=== PATIENT | female | born 1970 | race Caucasian/White ===

== ENCOUNTER 2020-08-30 09:31 | Outpatient (REF) | payer OTHER, SELFPAY ==
[2020-08-31 10:12] LABS: CT PCR NOT DETECTED (Not Detect.); NG PCR NOT DETECTED (Not Detect.)
[2020-08-31 12:24] LABS: BV Int Neg Control Negative (Negative); BV Int Pos Control Positive (Positive)
[2020-09-02 05:56] LABS: HPV mRNA E6/E7 rflx Not Detected (Not Detected)
== END 2020-08-30 09:32 | disposition home or self-care (01) ==
LOC: HO.LAB 09:31
PROVIDERS: PCP Internal Medicine; Visit Provider Obstetrics & Gynecology
DX: Z01.419 Encounter for gynecological examination (general) (routine) without abnormal findings (principal); Z11.3 Encounter for screening for infections with a predominantly sexual mode of transmission
CPT/HCPCS: 87480; 87491; 87510; 87591; 87624; 87660; 88142

== ENCOUNTER 2020-11-03 10:41 | Outpatient (REF) | payer OTHER, SELFPAY ==
[2020-11-03 13:56] LABS: MANUAL DIFF FLAG NO
[2020-11-03 14:07] LABS: Basophils Percent Auto 0.2 % (0-2); Eosinophils Absolute Auto 0.1 X10*3/uL (0.0-0.4); Eosinophils Percent Auto 0.7 % (0-4); Hematocrit 40.4 % (37-47); Hemoglobin 13.4 g/dl (12.0-16.0); Imm Gran Abs Auto 0.02 X10*3/uL (0.00-0.03); Imm Gran Pct Auto 0.2 % (0.0-0.4); Lymphocytes Absolute Auto 2.3 X10*3/uL (1.2-4.9); Lymphocytes Percent Auto 25.2 % (20-40); Mean Corpuscular HGB Conc 33.2 g/dl (31.0-35.0); Mean Corpuscular Hemoglobin 31.5 pg (27.0-33.0); Mean Corpuscular Volume 95.1 fL (80-98); Mean Platelet Volume 9.7 fL (9.4-12.3); Monocytes Absolute Auto 0.6 X10*3/uL (0.1-1.2); Monocytes Percent Auto 6.3 % (2-11); Neutrophils Absolute Auto 6.1 X10*3/uL (2.0-8.3); Neutrophils Percent Auto 67.4 % (45-73); Platelet Count 261 X10*3/uL (160-400); Red Blood Count 4.25 X10*6/uL (4.20-5.50); Red Cell Distribution Width 12.9 % (11.0-16.0); White Blood Count 9.1 X10*3/uL (4.8-10.8)
[2020-11-03 14:22] LABS: Anion Gap 13 (12-20); Blood Urea Nitrogen 13 mg/dL (9-16); Calcium 9.3 mg/dL (8.4-10.2); Carbon Dioxide 22 mmol/L (22-29); Chloride 108 mmol/L (96-108); Estimated Glomerular Filt Rate > 60; Glucose Random 82 mg/dL (60-115); Magnesium 2.1 mg/dL (1.6-2.6); Potassium 4.2 mmol/L (3.3-5.1); Sodium 139 mmol/L (135-145)
[2020-11-03 14:39] LABS: TSH reflex Free T4 0.96 uIU/mL (0.32-4.0)
[2020-11-08 18:12] LABS: Vitamin D 25-OH, D2 <4 ng/mL; Vitamin D 25-OH, D3 51 ng/mL; Vitamin D 25-OH, Total 51 ng/mL (30-100)
== END 2020-11-03 10:42 | disposition home or self-care (01) ==
LOC: HO.HMGCLDS 10:41
PROVIDERS: PCP Internal Medicine; Visit Provider Internal Medicine
DX: E55.9 Vitamin D deficiency, unspecified (principal); E66.9 Obesity, unspecified; F43.9 Reaction to severe stress, unspecified; I73.9 Peripheral vascular disease, unspecified; R52 Pain, unspecified; S91.009A Unspecified open wound, unspecified ankle, initial encounter; E03.8 Other specified hypothyroidism; Z72.0 Tobacco use
CPT/HCPCS: 36415; 80048; 82306; 83735; 84443; 85025

== ENCOUNTER 2021-12-25 07:01 | Outpatient (REF) | payer OTHER, SELFPAY ==
[2021-12-25 11:24] LABS: MANUAL DIFF FLAG NO
[2021-12-25 11:43] LABS: Basophils Percent Auto 0.6 % (0-2); Eosinophils Absolute Auto 0.2 X10*3/uL (0.0-0.4); Eosinophils Percent Auto 3.9 % (0-4); Hematocrit 35.8 % (37.0-47.0); Hemoglobin 11.9 g/dl (12.0-16.0); Imm Gran Abs Auto 0.01 X10*3/uL (0.00-0.03); Imm Gran Pct Auto 0.2 % (0.0-0.4); Lymphocytes Absolute Auto 1.8 X10*3/uL (1.2-4.9); Lymphocytes Percent Auto 34.1 % (20-40); Mean Corpuscular HGB Conc 33.2 g/dl (31.0-35.0); Mean Corpuscular Volume 93.2 fL (80.0-98.0); Mean Platelet Volume 9.7 fL (9.4-12.3); Monocytes Absolute Auto 0.6 X10*3/uL (0.1-1.2); Monocytes Percent Auto 10.3 % (2-11); Neutrophils Absolute Auto 2.7 x10*3/uL (2.0-8.3); Neutrophils Percent Auto 50.9 % (45-73); Platelet Count 246 X10*3/uL (160-400); Red Blood Count 3.84 X10*6/uL (4.20-5.50); Red Cell Distribution Width 13.8 % (11.0-16.0); White Blood Count 5.4 X10*3/uL (4.8-10.8)
[2021-12-25 12:20] LABS: Alanine Aminotransferase 32 U/L (0-31); Albumin Level 3.6 g/dL (3.5-5.0); Alkaline Phosphatase 68 U/L (39-117); Anion Gap 12 (12-20); Aspartate Amino Transferase 34 U/L (5-31); Bilirubin Total 0.2 mg/dL (0.0-1.0); Blood Urea Nitrogen 21 mg/dL (9-16); Calcium 8.6 mg/dL (8.4-10.2); Carbon Dioxide 22 mmol/L (22-29); Chloride 108 mmol/L (96-108); Cholesterol 174 mg/dL; Estimated Glomerular Filt Rate > 60; Glucose Fasting 98 mg/dL (60-99); HDL Cholesterol 47 mg/dL; LDL Cholesterol Calculated 94 mg/dl; Potassium 4.1 mmol/L (3.3-5.1); Sodium 138 mmol/L (135-145); Total Protein 7.1 g/dL (6.5-8.0); Triglycerides 169 mg/dL
[2021-12-25 12:41] LABS: TSH reflex Free T4 1.52 uIU/mL (0.32-4.0)
== END 2021-12-25 07:02 | disposition home or self-care (01) ==
LOC: HO.HMGCLDS 07:01
PROVIDERS: PCP Internal Medicine; Visit Provider Internal Medicine
DX: Z00.01 Encounter for general adult medical examination with abnormal findings (principal); F41.1 Generalized anxiety disorder; F32.4 Major depressive disorder, single episode, in partial remission; E66.9 Obesity, unspecified; G56.01 Carpal tunnel syndrome, right upper limb
CPT/HCPCS: 36415; 80053; 80061; 84443; 85025

== ENCOUNTER 2022-05-31 09:02 | Outpatient (REF) | payer OTHER, SELFPAY ==
--- NOTE | ~2022-05-31 | US_ITS ---
EXAMINATION: US VENOUS ULTRASOUND WITH DOPPLER LOWER EXTREMITY, LEFT CLINICAL INFORMATION: Left lower extremity pain and swelling. Assess for occult DVT. COMPARISON: Bilateral leg venous ultrasound with Doppler 07/31/2016. TECHNIQUE: Ultrasound of the deep veins is performed from the hip to the calf with compression sonography and color and pulse Doppler assessment. Spectral analysis with color-flow imaging is performed. FINDINGS: There is normal venous compression and respiratory variation and augmented flow. The visualized common femoral vein, superficial femoral vein, profunda femoral vein, popliteal vein, and the trifurcation region shows no evidence of deep venous thrombosis. There is a popliteal fossa cyst with some minor internal stranding and overall size 1.7 x 4.7 x 8.4 cm. US/US venous duplex LE LT IMPRESSION: -No DVT demonstrated in the left lower extremity. -Popliteal fossa cyst 1.7 x 4.7 x 8.4 cm.
== END 2022-05-31 09:03 | disposition home or self-care (01) ==
LOC: HO.HMGCX 09:02
PROVIDERS: PCP Internal Medicine; Visit Provider Internal Medicine
DX: I82.402 Acute embolism and thrombosis of unspecified deep veins of left lower extremity (principal)
CPT/HCPCS: 93971

== ENCOUNTER 2023-02-26 14:04 | Outpatient (AMB) | payer OTHER, SELFPAY ==
[2023-02-26 14:11] VITALS: BP 140/86; PULSE 76; O2SAT 96; BMI 40.7
--- NOTE | 2023-02-26 14:11 | MHC.PC.OV ---
Vital Signs 02/26/23 14:11 Height 5 ft 6 in Weight 252 lb BMI 40.7 BP 140/86 H Blood Pressure Location Lt brachial Position Sitting Pulse 76 Pulse Source Pulse Oximeter Pulse Oximetry (%) 96 Oxygen Delivery Method Room Air Intake Visit Reasons: Right Leg Issue's Allergies No Known Allergies [No Known Allergies*] Allergy (Verified 02/26/23 14:11) Medication List - Last Reconciled 02/26/23 by Alo Bennett MD ascorbic acid (vitamin C) 500 mg PO DAILY biotin 800 mcg PO DAILY buspirone 10 mg PO TID PRN 30 days cholecalciferol (vitamin D3) 25 mcg PO DAILY clotrimazole-betamethasone 1-0.05 % 1 appl topical ONCE 30 days escitalopram oxalate 10 mg PO DAILY escitalopram oxalate 20 mg PO DAILY 90 days ibuprofen 800 mg PO Q8H PRN 30 days levothyroxine 200 mcg PO DAILY levothyroxine 200 mcg PO DAILY 90 days sulfamethoxazole-trimethoprim 800-160 mg 1 tab PO Q12H vitamin B complex (Super B-50 Complex capsule) 1 cap PO DAILY Tobacco use date assessed: 02/26/23 Dental Screening Dental Screen Date: 02/26/23 Did you have a dental visit in the last 12 months?: No Did you have a dental problem in the last 6 months where you did not have access to dental care?: No Was dental information given to patient?: Patient has dentist HPI Right Leg Issue's HPI Details Patient is a 53-year-old female who was last seen December of last year Missed her regular follow-up appointment after that Patient have a peripheral vascular disease and she has developed open wound again right ankle Currently patient is going to wound clinic at [facility] Patient is requesting pain management again usually when that happens because of debridement pain she request narcotic pain management She is already on high-dose ibuprofen I have sent 21 tablets of Percocet she may take that before the wound clinic appointment She is also going through pre menopausal changes and is feeling bloated Patient says that she also feels swelling in her ankle which causes pain to get worse I have sent Lasix for the patient she may take 1 daily as needed. Tobacco abuse: Continue to smoke 1 pack per day patient says that she is ready to quit I have sent Nicoderm 21 mg patches Patient was instructed not to smoke while the patches on. She is also complaining of incontinence especially when she takes Lasix, at this point I think it will be better if she start wearing diapers since it is worse in the morning when she stands up. Anxiety and depression is stable patient is on Merissa prepped 20 mg Hypothyroidism: Continue levothyroxine 200 mcg She is due for labs Regular follow-up appointment discussed with the patient it is highly important that we see her at least 2 times a year in order to continue medications Patient is also morbidly obese with BMI of 40.7, having difficulty losing weight [facility], [facility] Medical History Peripheral vascular disease Chronic wound of extremity Vitamin D deficiency Other specified hypothyroidism Open ankle wound Surgical History History of tubal ligation Status post breast reduction Family History Father Lung cancer Smoker Mother Anxiety Maternal Grandfather No problems noted. Maternal Grandmother Cancer Paternal Grandmother No problems noted. Paternal Grandfather No problems noted. Brother No problems noted. Sister No problems noted. Sister No problems noted. Sister No problems noted. Sister No problems noted. Son No problems noted. Daughter No problems noted. Other Substance use disorder Social History Housing: House Alcohol intake: current Alcohol intake frequency: a few times a week Patient Tobacco Use Status: Current everyday Tobacco user Tobacco use type: Cigarette Cigarette Packs Per Day: 1 e-Cigarette/Vaping Use: Never Used service: No Current occupational status: employed Sexual orientation: Straight/Heterosexual Gender identity: Female Cognitive needs: No Hearing needs: No Vision needs: Yes Female Reproductive History Menstrual Age of Menarche: 15 Questionnaire PHQ-9 Over the last 2 weeks, how often have you been bothered by any of the following problems? 1. Little interest or pleasure in doing things: not at all 2. Feeling down, depressed, or hopeless: not at all 3. Trouble falling or staying asleep, or sleeping too much: not at all 4. Feeling tired or having little energy: not at all 5. Poor appetite or overeating: not at all 6. Feeling bad about yourself - or that you are a failure or have let yourself or your family down: not at all 7. Trouble concentrating on things, such as reading the newspaper or watching television: not at all 8. Moving or speaking so slowly that other people could have noticed. Or the opposite - being so fidgety or restless that you have been moving around a lot more than usual: not at all 9. Thoughts that you would be better off or of hurting yourself in some way: not at all Total score: 0 Depression Screening Interpretation: Negative Depression Screening Done: Yes 18158 - PHQ-9 Billing: Yes Source: Developed by Drs. Arjun Cantrell, Savannah Escoto, Macario Carrillo and colleagues, with an educational paul from [employer]. Thrive Questionnaire Date Thrive assessed: 01/17/22 CINDI-7 AMB Questionnaire CINDI-7 Date CINDI - 7 assessed: 01/17/22 Source: Developed by Drs. Arjun Cantrell, Savannah Escoto, Macario Carrillo and colleagues, with an educational paul from [employer]. Review of Systems Const Denies chills and Denies fever(s) ENT Denies epistaxis and Denies nasal discharge Card Denies chest pain Resp Denies chest congestion, Denies cough and Denies hemoptysis GI Denies diarrhea and Denies nausea Skin/Breast Denies rash Neuro Reports no additional complaints Psych Reports no additional complaints Endo Reports no additional complaints Physical exam (Primary Care) Vital Signs: Last Vital Signs Pulse 76 02/26/23 14:11 BP 140/86 H 02/26/23 14:11 Pulse Ox 96 02/26/23 14:11 Oxygen Delivery Method Room Air 02/26/23 14:11 BMI result Body Mass Index 40.7 Tobacco/Smoking Status: Tobacco use Status Tobacco use date assessed 02/26/23 02/26/23 14:17 Patient Tobacco Use Status Current everyday Tobacco 02/26/23 14:17 Tobacco use type Cigarette 02/26/23 14:17 e-Cigarette/Vaping Use Never Used 02/26/23 14:17 Depression Screening Interpretation: Negative Thrive Assessment: Date of Thrive Assessment Date Thrive assessed 01/17/22 02/26/23 14:17 Const General: cooperative, comfortable and no acute distress Orientation/consciousness: patient oriented x3 HENMT Head: Yes normocephalic Eyes General: appearance normal, both eyes and all related structures Neck Neck: Yes supple Resp Effort & Inspection: normal respiratory effort, no cough and no stridor Cardio Rhythm: regular rhythm Heart sounds: S1 normal heart sound present and S2 normal heart sound present Skin General skin exam: turgor normal Neuro General: patient oriented x3, tone normal and moves all extremities Extrem Other: Mild swelling both ankles, right ankle wrapped up Assessment and Plan Assessment & Plan (1) Peripheral vascular disease: Code(s): I73.9 - Peripheral vascular disease, unspecified (2) Open ankle wound: Code(s): S91.009A - Unspecified open wound, unspecified ankle, initial encounter Qualifiers: Encounter type: initial encounter Laterality: right Qualified Code(s): S91.001A - Unspecified open wound, right ankle, initial encounter (3) Other specified hypothyroidism: Code(s): E03.8 - Other specified hypothyroidism (4) Depression, major, in partial remission: Code(s): F32.4 - Major depressive disorder, single episode, in partial remission Qualifiers: Major depression recurrence: recurrent Qualified Code(s): F33.41 - Major depressive disorder, recurrent, in partial remission (5) Anxiety, generalized: Code(s): F41.1 - Generalized anxiety disorder (6) Tobacco abuse: Code(s): Z72.0 - Tobacco use (7) Stress incontinence: Code(s): N39.3 - Stress incontinence (female) (male) (8) Morbid obesity due to excess calories: Code(s): E66.01 - Morbid (severe) obesity due to excess calories (9) Pain management: Code(s): R52 - Pain, unspecified Plan Patient is a 53-year-old female who was last seen December of last year Missed her regular follow-up appointment after that Patient have a peripheral vascular disease and she has developed open wound again right ankle Currently patient is going to wound clinic at [facility] Patient is requesting pain management again usually when that happens because of debridement pain she request narcotic pain management She is already on high-dose ibuprofen I have sent 21 tablets of Percocet she may take that before the wound clinic appointment She is also going through pre menopausal changes and is feeling bloated Patient says that she also feels swelling in her ankle which causes pain to get worse I have sent Lasix for the patient she may take 1 daily as needed. Tobacco abuse: Continue to smoke 1 pack per day patient says that she is ready to quit I have sent Nicoderm 21 mg patches Patient was instructed not to smoke while the patches on. She is also complaining of incontinence especially when she takes Lasix, at this point I think it will be better if she start wearing diapers since it is worse in the morning when she stands up. Anxiety and depression is stable patient is on Merissa prepped 20 mg Hypothyroidism: Continue levothyroxine 200 mcg She is due for labs Regular follow-up appointment discussed with the patient it is highly important that we see her at least 2 times a year in order to continue medications Patient is also morbidly obese with BMI of 40.7, having difficulty losing weight Orders: Orders TSH reflex Free T4 Today E03.8 - Other specified hypothyroidism, F32.4 - Major depressive disorder, single episode, in partial remission, I73.9 - Peripheral vascular disease, unspecified, S91.009A - Unspecified open wound, unspecified ankle, initial encounter LDL Cholesterol Direct Today E03.8 - Other specified hypothyroidism, F32.4 - Major depressive disorder, single episode, in partial remission, I73.9 - Peripheral vascular disease, unspecified, S91.009A - Unspecified open wound, unspecified ankle, initial encounter Complete Blood Count Auto Diff Today E03.8 - Other specified hypothyroidism, F32.4 - Major depressive disorder, single episode, in partial remission, I73.9 - Peripheral vascular disease, unspecified, S91.009A - Unspecified open wound, unspecified ankle, initial encounter Comprehensive Met. Panel Today E03.8 - Other specified hypothyroidism, F32.4 - Major depressive disorder, single episode, in partial remission, I73.9 - Peripheral vascular disease, unspecified, S91.009A - Unspecified open wound, unspecified ankle, initial encounter Medications: New furosemide 20 mg PO QAM 30 tabs 0RF oxycodone-acetaminophen 5-325 mg (Percocet) Partial Fill upon patient request. 1 tab PO TID 7 days PRN 20 tabs 0RF pain nicotine (Nicoderm CQ) 1 patch transdermal DAILY 28 ea 0RF Discontinued buspirone Discontinued Reason: Patient Completed Course 10 mg PO TID 30 days PRN 90 tabs 0RF anxiety Coding Level of Care Code Est Pt Level 5 (89876) Diagnoses Peripheral vascular disease I73.9 Open wound of right ankle, initial encounter S91.001A Encounter type: initial encounter Laterality: right Other specified hypothyroidism E03.8 Recurrent major depressive disorder, in partial remission F33.41 Major depression recurrence: recurrent Anxiety, generalized F41.1 Tobacco abuse Z72.0 Stress incontinence N39.3 Morbid obesity due to excess calories E66.01 Pain management R52 Time Spent (min) 45 Comment 7 minute prep, 25 with patient, 13 minute charting and coordination of care
== END 2023-02-26 14:28 | disposition home or self-care (01) ==
PROVIDERS: PCP Internal Medicine; Visit Provider Internal Medicine
DX: I73.9 Peripheral vascular disease, unspecified (principal); F33.41 Major depressive disorder, recurrent, in partial remission; E66.01 Morbid (severe) obesity due to excess calories; Z68.41 Body mass index [BMI] 40.0-44.9, adult; S91.001A Unspecified open wound, right ankle, initial encounter; E03.8 Other specified hypothyroidism; F41.1 Generalized anxiety disorder; Z72.0 Tobacco use; N39.3 Stress incontinence (female) (male); R52 Pain, unspecified
CPT/HCPCS: 99215

== ENCOUNTER 2023-02-26 14:30 | Outpatient (REF) | payer OTHER, SELFPAY ==
[2023-02-26 15:51] LABS: MANUAL DIFF FLAG NO
[2023-02-26 16:10] LABS: Basophils Percent Auto 0.4 % (0-2); Eosinophils Absolute Auto 0.1 X10*3/uL (0.0-0.4); Eosinophils Percent Auto 1.4 % (0-4); Hematocrit 38.6 % (37.0-47.0); Hemoglobin 13.1 g/dl (12.0-16.0); Imm Gran Abs Auto 0.03 X10*3/uL (0.00-0.03); Imm Gran Pct Auto 0.4 % (0.0-0.4); Lymphocytes Absolute Auto 2.2 X10*3/uL (1.2-4.9); Lymphocytes Percent Auto 30.3 % (20-40); Mean Corpuscular HGB Conc 33.9 g/dl (31.0-35.0); Mean Corpuscular Hemoglobin 31.4 pg (27.0-33.0); Mean Corpuscular Volume 92.6 fL (80.0-98.0); Mean Platelet Volume 9.6 fL (9.4-12.3); Monocytes Absolute Auto 0.6 X10*3/uL (0.1-1.2); Monocytes Percent Auto 8.1 % (2-11); Neutrophils Absolute Auto 4.3 x10*3/uL (2.0-8.3); Neutrophils Percent Auto 59.4 % (45-73); Platelet Count 264 X10*3/uL (160-400); Red Blood Count 4.17 X10*6/uL (4.20-5.50); Red Cell Distribution Width 13.2 % (11.0-16.0); White Blood Count 7.3 X10*3/uL (4.8-10.8)
[2023-02-26 16:30] LABS: Alanine Aminotransferase 20 U/L (0-31); Alkaline Phosphatase 72 U/L (39-117); Anion Gap 12 (12-20); Aspartate Amino Transferase 22 U/L (5-31); Bilirubin Total 0.4 mg/dL (0.0-1.0); Blood Urea Nitrogen 19 mg/dL (9-16); Calcium 9.4 mg/dL (8.4-10.2); Carbon Dioxide 20 mmol/L (22-29); Chloride 110 mmol/L (96-108); Estimated Glomerular Filt Rate > 60; Glucose Random 93 mg/dL (60-115); Potassium 3.9 mmol/L (3.3-5.1); Sodium 138 mmol/L (135-145)
[2023-02-26 16:47] LABS: TSH reflex Free T4 3.72 uIU/mL (0.32-4.0)
[2023-02-28 09:33] LABS: LDL Cholesterol Direct 124 mg/dL (<100)
== END 2023-02-26 14:31 | disposition home or self-care (01) ==
LOC: HO.HMGCLDS 14:30
PROVIDERS: PCP Internal Medicine; Visit Provider Internal Medicine
DX: I73.9 Peripheral vascular disease, unspecified (principal); S91.009A Unspecified open wound, unspecified ankle, initial encounter; E03.8 Other specified hypothyroidism; F32.4 Major depressive disorder, single episode, in partial remission
CPT/HCPCS: 36415; 80053; 83721; 84443; 85025

== ENCOUNTER 2023-04-04 15:27 | Outpatient (AMB) | payer OTHER, SELFPAY ==
[2023-04-04 15:32] VITALS: BP 128/80; PULSE 76; O2SAT 97; BMI 40.5
--- NOTE | 2023-04-04 15:32 | MHC.PC.OV ---
Vital Signs 04/04/23 15:32 Height 5 ft 6 in Weight 251 lb BMI 40.5 BP 128/80 Blood Pressure Location Rt brachial Position Sitting Pulse 76 Pulse Source Pulse Oximeter Pulse Oximetry (%) 97 Oxygen Delivery Method Room Air Intake Visit Reasons: one month fu Allergies No Known Allergies [No Known Allergies*] Allergy (Verified 04/04/23 15:34) Medication List - Last Reconciled 04/04/23 by Alo Bennett MD ascorbic acid (vitamin C) 500 mg PO DAILY biotin 800 mcg PO DAILY cholecalciferol (vitamin D3) 25 mcg PO DAILY clotrimazole-betamethasone 1-0.05 % 1 appl topical ONCE 30 days escitalopram oxalate 20 mg PO DAILY 90 days furosemide 20 mg PO QAM ibuprofen 800 mg PO Q8H PRN 30 days levothyroxine 200 mcg PO DAILY 90 days nicotine (Nicoderm CQ) 1 patch transdermal DAILY oxycodone-acetaminophen 5-325 mg (Percocet) 1 tab PO TID PRN 7 days vitamin B complex (Super B-50 Complex capsule) 1 cap PO DAILY Tobacco use date assessed: 04/04/23 Dental Screening Dental Screen Date: 04/04/23 HPI one month fu HPI Details Physical exam appointment Due for OBGYN visit Due for mammogram Declined colonoscopy On examination today I feel lump 09:00 o'clock left side I have ordered ultrasound breast as well Patient have a history of breast reduction surgery years ago She has a peripheral vascular disease and currently going to a wound clinic for an open wound BMI 40.5 patient is trying to lose weight Still smoking half a pack a day and trying to quit [facility] Medical History Peripheral vascular disease Chronic wound of extremity Vitamin D deficiency Other specified hypothyroidism Open ankle wound Surgical History Status post breast reduction History of tubal ligation Family History Father Lung cancer Smoker Mother Anxiety Maternal Grandfather No problems noted. Maternal Grandmother Cancer Paternal Grandmother No problems noted. Paternal Grandfather No problems noted. Brother No problems noted. Sister No problems noted. Sister No problems noted. Sister No problems noted. Sister No problems noted. Son No problems noted. Daughter No problems noted. Other Substance use disorder Social History Housing: House Alcohol intake: current Alcohol intake frequency: a few times a week Patient Tobacco Use Status: Current everyday Tobacco user Tobacco use type: Cigarette Cigarette Packs Per Day: 1 e-Cigarette/Vaping Use: Never Used service: No Current occupational status: employed Sexual orientation: Straight/Heterosexual Gender identity: Female Cognitive needs: No Hearing needs: No Vision needs: Yes Female Reproductive History Menstrual Age of Menarche: 15 Questionnaire PHQ-9 Over the last 2 weeks, how often have you been bothered by any of the following problems? 1. Little interest or pleasure in doing things: not at all 2. Feeling down, depressed, or hopeless: not at all 3. Trouble falling or staying asleep, or sleeping too much: not at all 4. Feeling tired or having little energy: not at all 5. Poor appetite or overeating: not at all 6. Feeling bad about yourself - or that you are a failure or have let yourself or your family down: not at all 7. Trouble concentrating on things, such as reading the newspaper or watching television: not at all 8. Moving or speaking so slowly that other people could have noticed. Or the opposite - being so fidgety or restless that you have been moving around a lot more than usual: not at all 9. Thoughts that you would be better off or of hurting yourself in some way: not at all Total score: 0 Depression Screening Interpretation: Negative Depression Screening Done: Yes 95738 - PHQ-9 Billing: Yes Source: Developed by Drs. Arjun Cantrell, Savannah Escoto, Macario Carrillo and colleagues, with an educational paul from [employer]. Thrive Questionnaire Date Thrive assessed: 04/04/23 I am a: Patient What is your living situation today?: I have a steady place to live Within the past 12 months, did the food you bought not last and you didn't have the money to get more?: Never true Within the past 12 months, did you worry whether your food would run out before you got money to buy more?: Never true Do you have trouble paying for medicines?: No Do you have trouble getting transportation to medical appointments?: No Do you have trouble paying your heating and electricity bill?: No Do you have trouble taking care of your child, family member or friend?: No Do you have trouble with day-to-day activities such as bathing, preparing meals, shopping, managing finances, etc.?: No Are you currently unemployed and looking for a job?: No Are you interested in more education?: No Please select the resources that you would like help with: None Currently or been in a relationship where the following occur: no concerns reported AUDIT C Alcohol Use Questionnaire (AUDIT-C) 1. How often do you have a drink containing alcohol?: Monthly or less 2. How many drinks containing alcohol do you have on a typical day when you are drinking?: 1 or 2 3. How often do you have six or more drinks on one occasion?: Never Total Score: 1 CINDI-7 AMB Questionnaire CINDI-7 Date CINDI - 7 assessed: 04/04/23 Feeling nervous, anxious, or on edge: 0 = Not at all Not being able to stop or control worryin = Not at all Worrying too much about different things: 0 = Not at all Trouble relaxin = Not at all Being so restless that it is hard to sit still: 0 = Not at all Becoming easily annoyed or irritable: 0 = Not at all Feeling afraid as if something awful might happen: 0 = Not at all Total CINDI-7 score (0-4 normal; 5-9 mild; 10-14 moderate; 15-21 severe): 0 Source: Developed by Drs. Arjun Cantrell, Savannah Escoto, Macario Carrillo and colleagues, with an educational paul from [employer]. CINDI-7 Assessment Billing CINDI-7 Assessment Tool: CINDI-7 Assessment 48264 Review of Systems Const Denies chills, Denies fever(s) and Denies headache(s) Eyes Denies blurry vision ENT Denies headache(s), Denies nasal discharge, Denies nasal obstruction, Denies odynophagia and Denies sinus pain Card Denies chest pain at rest and Denies chest pain with activity Resp Denies cough and Denies hemoptysis GI Denies diarrhea, Denies odynophagia, Denies vomiting and Denies hematemesis Reports as per HPI Musc Denies abnormal gait Skin/Breast Reports as per HPI Neuro Denies Neuro-related abnormal movements, Denies Abnormal speech present, Denies abnormal gait, Denies headache(s) and Denies Sensory deficit (Neuro) Psych Denies mood swings and Denies paranoia Endo Reports as per HPI Pipe/Lymph Reports as per HPI Aller/Immun Reports as per HPI Physical exam (Primary Care) Vital Signs: Last Vital Signs Pulse 76 04/04/23 15:32 BP 128/80 04/04/23 15:32 Pulse Ox 97 04/04/23 15:32 Oxygen Delivery Method Room Air 04/04/23 15:32 BMI result Body Mass Index 40.5 Tobacco/Smoking Status: Tobacco use Status Tobacco use date assessed 04/04/23 04/04/23 15:38 Patient Tobacco Use Status Current everyday Tobacco 04/04/23 15:38 Tobacco use type Cigarette 04/04/23 15:38 e-Cigarette/Vaping Use Never Used 04/04/23 15:38 Are you ready to quit: Yes Tobacco cessation counseling provided: Yes Items discussed: Other (Encouraged patient to cut down 1 cigarette a day until the end of month. It is her new year's resolution to stop smoking from 28 of April) PHQ-9: PHQ-9 Score PHQ-9: Total score 0 04/04/23 15:38 Depression Screening Interpretation: Negative Thrive Assessment: Date of Thrive Assessment Date Thrive assessed 04/04/23 04/04/23 15:38 Currently or been in a relationship where the following occur: no concerns reported Const General: cooperative, comfortable and no acute distress Orientation/consciousness: patient oriented x3 HENMT Head: Yes normocephalic and Yes atraumatic Eyes General: appearance normal, both eyes and all related structures Pupils: Equal, round and reactive pupils present EOM: EOMs intact bilaterally Neck Neck: Yes supple and No lymphadenopathy Thyroid: Thyroid normal Lymphatic: no lymphadenopathy noted Chest Chest/axillae images: 1. Lump felt size of moss Resp Effort & Inspection: normal respiratory effort and able to speak in complete sentences Auscultation: clear to auscultation bilaterally Cardio Heart sounds: S1 normal heart sound present and S2 normal heart sound present GI Palpation (GI): Soft to palpation and nontender Auscultation: normal bowel sounds General: Yes no CVA tenderness Back/Spine/Pelvis Back: no CVA tenderness Skin General skin exam: elasticity normal and turgor normal Neuro General: patient oriented x3 and gait normal Cranial nerves: Yes Equal, round and reactive pupils present Speech: No Abnormal speech present Sensory Exam: No Sensory deficit (Neuro) Coordination: tandem gait normal and Romberg test negative Assessment and Plan Assessment & Plan (1) Encounter for general adult medical examination with abnormal findings: Code(s): Z00.01 - Encounter for general adult medical examination with abnormal findings (2) Breast lump on left side at 9 o'clock position: Code(s): N63.25 - Unspecified lump in the left breast, overlapping quadrants (3) Morbid obesity due to excess calories: Code(s): E66.01 - Morbid (severe) obesity due to excess calories (4) Depression, major, in partial remission: Code(s): F32.4 - Major depressive disorder, single episode, in partial remission Qualifiers: Major depression recurrence: recurrent Qualified Code(s): F33.41 - Major depressive disorder, recurrent, in partial remission (5) Peripheral vascular disease: Code(s): I73.9 - Peripheral vascular disease, unspecified (6) Other specified hypothyroidism: Code(s): E03.8 - Other specified hypothyroidism (7) Open ankle wound: Code(s): S91.009A - Unspecified open wound, unspecified ankle, initial encounter Qualifiers: Encounter type: initial encounter Laterality: right Qualified Code(s): S91.001A - Unspecified open wound, right ankle, initial encounter (8) Tobacco abuse: Code(s): Z72.0 - Tobacco use Plan Physical exam appointment Due for OBGYN visit Due for mammogram Declined colonoscopy On examination today I feel lump 09:00 o'clock left side I have ordered ultrasound breast as well Patient have a history of breast reduction surgery years ago She has a peripheral vascular disease and currently going to a wound clinic for an open wound BMI 40.5 patient is trying to lose weight Still smoking half a pack a day and trying to quit Orders: Orders US breast LT complete Today N63.25 - Unspecified lump in the left breast, overlapping quadrants MM tomosynthesis diagnostic BI Today N63.25 - Unspecified lump in the left breast, overlapping quadrants Referrals [employer] Referral Z01.419 - Encounter for gynecological examination (general) (routine) without abnormal findings Coding Level of Care Code Est Pt Prev Care 40-64y(63723) Diagnoses Encounter for general adult medical examination with abnormal findings Z00.01 Breast lump on left side at 9 o'clock position N63.25 Morbid obesity due to excess calories E66.01 Recurrent major depressive disorder, in partial remission F33.41 Major depression recurrence: recurrent Peripheral vascular disease I73.9 Other specified hypothyroidism E03.8 Open wound of right ankle, initial encounter S91.001A Encounter type: initial encounter Laterality: right Tobacco abuse Z72.0 Additional Codes CINDI-7 Assessment Billing - CINDI-7 Assessment Tool: CINDI-7 Assessment [id number] ([id number])
== END 2023-04-04 16:01 | disposition home or self-care (01) ==
PROVIDERS: PCP Internal Medicine; Visit Provider Internal Medicine
DX: Z00.01 Encounter for general adult medical examination with abnormal findings (principal); E66.01 Morbid (severe) obesity due to excess calories; F33.41 Major depressive disorder, recurrent, in partial remission; I73.9 Peripheral vascular disease, unspecified; N63.25 Unspecified lump in the left breast, overlapping quadrants; E03.8 Other specified hypothyroidism; S91.001A Unspecified open wound, right ankle, initial encounter; Z72.0 Tobacco use
CPT/HCPCS: 99396

== ENCOUNTER 2023-05-09 12:48 | Outpatient (REF) | payer OTHER, SELFPAY ==
--- NOTE | ~2023-05-09 | MM_ITS ---
EXAMINATION: MM DIAGNOSTIC DIGITAL BREAST TOMOSYNTHESIS, BILATERAL US BREAST LIMITED, LEFT MAMMOGRAPHY: CLINICAL INFORMATION: 53-year-old female, history of breast reduction complaining of palpable abnormality left breast at the 9:00 axis, middle one third. Patient also due for routine bilateral screening, has not had a mammogram since 09/04/2016. COMPARISON: Mammography: 09/04/2016. TECHNIQUE: Digital breast tomosynthesis is performed in both the craniocaudal and mediolateral oblique views along with computer-aided detection (CAD). Synthesized 2D images are generated from the tomosynthesis. In addition, 3-D spot compression views of the left breast were performed in the CC and MLO projections of the region of palpable concern. FINDINGS: The breasts are almost entirely fatty (ACR BI-RADS breast composition Category a). Technologist has placed a BB marker on the region of palpable concern in the left breast 9:00, which appears to lie directly on post mammoplasty scarring. No underlying mass, suspicious calcifications, or architectural distortion identified. Only linear scarring is seen, likely accounting for the palpable focus of concern. The right breast demonstrates dystrophic calcifications in the upper outer quadrant. Otherwise, no suspicious masses, grouped calcifications, or areas of architectural distortion. Unusual appearance of axillary lymph nodes which are densely calcified bilaterally, likely from a chronic etiology. Patient states a vague history of lymph node problem but can't remember the cause. These appear benign. ULTRASOUND: CLINICAL INFORMATION: As above. COMPARISON: None. TECHNIQUE: Targeted sonographic evaluation was performed using a high frequency linear transducer. Attention was given to the left breast 6-11:00 axes to include the palpable focus of concern. Selected archived documentation. FINDINGS: LEFT BREAST: There is predominantly fatty breast tissue present. No suspicious mass is seen. There is no pathologic acoustic shadowing. There is no cystic abnormality. In the region of palpable concern, there is subjacent scarring from remote mammoplasty, which appears to account for the palpable abnormality. MM/MM tomosynthesis diagnostic BI IMPRESSION: No findings suspicious for malignancy in either breast. Palpable focus of abnormality in the left breast at 9:00 appears to be related to scarring from prior reduction mammoplasty. This is benign. Recommend the patient resume routine annual screening. OVERALL ASSESSMENT: Mammography: BI-RADS 2 - Benign Findings Ultrasound: BI-RADS 2 - Benign Findings RECOMMENDATION: 1 year F/U This patient's information was entered into a reminder system with a target due date for their next mammogram.
== END 2023-05-09 12:49 | disposition home or self-care (01) ==
LOC: HO.MAMMO 12:48
PROVIDERS: PCP Internal Medicine; Visit Provider Internal Medicine
DX: N63.25 Unspecified lump in the left breast, overlapping quadrants (principal)
CPT/HCPCS: 76642; 77062; 77066

== ENCOUNTER → 2023-05-09 14:00 | Outpatient (BNV) | payer OTHER, SELFPAY | PROVIDERS: PCP Internal Medicine; Visit Provider Radiology Diagnostic Radiology | DX: R92.1 Mammographic calcification found on diagnostic imaging of breast (principal); R92.8 Other abnormal and inconclusive findings on diagnostic imaging of breast | CPT/HCPCS: 76642; 77062; 77066 ==

== ENCOUNTER 2023-09-03 13:18 | Outpatient (AMB) | payer OTHER, SELFPAY ==
--- NOTE | 2023-09-03 13:19 | A.OFFPC_ITS ---
Vital Signs 09/03/23 13:19 Height 5 ft 6 in Intake Visit Reasons: Discuss Meds~ [phone] Allergies No Known Allergies [No Known Allergies*] Allergy (Verified 09/03/23 13:19) Medication List - Last Reconciled 09/03/23 by Alo Bennett MD ascorbic acid (vitamin C) 500 mg PO DAILY biotin 800 mcg PO DAILY cholecalciferol (vitamin D3) 25 mcg PO DAILY clotrimazole-betamethasone 1-0.05 % 1 appl topical ONCE 30 days escitalopram oxalate 20 mg PO DAILY 90 days furosemide 20 mg PO QAM ibuprofen 800 mg PO Q8H PRN 30 days levothyroxine 200 mcg PO DAILY 90 days nicotine 1 patch transdermal DAILY 30 days oxycodone-acetaminophen 5-325 mg (Percocet) 1 tab PO TID PRN 10 days vitamin B complex (Super B-50 Complex capsule) 1 cap PO DAILY Tobacco use date assessed: 09/03/23 Dental Screening Dental Screen Date: 09/03/23 Did you have a dental visit in the last 12 months?: Yes Did you have a dental problem in the last 6 months where you did not have access to dental care?: No Was dental information given to patient?: Patient has dentist HPI Discuss Meds~ [phone] HPI Details Patient is a 53-year-old female this is a telemedicine video conference follow-up Patient have a peripheral vascular disease and she has developed open wound ri ght ankle since March of last year which is not healing Currently patient is going to wound clinic at [facility] She is taking ibuprofen a lot, recently she has developed infection in the wound and is now taking amoxicillin Whenever she has infection her pain gets worse, patient is requesting Percocet tablets I have sent 30 she may take that as needed She go for debridement every Friday She also take Lasix as needed Tobacco abuse: Continue to smoke 1 pack last her 1 and half day, she is requesting Nicoderm patches along with Nicorette gum I do not think insurance will cover for both, I have sent 14 mg patches if she is to use come as well she can buy it [id number]. Urine incontinence: Patient uses diapers as needed Anxiety and depression is stable patient is on escitalopram 20 mg Hypothyroidism: Continue levothyroxine 200 mcg She is due for [facility] Medical History Peripheral vascular disease Chronic wound of extremity Vitamin D deficiency Other specified hypothyroidism Open ankle wound Surgical History Status post breast reduction History of tubal ligation Family History Father Lung cancer Smoker Mother Anxiety Maternal Grandfather No problems noted. Maternal Grandmother Cancer Paternal Grandmother No problems noted. Paternal Grandfather No problems noted. Brother No problems noted. Sister No problems noted. Sister No problems noted. Sister No problems noted. Sister No problems noted. Son No problems noted. Daughter No problems noted. Other Substance use disorder Social History Housing: House Alcohol intake: current Alcohol intake frequency: a few times a week Patient Tobacco Use Status: Current everyday Tobacco user Tobacco use type: Cigarette Cigarette Packs Per Day: 1 e-Cigarette/Vaping Use: Never Used service: No Current occupational status: employed Sexual orientation: Straight/Heterosexual Gender identity: Female Cognitive needs: No Hearing needs: No Vision needs: Yes Female Reproductive History Menstrual Age of Menarche: 15 Questionnaire Thrive Questionnaire Date Thrive assessed: 04/04/23 AUDIT C Alcohol Use Questionnaire (AUDIT-C) 1. How often do you have a drink containing alcohol?: Monthly or less 2. How many drinks containing alcohol do you have on a typical day when you are drinking?: 1 or 2 3. How often do you have six or more drinks on one occasion?: Never Total Score: 1 Score Reviewed/Action Taken: Yes CINDI-7 AMB Questionnaire CINDI-7 Date CINDI - 7 assessed: 04/04/23 Source: Developed by Drs. Arjun Cantrell, Savannah Escoto, Macario Carrillo and colleagues, with an educational paul from [employer]. Review of Systems Const Denies chills and Denies fever(s) ENT Denies epistaxis and Denies nasal discharge Card Denies chest pain Resp Denies chest congestion and Denies hemoptysis GI Denies diarrhea and Denies nausea Skin/Breast Denies rash Neuro Reports no additional complaints Psych Reports no additional complaints Endo Reports no additional complaints Physical exam (Primary Care) Tobacco/Smoking Status: Tobacco use Status Tobacco use date assessed 09/03/23 09/03/23 13:20 Patient Tobacco Use Status Current everyday Tobacco 09/03/23 13:20 Tobacco use type Cigarette 09/03/23 13:20 e-Cigarette/Vaping Use Never Used 09/03/23 13:20 Thrive Assessment: Date of Thrive Assessment Date Thrive assessed 04/04/23 09/03/23 13:20 Telehealth Telehealth Telehealth Platform: [employer] Location of provider rendering services: practice address Location of patient: address on file Patient Identification confirmed using: Name, : Yes Telehealth method: video Patient verbally consented to treatment: Yes Patient verbally consented to billing insurance company: Yes Patient informed of any privacy concerns related to visit: Yes Assessment and Plan Assessment & Plan (1) Depression, major, in partial remission: Code(s): F32.4 - Major depressive disorder, single episode, in partial remission Qualifiers: Major depression recurrence: recurrent Qualified Code(s): F33.41 - Major depressive disorder, recurrent, in partial remission (2) Peripheral vascular disease: Code(s): I73.9 - Peripheral vascular disease, unspecified (3) Other specified hypothyroidism: Code(s): E03.8 - Other specified hypothyroidism (4) Open ankle wound: Code(s): S91.009A - Unspecified open wound, unspecified ankle, initial encounter Qualifiers: Encounter type: initial encounter Laterality: right Qualified Code(s): S91.001A - Unspecified open wound, right ankle, initial encounter (5) Tobacco abuse: Code(s): Z72.0 - Tobacco use (6) Anxiety, generalized: Code(s): F41.1 - Generalized anxiety disorder (7) Stress incontinence: Code(s): N39.3 - Stress incontinence (female) (male) (8) Pain management: Code(s): R52 - Pain, unspecified Plan Patient is a 53-year-old female this is a telemedicine video conference follow- up Patient have a peripheral vascular disease and she has developed open wound right ankle since March of last year which is not healing Currently patient is going to wound clinic at [facility] She is taking ibuprofen a lot, recently she has developed infection in the wound and is now taking amoxicillin Whenever she has infection her pain gets worse, patient is requesting Percocet tablets I have sent 30 she may take that as needed She go for debridement every Friday She also take Lasix as needed Tobacco abuse: Continue to smoke 1 pack last her 1 and half day, she is requesting Nicoderm patches along with Nicorette gum I do not think insurance will cover for both, I have sent 14 mg patches if she is to use come as well she can buy it [id number]. Urine incontinence: Patient uses diapers as needed Anxiety and depression is stable patient is on escitalopram 20 mg Hypothyroidism: Continue levothyroxine 200 mcg She is due for labs 30 minutes spent in care of this patient, including [id number], medication refills Charting Medications: Changed From oxycodone-acetaminophen 5-325 mg (Percocet) Partial Fill upon patient request. 1 tab PO TID 7 days PRN 20 tabs 0RF pain To oxycodone-acetaminophen 5-325 mg (Percocet) Partial Fill upon patient request. 1 tab PO TID PRN 30 tabs 0RF pain 10 days From nicotine (Nicoderm CQ) 1 patch transdermal DAILY 28 ea 0RF To nicotine 1 patch transdermal DAILY 28 ea 2RF 30 days Refilled furosemide 20 mg PO QAM 90 tabs 0RF escitalopram oxalate 20 mg PO DAILY 90 tabs 1RF anxiety 90 days F41.0 - Panic disorder [episodic paroxysmal anxiety] Coding Level of Care Code Tele Est Pt Level 4 (95224) Diagnoses Recurrent major depressive disorder, in partial remission F33.41 Major depression recurrence: recurrent Peripheral vascular disease I73.9 Other specified hypothyroidism E03.8 Open wound of right ankle, initial encounter S91.001A Encounter type: initial encounter Laterality: right Tobacco abuse Z72.0 Anxiety, generalized F41.1 Stress incontinence N39.3 Pain management R52
== END 2023-09-03 14:12 | disposition home or self-care (01) ==
LOC: HO.HMGC 13:18
PROVIDERS: PCP Internal Medicine; Visit Provider Internal Medicine
DX: I73.9 Peripheral vascular disease, unspecified (principal); F33.41 Major depressive disorder, recurrent, in partial remission; E03.8 Other specified hypothyroidism; S91.001A Unspecified open wound, right ankle, initial encounter; Z72.0 Tobacco use; F41.1 Generalized anxiety disorder; N39.3 Stress incontinence (female) (male); R52 Pain, unspecified
CPT/HCPCS: 99214

== ENCOUNTER 2023-12-05 07:47 | Outpatient (AMB) | payer OTHER, SELFPAY ==
--- NOTE | 2023-12-05 07:51 | A.OFFPC_ITS ---
Intake Visit Reasons: Pain management Questions Allergies No Known Allergies [No Known Allergies*] Allergy (Verified 09/03/23 13:19) Medication List - Last Reconciled 12/05/23 by Alo Bennett MD ascorbic acid (vitamin C) 500 mg PO DAILY biotin 800 mcg PO DAILY cholecalciferol (vitamin D3) 25 mcg PO DAILY clotrimazole-betamethasone 1-0.05 % 1 appl topical ONCE 30 days escitalopram oxalate 20 mg PO DAILY 90 days furosemide 20 mg PO QAM ibuprofen 800 mg PO Q8H PRN 30 days levothyroxine 200 mcg PO DAILY 90 days nicotine 1 patch transdermal DAILY 30 days oxycodone-acetaminophen 5-325 mg (Percocet) 1 tab PO TID PRN 10 days vitamin B complex (Super B-50 Complex capsule) 1 cap PO DAILY Tobacco use date assessed: 09/03/23 Dental Screening Dental Screen Date: 09/03/23 HPI Pain management Questions HPI Details Patient is a 53-year-old female who is suffering from lower leg wound due to vascular reason for the past 10 years off and on Currently patient is struggling with the healing process and is established with Wound Clinic Wound is located in her right lower leg Patient says that the wound has gotten worse over last few days She has appointment coming up with the Clinic, patient has a patient that she will be started on antibiotic She goes in for debridement which is very painful Currently she is taking Percocet t.i.d. with ibuprofen 800 b.i.d. She is requesting 1 month supply of Percocet and then she will come over and we will discuss it further Patient says that at this point it is difficult for her to continue working She is exploring options of disability. [facility] Medical History Peripheral vascular disease Chronic wound of extremity Vitamin D deficiency Other specified hypothyroidism Open ankle wound Surgical History Status post breast reduction History of tubal ligation Family History Father Lung cancer Smoker Mother Anxiety Maternal Grandfather No problems noted. Maternal Grandmother Cancer Paternal Grandmother No problems noted. Paternal Grandfather No problems noted. Brother No problems noted. Sister No problems noted. Sister No problems noted. Sister No problems noted. Sister No problems noted. Son No problems noted. Daughter No problems noted. Other Substance use disorder Social History Housing: House Alcohol intake: current Alcohol intake frequency: a few times a week Patient Tobacco Use Status: Current everyday Tobacco user Tobacco use type: Cigarette Cigarette Packs Per Day: 1 e-Cigarette/Vaping Use: Never Used service: No Current occupational status: employed Sexual orientation: Straight/Heterosexual Gender identity: Female Cognitive needs: No Hearing needs: No Vision needs: Yes Female Reproductive History Menstrual Age of Menarche: 15 Questionnaire Thrive Questionnaire Date Thrive assessed: 04/04/23 CINDI-7 AMB Questionnaire CINDI-7 Date CINDI - 7 assessed: 04/04/23 Source: Developed by Drs. Arjun Cantrell, Savannah Escoto, Macario Carrillo and colleagues, with an educational paul from [employer]. Review of Systems Const Denies chills and Denies fever(s) ENT Denies epistaxis and Denies nasal discharge Card Denies chest pain Resp Denies chest congestion, Denies cough and Denies hemoptysis GI Denies diarrhea and Denies nausea Skin/Breast Denies rash Neuro Reports no additional complaints Psych Reports no additional complaints Endo Reports no additional complaints Physical exam (Primary Care) Tobacco/Smoking Status: Tobacco use Status Tobacco use date assessed 09/03/23 09/03/23 13:20 Patient Tobacco Use Status Current everyday Tobacco 09/03/23 13:20 Tobacco use type Cigarette 09/03/23 13:20 e-Cigarette/Vaping Use Never Used 09/03/23 13:20 Thrive Assessment: Date of Thrive Assessment Date Thrive assessed 04/04/23 09/03/23 13:20 Telehealth Telehealth Telehealth Platform: [employer] Location of provider rendering services: practice address Location of patient: address on file Patient Identification confirmed using: Name, : Yes Telehealth method: video Patient verbally consented to treatment: Yes Patient verbally consented to billing insurance company: Yes Patient informed of any privacy concerns related to visit: Yes Minutes spent on Phone/Video with Pt.: 13 Assessment and Plan Assessment & Plan (1) Chronic wound of extremity: (2) Peripheral vascular disease: Code(s): I73.9 - Peripheral vascular disease, unspecified (3) Pain management: Code(s): R52 - Pain, unspecified Plan Patient is a 53-year-old female who is suffering from lower leg wound due to vascular reason for the past 10 years off and on Currently patient is struggling with the healing process and is established with Wound Clinic Wound is located in her right lower leg Patient says that the wound has gotten worse over last few days She has appointment coming up with the Clinic, patient has a patient that she will be started on antibiotic She goes in for debridement which is very painful Currently she is taking Percocet t.i.d. with ibuprofen 800 b.i.d. She is requesting 1 month supply of Percocet and then she will come over and we will discuss it further Patient says that at this point it is difficult for her to continue working She is exploring options of disability. Medications: Changed From oxycodone-acetaminophen 5-325 mg (Percocet) Partial Fill upon patient request. 1 tab PO TID 10 days PRN 30 tabs 0RF pain To Percocet 5-325 mg (oxycodone-acetaminophen) Partial Fill upon patient request. 1 tab PO TID 30 days PRN 90 tabs 0RF Wound right lower leg NS Coding Level of Care Code Tele Est Pt Level 3 (27875) Diagnoses Chronic wound of extremity Peripheral vascular disease I73.9 Pain management R52
== END 2023-12-05 08:07 | disposition home or self-care (01) ==
PROVIDERS: PCP Internal Medicine; Visit Provider Internal Medicine
DX: I73.9 Peripheral vascular disease, unspecified (principal); R52 Pain, unspecified
CPT/HCPCS: 99213

== ENCOUNTER 2024-01-02 13:58 | Outpatient (AMB) | payer OTHER, SELFPAY ==
[2024-01-02 14:11] VITALS: BP 136/80; PULSE 75; O2SAT 95; BMI 40.2
--- NOTE | 2024-01-02 14:11 | MHC.PC.OV ---
Vital Signs 01/02/24 14:11 Height 5 ft 6 in Weight 249 lb BMI 40.2 BP 136/80 Blood Pressure Location Lt brachial Position Sitting Pulse 75 Pulse Source Pulse Oximeter Pulse Oximetry (%) 95 Oxygen Delivery Method Room Air Intake Visit Reasons: 20 Day F/U Allergies No Known Allergies [No Known Allergies*] Allergy (Verified 01/02/24 14:11) Medication List - Last Reconciled 01/02/24 by Alo Bennett MD ascorbic acid (vitamin C) 500 mg PO DAILY biotin 800 mcg PO DAILY cholecalciferol (vitamin D3) 25 mcg PO DAILY clotrimazole-betamethasone 1-0.05 % 1 appl topical ONCE 30 days escitalopram oxalate 20 mg PO DAILY 90 days furosemide 20 mg PO QAM ibuprofen 800 mg PO Q8H PRN 30 days levothyroxine 200 mcg PO DAILY 90 days Percocet 5-325 mg (oxycodone-acetaminophen) 1 tab PO TID PRN 30 days NS vitamin B complex (Super B-50 Complex capsule) 1 cap PO DAILY Tobacco use date assessed: 01/02/24 Dental Screening Dental Screen Date: 01/02/24 Did you have a dental visit in the last 12 months?: Yes Did you have a dental problem in the last 6 months where you did not have access to dental care?: No Was dental information given to patient?: Patient has dentist HPI 20 Day F/U HPI Details Patient is a 53-year-old female who is suffering from lower leg wound due to vascular reason for the past 10 years off and on Currently patient is struggling with the healing process and is established with Wound Clinic Wound is located in her right lower leg Patient says that culture was taken Which came back positive for Enterococcus faecalis and Serratia Mercescens Antibiotic has started She is being treated at Wound Clinic [facility] She continued to feel severe pain at night Percocet t.i.d. 90 tablets sent Patient says that because of this wound she is having difficulty going through work With the end of the week before the debridement it starts smelling really bad Patient is feeling more and more depressed And overwhelmed having difficulty coping with this She also feels that she is eating more and smoking more because of that She is already taking medication for depression Patient says that she is going to explore going on disability She also would like to talk about the weight loss injections Side effect reviewed with the patient She is willing to take the risk Her mother is a nurse and she can administer the injection once a week Wegovy injections sent Patient will return before the end of 4 weeks to get her medications refill and to have follow-up on weight loss. [facility] Medical History Peripheral vascular disease Chronic wound of extremity Vitamin D deficiency Other specified hypothyroidism Open ankle wound Surgical History Status post breast reduction History of tubal ligation Family History Father Lung cancer Smoker Mother Anxiety Maternal Grandfather No problems noted. Maternal Grandmother Cancer Paternal Grandmother No problems noted. Paternal Grandfather No problems noted. Brother No problems noted. Sister No problems noted. Sister No problems noted. Sister No problems noted. Sister No problems noted. Son No problems noted. Daughter No problems noted. Other Substance use disorder Social History Housing: House Alcohol intake: current Alcohol intake frequency: a few times a week Patient Tobacco Use Status: Current everyday Tobacco user Tobacco use type: Cigarette Cigarette Packs Per Day: 1 e-Cigarette/Vaping Use: Never Used service: No Current occupational status: employed Sexual orientation: Straight/Heterosexual Gender identity: Female Cognitive needs: No Hearing needs: No Vision needs: Yes Female Reproductive History Menstrual Age of Menarche: 15 Questionnaire PHQ-9 Over the last 2 weeks, how often have you been bothered by any of the following problems? 1. Little interest or pleasure in doing things: nearly every day 2. Feeling down, depressed, or hopeless: several days 3. Trouble falling or staying asleep, or sleeping too much: nearly every day 4. Feeling tired or having little energy: several days 5. Poor appetite or overeating: several days 6. Feeling bad about yourself - or that you are a failure or have let yourself or your family down: not at all 7. Trouble concentrating on things, such as reading the newspaper or watching television: nearly every day 8. Moving or speaking so slowly that other people could have noticed. Or the opposite - being so fidgety or restless that you have been moving around a lot more than usual: not at all 9. Thoughts that you would be better off or of hurting yourself in some way: not at all Total score: 12 Depression Screening Interpretation: Positive Depression Screening Follow-up: Existing condition and In treatment Depression Screening Done: Yes 75444 - PHQ-9 Billing: Yes Source: Developed by Drs. Arjun Cantrell, Savannah Escoto, Macario Carrillo and colleagues, with an educational paul from [employer]. Thrive Questionnaire Date Thrive assessed: 01/02/24 I am a: Patient What is your living situation today?: I have a steady place to live Within the past 12 months, did the food you bought not last and you didn't have the money to get more?: Sometimes True Within the past 12 months, did you worry whether your food would run out before you got money to buy more?: Sometimes True Do you have trouble paying for medicines?: No Do you have trouble getting transportation to medical appointments?: No Do you have trouble paying your heating and electricity bill?: Yes Do you have trouble taking care of your child, family member or friend?: No Do you have trouble with day-to-day activities such as bathing, preparing meals, shopping, managing finances, etc.?: Yes Are you currently unemployed and looking for a job?: No Are you interested in more education?: No Please select the resources that you would like help with: None Currently or been in a relationship where the following occur: No concerns reported THRIVE Score: 3 AUDIT C Alcohol Use Questionnaire (AUDIT-C) 1. How often do you have a drink containing alcohol?: Monthly or less 2. How many drinks containing alcohol do you have on a typical day when you are drinking?: 3 or 4 3. How often do you have six or more drinks on one occasion?: Less than monthly Total Score: 3 Score Reviewed/Action Taken: Yes CINDI-7 AMB Questionnaire CINDI-7 Date CINDI - 7 assessed: 01/02/24 Feeling nervous, anxious, or on edge: 1 = Several days Not being able to stop or control worryin = Several days Worrying too much about different things: 1 = Several days Trouble relaxin = Several days Being so restless that it is hard to sit still: 0 = Not at all Becoming easily annoyed or irritable: 1 = Several days Feeling afraid as if something awful might happen: 1 = Several days Total CINDI-7 score (0-4 normal; 5-9 mild; 10-14 moderate; 15-21 severe): 6 Source: Developed by Drs. Arjun Cantrell, Savannah Escoto, Macario Carrillo and colleagues, with an educational paul from [employer]. CINDI-7 Assessment Billing CINDI-7 Assessment Tool: CINDI-7 Assessment 43332 Review of Systems Const Denies chills and Denies fever(s) ENT Denies epistaxis and Denies nasal discharge Card Denies chest pain Resp Denies chest congestion, Denies cough and Denies hemoptysis GI Denies diarrhea and Denies nausea Skin/Breast Denies rash Neuro Reports no additional complaints Psych Reports no additional complaints Endo Reports no additional complaints Physical exam (Primary Care) Vital Signs: Last Vital Signs Pulse 75 01/02/24 14:11 BP 136/80 01/02/24 14:11 Pulse Ox 95 01/02/24 14:11 Oxygen Delivery Method Room Air 01/02/24 14:11 BMI result Body Mass Index 40.2 Tobacco/Smoking Status: Tobacco use Status Tobacco use date assessed 01/02/24 01/02/24 14:13 Patient Tobacco Use Status Current everyday Tobacco 01/02/24 14:13 Tobacco use type Cigarette 01/02/24 14:13 e-Cigarette/Vaping Use Never Used 01/02/24 14:13 PHQ-9: PHQ-9 Score PHQ-9: Total score 12 01/02/24 14:28 Depression Screening Interpretation: Positive Depression Screening Follow-up: Existing condition and In treatment Thrive Assessment: Date of Thrive Assessment Date Thrive assessed 01/02/24 01/02/24 14:17 Currently or been in a relationship where the following occur: No concerns reported Const General: cooperative, comfortable and no acute distress Orientation/consciousness: patient oriented x3 HENMT Head: Yes normocephalic Eyes General: appearance normal, both eyes and all related structures Neck Neck: Yes supple Resp Effort & Inspection: normal respiratory effort, no cough and no stridor Cardio Rhythm: regular rhythm Heart sounds: S1 normal heart sound present and S2 normal heart sound present Skin General skin exam: turgor normal Neuro General: patient oriented x3, tone normal and moves all extremities Extrem Other: Her leg is wrapped Right lower extremity: no edema Left lower extremity: no edema Assessment and Plan Assessment & Plan (1) Chronic wound of extremity: (2) Stress incontinence: Code(s): N39.3 - Stress incontinence (female) (male) (3) Morbid obesity due to excess calories: Code(s): E66.01 - Morbid (severe) obesity due to excess calories (4) Peripheral vascular disease: Code(s): I73.9 - Peripheral vascular disease, unspecified (5) Pain management: Code(s): R52 - Pain, unspecified Plan Patient is a 53-year-old female who is suffering from lower leg wound due to vascular reason for the past 10 years off and on Currently patient is struggling with the healing process and is established with Wound Clinic Wound is located in her right lower leg Patient says that culture was taken Which came back positive for Enterococcus faecalis and Serratia Mercescens Antibiotic has started She is being treated at Wound Clinic [facility] She continued to feel severe pain at night Percocet t.i.d. 90 tablets sent Patient says that because of this wound she is having difficulty going through work With the end of the week before the debridement it starts smelling really bad Patient is feeling more and more depressed And overwhelmed having difficulty coping with this She also feels that she is eating more and smoking more because of that She is already taking medication for depression Patient says that she is going to explore going on disability She also would like to talk about the weight loss injections Side effect reviewed with the patient She is willing to take the risk Her mother is a nurse and she can administer the injection once a week Wegovy injections sent Patient will return before the end of 4 weeks to get her medications refill and to have follow-up on weight loss. Medications: New semaglutide (weight loss) (Wegovy) administer weeks 1 through 4 of therapy 0.25 mg (0.5 mL) subcut QWEEK 2 mL 0RF E66.01 - Morbid (severe) obesity due to excess calories, I82.409 - Acute embolism and thrombosis of unspecified deep veins of unspecified lower extremity, N39.3 - Stress incontinence (female) (male) Refilled Percocet 5-325 mg (oxycodone-acetaminophen) Partial Fill upon patient request. 1 tab PO TID 30 days PRN 90 tabs 0RF Wound right lower leg NS Coding Level of Care Code Est Pt Level 4 (81077) Complex EM visit Add On G2211 Diagnoses Chronic wound of extremity Stress incontinence N39.3 Morbid obesity due to excess calories E66.01 Peripheral vascular disease I73.9 Pain management R52 Additional Codes CINDI-7 Assessment Billing - CINDI-7 Assessment Tool: CINDI-7 Assessment 02202 ([id number])
== END 2024-01-02 14:41 | disposition home or self-care (01) ==
PROVIDERS: PCP Internal Medicine; Visit Provider Internal Medicine
DX: I73.9 Peripheral vascular disease, unspecified (principal); E66.01 Morbid (severe) obesity due to excess calories; I82.409 Acute embolism and thrombosis of unspecified deep veins of unspecified lower extremity; Z68.41 Body mass index [BMI] 40.0-44.9, adult; N39.3 Stress incontinence (female) (male); R52 Pain, unspecified
CPT/HCPCS: 99214; G2211

== ENCOUNTER 2024-01-30 10:41 | Outpatient (AMB) | payer OTHER, SELFPAY ==
--- NOTE | 2024-01-30 10:45 | A.OFFPC_ITS ---
Vital Signs 3 01/30/24 10:47 Height 5 ft 6 in Weight 249 lb 6 oz BMI 40.2 BP 136/78 Blood Pressure Location Lt brachial Position Sitting Pulse 69 Pulse Source Pulse Oximeter Pulse Oximetry (%) 95 Oxygen Delivery Method Room Air Intake Visit Reasons: office visit Allergies No Known Allergies [No Known Allergies*] Allergy (Verified 01/02/24 14:11) Medication List - Last Reconciled 01/30/24 by Alo Bennett MD clotrimazole-betamethasone 1-0.05 % 1 appl topical ONCE 30 days escitalopram oxalate 20 mg PO DAILY 90 days furosemide 20 mg PO QAM ibuprofen 800 mg PO Q8H PRN 30 days levothyroxine 200 mcg PO DAILY 90 days oxycodone-acetaminophen 5-325 mg (Percocet) 1 tab PO TID PRN 30 days semaglutide (weight loss) (Wegovy) 0.25 mg (0.5 mL) subcut QWEEK Tobacco use date assessed: 01/02/24 Dental Screening Dental Screen Date: 01/02/24 HPI office visit 2 HPI0 Details Patient is a 54-year-old female came in today for medication refill Continued to have pain right lower leg, she is established with Wound Care and is going for follow-ups regularly Her latest food picture installed in this note Patient is on Percocet 3 times a day Medication refills sent Patient is aware of side effects. [facility] Medical History Peripheral vascular disease Chronic wound of extremity Vitamin D deficiency Other specified hypothyroidism Open ankle wound Surgical History Status post breast reduction History of tubal ligation Family History Father Lung cancer Smoker Mother Anxiety Maternal Grandfather No problems noted. Maternal Grandmother Cancer Paternal Grandmother No problems noted. Paternal Grandfather No problems noted. Brother No problems noted. Sister No problems noted. Sister No problems noted. Sister No problems noted. Sister No problems noted. Son No problems noted. Daughter No problems noted. Other Substance use disorder Social History Housing: House Alcohol intake: current Alcohol intake frequency: a few times a week Patient Tobacco Use Status: Current everyday Tobacco user Tobacco use type: Cigarette Cigarette Packs Per Day: 1 e-Cigarette/Vaping Use: Never Used service: No Current occupational status: employed Sexual orientation: Straight/Heterosexual Gender identity: Female Cognitive needs: No Hearing needs: No Vision needs: Yes Female Reproductive History Menstrual Age of Menarche: 15 Questionnaire Thrive Questionnaire Date Thrive assessed: 01/02/24 I am a: Patient What is your living situation today?: I have a steady place to live Within the past 12 months, did the food you bought not last and you didn't have the money to get more?: Sometimes True Within the past 12 months, did you worry whether your food would run out before you got money to buy more?: Sometimes True Do you have trouble paying for medicines?: No Do you have trouble getting transportation to medical appointments?: No Do you have trouble paying your heating and electricity bill?: Yes Do you have trouble taking care of your child, family member or friend?: No Do you have trouble with day-to-day activities such as bathing, preparing meals, shopping, managing finances, etc.?: Yes Are you currently unemployed and looking for a job?: No Are you interested in more education?: No Please select the resources that you would like help with: None Currently or been in a relationship where the following occur: No concerns reported THRIVE Score: 3 CINDI-7 AMB Questionnaire CINDI-7 Date CINDI - 7 assessed: 01/02/24 Source: Developed by Drs. Arjun Cantrell, Savannah Escoto, Macario Carrillo and colleagues, with an educational paul from [employer] ([employer]). Review of Systems Const Denies chills and Denies fever(s) ENT Denies epistaxis and Denies nasal discharge Card Denies chest pain Resp Denies chest congestion, Denies cough and Denies hemoptysis GI Denies diarrhea and Denies nausea Skin/Breast Denies rash Neuro Reports no additional complaints Psych Reports no additional complaints Endo Reports no additional complaints Physical exam (Primary Care) Vital Signs: Last Vital Signs Pulse 69 01/30/24 10:47 BP 136/78 01/30/24 10:47 Pulse Ox 95 01/30/24 10:47 Oxygen Delivery Method Room Air 01/30/24 10:47 BMI result Body Mass Index 40.2 Tobacco/Smoking Status: Tobacco use Status Tobacco use date assessed 01/02/24 01/30/24 10:47 Patient Tobacco Use Status Current everyday Tobacco 01/30/24 10:47 Tobacco use type Cigarette 01/30/24 10:47 e-Cigarette/Vaping Use Never Used 01/30/24 10:47 Thrive Assessment: Date of Thrive Assessment Date Thrive assessed 01/02/24 01/30/24 10:47 Currently or been in a relationship where the following occur: No concerns reported Const General: cooperative, comfortable and no acute distress Orientation/consciousness: patient oriented x3 HENMT Head: Yes normocephalic Eyes General: appearance normal, both eyes and all related structures Neck Neck: Yes supple Resp Effort & Inspection: normal respiratory effort, no cough and no stridor Cardio Rhythm: regular rhythm Heart sounds: S1 normal heart sound present and S2 normal heart sound present Skin Other: General skin exam: turgor normal Neuro General: patient oriented x3, tone normal and moves all extremities Extrem Right lower extremity: no edema Left lower extremity: no edema Coding Level of Care Code Est Pt Level 3 (32816) Complex EM visit Add On G2211 Diagnoses Chronic wound of extremity Pain management R52 Assessment & Plan Assessment & Plan (1) Chronic wound of extremity: Category: Medical (2) Pain management: Code(s): R52 - Pain, unspecified Category: Medical Plan Patient is a 54-year-old female came in today for medication refill Continued to have pain right lower leg, she is established with Wound Care and is going for follow-ups regularly Her latest food picture installed in this note Patient is on Percocet 3 times a day Medication refills sent Medications: Refilled 2 semaglutide (weight loss) (Wegovy) administer weeks 1 through 4 of therapy 0.25 mg (0.5 mL) subcut QWEEK 2 mL 0RF E66.01 - Morbid (severe) obesity due to excess calories, I82.409 - Acute embolism and thrombosis of unspecified deep veins of unspecified lower extremity, N39.3 - Stress incontinence (female) (male) oxycodone-acetaminophen 5-325 mg (Percocet) Partial Fill upon patient request. generic can be dispensed 1 tab PO TID 30 days PRN 90 tabs 0RF Wound right lower leg
[2024-01-30 10:47] VITALS: BP 136/78; PULSE 69; O2SAT 95; BMI 40.2
== END 2024-01-30 11:15 | disposition home or self-care (01) ==
PROVIDERS: PCP Internal Medicine; Visit Provider Internal Medicine
DX: R52 Pain, unspecified (principal)

== ENCOUNTER → 2024-01-30 10:41 | Outpatient (BNVA) | payer OTHER, SELFPAY | PROVIDERS: PCP Internal Medicine; Visit Provider Internal Medicine | DX: S91.301D Unspecified open wound, right foot, subsequent encounter (principal); E66.01 Morbid (severe) obesity due to excess calories; N39.3 Stress incontinence (female) (male); Z86.718 Personal history of other venous thrombosis and embolism | CPT/HCPCS: 99212 ==

== ENCOUNTER 2024-03-04 08:15 | Outpatient (AMB) | payer OTHER, SELFPAY ==
--- NOTE | 2024-03-04 08:25 | A.OFFPC_ITS ---
Intake Visit Reasons: 1 months f/up Allergies No Known Allergies [No Known Allergies*] Allergy (Verified 03/04/24 08:25) Medication List - Last Reconciled 03/04/24 by Alo Bennett MD clotrimazole-betamethasone 1-0.05 % 1 appl topical ONCE 30 days escitalopram oxalate 20 mg PO DAILY 90 days furosemide 20 mg PO QAM ibuprofen 800 mg PO Q8H PRN 30 days levothyroxine 200 mcg PO DAILY 90 days oxycodone-acetaminophen 5-325 mg (Percocet) 1 tab PO TID PRN 30 days Tobacco use date assessed: 03/04/24 Dental Screening Dental Screen Date: 03/04/24 Did you have a dental visit in the last 12 months?: Yes Did you have a dental problem in the last 6 months where you did not have access to dental care?: No Was dental information given to patient?: Patient has dentist HPI 1 months f/up HPI Details Patient is a 54-year-old female this is a telemedicine conference to follow-up on her leg pain secondary to open wound She got three graft on leg wound which is healing well pain is better still has left over percocet, so dont need more at this time For weight management, got higher dose of semiglutide from pharm as they didnt had the smaller dose and took the whole thing rather then reducing dose in syringe, got really sick with Nausea and vomiting for 4 days dont want to take it again She has no other concern at this time [facility] Medical History Peripheral vascular disease Chronic wound of extremity Vitamin D deficiency Other specified hypothyroidism Open ankle wound Surgical History Status post breast reduction History of tubal ligation Family History Father Lung cancer Smoker Mother Anxiety Maternal Grandfather No problems noted. Maternal Grandmother Cancer Paternal Grandmother No problems noted. Paternal Grandfather No problems noted. Brother No problems noted. Sister No problems noted. Sister No problems noted. Sister No problems noted. Sister No problems noted. Son No problems noted. Daughter No problems noted. Other Substance use disorder Social History Housing: House Alcohol intake: current Alcohol intake frequency: a few times a week Patient Tobacco Use Status: Current everyday Tobacco user Tobacco use type: Cigarette Cigarette Packs Per Day: 1 e-Cigarette/Vaping Use: Never Used service: No Current occupational status: employed Sexual orientation: Straight/Heterosexual Gender identity: Female Cognitive needs: No Hearing needs: No Vision needs: Yes Female Reproductive History Menstrual Age of Menarche: 15 Questionnaire Thrive Questionnaire Date Thrive assessed: 01/02/24 AUDIT C Alcohol Use Questionnaire (AUDIT-C) 1. How often do you have a drink containing alcohol?: Monthly or less 2. How many drinks containing alcohol do you have on a typical day when you are drinking?: 3 or 4 3. How often do you have six or more drinks on one occasion?: Less than monthly Total Score: 3 Score Reviewed/Action Taken: Yes CINDI-7 AMB Questionnaire CINDI-7 Date CINDI - 7 assessed: 01/02/24 Source: Developed by Drs. Arjun Cantrell, Savannah Escoto, Macario Carrillo and colleagues, with an educational paul from [employer]. Review of Systems Const All systems reviewed & are unremarkable except as noted in HPI and below Physical exam (Primary Care) Tobacco/Smoking Status: Tobacco use Status Tobacco use date assessed 03/04/24 03/04/24 08:26 Patient Tobacco Use Status Current everyday Tobacco 03/04/24 08:26 Tobacco use type Cigarette 03/04/24 08:26 e-Cigarette/Vaping Use Never Used 03/04/24 08:26 Thrive Assessment: Date of Thrive Assessment Date Thrive assessed 01/02/24 03/04/24 08:26 Telehealth Telehealth Telehealth Platform: [facility] Location of provider rendering services: practice address Location of patient: address on file Patient Identification confirmed using: Name, : Yes Telehealth method: voice only Patient verbally consented to treatment: Yes Patient verbally consented to billing insurance company: Yes Patient informed of any privacy concerns related to visit: Yes Minutes spent on Phone/Video with Pt.: 13 Coding Level of Care Code Tele Est Pt Level 3 (60219) Diagnoses Chronic wound of extremity Pain management R52 Assessment & Plan Assessment & Plan (1) Chronic wound of extremity: Category: Medical (2) Pain management: Code(s): R52 - Pain, unspecified Category: Medical Plan Patient is a 54-year-old female this is a telemedicine conference to follow-up on her leg pain secondary to open wound She got three graft on leg wound which is healing well pain is better still has left over percocet, so dont need more at this time For weight management, got higher dose of semiglutide from pharm as they didnt had the smaller dose and took the whole thing rather then reducing dose in syringe, got really sick with Nausea and vomiting for 4 days dont want to take it again She has no other concern at this time Medications: Discontinued semaglutide (weight loss) (Wegovy) administer weeks 1 through 4 of therapy Discontinued Reason: Doctor's Order 0.25 mg (0.5 mL) subcut QWEEK 2 mL 0RF E66.01 - Morbid (severe) obesity due to excess calories, I82.409 - Acute embolism and thrombosis of unspecified deep veins of unspecified lower extremity, N39.3 - Stress incontinence (female) (male) semaglutide (weight loss) (Wegovy) administer weeks 13 through 16 of therapy Discontinued Reason: Doctor's Order 1.7 mg (0.75 mL) subcut QWEEK 30 days 3.75 mL 0RF
== END 2024-03-04 12:02 | disposition home or self-care (01) ==
LOC: HO.HMCC 08:15
PROVIDERS: PCP Internal Medicine; Visit Provider Internal Medicine
DX: R52 Pain, unspecified (principal)

== ENCOUNTER 2024-04-25 18:40 | Emergency (ER) | payer OTHER, SELFPAY ==
--- NOTE | ~2024-04-25 | CT_ITS ---
CLINICAL HISTORY: Left flank pain? Stone CT abdomen and pelvis without contrast Comparison: None Findings: Mild bibasilar atelectasis. Bilateral nephrolithiasis measure up to 0.4 cm. Mild left-sided hydroureteronephrosis secondary to 0.5 cm stone at the left ureterovesicular junction. Mild wall thickening of the urinary bladder likely accentuated by underdistention. Phleboliths are multifocal, including in the pelvis. Moderate left perinephric stranding additional stranding including about left renal pelvis and left ureter. 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 Right adrenal gland is normal. Liver, spleen, pancreas, and gallbladder are unremarkable for noncontrast CT. Vascular calcifications noted. Small mesenteric lymph nodes are nonspecific and may be reactive. Imaged appendix is retrocecal and nondilated (image number 59 of series 4). No small bowel obstruction. Large intestine diverticula including sigmoid colon without acute inflammation. Moderate to severe stool burden is present, including the cecum. No free intraperitoneal air. Uterus is anteverted measures 9.5 cm long axis. No adnexal soft tissue mass by CT with index cystic structure of the left ovary measuring 2.5 cm. Coccyx angulation appears old. Disc height loss is most pronounced at L5-S1. Degenerative changes also include facet arthropathy. Likely disc bulge at L4-L5 with spinal stenosis of the lower lumbar spine by CT. IMPRESSION: Mild left-sided hydroureteronephrosis secondary to 0.5 cm stone in the left ureterovesicular junction. This document has been electronically signed by: Wilber Lowery MD on 04/25/2024 20:10:28
[2024-04-25 18:52] VITALS: BP 162/96; PULSE 82; O2SAT 97
[2024-04-25 18:53] VITALS: BP 105/82; PULSE 98; RESP 18; TEMP 36.4; O2SAT 97; BMI 41.4
--- NOTE | 2024-04-25 18:56 | ED_ITS ---
HPI - Abdominal Pain General Chief Complaint: Abdominal Pain Stated Complaint: sharp L sided flank pain Time Seen by Provider: 04/25/24 18:56 Source: patient Mode of arrival: ambulatory Limitations: no limitations History of Present Illness ED Provider: HPI narrative: Patient with remote history of kidney stone in the past complaining of sudden onset of pain in left flank area 4 hours prior to arrival now just have discomfort in suprapubic area had nausea and vomited 1 time no fever no chills no gross hematuria no urinary symptoms Related Data Previous Rx's ?Medication ?Instructions ?Recorded clotrimazole-betamethasone 1 1 appl topical ONCE 30 days #45 11/14/21 %-0.05 % topical cream grams furosemide 20 mg tablet 20 mg PO QAM #90 tabs 09/03/23 ibuprofen 800 mg tablet 800 mg PO Q8H PRN pain 30 days #90 01/26/24 tabs oxycodone-acetaminophen 5 mg-325 1 tab PO TID PRN Wound right lower 01/30/24 mg tablet (Percocet) leg 30 days #90 tabs levothyroxine 200 mcg tablet 200 mcg PO DAILY 90 days #90 tabs 02/09/24 escitalopram oxalate 20 mg tablet 20 mg PO DAILY anxiety 90 days #90 03/02/24 tabs Allergies Allergy/AdvReac Type Severity Reaction Status Date / Time No Known Allergies Allergy Verified 04/25/24 18:56 [No Known Allergies*] Review of Systems Review of Systems Yes all other systems are reviewed and are negative PMFSH Past Medical History Medical History Peripheral vascular disease Chronic wound of extremity Vitamin D deficiency Other specified hypothyroidism Open ankle wound Surgical History Status post breast reduction History of tubal ligation Family History Family History Father Lung cancer Smoker Mother Anxiety Maternal Grandfather No problems noted. Maternal Grandmother Cancer Paternal Grandmother No problems noted. Paternal Grandfather No problems noted. Brother No problems noted. Sister No problems noted. Sister No problems noted. Sister No problems noted. Sister No problems noted. Son No problems noted. Daughter No problems noted. Other Substance use disorder Social History Social History Housing: House Alcohol intake: current Alcohol intake frequency: a few times a week Patient Tobacco Use Status: Current everyday Tobacco user Tobacco use type: Cigarette Cigarette Packs Per Day: 1 e-Cigarette/Vaping Use: Never Used Advance Directives: No Advance Directives Information Provided: Yes Do you have a plan to hurt others: No Plan service: No Current occupational status: employed Sexual orientation: Straight/Heterosexual Gender identity: Female Cognitive needs: No Hearing needs: No Vision needs: Yes Physical Exam ED Vital Signs: Vital Signs - 24 hr 04/25/24 18:53 Temperature 97.6 F Pulse Rate 98 Respiratory Rate 18 Blood Pressure 105/82 Pulse Oximetry 97 Oxygen Delivery Method Room Air BMI result Body Mass Index 41.4 Appearance: Alert. Oriented X3. No acute distress. Eyes: PERRLA, No Nystagmus ENT: Pharynx normal. Oral Mucosa moist Neck: Normal inspection. Neck supple. CVS: Normal heart rate and rhythm. Pulses normal. Respiratory: No respiratory distress. Equal air entry bilateral, no wheezing/rales/rhonchi Abdomen: Soft and nontender. Bowel sounds are present, no mass palpable, no CVA tenderness Skin: Skin warm and dry. Normal skin color. Normal skin turgor. Extremities: No lower extremity edema. No calf tenderness Neuro: Oriented X 3. No motor deficit. No sensory deficit.No cerebellar signs , cranial nerves II-XII intact Medical Decision Making Medical Decision Making [facility] Narrative: Patient has initially had left flank area no has just mild discomfort suprapubic area after CT scan patient urinated and passed small stone at this time patient is pain-free CT scan showed 0.5 cm stone at left ureteral vesicular junction likely which she passed will discharge patient home advised to follow up with PCP/urologist if any concerns Lab Data [facility] Lab Attestation statement: I reviewed the patient's lab results. 04/25/24 20:20 04/25/24 20:20 Labs: Lab Results 04/25/24 04/25/24 Range/Units 20:17 20:20 WBC 11.5 H (4.8-10.8) X10*3/uL RBC 3.94 L (4.20-5.50) X10*6/uL Hgb 12.3 (12.0-16.0) g/dl Hct 35.6 L (37.0-47.0) % MCV 90.4 (80.0-98.0) fL MCH 31.2 (27.0-33.0) pg MCHC 34.6 (31.0-35.0) g/dl RDW 13.4 (11.0-16.0) % Plt Count 223 (160-400) X10*3/uL MPV 8.9 L (9.4-12.3) fL Immature Gran % (Auto) 0.3 (0.0-0.4) % Neut % (Auto) 86.2 H (45-73) % Lymph % (Auto) 7.8 L (20-40) % [place] % (Auto) 5.3 (2-11) % Eos % (Auto) 0.1 (0-4) % Baso % (Auto) 0.3 (0-2) % Lymph # (Auto) 0.9 L (1.2-4.9) X10*3/uL [place] # (Auto) 0.6 (0.1-1.2) X10*3/uL Eos # (Auto) 0.0 (0.0-0.4) X10*3/uL Baso # (Auto) 0.0 (0.0-0.2) X10*3/uL Abs Immat Gran (auto) 0.04 H (0.00-0.03) X10*3/uL Absolute Neuts (auto) 9.9 H (2.0-8.3) x10*3/uL Absolute Nucleated RBC 0.000 (0.0-0.012) X10*3/uL Nucleated RBC % (auto) 0.0 (0.0-0.2) /100WBC Sodium 139 (135-145) mmol/L Potassium 3.6 (3.3-5.1) mmol/L Chloride 109 H (96-108) mmol/L Carbon Dioxide 21 L (22-29) mmol/L Anion Gap 13 (12-20) BUN 13 (9-16) mg/dL Creatinine 0.95 (0.5-1.4) mg/dL Estim Creat Clear Calc 89.8 Estimated GFR > 60 Random Glucose 125 H (60-115) mg/dL Calcium 8.8 D (8.4-10.2) mg/dL Total Bilirubin 0.3 (0.0-1.0) mg/dL AST 30 (5-31) U/L ALT 28 (0-31) U/L Alkaline Phosphatase 70 (39-117) U/L Total Protein 7.0 (6.5-8.0) g/dL Albumin 3.5 (3.5-5.0) g/dL Urine Color Yellow Urine Appearance Turbid Urine pH 6.5 (5.0-9.0) Ur Specific [place] 1.025 (1.005-1.025) Urine Protein Negative (Neg-Trace) mg/dL Urine Glucose (UA) Negative (Negative) mg/dL Urine Ketones 40 (Negative) mg/dL Urine Blood Small (1+) H (Negative) Urine Nitrite Negative (Negative) Ur Leukocyte Esterase Trace H (Negative) Urine RBC 0-2 (0-2) /HPF Urine WBC 6-10 H (0-5) /HPF Ur Squamous Epith Cells 3-5 (0-2) /HPF Urine Bacteria None Seen (None Seen) Hyaline Casts 3-5 (0-2) /LPF Granular Casts Present Independent Interpretation I performed an independent interpretation of an: CT Scan Radiology Impression Discussion of test interpretation with radiology: I have reviewed the radiologist's reading. Radiologist Impression: [place] [id number] CT Scan Report Signed Patient: Radha Bermudez MR#: [id number] : 1970 Acct:[id number] Age/Sex: 54 / F ADM Date: 04/25/24 Loc: .ED Attending Dr: Ordering Physician: Adarsh Garcia MD Date of Service: 04/25/24 Procedure(s): CT abdomen pelvis wo IV con Accession Number(s): [id number] cc: Alo Bennett MD; Adarsh Garcia MD~ Report Number: [id number]: Total DLP = 804.00 mGy-cm CLINICAL HISTORY: Left flank pain? Stone CT abdomen and pelvis without contrast Comparison: None Findings: Mild bibasilar atelectasis. Bilateral nephrolithiasis measure up to 0.4 cm. Mild left-sided hydroureteronephrosis secondary to 0.5 cm stone at the left ureterovesicular junction. Mild wall thickening of the urinary bladder likely accentuated by underdistention. Phleboliths are multifocal, including in the pelvis. Moderate left perinephric stranding additional stranding including about left renal pelvis and left ureter. 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 Right adrenal gland is normal. Liver, spleen, pancreas, and gallbladder are unremarkable for noncontrast CT. Vascular calcifications noted. Small mesenteric lymph nodes are nonspecific and may be reactive. Imaged appendix is retrocecal and nondilated (image number 59 of series 4). No small bowel obstruction. Large intestine diverticula including sigmoid colon without acute inflammation. Moderate to severe stool burden is present, including the cecum. No free intraperitoneal air. Uterus is anteverted measures 9.5 cm long axis. No adnexal soft tissue mass by CT with index cystic structure of the left ovary measuring 2.5 cm. Coccyx angulation appears old. Disc height loss is most pronounced at L5-S1. Degenerative changes also include facet arthropathy. Likely disc bulge at L4-L5 with spinal stenosis of the lower lumbar spine by CT. IMPRESSION: Mild left-sided hydroureteronephrosis secondary to 0.5 cm stone in the left ureterovesicular junction. This document has been electronically signed by: Wilber Lowery MD on 04/25/2024 20:10:28 Medications Administered Discontinued Medications Generic Name Dose Route Start Last Admin Trade Name Freq PRN Reason Stop Dose Admin Sodium Chloride 1,000 mls @ 999 mls/hr 04/25/24 18:58 04/25/24 21:52 Ns IV 04/25/24 19:58 Infused .Q1H1M ONE Infusion Ketorolac Tromethamine 30 mg 04/25/24 19:23 04/25/24 19:43 Ketorolac Tromethamine 30 Mg/Ml Vial IVPUSH 04/25/24 19:24 30 mg ONCE ONE Administration Morphine Sulfate 4 mg 04/25/24 18:57 04/25/24 19:02 Morphine Sulfate 4 Mg/Ml Cartridge IVPUSH 04/25/24 18:58 4 mg ONCE ONE Administration Protocol Morphine Sulfate 2 mg 04/25/24 21:03 04/25/24 21:11 Morphine Sulfate 2 Mg/Ml Cartridge IVPUSH 04/25/24 21:04 2 mg ONCE ONE Administration Protocol Ondansetron HCl 4 mg 04/25/24 18:57 04/25/24 19:02 Ondansetron Hcl 4 Mg/2 Ml Vial IVPUSH 04/25/24 18:58 4 mg ONCE ONE Administration Tamsulosin HCl 0.4 mg 04/25/24 21:07 04/25/24 21:12 Tamsulosin Hcl 0.4 Mg Capsule PO 04/25/24 21:08 0.4 mg ONCE ONE Administration Discharge Plan Discharge Clinical Impression: Renal colic on left side Patient Disposition: Home, Self-Care Instructions: Ureteral Stones (ED) Additional Instructions: Drink plenty of fluid You had 5 mm stone in the left side which likely passed Take Tylenol/Motrin for pain if any Follow up with urologist Prescriptions: No Action ibuprofen 800 mg tablet 800 mg PO Q8H PRN (Reason: pain) 30 Days Qty: 90 3RF levothyroxine 200 mcg tablet 200 mcg PO DAILY 90 Days Qty: 90 0RF escitalopram oxalate 20 mg tablet 20 mg PO DAILY 90 Days Qty: 90 1RF clotrimazole-betamethasone 1-0.05 % cream 1 appl topical ONCE 30 Days Qty: 45 0RF furosemide 20 mg tablet 20 mg PO QAM Qty: 90 0RF oxycodone-acetaminophen [Percocet] 5-325 mg tablet 1 tab PO TID PRN (Reason: Wound right lower leg) 30 Days Qty: 90 0RF Rx Instructions: Partial Fill upon patient request. generic can be dispensed Referrals: Mikael Whatley MD [Physician] - 3 days Stand Alone Forms: Work/School Release Interventions: ED Discharge Assessment Last Done: 04/25/24 22:35 Discharge Date/Time: 04/25/24 22:37 Print Language: Hebrew
[2024-04-25] MEDS: Morphine Sulfate 4 MG/ML CARTRIDGE IVPUSH (19:02)
[2024-04-25] MEDS: ondansetron HCL 4 MG/2 ML VIAL IVPUSH (19:02)
[2024-04-25] MEDS: 0.9 % Sodium Chloride 1,000 ML 999 ML IV (19:04)
--- NOTE | 2024-04-25 19:15 | PC.NURSE ---
Pt a&ox4. Pt requested and given emesis bag Plan of care ongoing.
--- NOTE | 2024-04-25 19:35 | PC.NURSE ---
Pt with CT Plan of care ongoing.
[2024-04-25] MEDS: Ketorolac Tromethamine 30 MG/ML VIAL IVPUSH (19:43)
--- NOTE | 2024-04-25 19:46 | PC.NURSE ---
Pt returned from ct Pt reporting 12/05 pain Pt medicated per mar Plan of care ongoing.
[2024-04-25 20:13] VITALS: RESP 14
[2024-04-25 20:30] LABS: MANUAL DIFF FLAG NO
[2024-04-25 20:31] LABS: Basophils Percent Auto 0.3 % (0-2); Eosinophils Percent Auto 0.1 % (0-4); Hematocrit 35.6 % (37.0-47.0); Hemoglobin 12.3 g/dl (12.0-16.0); Imm Gran Abs Auto 0.04 X10*3/uL (0.00-0.03); Imm Gran Pct Auto 0.3 % (0.0-0.4); Lymphocytes Absolute Auto 0.9 X10*3/uL (1.2-4.9); Lymphocytes Percent Auto 7.8 % (20-40); Mean Corpuscular HGB Conc 34.6 g/dl (31.0-35.0); Mean Corpuscular Hemoglobin 31.2 pg (27.0-33.0); Mean Corpuscular Volume 90.4 fL (80.0-98.0); Mean Platelet Volume 8.9 fL (9.4-12.3); Monocytes Absolute Auto 0.6 X10*3/uL (0.1-1.2); Monocytes Percent Auto 5.3 % (2-11); Neutrophils Absolute Auto 9.9 x10*3/uL (2.0-8.3); Neutrophils Percent Auto 86.2 % (45-73); Platelet Count 223 X10*3/uL (160-400); Red Blood Count 3.94 X10*6/uL (4.20-5.50); Red Cell Distribution Width 13.4 % (11.0-16.0); White Blood Count 11.5 X10*3/uL (4.8-10.8)
[2024-04-25 20:32] LABS: Appearance Urine Turbid; Color Urine Yellow; Glucose Urine UA Negative (Negative); Leukocyte Esterase Urine Trace (Negative); Nitrite Urine Negative (Negative); PH 6.5 (5.0-9.0); Specific Gravity - Urine 1.025 (1.005-1.025); UMIC TRIGGER UACC YES; Urine Blood Small (1+) (Negative); Urine Ketones 40 mg/dL (Negative); Urine Protein Negative (Neg-Trace)
[2024-04-25 20:45] LABS: Alanine Aminotransferase 28 U/L (0-31); Albumin Level 3.5 g/dL (3.5-5.0); Alkaline Phosphatase 70 U/L (39-117); Anion Gap 13 (12-20); Aspartate Amino Transferase 30 U/L (5-31); Bilirubin Total 0.3 mg/dL (0.0-1.0); Blood Urea Nitrogen 13 mg/dL (9-16); Calcium 8.8 mg/dL (8.4-10.2); Carbon Dioxide 21 mmol/L (22-29); Chloride 109 mmol/L (96-108); Creatinine Clr Calc Pharmacy 89.8; Estimated Glomerular Filt Rate > 60; Glucose Random 125 mg/dL (60-115); Potassium 3.6 mmol/L (3.3-5.1); Sodium 139 mmol/L (135-145)
[2024-04-25 20:53] LABS: RBC Urine 0-2 /HPF (0-2); UACC Culture Trigger YES
[2024-04-25 20:54] LABS: Bacteria Urine None Seen (None Seen); Granular Casts Urine Present
[2024-04-25] MEDS: Morphine Sulfate 2 MG/ML CARTRIDGE IVPUSH (21:11)
[2024-04-25] MEDS: Tamsulosin HCL 0.4 MG CAPSULE PO (21:12)
--- NOTE | 2024-04-25 21:14 | PC.NURSE ---
Pt medicated per mar Pts fam at bedside Plan of care ongoing.
[2024-04-25 22:28] VITALS: BP 118/48; PULSE 74; RESP 18; TEMP 37.2; O2SAT 100
[2024-04-25 22:35] VITALS: BP 118/48; PULSE 74; RESP 18; TEMP 37.2; O2SAT 100
== END 2024-04-25 22:37 | disposition home or self-care (01) ==
PROVIDERS: Emergency Provider Internal Medicine; PCP Internal Medicine
DX: N23 Unspecified renal colic (principal); R11.2 Nausea with vomiting, unspecified; F17.210 Nicotine dependence, cigarettes, uncomplicated; Z79.899 Other long term (current) drug therapy
CPT/HCPCS: 36415; 74176; 80053; 81001; 85025; 87086; 96361; 96374; 96375; 99284; J1885; J2270; J2405

== ENCOUNTER → 2024-04-25 18:58 | Outpatient (BNV) | payer OTHER, SELFPAY | PROVIDERS: Emergency Provider Internal Medicine; PCP Internal Medicine; Visit Provider Radiology Neuroradiology | DX: R10.9 Unspecified abdominal pain (principal) | CPT/HCPCS: 74176 ==

== ENCOUNTER 2024-05-21 09:23 | Outpatient (AMB) | payer OTHER, SELFPAY ==
[2024-05-21 09:31] VITALS: BP 122/80; PULSE 78; O2SAT 98; BMI 40.7
--- NOTE | 2024-05-21 09:31 | MHC.PC.OV ---
Vital Signs 05/21/24 09:31 Height 5 ft 6 in Weight 252 lb 3 oz BMI 40.7 BP 122/80 Blood Pressure Location Rt brachial Position Sitting Pulse 78 Pulse Source Pulse Oximeter Pulse Oximetry (%) 98 Oxygen Delivery Method Room Air Intake Visit Reasons: Annual PE Allergies No Known Allergies [No Known Allergies*] Allergy (Verified 05/21/24 09:33) Medication List - Last Reconciled 05/21/24 by Alo Bennett MD clotrimazole-betamethasone 1-0.05 % 1 appl topical ONCE 30 days escitalopram oxalate 20 mg PO DAILY 90 days furosemide 20 mg PO QAM ibuprofen 800 mg PO Q8H PRN 30 days levothyroxine 200 mcg PO DAILY 90 days oxycodone-acetaminophen 5-325 mg (Percocet) 1 tab PO TID PRN 30 days Tobacco use date assessed: 05/21/24 Dental Screening Dental Screen Date: 03/04/24 HPI Annual PE HPI Details Physical exam appointment - The patient is a 54-year-old female presenting with a chronic non-healing leg wound. Right side, established with Wound Clinic - The leg wound was almost healed before her trip to [place] in late March but reopened after she returned to work. - Continues weekly visits to the wound clinic; wound described as painful, notably at night. - Reports past episode of nephrolithiasis in March needing emergency room visit left kidney with successful expulsion of a ureteral stone after treatment in the ER. - History of mild left hydronephrosis secondary to a stone. - Reports hand pain potentially due to arthritis with daily functional impairments; previously suspected carpal tunnel syndrome. X-ray of left thumb ordered - Bunions have been evaluated by a admitting office escort, and surgical correction has been considered but declined due to vascular concerns and the patient's personal preference. Discomfort getting worse I would recommend to have a follow up with the Podiatry again - Experiencing symptoms suggestive of menopause, specifically night sweats and irregular menstrual cycles. - The patient has a history of smoking, currently reduced to approximately six to ten cigarettes per day. Health Maintenance - Recommended to schedule a colonoscopy, as not done previously despite being due since age 47. Patient has been declining - Encouraged to maintain hydration to aid in passing any potential renal calculi. - Advised to conduct regular breast exams or follow up with OBGYN given past mammogram findings and current symptoms. - Reinforced mental health support given unemployment and associated stressors. - try to lose weight - quit smoking and if need any assistance get back to me Medications - Oxycodone for pain management related to wound. - Escitalopram 20 mg for anxiety and depression. - Levothyroxine 200 mcg for hypothyroidism. - Ibuprofen 800 mg as needed for pain. - Furosemide for fluid management. - Not currently using any eczema creams due to lack of prescription refill. 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 - Notes high stress associated with her previous employment. Diagnostic results - CT scan: Mild left-sided hydronephrosis, secondary to a 0.5 cm stone in the left ureterovesicular junction. - Prior x-rays from podiatry and orthopedic assessments not currently available for review. Patient Instructions - Continue use of Udaboot to prevent further aggravation of the leg wound. - Stay hydrated to potentially aid stone passage. - Schedule and complete a colonoscopy. - Contact OBGYN for follow-up concerning breast assessment and regular check-ups. - Consider exercises to improve and maintain hand and thumb functionality. Review of Systems - Musculoskeletal: Reports pain in both hands, possibly arthritis-related. - Dermatological: Reports persistent itching of the breast and eczema symptoms controlled previously with cream, currently without. - Genitourinary: Reports previous passing of a renal stone, hydrated to prevent recurrence. - Cardiovascular: No current chest pain reported; previous flank pain resolved. - General: No fever no chills - Neurological: No headaches no dizziness - Ear nose throat: No sore throat no hearing difficulty no ear pain - Gastrointestinal: No nausea vomiting or diarrhea - Endocrine: No polyuria polydipsia no heat intolerance - Skin: No new complaints Physical Exam General: Cooperative, healthy appearing, comfortable, no acute distress Orientation: Patient oriented x3 Limitations: Due to right leg wound which is painful Head: Normal to inspection Ears: Within normal limit visually Nose: Normal external nose present Face and sinus: Normal facial exam Eyes: Appearance normal, extraocular movement intact pupils reactive Neck: Normal visual inspection and supple Respiratory: Normal respiratory effort and able to speak in complete sentences. Clear to auscultation, no stridor Breast exam declined by the patient Cardiovascular: S1 and S2 GI: Normal to inspection. Soft to palpation and nontender Skin: Turgor normal, no acute findings Neuro: Patient oriented x3, motor sensory intact, balance intact, tandem pass Extremities: Normal to inspection, but patient reports pain in both thumbs, possibly due to arthritis or tendonitis. Left hand x-ray ordered due to pain when squeezing objects. [facility] Medical History Peripheral vascular disease Chronic wound of extremity Vitamin D deficiency Other specified hypothyroidism Open ankle wound Surgical History Status post breast reduction History of tubal ligation Family History Father Lung cancer Smoker Mother Anxiety Maternal Grandfather No problems noted. Maternal Grandmother Cancer Paternal Grandmother No problems noted. Paternal Grandfather No problems noted. Brother No problems noted. Sister No problems noted. Sister No problems noted. Sister No problems noted. Sister No problems noted. Son No problems noted. Daughter No problems noted. Other Substance use disorder Social History Housing: House Alcohol intake: current Alcohol intake frequency: a few times a week Patient Tobacco Use Status: Current everyday Tobacco user Tobacco use type: Cigarette Cigarette Packs Per Day: 1 e-Cigarette/Vaping Use: Never Used service: No Current occupational status: employed Sexual orientation: Straight/Heterosexual Gender identity: Female Cognitive needs: No Hearing needs: No Vision needs: Yes Female Reproductive History Menstrual Age of Menarche: 15 Questionnaire PHQ-9 Over the last 2 weeks, how often have you been bothered by any of the following problems? 1. Little interest or pleasure in doing things: several days 2. Feeling down, depressed, or hopeless: several days 3. Trouble falling or staying asleep, or sleeping too much: several days 4. Feeling tired or having little energy: several days 5. Poor appetite or overeating: nearly every day 6. Feeling bad about yourself - or that you are a failure or have let yourself or your family down: several days 7. Trouble concentrating on things, such as reading the newspaper or watching television: not at all 8. Moving or speaking so slowly that other people could have noticed. Or the opposite - being so fidgety or restless that you have been moving around a lot more than usual: not at all 9. Thoughts that you would be better off or of hurting yourself in some way: not at all Total score: 8 Depression Screening Interpretation: Negative Depression Screening Done: Yes 03751 - PHQ-9 Billing: Yes Source: Developed by Drs. Arjun Cantrell, Savannah Escoto, Macario Carrillo and colleagues, with an educational paul from [employer]. Thrive Questionnaire Date Thrive assessed: 05/21/24 I am a: Patient What is your living situation today?: I have a place to live, but I am worried about losing it in the future Within the past 12 months, did the food you bought not last and you didn't have the money to get more?: Sometimes True Within the past 12 months, did you worry whether your food would run out before you got money to buy more?: Sometimes True Do you have trouble paying for medicines?: No Do you have trouble getting transportation to medical appointments?: No Do you have trouble paying your heating and electricity bill?: Yes Do you have trouble taking care of your child, family member or friend?: No Do you have trouble with day-to-day activities such as bathing, preparing meals, shopping, managing finances, etc.?: No Are you currently unemployed and looking for a job?: Yes Are you interested in more education?: No Please select the resources that you would like help with: Housing/Long Term, Food and Utilities Currently or been in a relationship where the following occur: No concerns reported THRIVE Score: 4 AUDIT C Alcohol Use Questionnaire (AUDIT-C) 1. How often do you have a drink containing alcohol?: 2-4 times a month 2. How many drinks containing alcohol do you have on a typical day when you are drinking?: 3 or 4 3. How often do you have six or more drinks on one occasion?: Less than monthly Total Score: 4 Score Reviewed/Action Taken: Yes CINDI-7 AMB Questionnaire CINDI-7 Date CINDI - 7 assessed: 05/21/24 Feeling nervous, anxious, or on edge: 3 = Nearly every day Not being able to stop or control worryin = Several days Worrying too much about different things: 1 = Several days Trouble relaxin = Several days Being so restless that it is hard to sit still: 1 = Several days Becoming easily annoyed or irritable: 1 = Several days Feeling afraid as if something awful might happen: 1 = Several days Total CINDI-7 score (0-4 normal; 5-9 mild; 10-14 moderate; 15-21 severe): 9 Source: Developed by Drs. Arjun Cantrell, Savannah Escoto, Macario Carrillo and colleagues, with an educational paul from [employer]. CINDI-7 Assessment Billing CINDI-7 Assessment Tool: CINDI-7 Assessment 03794 Physical exam (Primary Care) Vital Signs: Last Vital Signs Pulse 78 05/21/24 09:31 BP 122/80 05/21/24 09:31 Pulse Ox 98 05/21/24 09:31 Oxygen Delivery Method Room Air 05/21/24 09:31 BMI result Body Mass Index 40.7 Tobacco/Smoking Status: Tobacco use Status Tobacco use date assessed 05/21/24 05/21/24 09:41 Patient Tobacco Use Status Current everyday Tobacco 05/21/24 09:41 Tobacco use type Cigarette 05/21/24 09:41 e-Cigarette/Vaping Use Never Used 05/21/24 09:41 Are you ready to quit: Yes Tobacco cessation counseling provided: Yes Relapse Prevention: discussed the importance of a supportive environment Number of minutes spent counselin PHQ-9: PHQ-9 Score PHQ-9: Total score 8 05/21/24 09:41 Depression Screening Interpretation: Negative Thrive Assessment: Date of Thrive Assessment Date Thrive assessed 05/21/24 05/21/24 09:41 Currently or been in a relationship where the following occur: No concerns reported Coding Level of Care Code Est Pt Level 4 (67893) Est Pt Prev Care 40-64y(10883) Diagnoses Encounter for general adult medical examination with abnormal findings Z00.01 Colon cancer screening Z12.11 Pain of left thumb M79.645 Tobacco abuse Z72.0 Peripheral vascular disease I73.9 Other specified hypothyroidism E03.8 Open wound of right ankle, initial encounter S91.001A Encounter type: initial encounter Laterality: right Stress F43.9 Obesity (BMI 30-39.9) E66.9 Anxiety, generalized F41.1 Major depression, recurrent F33.9 Menopausal symptoms N95.1 Additional Codes CINDI-7 Assessment Billing - CINDI-7 Assessment Tool: CINDI-7 Assessment 07324 ([id number]) PHQ-9 - 32980 - PHQ-9 Billing: Yes ([id number]) Assessment & Plan Assessment & Plan (1) Encounter for general adult medical examination with abnormal findings: Code(s): Z00.01 - Encounter for general adult medical examination with abnormal findings Category: Medical (2) Colon cancer screening: Code(s): Z12.11 - Encounter for screening for malignant neoplasm of colon Category: Medical (3) Pain of left thumb: Code(s): M79.645 - Pain in left finger(s) Category: Medical (4) Tobacco abuse: Code(s): Z72.0 - Tobacco use Category: Medical (5) Peripheral vascular disease: Code(s): I73.9 - Peripheral vascular disease, unspecified Category: Medical (6) Other specified hypothyroidism: Code(s): E03.8 - Other specified hypothyroidism Category: Medical (7) Open ankle wound: Code(s): S91.009A - Unspecified open wound, unspecified ankle, initial encounter Category: Medical Qualifiers: Encounter type: initial encounter Laterality: right Qualified Code(s): S91.001A - Unspecified open wound, right ankle, initial encounter (8) Stress: Code(s): F43.9 - Reaction to severe stress, unspecified Category: Medical (9) Obesity (BMI 30-39.9): Code(s): E66.9 - Obesity, unspecified Category: Medical (10) Anxiety, generalized: Code(s): F41.1 - Generalized anxiety disorder Category: Medical (11) Major depression, recurrent: Code(s): F33.9 - Major depressive disorder, recurrent, unspecified Category: Medical (12) Menopausal symptoms: Code(s): N95.1 - Menopausal and female climacteric states Category: Medical Plan Physical exam appointment - The patient is a 54-year-old female presenting with a chronic non-healing leg wound. Right side, established with Wound Clinic - The leg wound was almost healed before her trip to [place] in late March but reopened after she returned to work. - Continues weekly visits to the wound clinic; wound described as painful, notably at night. - Reports past episode of nephrolithiasis in March needing emergency room visit left kidney with successful expulsion of a ureteral stone after treatment in the ER. - History of mild left hydronephrosis secondary to a stone. - Reports hand pain potentially due to arthritis with daily functional impairments; previously suspected carpal tunnel syndrome. X-ray of left thumb ordered - Bunions have been evaluated by a admitting office escort, and surgical correction has been considered but declined due to vascular concerns and the patient's personal preference. Discomfort getting worse I would recommend to have a follow up with the Podiatry again - Experiencing symptoms suggestive of menopause, specifically night sweats and irregular menstrual cycles. - The patient has a history of smoking, currently reduced to approximately six to ten cigarettes per day. Health Maintenance - Recommended to schedule a colonoscopy, as not done previously despite being due since age 47. Patient has been declining - Encouraged to maintain hydration to aid in passing any potential renal calculi. - Advised to conduct regular breast exams or follow up with OBGYN given past mammogram findings and current symptoms. - Reinforced mental health support given unemployment and associated stressors. - try to lose weight - quit smoking and if need any assistance get back to me - continue follow up with wound clinic - oxycodone 30 tablets sent to be taken 1 at night Follow-up appointment in 3 month needed Orders: Orders XR hand LT 2V Today M79.645 - Pain in left finger(s) MM tomosynthesis screening BI Today Z12.31 - Encounter for screening mammogram for malignant neoplasm of breast Referrals Gastroenterology Referral Z12.11 - Encounter for screening for malignant neoplasm of colon Medications: Refilled oxycodone-acetaminophen 5-325 mg (Percocet) Partial Fill upon patient request. generic can be dispensed 1 tab PO TID 30 days PRN 90 tabs 0RF Wound right lower leg Discontinued clotrimazole-betamethasone 1-0.05 % Discontinued Reason: Doctor's Order 1 appl topical ONCE 30 days 45 grams 0RF
== END 2024-05-21 10:51 | disposition home or self-care (01) ==
PROVIDERS: PCP Internal Medicine; Visit Provider Internal Medicine
DX: Z00.00 Encounter for general adult medical examination without abnormal findings (principal); I73.9 Peripheral vascular disease, unspecified; S91.001A Unspecified open wound, right ankle, initial encounter; F33.9 Major depressive disorder, recurrent, unspecified; M79.645 Pain in left finger(s); Z12.11 Encounter for screening for malignant neoplasm of colon; Z72.0 Tobacco use; E03.8 Other specified hypothyroidism; F43.9 Reaction to severe stress, unspecified; E66.9 Obesity, unspecified; F41.1 Generalized anxiety disorder; N95.1 Menopausal and female climacteric states

== ENCOUNTER 2024-05-21 09:23 | Outpatient (REF) | payer OTHER, SELFPAY ==
--- NOTE | ~2024-05-21 | XR_ITS ---
EXAMINATION: XR HAND 3 OR MORE VIEWS LEFT HISTORY: M79.645 - Pain in left finger(s) COMPARISON: There are no prior studies available for comparison. FINDINGS: Three views of the left hand are submitted. Osseous mineralization is normal. There is no acute fracture or dislocation. A well-corticated osseous density adjacent to the tip of the ulnar styloid may represent an old ununited fracture fragment. There is moderate narrowing of the 1st carpometacarpal joint. The soft tissues are unremarkable. XR/XR hand LT min 3V IMPRESSION: Moderate narrowing of the 1st carpometacarpal joint. Electronically signed by: Arjun Mobley MD 05/21/2024 03:52 PM EST
== END 2024-05-21 09:24 | disposition home or self-care (01) ==
LOC: HO.HMGCX 09:23
PROVIDERS: PCP Internal Medicine; Visit Provider Internal Medicine
DX: Z00.01 Encounter for general adult medical examination with abnormal findings (principal); M79.645 Pain in left finger(s); I73.9 Peripheral vascular disease, unspecified; E03.8 Other specified hypothyroidism; S91.001D Unspecified open wound, right ankle, subsequent encounter; F43.9 Reaction to severe stress, unspecified; E66.9 Obesity, unspecified; F41.1 Generalized anxiety disorder; F33.9 Major depressive disorder, recurrent, unspecified; N95.1 Menopausal and female climacteric states; Z79.891 Long term (current) use of opiate analgesic; Z79.899 Other long term (current) drug therapy; Z72.0 Tobacco use
CPT/HCPCS: 73130; 96127; 99212; 99396

== ENCOUNTER → 2024-05-21 10:01 | Outpatient (BNV) | payer OTHER, SELFPAY | PROVIDERS: PCP Internal Medicine; Visit Provider Radiology Diagnostic Radiology | DX: M79.645 Pain in left finger(s) (principal) | CPT/HCPCS: 73130 ==

== ENCOUNTER 2024-06-24 08:15 | Outpatient (AMB) | payer OTHER, SELFPAY ==
--- OUTSIDE RECORDS SUMMARY | 2024-06-24 08:36 | XMS_ITS ---
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 03/15/2024 Goals Goal Patient Goal Type Associated Problems Recent Progress Patient-Stated? Author Decrease Wound Volume by X% by date (in notes) Care Plan Impaired Tissue Improving(10/2024 5:31 PM EST) No Della Lane, RN Patient and Caregiver Understand Wound Care Education Care Plan Impaired Tissue On track( 025 3:40 PM EST) Della Worthy, hemodialysis patient care specialist volume breakdown reduced by X% by week 4 Care Plan Impaired Tissue No Della Lane RN Wound volume breakdown reduced by X% by week 8 Care Plan Impaired Tissue No Della Lane RN Wound volume breakdown reduced by X% by week 12 Care Plan Impaired Tissue No Della Lane RN Quit using tobacco (cigarettes, smokeless, etc) Care Plan Education needed on impact of smoking on wound No change(2024 4:15 PM EST) Della Worthy RN Reduce tobacco use (cigarettes, smokeless, etc) Care Plan Education needed on impact of smoking on wound No Della Lane RN Decrease Wound Volume by X% by date (in notes) Care Plan Education needed on impact of smoking on wound No Della Lane RN Patient and Caregiver Understand Wound Care Education Care Plan Education needed related to ulceration/compr omised skin integrity. Della Worthy RN Interventions Care Plan Interventions Intervention Entry Date Outcome Provide caregiver with wound care procedure information 03/15/2024 Educate caregiver on proper wound care procedures 03/15/2024 Give provider list of wound care supplies 03/15/2024 Refill wound care supplies 03/15/2024 Send Wound Care Supplies 03/15/2024 Give provider list of wound care supplies 03/15/2024 Refill wound care supplies 03/15/2024 Send Wound Care Supplies 03/15/2024 Provide caregiver with wound care procedure information 03/15/2024 Educate caregiver on proper wound care procedures 03/15/2024 Document patient eligibility for HBO 03/15/2024 Assess patient for HBO treatment 03/15/2024 Record wound depth 03/15/2024 Record total wound area 03/15/2024 Measure wound progress 03/15/2024 Create an action plan identifying patient strengths and supports 03/15/2024 Establish quit date with patient 03/15/2024 Discuss prior cessation attempts 03/15/2024 Discuss preferred method of cessation and plan 03/15/2024 Discuss barriers to smoking cessation 03/15/2024 Discuss smoking status with patient 03/15/2024 Create an action plan identifying patient strengths and supports 03/15/2024 Establish quit date with patient 03/15/2024 Discuss prior cessation attempts 03/15/2024 Discuss preferred method of cessation and plan 03/15/2024 Discuss barriers to smoking cessation 03/15/2024 Discuss smoking status with patient 03/15/2024 Provide caregiver with wound care procedure information 03/15/2024 Educate caregiver on proper wound care procedures 03/15/2024 Document patient eligibility for HBO 03/15/2024 Assess patient for HBO treatment 03/15/2024 Record wound depth 03/15/2024 Record total wound area 03/15/2024 Measure wound progress 03/15/2024 Provide caregiver with wound care procedure information 03/15/2024 Educate caregiver on proper wound care procedures 03/15/2024 Document patient eligibility for HBO 03/15/2024 Assess patient for HBO treatment 03/15/2024 Record wound depth 03/15/2024 Record total wound area 03/15/2024 Measure wound progress 03/15/2024 Provide caregiver with wound care procedure information 03/15/2024 Educate caregiver on proper wound care procedures 03/15/2024 Document patient eligibility for HBO 03/15/2024 Assess patient for HBO treatment 03/15/2024 Record wound depth 03/15/2024 Record total wound area 03/15/2024 Measure wound progress 03/15/2024 Provide caregiver with wound care procedure information 03/15/2024 Educate caregiver on proper wound care procedures 03/15/2024 Note:Education ongoing Give provider list of wound care supplies 03/15/2024 Refill wound care supplies 03/15/2024 Send Wound Care Supplies 03/15/2024 Give provider list of wound care supplies 03/15/2024 Refill wound care supplies 03/15/2024 Send Wound Care Supplies 03/15/2024 Provide caregiver with wound care procedure information 03/15/2024 Educate caregiver on proper wound care procedures 03/15/2024 Record wound depth 03/15/2024 Record total wound area 03/15/2024 Measure wound progress 03/15/2024 Related Goals and Interventions Goal Associated Intervent ions Decrease Wound Volume by X% by date (in notes) Give provider list of wound care supplie s; Refill wound care supplies; Send Wound Care Supplies; Provide caregiver with wound care procedure information; Educate caregiver on proper wound care procedures; Record wound depth; Record total wound area; Measure wound progress Patient and Caregiver Unders tand Wound Care Education Provide caregiver with wound care proced ure information; Educate caregiver on proper wound care procedures; Give provider list of wound care supplies; Refill wound care supplies; Send Wound Care Supplies Wound volume breakdown reduc ed by X% by week 4 Provide caregiver with wound care proced ure information; Educate caregiver on proper wound care procedures; Document patient eligibility for HBO; Assess patient for HBO treatment; Record wound depth; Record total wound area; Measure wound progress Wound volume breakdown reduc ed by X% by week 8 Provide caregiver with wound care proced ure information; Educate caregiver on proper wound care procedures; Document patient eligibility for HBO; Assess patient for HBO treatment; Record wound depth; Record total wound area; Measure wound progress Wound volume breakdown reduc ed by X% by week 12 Provide caregiver with wound care proced ure information; Educate caregiver on proper wound care procedures; Document patient eligibility for HBO; Assess patient for HBO treatment; Record wound depth; Record total wound area; Measure wound progress Quit using tobacco (cigarett es, smokeless, etc) Create an action plan identifying patien t strengths and supports; Establish quit date with patient; Discuss prior cessation attempts; Discuss preferred method of cessation and plan; Discuss barriers to smoking cessation; Discuss smoking status with patient Reduce tobacco use (cigarett es, smokeless, etc) Create an action plan identifying patien t strengths and supports; Establish quit date with patient; Discuss prior cessation attempts; Discuss preferred method of cessation and plan; Discuss barriers to smoking cessation; Discuss smoking status with patient Decrease Wound Volume by X% by date (in notes) Give provider list of wound care supplie s; Refill wound care supplies; Send Wound Care Supplies; Provide caregiver with wound care procedure information; Educate caregiver on proper wound care procedures; Document patient eligibility for HBO; Assess patient for HBO treatment; Record wound depth; Record total wound area; Measure wound progress Patient and Caregiver Unders tand Wound Care Education Provide caregiver with wound care proced ure information; Educate caregiver on proper wound care procedures; Give provider list of wound care supplies; Refill wound care supplies; Send Wound Care Supplies
--- OUTSIDE RECORDS SUMMARY | 2024-06-24 08:36 | XMS_ITS | Encounter Summary ---
Author Organization [facility] Address [address] [place] [address] Care Team Providers Care Signal System Testing Maintainer Name Role Phone Alo Bennett MD Primary Care Provider [phone] Reason for Visit * Reason Comments Wound Care Encounter Details Date Type Department Care Team (Late st Contact Info) Description 05/27/2024 3:30 PM EST Office Visit [facility] [address] [place] [id number] Alex Robledo MD [address] [place] [address] 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) (Primary Dx); Chronic venous hypertension (idiopathic) with ulcer of right lower extremity (CODE) (CMS/HCC) Social History Tobacco Use Types Packs/Day Years Used Date Smoking Tobacco: Every Day Cigarettes Smokeless Tobacco: Never Alcohol Use Standard Drinks/Week Comments Not Currently 0 (1 standard drink = 0.6 oz pur e alcohol) Comments Unknown Sex and Gender Information Value Date Recorded Sex Assigned at Not on file Legal Sex Female 8:54 AM EST Gender Identity Not on file Sexual Orientation Not on file documented as of this encounter Last Filed Vital Signs Vital Sign Reading Time Taken Comments Blood Pressure 127/62 05/27/2024 4:24 PM EST Pulse 74 05/27/2024 4:24 PM EST Temperature 36.4 ??C (97.6 ??F) 05/27/2024 4:24 PM ES T Respiratory Rate 18 05/27/2024 4:24 PM EST Oxygen Saturation 98% 05/27/2024 4:24 PM EST Inhaled Oxygen Concentration - - Weight - - Height - - Body Mass Index - - documented in this encounter Progress Notes * Mary Madera RN - 05/27/2024 3:30 PM EST PROVIDER ORDERS Go to ER if you are presenting with fever, chills, increased redness, pain, swelling, warmth aroundwound area and/or foul smelling odor. If you have any questions or concerns, please contact the [facility] at . Bring your compression stockings with you next visit. Follow up(s)/ Referrals: N/A Fdc: N/A Additional Orders: Increase protein in your diet to help promote wound healing, Work to decrease smoking with goal of quitting Edema Control: (If your compression wrap(s) feel to tight, please elevate your leg(s) about heart level. If your wrap(s) are becoming painful and/or you loose sensation of toes/ are having toe discoloration (a change from your baseline), please remove / unwrap compression and notify [facility] at . ) Unna boot to right lower extremity, Elevate legs above heart level as much as possible, Avoid standing for extended periods of time Offloading: N/A Negative Pressure Wound Therapy: (If wound vac is off/non functioning for more than 2 hours, please remove vac dressing, apply a wetto dry dressing and notify your home care agency) N/A Cellular/Tissue Based Products: Epifix- pending insurance auth Bathing / Showering / Hygiene: May shower with protection but DO NOT get wound dressing(s) wet. Protect dressing(s) with water repellant cover ( for example- large plastic bag or cast bag) and then may take shower. Non-wound Condition/ Other Skin Care: N/A Wound Location(s): Wound #1 (Right medial ankle): Cleanser: Cleanse with Normal Saline Periwound: Apply Zinc Oxide to janet wound Topical: Woun'dres- Apply a thin layer to wound bed Primary dressing: N/A Secondary dressing: Optilock Secure with: 4 conforming gauze roll , 1 paper tape Compression Therapy: Unna boot to right lower extremity Dressing Change Frequency: Once each week ( if dressing has not been changed in 10 days call Wound Care Center [phone]) * Alex Robledo MD - 05/27/2024 3:30 PM ESTAssociated Order(s): Wound Care Procedure Venous Ulcer Right;Medial Ankle; Debridement Venous Ulcer Right;Medial Ankle Post-Procedure Diagnose(s): 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 [facility] [place] [address] Office Visit Visit Date: 05/27/2024 Patient Name: Radha Bermudez Date of : 1970 PCP: Alo Bennett MD HPI: Radha is a 54-year-old female with a recurrent right ankle venous stasis ulcer. She has history of DVT and developed post thrombotic syndrome. She has been seen here multiple times, most recently from December 2022 until today. During this time she has typically had Unna boots with multiplecourses of antibiotics. She has had vascular studies in the past. Since last visit her wound reopened after closing with a course of Apligraf and compression. Wound appears to be small. She tolerated in the boot but on last visit. No fevers or chills. Does have some pain at times. The major change in her life was that she went back to work. Assessment and Plan: Right medial lower leg venous ulcer, chronic and recurrent, small right now but in attempts to not be enlarged will use Roxy and continue with compression. Debridement done today. No evidence of infection. Follow-up next week. 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) (Primary) - Wound Care Procedure Venous Ulcer Right;Medial Ankle Chronic venous hypertension (idiopathic) with ulcer of right lower extremity (CODE) (CMS/HCC) - Wound Care Procedure Venous Ulcer Right;Medial Ankle Other orders - Debridement All questions were answered to her satisfaction. She was counseled regarding my impressions, instructions for management, and the importance of compliance with treatment. Follow up in about 1 week (around 06/03/2024) for Megha parsons/Dr. Jolley. >>>>>>>>>>>>>>>>>>>>>>>>>>>>>>>>>>>>>>>>>>>>>>>>>>> Vital Signs: Visit Vitals BP 125/56 Pulse 78 Temp 36.4 ??C (97.6 ??F) (Temporal) Resp 18 Review of Systems: Review of Systems Constitutional: Negative for chills and fever. PHYSICAL EXAM Physical Exam Vitals and nursing note reviewed. Constitutional: Appearance: Normal appearance. She is not ill-appearing. Pulmonary: Effort: Pulmonary effort is normal. Skin: Comments: Right medial ankle ulcer is small, full-thickness with pink wound bed. Some slough and fibrin overlying prior to debridement. No periwound inflammation. No tunneling or undermining. WOUND ASSESSMENT If photograph of wound not visible on this note, please check under Media tab. Wound Venous Ulcer 01/08/24 Ankle Right;Medial (Active) Date First Assessed: 01/08/24 Primary Wound Type: Venous Ulcer Wound Approximate Age at First Assessment (Weeks): -1 weeks Hand Hygiene Completed: Yes Location: Ankle Wound Location Orientation: Right;Medial Assessments 03/12/2024 3:21 PM 05/27/2024 3:34 PM Wound Image Wound Bed Tissue Assessment Granulation;Sloughing;John Sevier Granulation;Sloughing Janet-Wound Assessment Red;Scarred Scarred;Dry Shape Irregular -- Wound Length (cm) 3 cm 1 cm Wound Width (cm) 0.9 cm 0.2 cm Wound Surface Area (cm^2) 2.7 cm^2 0.2 cm^2 Wound Depth (cm) 0.2 cm 0.2 cm Wound Volume (cm^3) 0.54 cm^3 0.04 cm^3 Wound Healing % -- 93 Drainage Description Serosanguineous Serosanguineous Drainage Amount Moderate Moderate Treatments Cleansed;Other (Comment) Cleansed;Other (Comment) Dressing -- Unna boot Dressing Status Old drainage;New drainage;Removed Removed Wound Bed Granulation (%) 80 % 50 % Wound Bed Slough (%) 20 % 50 % Wound Bed Eschar (%) 0 % 0 % Tunneling 0 cm 0 cm Undermining 0 cm 0 cm Edges Attached edges;Well-defined edges Well-defined edges;Attached edges Non-staged Wound Description Full thickness Full thickness Active Orders Date Order Priority Status Authorizing Provider 05/27/24 1645 Debridement Routine Active Alex Robledo MD 05/27/24 1617 Wound Care Procedure Venous Ulcer Right;Medial Ankle Routine Active Alex Robledo MD Inactive Orders Date Order Priority Status Authorizing Provider 05/18/24 1550 Debridement Venous Ulcer Right;Medial Ankle Routine Completed KO Madera 05/18/24 1528 Wound Care Procedure Venous Ulcer Right;Medial Ankle Routine Completed KO Madera 04/29/24 1613 Wound Care Procedure Venous Ulcer Right;Medial Ankle Routine Completed Alex Robledo MD 04/15/24 1635 Debridement Venous Ulcer Right;Medial Ankle Routine Completed Alex Robledo MD 04/15/24 1613 Wound Care Procedure Venous Ulcer Right;Medial Ankle Routine Completed Alex Robledo MD 04/07/24 1655 Wound Care Procedure Venous Ulcer Right;Medial Ankle Routine Completed Mitzy Vick NP 04/07/24 1627 Debridement Venous Ulcer Right;Medial Ankle Routine Completed Mitzy Vick NP 03/24/24 1446 Wound Care Procedure Venous Ulcer Right;Medial Ankle Routine Completed Mitzy Vick NP 03/12/24 1606 Cellular Tissue Based Product Venous Ulcer Right;Medial Ankle Routine Completed Kyle Robledo MD 03/12/24 1606 Debridement Venous Ulcer Right;Medial Ankle Routine Completed Alex Robledo MD 03/12/24 1545 Wound Care Procedure Venous Ulcer Right;Medial Ankle Routine Completed Alex Robledo MD Debridement Note: Wound Care Procedure Venous Ulcer Right;Medial Ankle Date/Time: 05/27/2024 4:17 PM Performed by: Deann Carolina RN Authorized by: Alex Robledo MD Associated wounds: Wound Venous Ulcer 01/08/24 Ankle Right;Medial Consent: Consent obtained: Verbal Consent given by: Patient Risks, benefits, and alternatives were discussed: yes Risks discussed: Infection and pain Alternatives discussed: Delayed treatment [place] protocol: Procedure explained and questions answered to patient or proxy's satisfaction: yes Relevant documents present and verified: yes Patient identity confirmed: Verbally with patient Sedation: Sedation type: None Anesthesia: Anesthesia method: None Procedure details: Indications: open wounds Wound location: Leg Leg location: R lower leg Wound age (days): >14 Dressing: Dressing applied: Unna's boot Post-procedure details: Procedure completion: Tolerated Debridement Venous Ulcer Right;Medial Ankle Performed by: Alex Robledo MD Authorized by: Alex Robledo MD Associated wounds: Wound Venous Ulcer 01/08/24 Ankle Right;Medial Consent: Consent obtained: Verbal Consent given by: Patient Risks discussed: Yes Time out: Immediately prior to the procedure a time out was called Debridement Details: Performed by: Physician Type: surgical Level: subcutaneous tissue Pain control: Lidocaine 4% Pain control administration: topical anesthesia Severity of Tissue Pre Debridement: Fat layer exposed Severity of Tissue Post Debridement: Fat layer exposed Time taken: 05/27/2024 3:34 PM Length (cm): 1 Width (cm): 0.2 Depth (cm): 0.2 Area (cm^2): 0.2 Time taken: 05/27/2024 3:35 PM Length (cm): 1 Width (cm): 0.2 Depth (cm): 0.2 Percent Debrided (%): 100 Surface Area (cm^2): 0.2 Area Debrided (cm^2): 0.2 Volume (cm^3): 0.04 Tissue and other material debrided: dermis, epidermis and subcutaneous tissue Devitalized tissue debrided: slough Instrument: Curette Amount of bleeding: small Hemostasis obtained with: Pressure Procedural pain: 0 Post-procedural pain: 0 Response to treatment: Procedure was tolerated well PROVIDER ORDERS Patient Instructions PROVIDER ORDERS Go to ER if you are presenting with fever, chills, increased redness, pain, swelling, warmth aroundwound area and/or foul smelling odor. If you have any questions or concerns, please contact the [facility] at . Bring your compression stockings with you next visit. Follow up(s)/ Referrals: N/A Fdc: N/A Additional Orders: Increase protein in your diet to help promote wound healing, Work to decrease smoking with goal of quitting Edema Control: (If your compression wrap(s) feel to tight, please elevate your leg(s) about heart level. If your wrap(s) are becoming painful and/or you loose sensation of toes/ are having toe discoloration (a change from your baseline), please remove / unwrap compression and notify [facility] at . ) Unna boot to right lower extremity, Elevate legs above heart level as much as possible, Avoid standing for extended periods of time Offloading: N/A Negative Pressure Wound Therapy: (If wound vac is off/non functioning for more than 2 hours, please remove vac dressing, apply a wetto dry dressing and notify your home care agency) N/A Cellular/Tissue Based Products: Epifix- pending insurance auth Bathing / Showering / Hygiene: May shower with protection but DO NOT get wound dressing(s) wet. Protect dressing(s) with water repellant cover ( for example- large plastic bag or cast bag) and then may take shower. Non-wound Condition/ Other Skin Care: N/A Wound Location(s): Wound #1 (Right medial ankle): Cleanser: Cleanse with Normal Saline Periwound: Apply Zinc Oxide to janet wound Topical: Woun'dres- Apply a thin layer to wound bed Primary dressing: N/A Secondary dressing: Optilock Secure with: 4 conforming gauze roll , 1 paper tape Compression Therapy: Unna boot to right lower extremity Dressing Change Frequency: Once each week ( if dressing has not been changed in 10 days call Wound Care Center [phone]) 05/27/2024 4:45 PM EST Alex Robledo MD Stephon Carolina RN - 05/27/2024 3:30 PM EST Discharge Patient directed to check out at senior front end developer and collect visit summary with wound care directions and book follow up as directed. Dressings applied: Wound #1 (Right medial ankle): Cleanser: Cleanse with Normal Saline Periwound: Apply Zinc Oxide to janet wound Topical: Woun'dres Secondary dressing: Optilock Secure with: 4 conforming gauze roll , 1 paper tape Compression Therapy: Unna boot to right lower extremity Dressing technique was demonstrated and explained. Patient questions answered. Pt discharge from wound care center without issue or incidence. documented in this encounter Plan of Treatment Upcoming Encounters Date Type Department Care Team (Late st Contact Info) Description 06/25/2024 3:30 PM EST Clinical Support [facility] [address] [place] [address] documented as of this encounter Goals Goal Patient Goal Type Associated Problems Recent Progress Patient-Stated? Author Decrease Wound Volume by X% by date (in notes) Care Plan Impaired Tissue Improving(10/2024 5:31 PM EST) No Della Lane RN Patient and Caregiver Understand Wound Care Education Care Plan Impaired Tissue On track( 025 3:40 PM EST) Della Worthy RN Wound volume breakdown reduced by X% [...] needed related to ulceration/compr omised skin integrity. No Della Lane RN documented as of this encounter Procedures Procedure Name Priority Date/Time Associated Diagnosis Comments WOUND CARE PROCEDURE Routine 05/27/2024 4:17 PM EST 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) Chronic venous hypertension (idiopathic) with ulcer of right lower extremity (CODE) ([facility]) DEBRIDEMENT Routine 05/27/2024 3:30 PM EST 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) Chronic venous hypertension (idiopathic) with ulcer of right lower extremity (CODE) ([facility]) documented in this encounter Results * Wound Care Procedure Venous Ulcer Right;Medial Ankle (05/27/2024 4:17 PM EST) Narrative Alex Robledo MD - 05/27/2024 4:17 PM EST Alex Robledo MD ? 05/27/2024 ??4:46 PM Wound Care Procedure Venous Ulcer Right;Medial Ankle Date/Time: 05/27/2024 4:17 PM Performed by: Deann Carolina RN Authorized by: Alex Robledo MD ?? Associated wounds: Wound Venous Ulcer 01/08/24 Ankle Right;Medial Consent: ??Consent obtained: ??Verbal ??Consent given by: ??Patient ??Risks, benefits, and alternatives were discussed: yes ?Risks discussed: ??Infection and pain ??Alternatives discussed: ??Delayed treatment [place] protocol: ??Procedure explained and questions answered to patient or proxy's satisfaction: yes ?Relevant documents present and verified: yes ?Patient identity confirmed: ??Verbally with patient Sedation: ??Sedation type: ??None Anesthesia: ??Anesthesia method: ??None Procedure details: ??Indications: open wounds ?Wound location: ??Leg ??Leg location: ??R lower leg ??Wound age (days): ??>14 Dressing: ??Dressing applied: ??Unna's boot Post-procedure details: ??Procedure completion: ??Tolerated us Alex Robledo MD IN CLINIC/BEDSIDE ORDERAB LES Final Result * Debridement Venous Ulcer Right;Medial Ankle (05/27/2024 3:30 PM EST) Narrative Alex Robledo MD - 05/27/2024 3:30 PM EST Alex Robledo MD ? 05/27/2024 ??4:46 PM Debridement Venous Ulcer Right;Medial Ankle Performed by: Alex Robledo MD Authorized by: Alex Robledo MD ?? Associated wounds: Wound Venous Ulcer 01/08/24 Ankle Right;Medial Consent: ??Consent obtained: ??Verbal ??Consent given by: ??Patient ??Risks discussed: Yes ?? Time out: Immediately prior to the procedure a time out was called ?? Debridement Details: ??Performed by: ??Physician ??Type: surgical ?Level: subcutaneous tissue ?Pain control: ??Lidocaine 4% ??Pain control administration: topical anesthesia ?Severity of Tissue Pre Debridement: ??Fat layer exposed ??Severity of Tissue Post Debridement: ??Fat layer exposed ??Time taken: ??05/27/2024 3:34 PM ??Length (cm): ??1 ??Width (cm): ??0.2 ??Depth (cm): ??0.2 ??Area (cm^2): ??0.2 ??Time taken: ??05/27/2024 3:35 PM ??Length (cm): ??1 ??Width (cm): ??0.2 ??Depth (cm): ??0.2 ??Percent Debrided (%): ??100 ??Surface Area (cm^2): ??0.2 ??Area Debrided (cm^2): ??0.2 ??Volume (cm^3): ??0.04 ??Tissue and other material debrided: dermis, epidermis and subcutaneous tissue ?Devitalized tissue debrided: slough ?Instrument: ??Curette ??Amount of bleeding: small ?Hemostasis obtained with: ??Pressure ??Procedural pain: ??0 ??Post-procedural pain: ??0 ??Response to treatment: ??Procedure was tolerated well us Alex Robledo MD IN CLINIC/BEDSIDE ORDERAB LES Final Result documented in this encounter Visit Diagnoses Diagnosis 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)- Primary Chronic venous hypertension (idiopathic) with ulcer of right lower extremity (CODE) (CMS/HCC) documented in this encounter Additional Health Concerns Active Problems Noted Date Diagnosed Date Impaired Tissue 03/15/2024 Education needed on impact of smoking on wound 1 05/15/2023 Education needed related to ulceration/compromised skin integrity. 03/15/2024 documented as of this encounter Care Teams Signal System Testing Maintainer Relationship Specialty Start Date End Date Alo Bennett MD [address] [place] [address] PCP - General Internal Medicine 03/12/24 documented as of this encounter
--- OUTSIDE RECORDS SUMMARY | 2024-06-24 08:36 | XMS_ITS | Clinical Summary ---
Author Organization [facility] Address [address] [place] [address] Phone Care Team Providers Care [place] Folder Name Role Phone Alo Bennett MD Primary Care Provider [phone] Allergies No known active allergies Medications escitalopram (LEXAPRO) 20 mg tablet if needed. 4 Active ibuprofen (ADVIL,MOTRIN) 800 mg tablet 4 Active levothyroxine (SYNTHROID, LEVOTHROID) 200 mcg tablet Take 1 tablet (200 mcg total) by mouth 1 (one) time each day. for 90 days Active oxyCODONE-acetami nophen (PERCOCET) 5-325 mg per tablet if needed. 4 Active silver sulfADIAZINE (SILVADENE, SSD) 1 % cream Apply topically 1 (one) time each day. 50 g 4 04/07/20 25 Active Active Problems Problem Noted Date Diagnosed Date [...] er of ankle 03/12/2024 Localized edema 03/12/2024 Encounters Date Type Department Care Team Description 06/04/2024 3:30 PM EST Office Visit 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 [address] [place] [phone] Ryan Amaya PA Chronic venous hypertension (idiopathic) with ulcer of right lower extremity (CODE) (CMS/HCC) (Primary Dx); 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) 04/29/2024 3:15 PM EST Office Visit [facility] [address] [place] [phone] Alex Robledo MD Non-pressure chronic ulcer of other part of right lower leg with fat layer exposed (CMS/HCC) (Primary Dx); Localized edema 04/15/2024 3:15 PM EST Office Visit 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 [address] [place] [phone] Localized edema (Primary Dx); Non-pressure chronic ulcer of other part of right lower leg with fat layer exposed (CMS/HCC); 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 (CMS/HCC) from Last 3 Months Surgical History Surgery Date Site/Laterality Comments TUBAL LIGATION PROCEDURE: HISTORICAL TUBAL LIGATION BREAST REDUCTION 2006 PROCEDURE: DE BREAST REDUCTION SKIN GRAFT Medical History Medical History Date Comments Unspecified hypothyroidism 12/11/2005 DX:Un specified hypothyroidism Personal history of DVT (rosalva p vein thrombosis) DX:Personal history of DVT ( deep vein thrombosis); COMMENT: after childbirth Delayed wound healing Family History Medical History Relation Name Comments Cancer Father Cancer Maternal Grandmother Cancer Paternal Grandmother Relation Name Status Comments Father Maternal Grandmother Paternal Grandmother Social History Tobacco Use Types Packs/Day Years Used Date Smoking Tobacco: Every Day Cigarettes Smokeless Tobacco: Never Tobacco Cessation:Ready to Q uit: Not Asked; Counseling Given: Not Answered Alcohol Use Standard Drinks/Week Comments Not Currently 0 (1 standard drink = 0.6 oz pur e alcohol) Comments Unknown Sex and Gender Information Value Date Recorded Sex Assigned at Not on file Legal Sex Female 8:54 AM EST Gender Identity Not on file Sexual Orientation Not on file Obstetrics History Last Filed Vital Signs Vital Sign Reading Time Taken Comments Blood Pressure 128/66 06/04/2024 4:50 PM EST Pulse 74 06/04/2024 4:50 PM EST Temperature 37.3 ??C (99.2 ??F) 06/04/2024 3:57 PM ES T Respiratory Rate 16 06/04/2024 4:50 PM EST Oxygen Saturation 99% 06/04/2024 4:50 PM EST Inhaled Oxygen Concentration - - Weight 109 kg (240 lb) 03/12/2024 3:24 PM EST Height 167.6 cm (5' 6 ) 03/12/2024 3:24 PM EST Body Mass Index 38.74 03/12/2024 3:24 PM EST Plan of Treatment Upcoming Encounters Date Type Department Care Team (Late st Contact Info) Description 06/25/2024 3:30 PM EST [address] [facility] [address] [place] [phone] Health Maintenance Due Date Last Done Comments Breast Cancer Screening 1970 Hepatitis B Vaccines (1 of 3 - 19+ 3-dose series) 01/17/1991 Pneumococcal Vaccine: 50+ Years (1 of 2 - PCV) 01/17/1991 Pneumococcal Vaccine: Pediatrics (0 to 5 Years) and At-Risk Patients (6 to 64 Years) (1 of 2 - PCV) 01/17/1991 Cervical Cancer Screening: Pap Smear 01/17/1993 Zoster Vaccines (1 of 2) 01/17/2022 Cholesterol Screening (Lipid Panel) 03/31/2022 Colorectal Cancer Screening: Colonoscopy 03/31/2022 Depression Screening 03/31/2022 HIV Screening 03/31/2022 Hepatitis C Screening 03/31/2022 Social Influencers of Health Screening 03/31/2022 COVID-19 Vaccine ( season) 2023 02/22/2022, 06/25/2021, 07/28/2020, Additional history exists Influenza Vaccine (#1) 2023 , 02/05/2022, 03/08/2021, Additional history exists DTaP,Tdap,and Td Vaccines (4 - Td or Tdap) 07/15/2027 07/14/2017, 06/25/2013, 04/28/2013 MMR Vaccines Aged Out 07/18/2017 No longer eligi ble based on patient's age to complete this topic HIB Vaccines Aged Out No longer eligi ble based on patient's age to complete this topic HPV Vaccines Aged Out No longer eligi ble based on patient's age to complete this topic Hepatitis A Vaccines Aged Out No long er eligible based on patient's age to complete this topic IPV Vaccines Aged Out No longer eligi ble based on patient's age to complete this topic Meningococcal ACWY Vaccine Aged Out N o longer eligible based on patient's age to complete this topic Meningococcal B Vacine Aged Out No lo nger eligible based on patient's age to complete this topic RSV Immunization Patients Under 20 months Aged Out No longer eligible based on patient's age to complete this topic Varicella Vaccines Aged Out No longer eligible based on patient's age to complete this topic Goals Goal Patient Goal Type Associated Problems Recent Progress Patient-Stated? Author Decrease Wound Volume by X% by date (in notes) Care Plan Impaired Tissue Improving(10/2024 5:31 PM EST) Della Worthy RN Patient and Caregiver Understand Wound Care Education Care Plan Impaired Tissue On track( 025 3:40 PM EST) Della Worthy RN Wound volume breakdown reduced by X% by week 4 Care Plan Impaired Tissue Della Worthy RN Wound volume breakdown reduced by X% by week 8 Care Plan Impaired Tissue Della Worthy RN Wound volume breakdown reduced [...] needed on impact of smoking on wound Della Worthy RN Patient and Caregiver Understand Wound Care Education Care Plan Education needed related to ulceration/compr omised skin integrity. No Della Lane RN Procedures Procedure Name Priority Date/Time Associated Diagnosis Comments WOUND CARE PROCEDURE Routine 06/04/2024 4:31 PM EST 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) Chronic venous hypertension (idiopathic) with ulcer of right lower extremity (CODE) ([facility]) DEBRIDEMENT Routine 06/04/2024 3:30 PM EST 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) Chronic venous hypertension (idiopathic) with ulcer of right lower extremity (CODE) (CMS/HCC) WOUND CARE PROCEDURE Routine 05/27/2024 4:17 PM EST 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) Chronic venous hypertension (idiopathic) with ulcer of right lower extremity (CODE) (CMS/HCC) DEBRIDEMENT Routine 05/27/2024 3:30 PM EST 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) Chronic venous hypertension (idiopathic) with ulcer of right lower extremity (CODE) (CMS/HCC) WOUND CARE PROCEDURE Routine 05/18/2024 3:28 PM EST Chronic venous hypertension (idiopathic) with ulcer of right lower extremity (CODE) (CMS/HCC) 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) DEBRIDEMENT Routine 05/18/2024 3:15 PM EST Chronic venous hypertension (idiopathic) with ulcer of right lower extremity (CODE) (CMS/HCC) 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) WOUND CARE PROCEDURE Routine 04/29/2024 4:13 PM EST Non-pressure chronic ulcer of other part of right lower leg with fat layer exposed (CMS/HCC) Localized edema WOUND CARE PROCEDURE Routine 04/15/2024 4:13 PM EST Non-pressure chronic ulcer of other part of right lower leg with fat layer exposed (CMS/HCC) 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) DEBRIDEMENT Routine 04/15/2024 3:15 PM EST Non-pressure chronic ulcer of other part of right lower leg with fat layer exposed (CMS/HCC) WOUND CARE PROCEDURE Routine 04/07/2024 4:55 PM EST Non-pressure chronic ulcer of other part of right lower leg with fat layer exposed (CMS/HCC) DEBRIDEMENT Routine 04/07/2024 3:15 PM EST Non-pressure chronic ulcer of other part of right lower leg with fat layer exposed (CMS/HCC) WOUND CARE PROCEDURE Routine 03/24/2024 2:46 PM EST Localized edema Non-pressure chronic ulcer of other part of right lower leg with fat layer exposed (CMS/HCC) 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 (CMS/HCC) from Last 3 Months Results * Wound Care Procedure Venous Ulcer Right;Medial Ankle (06/04/2024 4:31 PM EST) Narrative Alex Robledo MD - 06/04/2024 4:31 PM EST Alex Robledo MD ? 06/04/2024 ??4:56 PM Wound Care Procedure Venous Ulcer Right;Medial Ankle Date/Time: 06/04/2024 4:31 PM Performed by: Della Lane RN Authorized by: Alex Robledo MD ?? Associated wounds: Wound Venous Ulcer 01/08/24 Ankle Right;Medial Consent: ??Consent obtained: ??Verbal ??Consent given by: ??Patient ??Risks, benefits, and alternatives were discussed: yes ?Risks discussed: ??Infection and pain ??Alternatives discussed: ??Delayed treatment [place] protocol: ??Procedure explained and questions answered to [...] Result * Debridement Venous Ulcer Right;Medial Ankle (06/04/2024 3:30 PM EST) Narrative Alex Robledo MD - 06/04/2024 3:30 PM EST Alex Robledo MD ? 06/04/2024 ??4:56 PM Debridement Venous Ulcer Right;Medial Ankle Performed [...] Post Debridement: ??Fat layer exposed ??Time taken: ??06/04/2024 3:59 PM ??Length (cm): ??0.9 ??Width (cm): ??0.3 ??Depth (cm): ??0.2 ??Area (cm^2): ??0.27 ??Time taken: ??06/04/2024 4:00 PM ??Length (cm): ??0.9 ??Width (cm): ??0.4 ??Depth (cm): ??0.3 ??Percent Debrided (%): ??100 ??Surface Area (cm^2): ??0.36 ??Area Debrided (cm^2): ??0.36 ??Volume (cm^3): ??0.11 ??Tissue and other material debrided: dermis, epidermis and subcutaneous tissue ?Devitalized tissue debrided: slough ?Instrument: ??Curette ??Amount of bleeding: small ?Hemostasis obtained with: ??Pressure ??Procedural pain: ??0 ??Post-procedural pain: ??0 ??Response to treatment: ??Procedure was tolerated well us Alex Robledo MD IN CLINIC/BEDSIDE ORDERAB LES Final Result * Wound Care Procedure Venous Ulcer Right;Medial [...] ??Infection and pain ??Alternatives discussed: ??Delayed treatment [place]ora protocol: ??Procedure explained and questions answered to [...] IN CLINIC/BEDSIDE ORDERAB LES Final Result * Wound Care Procedure Venous Ulcer Right;Medial Ankle (05/18/2024 3:28 PM EST) Narrative Alex Robledo MD - 05/18/2024 3:28 PM EST KO Madera ? 05/18/2024 ??3:52 PM Wound Care Procedure Venous Ulcer Right;Medial Ankle Date/Time: 05/18/2024 3:28 PM Performed by: Mary Madera RN Authorized by: KO Madera ?? Associated wounds: Wound Venous Ulcer 01/08/24 Ankle Right;Medial Consent: ??Consent obtained: ??Verbal ??Consent given by: ??Patient ??Risks, benefits, and alternatives were discussed: yes ?Risks discussed: ??Pain ??Alternatives discussed: ??Delayed treatment [place]ora protocol: ??Procedure explained and questions answered to patient or proxy's satisfaction: yes ?Relevant documents present and verified: yes ?Test results available: yes ?Imaging studies available: yes ?Patient identity confirmed: ??Verbally with patient Sedation: ??Sedation type: ??None Anesthesia: ??Anesthesia method: ??None Procedure details: ??Indications: open wounds ?Wound location: ??Leg ??Leg location: ??R lower leg ??Wound age (days): ??>14 Dressing: ??Dressing applied: ??Unna's boot Post-procedure details: ??Procedure completion: ??Tolerated us Ryan CONNELL IN CLINIC/BEDSIDE ORDERABLE S Final Result * Debridement Venous Ulcer Right;Medial Ankle (05/18/2024 3:15 PM EST) Narrative Alex Robledo MD - 05/18/2024 3:15 PM EST KO [place]era ? 05/18/2024 ??3:52 PM Debridement Venous Ulcer Right;Medial Ankle Performed by: KO Madera Authorized by: KO Madera ?? Associated wounds: Wound Venous Ulcer 01/08/24 Ankle Right;Medial Consent: ??Consent obtained: ??Verbal ??Consent given by: ??Patient ??Risks discussed: Yes ?? Time out: Immediately prior to the procedure a time out was called ?? Debridement Details: ??Performed by: ??PA ??Type: surgical ?Level: subcutaneous tissue ?Pain control: ??Lidocaine 4% ??Severity of Tissue Pre Debridement: ??Fat layer exposed ??Severity of Tissue Post Debridement: ??Fat layer exposed ??Time taken: ??05/18/2024 3:22 PM ??Length (cm): ??1 ??Width (cm): ??0.2 ??Depth (cm): ??0.2 ??Area (cm^2): ??0.2 ??Time taken: ??05/18/2024 3:23 PM ??Length (cm): ??1 ??Width (cm): ??0.2 ??Depth (cm): ??0.2 ??Percent Debrided (%): ??100 ??Surface Area (cm^2): ??0.2 ??Area Debrided (cm^2): ??0.2 ??Volume (cm^3): ??0.04 ??Tissue and other material debrided: dermis, epidermis and subcutaneous tissue ?Devitalized tissue debrided: biofilm, exudate, fibrin, necrotic debris and slough ?Instrument: ??Curette ??Amount of bleeding: small ?Hemostasis obtained with: ??Silver nitrate ??Procedural pain: ??0 ??Post-procedural pain: ??0 ??Response to treatment: ??Procedure was tolerated well us Ryan CONNELL IN CLINIC/BEDSIDE ORDERABLE S Final Result * Wound Care Procedure Venous Ulcer Right;Medial Ankle (04/29/2024 4:13 PM EST) Narrative Alex Robledo MD - 04/29/2024 4:13 PM EST Alex Robledo MD ? 05/03/2024 12:49 PM Wound Care Procedure Venous Ulcer Right;Medial Ankle Date/Time: 04/29/2024 4:13 PM Performed by: Deann Carolina RN Authorized by: Alex Robledo MD ?? Associated wounds: Wound Venous Ulcer 01/08/24 Ankle Right;Medial Consent: ??Consent obtained: ??Verbal ??Consent given by: ??Patient ??Risks, benefits, and alternatives were discussed: yes ?Risks discussed: ??Infection and pain ??Alternatives discussed: ??Delayed treatment [place] protocol: ??Procedure explained and questions answered to patient or proxy's satisfaction: yes ?Relevant documents present and verified: yes ?Patient identity confirmed: ??Verbally with patient Sedation: ??Sedation type: ??None Anesthesia: ??Anesthesia method: ??None Procedure details: ??Indications: open wounds ?Wound location: ??Leg ??Leg location: ??L lower leg ??Wound age (days): ??>14 Dressing: ??Dressing applied: ??Unna's boot Post-procedure details: ??Procedure completion: ??Tolerated us Alex Robledo MD IN CLINIC/BEDSIDE ORDERAB LES Edited Result - Final * Wound Care Procedure Venous Ulcer Right;Medial Ankle (04/15/2024 4:13 PM EST) Narrative Alex Robledo MD - 04/15/2024 4:13 PM EST Alex Robledo MD ? 04/15/2024 ??4:37 PM Wound Care Procedure Venous Ulcer Right;Medial Ankle Date/Time: 04/15/2024 4:13 PM Performed by: Deann Carolina RN Authorized by: Alex Robledo MD ?? Associated wounds: Wound Venous Ulcer 01/08/24 Ankle Right;Medial Consent: ??Consent obtained: ??Verbal ??Consent given by: ??Patient ??Risks, benefits, and alternatives were discussed: yes ?Risks discussed: ??Infection and pain ??Alternatives discussed: ??Delayed treatment [place]ora protocol: ??Procedure explained and questions answered to patient or proxy's satisfaction: yes ?Relevant documents present and verified: yes ?Patient identity confirmed: ??Verbally with patient Sedation: ??Sedation type: ??None Anesthesia: ??Anesthesia method: ??None Procedure details: ??Indications: open wounds ?Wound location: ??Leg ??Leg location: ??R lower leg ??Wound age (days): ??>14 Dressing: ??Dressing applied: ??Unna's boot ??Wrapped with: Unna boot. Post-procedure details: ??Procedure completion: ??Tolerated us Alex Robledo MD IN CLINIC/BEDSIDE ORDERAB LES Final Result * Debridement Venous Ulcer Right;Medial Ankle (04/15/2024 3:15 PM EST) Alex Angeles MD - 04/15/2024 3:15 PM EST Alex Robledo MD ? 04/15/2024 ??4:37 PM Debridement Venous Ulcer Right;Medial Ankle Performed by: Alex Robledo MD Authorized by: Alex Robledo MD ?? Associated wounds: Wound Venous Ulcer 01/08/24 Ankle Right;Medial Consent: ??Consent obtained: ??Verbal ??Consent given by: ??Patient ??Risks discussed: Yes ?? Time out: Immediately prior to the procedure a time out was called ?? Debridement Details: ??Performed by: ??Physician ??Type: conservative sharp ?Pain control: ??Lidocaine 4% ??Pain control administration: topical anesthesia ?Severity of Tissue Pre Debridement: ??Fat layer exposed ??Severity of Tissue Post Debridement: ??Fat layer exposed ??Time taken: ??04/15/2024 3:44 PM ??Length (cm): ??1.1 ??Width (cm): ??0.2 ??Depth (cm): ??0.1 ??Area (cm^2): ??0.22 ??Time taken: ??04/15/2024 3:45 PM ??Length (cm): ??1.1 ??Width (cm): ??0.2 ??Depth (cm): ??0.1 ??Percent Debrided (%): ??100 ??Surface Area (cm^2): ??0.22 ??Area Debrided (cm^2): ??0.22 ??Volume (cm^3): ??0.02 ??Tissue and other material debrided: dermis and epidermis ?Devitalized tissue debrided: necrotic debris and slough ?Instrument: ??Curette ??Amount of bleeding: none ?Procedural pain: ??0 ??Post-procedural pain: ??0 ??Response to treatment: ??Procedure was tolerated well us Alex Robledo MD IN CLINIC/BEDSIDE ORDERAB LES Final Result * Wound Care Procedure Venous Ulcer Right;Medial Ankle (04/07/2024 4:55 PM EST) Narrative Della Lane RN - 04/07/2024 4:[address] RN ? 04/07/2024 ??4:56 PM Wound Care Procedure Venous Ulcer Right;Medial Ankle Date/Time: 04/07/2024 4:55 PM Performed by: Della Lane RN Authorized by: Mitzy Vick NP ?? Associated wounds: Wound Venous Ulcer 01/08/24 Ankle Right;Medial Consent: ??Consent obtained: ??Verbal ??Consent given by: ??Patient ??Risks, benefits, and alternatives were discussed: yes ?Risks discussed: ??Infection and pain ??Alternatives discussed: ??Delayed treatment [place] protocol: ??Procedure explained and questions answered to patient or proxy's satisfaction: yes ?Relevant documents present and verified: yes ?Test results available: yes ?Patient identity confirmed: ??Verbally with patient Sedation: ??Sedation type: ??None Anesthesia: ??Anesthesia method: ??None Procedure details: ??Indications: open wounds ?Wound location: ??Leg ??Leg location: ??R lower leg ??Wound age (days): ??>14 Dressing: ??Dressing: unna compression system. Post-procedure details: ??Procedure completion: ??Tolerated us Mitzy Vick NP IN CLINIC/BEDSIDE ORDERABLES Final Result * Debridement Venous Ulcer Right;Medial Ankle (04/07/2024 3:15 PM EST) Narrative Mitzy Vick NP - 04/07/2024 3:15 PM EST Mitzy Vick NP ? 04/07/2024 ??4:48 PM Debridement Venous Ulcer Right;Medial Ankle Performed by: Mitzy Vick NP Authorized by: Mitzy Vick NP ?? Associated wounds: Wound Venous Ulcer 01/08/24 Ankle Right;Medial Consent: ??Consent obtained: ??Written ??Consent given by: ??Patient ??Risks discussed: Yes ?? Time out: Immediately prior to the procedure a time out was called ?? Time out performed at: ??04/07/2024 4:00 PM Debridement Details: ??Performed by: ??IT ARCHITECTURE CONSULTANT ??Type: conservative sharp ?Pain control: ??Lidocaine 5% ??Pain control administration: topical anesthesia ?Severity of Tissue Pre Debridement: ??Fat layer exposed ??Severity of Tissue Post Debridement: ??Fat layer exposed ??Time taken: ??04/07/2024 3:42 PM ??Length (cm): ??1.3 ??Width (cm): ??0.4 ??Depth (cm): ??0.2 ??Area (cm^2): ??0.52 ??Time taken: ??04/07/2024 3:43 PM ??Length (cm): ??1.3 ??Width (cm): ??0.4 ??Depth (cm): ??0.2 ??Percent Debrided (%): ??100 ??Surface Area (cm^2): ??0.52 ??Area Debrided (cm^2): ??0.52 ??Volume (cm^3): ??0.1 ??Tissue and other material debrided: dermis, epidermis and subcutaneous tissue ?Devitalized tissue debrided: exudate, fibrin and slough ?Instrument: ??Curette ??Amount of bleeding: small ?Hemostasis obtained with: ??Pressure ??Procedural pain: ??0 ??Post-procedural pain: ??0 ??Response to treatment: ??Procedure was tolerated well us Mitzy Vick NP IN CLINIC/BEDSIDE ORDERABLES Final Result * Wound Care Procedure Venous Ulcer Right;Medial Ankle (03/24/2024 2:46 PM EST) Della Dodson RN - 03/24/2024 2:[address] RN ? 03/24/2024 ??2:56 PM Wound Care Procedure Venous Ulcer Right;Medial Ankle Date/Time: 03/24/2024 2:46 PM Performed by: Della Lane RN Authorized by: Mitzy Vick NP ?? Associated wounds: Wound Venous Ulcer 01/08/24 Ankle Right;Medial Consent: ??Consent obtained: ??Verbal ??Consent given by: ??Patient ??Risks, benefits, and alternatives were discussed: yes ?Risks discussed: ??Infection and pain ??Alternatives discussed: ??Delayed treatment [place] protocol: ??Procedure explained and questions answered to patient or proxy's satisfaction: yes ?Relevant documents present and verified: yes ?Test results available: yes ?Patient identity confirmed: ??Verbally with patient Sedation: ??Sedation type: ??None Anesthesia: ??Anesthesia method: ??None Procedure details: ??Indications: open wounds ?Wound location: ??Leg ??Leg location: ??R lower leg ??Wound age (days): ??>14 Dressing: ??Dressing: unna boot compression wrap. Post-procedure details: ??Procedure completion: ??Tolerated us Mitzy Vick IT ARCHITECTURE CONSULTANT IN CLINIC/BEDSIDE ORDERABLES Final Result from Last 3 Months Additional Health Concerns Active Problems Noted Date Diagnosed Date Impaired Tissue 03/15/2024 Education needed on impact of smoking on wound 1 05/15/2023 Education needed related to ulceration/compromised skin integrity. 03/15/2024 Insurance [facility] Care Teams [place] Folder Relationship Specialty Start Date End Date Alo Bennett MD [address] [facility] [place] [phone] PCP - General Internal Medicine 03/12/24
--- OUTSIDE RECORDS SUMMARY | 2024-06-24 08:36 | XMS_ITS | Encounter Summary ---
Author Organization [facility] Address [address] [place] [address] Care Team Providers Care Ripening Room Operator Name Role Phone Alo Bennett MD Primary Care Provider Reason for Visit * Reason Comments Wound Care Encounter Details Date Type Department Care Team (Late st Contact Info) Description 06/04/2024 3:30 PM EST Office Visit [facility] [address] [place] [phone] Alex Robledo MD [address] [place] [address] Non-pressure chronic ulcer of right ankle with [...] Progress Notes * Mary Madera RN - 06/04/2024 3:30 PM EST PROVIDER ORDERS Go to ER if you are presenting with fever, chills, increased redness, pain, swelling, warmth aroundwound area and/or foul smelling odor. If you have any questions or concerns, please contact the [facility] at . Bring your compression stockings with you next visit. Follow up(s)/ Referrals: N/A Jail: N/A Additional Orders: Increase protein in your [...] please remove / unwrap compression and notify [facility] at . ) Unna boot to right [...] Normal Saline Periwound: Apply Zinc Oxide to rylee wound Topical: Woun'dres- Apply a thin layer to wound bed Primary dressing: N/A Secondary dressing: Optilock Secure with: 4 conforming gauze roll , 1 paper tape Compression Therapy: Unna boot to right lower extremity Dressing Change Frequency: Once each week ( if dressing has not been changed in 10 days call Wound Care Center [phone]) * Alex Robledo MD - 06/04/2024 3:30 PM ESTAssociated Order(s): Wound Care Procedure Venous Ulcer Right;Medial Ankle; Debridement Venous Ulcer Right;Medial Ankle Post-Procedure Diagnose(s): 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 [facility] [place] [address] Office Visit Visit Date: 06/04/2024 Patient Name: Radha Bermudez Date of : [...] has had vascular studies in the past. Wearing Unna boot this week with mupirocin at the wound bed. Continues to have some pain at night but she has been off her feet more due to changes with her work schedule. No fevers or chills. Assessment and Plan: Right medial lower leg venous ulcer that is chronic and recurrent appears healing now, smaller in measurement and in appearance. Will continue with Woun'Dres gel and compression with Unna boot. No evidence of infection today. Follow-up next week. 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) (Primary) - Wound Care Procedure Venous Ulcer Right;Medial Ankle Chronic venous hypertension (idiopathic) with ulcer of right lower extremity (CODE) ([facility]) - Wound Care Procedure Venous Ulcer Right;Medial Ankle Other orders - Debridement All questions were answered to her satisfaction. She was counseled regarding my impressions, instructions for management, and the importance of compliance with treatment. Follow up in about 1 week (around 06/11/2024) for Unna boot. >>>>>>>>>>>>>>>>>>>>>>>>>>>>>>>>>>>>>>>>>>>>>>>>>>> Vital Signs: Visit Vitals BP 125/68 (BP Location: Left arm, Patient Position: Sitting, BP Cuff Size: Adult) Pulse 70 Temp 37.3 ??C (99.2 ??F) (Temporal) Resp 16 Review of Systems: Review of Systems Constitutional: Negative for chills and fever. PHYSICAL EXAM Physical Exam Vitals and nursing note reviewed. Constitutional: Appearance: Normal appearance. She is not ill-appearing. Pulmonary: Effort: Pulmonary effort is normal. Skin: Comments: Right medial ankle ulcer is small but full-thickness with a pink wound bed. There is someslough and debris overlying the wound bed. Continues to be chronic discoloration and hyperpigmentation surrounding the wound and some taut and tension scarring. No periwound inflammation. WOUND ASSESSMENT If photograph of wound not visible on this note, please check under Media tab. Wound Venous Ulcer 01/08/24 Ankle Right;Medial (Active) Date First Assessed: 01/08/24 Primary Wound Type: Venous Ulcer Wound Approximate Age at First Assessment (Weeks): -1 weeks Hand Hygiene Completed: Yes Location: Ankle Wound Location Orientation: Right;Medial Assessments 03/12/2024 3:21 PM 06/04/2024 3:59 PM Wound Image Wound Bed Tissue Assessment Granulation;Sloughing;[place] -- Rylee-Wound Assessment Red;Scarred Dry Shape Irregular Irregular Wound Length (cm) 3 cm 0.9 cm Wound Width (cm) 0.9 cm 0.3 cm Wound Surface Area (cm^2) 2.7 cm^2 0.27 cm^2 Wound Depth (cm) 0.2 cm 0.2 cm Wound Volume (cm^3) 0.54 cm^3 0.054 cm^3 Wound Healing % -- 90 Drainage Description Serosanguineous Sanguineous Drainage Amount Moderate -- Treatments Cleansed;Other (Comment) -- Dressing Status Old drainage;New drainage;Removed -- Wound Bed Granulation (%) 80 % 80 % Wound Bed Epithelialization (%) -- 0 % Wound Bed Slough (%) 20 % 20 % Wound Bed Eschar (%) 0 % 0 % Tunneling 0 cm 0 cm Undermining 0 cm -- Edges Attached edges;Well-defined edges Epibole (Rolled edges);Attached edges Non-staged Wound Description Full thickness Full thickness Active Orders Date Order Priority Status Authorizing Provider 06/04/24 1655 Debridement Routine Active Alex Robledo MD 06/04/24 1631 Wound Care Procedure Venous Ulcer Right;Medial Ankle Routine Active Alex Robledo MD Inactive Orders Date Order Priority Status Authorizing Provider 05/27/24 1645 Debridement Venous Ulcer Right;Medial Ankle Routine Completed Alex Robledo MD 05/27/24 1617 Wound Care Procedure Venous Ulcer Right;Medial Ankle Routine Completed Alex Robledo MD 05/18/24 1550 Debridement Venous Ulcer Right;Medial Ankle [...] Lane RN Authorized by: Alex Robledo MD Associated wounds: Wound Venous Ulcer 01/08/24 Ankle Right;Medial Consent: Consent obtained: Verbal Consent given by: Patient Risks, benefits, and alternatives were discussed: yes Risks discussed: Infection and pain Alternatives discussed: Delayed treatment Agar protocol: Procedure explained and questions answered to [...] Post Debridement: Fat layer exposed Time taken: 06/04/2024 3:59 PM Length (cm): 0.9 Width (cm): 0.3 Depth (cm): 0.2 Area (cm^2): 0.27 Time taken: 06/04/2024 4:00 PM Length (cm): 0.9 Width (cm): 0.4 Depth (cm): 0.3 Percent Debrided (%): 100 Surface Area (cm^2): 0.36 Area Debrided (cm^2): 0.36 Volume (cm^3): 0.11 Tissue and other material debrided: dermis, epidermis [...] any questions or concerns, please contact the [facility] at . Bring your compression stockings with you next visit. Follow up(s)/ Referrals: N/A Jail: N/A Additional Orders: Increase protein in your [...] please remove / unwrap compression and notify [facility] at . ) Unna boot to right [...] Normal Saline Periwound: Apply Zinc Oxide to rylee wound Topical: Woun'dres- Apply a thin layer to wound bed Primary dressing: N/A Secondary dressing: Optilock Secure with: 4 conforming gauze roll , 1 paper tape Compression Therapy: Unna boot to right lower extremity Dressing Change Frequency: Once each week ( if dressing has not been changed in 10 days call Wound Care Center [phone]) 06/04/2024 4:55 PM EST Alex Robledo MD * Della Lane RN - 06/04/2024 3:30 PM EST Discharge Patient directed to check out at lead front end developer and collect visit summary with wound care directions and book follow up as directed. Dressings applied: Wound #1 (Right medial ankle): Cleanser: Normal Saline Periwound: Zinc Oxide Topical: Woun'dres- Apply a thin layer to wound bed Secondary dressing: Optilock Secure with: 4 conforming [...] Description 06/25/2024 3:30 PM EST Clinical Support [facility] [address] [place] [phone] documented as of this encounter Goals [...] on impact of smoking on wound No Peretti, Della, RN Decrease Wound Volume by X% by date (in notes) Care Plan Education needed on impact of smoking on wound Della Worthy, DEBBIE Patient and Caregiver Understand Wound Care Education Care Plan Education needed related to ulceration/compr omised skin integrity. Della Worthy RN documented as of this encounter Procedures Procedure Name Priority Date/Time Associated Diagnosis Comments WOUND CARE PROCEDURE Routine 06/04/2024 4:31 PM EST 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) Chronic venous hypertension (idiopathic) with ulcer of right lower extremity (CODE) ([facility]) DEBRIDEMENT Routine 06/04/2024 3:30 PM EST 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) Chronic venous hypertension (idiopathic) with ulcer of right lower extremity (CODE) (CMS/[facility]) documented in this encounter Results * [...] ??Infection and pain ??Alternatives discussed: ??Delayed treatment Agar protocol: ??Procedure explained and questions answered to [...] documented as of this encounter Care Teams Ripening Room Operator Relationship Specialty Start Date End Date Alo Bennett MD [address] [place] [phone] PCP - General Internal Medicine 03/12/24 documented as of this encounter
--- NOTE | 2024-06-24 09:02 | A.OFFPC_ITS ---
Intake Visit Reasons: med management Allergies No Known Allergies [No Known Allergies*] Allergy (Verified 06/24/24 09:02) Medication List - Last Reconciled 06/24/24 by Alo Bennett MD escitalopram oxalate 20 mg PO DAILY 90 days furosemide 20 mg PO QAM ibuprofen 800 mg PO Q8H PRN 30 days levothyroxine 200 mcg PO DAILY 90 days oxycodone-acetaminophen 5-325 mg (Percocet) 1 tab PO TID PRN 30 days Tobacco use date assessed: 06/24/24 Dental Screening Dental Screen Date: 06/24/24 Did you have a dental visit in the last 12 months?: Yes Did you have a dental problem in the last 6 months where you did not have access to dental care?: No Was dental information given to patient?: Patient has dentist HPI med management HPI Details Telehealth Attestation This visit was conducted via telephone. Documentation of the visit is accurate and comprehensive based on the established protocol for telehealth services. Interval History - The patient is a 54-year-old female pr esenting with a chronic non-healing wound on her leg, ongoing for 20 years, requiring regular debridement at a wound care clinic. The wound had briefly healed for one to two weeks but has since reopened. 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 - Chronic pain management involves the u se of Percocet (oxycodone and acetaminophen) and occasional ibuprofen. The patient was unaware of the acetaminophen content in Percocet. She experiences transient relief from pain medications. - Reports arthritis in hands, with incre ased pain during winter and difficulty squeezing bottles. X-ray results indicate moderate joint narrowing. - The patient reports depressive symptom s, attributed to weight gain and eating behavior. Her prior therapist was [id number] due to an insurance change, necessitating new arrangements for mental health support. - Hypertension and kidney function were checked in March and were within normal limits at that time. - She has not arranged for her colonosco py; the appointment for a mammogram is scheduled, and no OB-FILTER MACHINE OPERATOR visit has been established for Pap smear since 2020. Plan 1. Chronic Non-Healing Wound The patient?s leg wound requires diligent monitoring and treatment at wound care clinic. Continued application of Silvadene cream is necessary. Weekly clinic visits recommended for consistent wound evaluation and care. 2. Behavioral Health Psychotherapy Need Patients should seek psychotherapy engagement with an in-network provider to address mental health needs and support well-being. Coordination assistance offered through office channels. 3. Osteoarthritis Managing osteoarthritis involves ergonomic adjustments in daily tasks to reduce pain exacerbation. Consultation with hand specialist may be pursued for joint injections if warranted. 4. Pain Management Opioid Use Patient education on current pain management strategies, including the effects of combining prescription and [id number]-[id number] analgesics. Consider alteration to pain medication regimen for improved therapeutic control. 5. Depression Ongoing emotional support is crucial. Therapist referral is necessary; coordination with Tarsha suggested for assistance in locating appropriate mental h ealt resources. Review of Systems - Body/General: Reports being off work, weight gain attributed to depression, increased overall stress. - Musculoskeletal: Reports moderate join t pain in hands, exacerbation during cold weather, difficulty using hands for certain tasks. - Integumentary: Reports chronic wound i n leg, previous healing, and subsequent reopening. - Neurological/Psychiatric: Reports depr essed mood, exacerbation of stress related to lifestyle changes, and previous beneficial engagement with therapy. [facility] Medical History Peripheral vascular disease Chronic wound of extremity Vitamin D deficiency Other specified hypothyroidism Open ankle wound Surgical History Status post breast reduction History of tubal ligation Family History Father Lung cancer Smoker Mother Anxiety Maternal Grandfather No problems noted. Maternal Grandmother Cancer Paternal Grandmother No problems noted. Paternal Grandfather No problems noted. Brother No problems noted. Sister No problems noted. Sister No problems noted. Sister No problems noted. Sister No problems noted. Son No problems noted. Daughter No problems noted. Other Substance use disorder Social History Housing: House Alcohol intake: current Alcohol intake frequency: a few times a week Patient Tobacco Use Status: Current everyday Tobacco user Tobacco use type: Cigarette Cigarette Packs Per Day: 1 e-Cigarette/Vaping Use: Never Used service: No Current occupational status: employed Sexual orientation: Straight/Heterosexual Gender identity: Female Cognitive needs: No Hearing needs: No Vision needs: Yes Female Reproductive History Menstrual Age of Menarche: 15 Questionnaire Thrive Questionnaire Date Thrive assessed: 05/21/24 AUDIT C Alcohol Use Questionnaire (AUDIT-C) 1. How often do you have a drink containing alcohol?: 2-4 times a month 2. How many drinks containing alcohol do you have on a typical day when you are drinking?: 3 or 4 3. How often do you have six or more drinks on one occasion?: Less than monthly Total Score: 4 Score Reviewed/Action Taken: Yes CINDI-7 AMB Questionnaire CINDI-7 Date CINDI - 7 assessed: 05/21/24 Source: Developed by Drs. Arjun Cantrell, Savannah Escoto, Macario Carrillo and colleagues, with an educational paul from [employer]. Physical exam (Primary Care) Tobacco/Smoking Status: Tobacco use Status Tobacco use date assessed 06/24/24 06/24/24 09:04 Patient Tobacco Use Status Current everyday Tobacco 06/24/24 09:04 Tobacco use type Cigarette 06/24/24 09:04 e-Cigarette/Vaping Use Never Used 06/24/24 09:04 Thrive Assessment: Date of Thrive Assessment Date Thrive assessed 05/21/24 06/24/24 09:04 Telehealth Telehealth Telehealth Platform: [facility] Location of provider rendering services: practice address Location of patient: address on file Patient Identification confirmed using: Name, : Yes Telehealth method: voice only Patient verbally consented to treatment: Yes Patient verbally consented to billing insurance company: Yes Patient informed of any privacy concerns related to visit: Yes Minutes spent on Phone/Video with Pt.: 16 Coding Level of Care Code Tele Est Pt Level 3 (37870) Diagnoses Open wound of right ankle, initial encounter S91.001A Encounter type: initial encounter Laterality: right Pain of left thumb M79.645 Peripheral vascular disease I73.9 Stress F43.9 Obesity (BMI 30-39.9) E66.9 Anxiety, generalized F41.1 Moderate episode of recurrent major depressive disorder F33.1 Active/Remission status: currently active Major depression episode severity: moderate Tobacco abuse Z72.0 Assessment & Plan Assessment & Plan (1) Open ankle wound: Code(s): S91.009A - Unspecified open wound, unspecified ankle, initial encounter Category: Medical Qualifiers: Encounter type: initial encounter Laterality: right Qualified Code(s): S91.001A - Unspecified open wound, right ankle, initial encounter (2) Pain of left thumb: Code(s): M79.645 - Pain in left finger(s) Category: Medical (3) Peripheral vascular disease: Code(s): I73.9 - Peripheral vascular disease, unspecified Category: Medical (4) Stress: Code(s): F43.9 - Reaction to severe stress, unspecified Category: Medical (5) Obesity (BMI 30-39.9): Code(s): E66.9 - Obesity, unspecified Category: Medical (6) Anxiety, generalized: Code(s): F41.1 - Generalized anxiety disorder Category: Medical (7) Major depression, recurrent: Code(s): F33.9 - Major depressive disorder, recurrent, unspecified Category: Medical Qualifiers: Active/Remission status: currently active Major depression episode severity: moderate Qualified Code(s): F33.1 - Major depressive disorder, recurrent, moderate (8) Tobacco abuse: Code(s): Z72.0 - Tobacco use Category: Medical Plan Telehealth Attestation This visit was conducted via telephone. Documentation of the visit is accurate and comprehensive based on the established protocol for telehealth services. Interval History - The patient is a 54-year-old female presenting with a chronic non-healing wound on her leg, ongoing for 20 years, requiring regular debridement at a wound care clinic. The wound had briefly healed for one to two weeks but has since reopened. 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 - Chronic pain management involves the use of Percocet (oxycodone and acetaminophen) and occasional ibuprofen. The patient was unaware of the acetaminophen content in Percocet. She experiences transient relief from pain medications. - Reports arthritis in hands, with increased pain during winter and difficulty squeezing bottles. X-ray results indicate moderate joint narrowing. - The patient reports depressive symptoms, attributed to weight gain and eating behavior. Her prior therapist was [id number] due to an insurance change, necessitating new arrangements for mental health support. - Hypertension and kidney function were checked in March and were within normal limits at that time. - She has not arranged for her colonoscopy; the appointment for a mammogram is scheduled, and no OB-FILTER MACHINE OPERATOR visit has been established for Pap smear since 2020. Plan 1. Chronic Non-Healing Wound The patient?s leg wound requires diligent monitoring and treatment at wound care clinic. Continued application of Silvadene cream is necessary. Weekly clinic visits recommended for consistent wound evaluation and care. 2. Behavioral Health Psychotherapy Need Patients should seek psychotherapy engagement with an in-network provider to address mental health needs and support well-being. Coordination assistance offered through office channels. 3. Osteoarthritis Managing osteoarthritis involves ergonomic adjustments in daily tasks to reduce pain exacerbation. Consultation with hand specialist may be pursued for joint injections if warranted. 4. Pain Management Opioid Use Patient education on current pain management strategies, including the effects of combining prescription and hxzz-ehc-ifdsofi analgesics. Consider alteration to pain medication regimen for improved therapeutic control. 5. Depression Ongoing emotional support is crucial. Therapist referral is necessary; coordination with Tarsha suggested for assistance in locating appropriate mental health resources. Orders: Referrals GIFTED PROGRAM TEACHER Referral Z01.419 - Encounter for gynecological examination (general) (routine) without abnormal findings
== END 2024-06-24 11:30 | disposition home or self-care (01) ==
LOC: HO.HMCC 08:15
PROVIDERS: PCP Internal Medicine; Visit Provider Internal Medicine
DX: S91.001A Unspecified open wound, right ankle, initial encounter (principal); I73.9 Peripheral vascular disease, unspecified; F33.1 Major depressive disorder, recurrent, moderate; M79.645 Pain in left finger(s); F43.9 Reaction to severe stress, unspecified; E66.9 Obesity, unspecified; F41.1 Generalized anxiety disorder; Z72.0 Tobacco use

== ENCOUNTER 2024-07-09 12:35 | Outpatient (AMB) | payer OTHER, SELFPAY ==
[2024-07-09 12:42] VITALS: BP 126/78; PULSE 78; O2SAT 98; BMI 40.7
--- NOTE | 2024-07-09 12:42 | A.OFFPC_ITS ---
Vital Signs 07/09/24 12:42 Height 5 ft 6 in Weight 252 lb BMI 40.7 BP 126/78 Blood Pressure Location Rt brachial Position Sitting Pulse 78 Pulse Source Pulse Oximeter Pulse Oximetry (%) 98 Oxygen Delivery Method Room Air Intake Visit Reasons: lt knee/calf pain/Inusurance ok Allergies No Known Allergies [No Known Allergies*] Allergy (Verified 07/09/24 12:43) Medication List - Last Reconciled 07/09/24 by Alo Bennett MD escitalopram oxalate 20 mg PO DAILY 90 days furosemide 20 mg PO QAM ibuprofen 800 mg PO Q8H PRN 30 days levothyroxine 200 mcg PO DAILY 90 days oxycodone-acetaminophen 5-325 mg (Percocet) 1 tab PO TID PRN 30 days Tobacco use date assessed: 07/09/24 Dental Screening Dental Screen Date: 07/09/24 Did you have a dental visit in the last 12 months?: Yes Did you have a dental problem in the last 6 months where you did not have access to dental care?: No Was dental information given to patient?: Patient has dentist HPI lt knee/calf pain/Inusurance ok HPI Details - The patient is a 54-year-old female pr esenting with knee pain. - Pain onset occurred at work and limite d weight-bearing movement. - Pain subsided after using a heating pa d, rest, and oxycodone; no follow-up imaging or diagnostics once insurance was active due to pain resolution. - Persistent open wound on the right leg received debridement, wound clinic [facility] - Patient cautious with oxycodone, minim izing use the past five days. - Depression management with resumption of Lexapro after a period of inco nsistent intake. - Hypothyroidism under treatment with le vothyroxine; routine lab check for thyroid function urged. - Continued nicotine use despite concern s; previous efforts towards cessation th rough hypnotherapy for weight were effective. Medications - Lexapro (Escitalopram) 20 mg for depre ssion/anxiety - Levothyroxine for hypothyroidism - Furosemide as needed for fluid retenti on - Oxycodone for pain management (leg wou nd and past knee pain) - Intermittent water pill usage for flui d retention (Furosemide) Problem List - Osteoarthritis - Open Wound on Leg - Nicotine Dependence - Depression - Hypothyroidism - Weight Management Concerns - Family History: Mother's Hospitalizati on for Blood Infection [facility] - Wound clinic involved in debridement. - Patient acts as healthcare proxy for m other's care. - Therapist involved in psychological ca re and medication management. Patient Instructions - Avoid activities that exacerbate knee pain, such as prolonged treadmill use. - Utilize heating pad and rest for recur rent knee discomfort. - Monitor the open leg wound closely, an d return to the wound clinic as scheduled. - Adhere to daily use of levothyroxine. - Prioritize resumption of smoking cessa tion strategies and consider discussing further with a therapist. - Contact the provider if pain returns o r new symptoms develop. Review of Systems General: No fever no chills neurological: No headaches no dizziness ear nose throat: No sore throat no hearing difficulty no ear pain cardiovascular: No syncope, no chest pain, no palpitations gastrointestinal: No nausea vomiting or diarrhea endocrine: No polyuria polydipsia no heat intolerance genitourinary: No dysuria skin: No new complaints Physical Exam general: No acute distress HEENT: No acute findings neck: Supple respiratory system: Able to talk in full sentences, no audible wheeze no stridor cardiovascular: S1-S2 gastrointestinal: No pain extremities: Pain in the left knee very minimal no swelling no warmth to touch, range of motion intact [employer]: Alert awake oriented x3 motor sensory intact skin: Normal turgor PFSH Medical History Peripheral vascular disease Chronic wound of extremity Vitamin D deficiency Other specified hypothyroidism Open ankle wound Surgical History Status post breast reduction History of tubal ligation Family History Father Lung cancer Smoker Mother Anxiety Maternal Grandfather No problems noted. Maternal Grandmother Cancer Paternal Grandmother No problems noted. Paternal Grandfather No problems noted. Brother No problems noted. Sister No problems noted. Sister No problems noted. Sister No problems noted. Sister No problems noted. Son No problems noted. Daughter No problems noted. Other Substance use disorder Social History Housing: House Alcohol intake: current Alcohol intake frequency: a few times a week Patient Tobacco Use Status: Current everyday Tobacco user Tobacco use type: Cigarette Cigarette Packs Per Day: 1 e-Cigarette/Vaping Use: Never Used service: No Current occupational status: employed Sexual orientation: Straight/Heterosexual Gender identity: Female Cognitive needs: No Hearing needs: No Vision needs: Yes Female Reproductive History Menstrual Age of Menarche: 15 Questionnaire PHQ-9 Over the last 2 weeks, how often have you been bothered by any of the following problems? 53757 - PHQ-9 Billing: Patient declined-do not bill Source: Developed by Drs. Arjun Cantrell, Savannah Escoto, Macario Carrillo and colleagues, with an educational paul from [employer]. Thrive Questionnaire Date Thrive assessed: 07/09/24 I am a: Patient What is your living situation today?: I have a place to live, but I am worried about losing it in the future Within the past 12 months, did the food you bought not last and you didn't have the money to get more?: Sometimes True Within the past 12 months, did you worry whether your food would run out before you got money to buy more?: Sometimes True Do you have trouble paying for medicines?: No Do you have trouble getting transportation to medical appointments?: No Do you have trouble paying your heating and electricity bill?: Yes Do you have trouble taking care of your child, family member or friend?: No Do you have trouble with day-to-day activities such as bathing, preparing meals, shopping, managing finances, etc.?: No Are you currently unemployed and looking for a job?: Yes Are you interested in more education?: No Currently or been in a relationship where the following occur: No concerns reported THRIVE Score: 4 AUDIT C Alcohol Use Questionnaire (AUDIT-C) 1. How often do you have a drink containing alcohol?: 2-4 times a month 2. How many drinks containing alcohol do you have on a typical day when you are drinking?: 3 or 4 3. How often do you have six or more drinks on one occasion?: Less than monthly Total Score: 4 Score Reviewed/Action Taken: Yes CINDI-7 AMB Questionnaire CINDI-7 Date CINDI - 7 assessed: 07/09/24 Feeling nervous, anxious, or on edge: 0 = Not at all Not being able to stop or control worryin = Not at all Worrying too much about different things: 0 = Not at all Trouble relaxin = Not at all Being so restless that it is hard to sit still: 0 = Not at all Becoming easily annoyed or irritable: 0 = Not at all Feeling afraid as if something awful might happen: 0 = Not at all Total CINDI-7 score (0-4 normal; 5-9 mild; 10-14 moderate; 15-21 severe): 0 Source: Developed by Drs. Arjun Cantrell, Savannah Escoto, Macario Carrillo and colleagues, with an educational paul from [employer]. CINDI-7 Assessment Billing CINDI-7 Assessment Tool: CINDI-7 Assessment 44896 Physical exam (Primary Care) Vital Signs: Last Vital Signs Pulse 78 07/09/24 12:42 BP 126/78 07/09/24 12:42 Pulse Ox 98 07/09/24 12:42 Oxygen Delivery Method Room Air 07/09/24 12:42 BMI result Body Mass Index 40.7 Tobacco/Smoking Status: Tobacco use Status Tobacco use date assessed 07/09/24 07/09/24 12:51 Patient Tobacco Use Status Current everyday Tobacco 07/09/24 12:44 Tobacco use type Cigarette 07/09/24 12:44 e-Cigarette/Vaping Use Never Used 07/09/24 12:44 Thrive Assessment: Date of Thrive Assessment Date Thrive assessed 07/09/24 07/09/24 12:51 Currently or been in a relationship where the following occur: No concerns reported Coding Level of Care Code Est Pt Level 4 (73184) Complex EM visit Add On G2211 Diagnoses Moderate episode of recurrent major depressive disorder F33.1 Active/Remission status: currently active Major depression episode severity: moderate Peripheral vascular disease I73.9 Tobacco abuse Z72.0 Other specified hypothyroidism E03.8 Anxiety, generalized F41.1 Recurrent major depressive disorder, in partial remission F33.41 Major depression recurrence: recurrent Morbid obesity due to excess calories E66.01 Chronic wound of extremity Additional Codes CINDI-7 Assessment Billing - CINDI-7 Assessment Tool: CINDI-7 Assessment 21956 ([id number]) Assessment & Plan Assessment & Plan (1) Major depression, recurrent: Code(s): F33.9 - Major depressive disorder, recurrent, unspecified Category: Medical Qualifiers: Active/Remission status: currently active Major depression episode severity: moderate Qualified Code(s): F33.1 - Major depressive disorder, recurrent, moderate (2) Peripheral vascular disease: Code(s): I73.9 - Peripheral vascular disease, unspecified Category: Medical (3) Tobacco abuse: Code(s): Z72.0 - Tobacco use Category: Medical (4) Other specified hypothyroidism: Code(s): E03.8 - Other specified hypothyroidism Category: Medical (5) Anxiety, generalized: Code(s): F41.1 - Generalized anxiety disorder Category: Medical (6) Depression, major, in partial remission: Code(s): F32.4 - Major depressive disorder, single episode, in partial remission Category: Medical Qualifiers: Major depression recurrence: recurrent Qualified Code(s): F33.41 - Major depressive disorder, recurrent, in partial remission (7) Morbid obesity due to excess calories: Code(s): E66.01 - Morbid (severe) obesity due to excess calories Category: Medical (8) Chronic wound of extremity: Category: Medical Plan - The patient is a 54-year-old female presenting with knee pain. - Pain onset occurred at work and limited weight-bearing movement. - Pain subsided after using a heating pad, rest, and oxycodone; no follow-up imaging or diagnostics once insurance was active due to pain resolution. - Persistent open wound on the right leg received debridement, wound clinic [facility] - Patient cautious with oxycodone, minimizing use the past five days. - Depression management with resumption of Lexapro after a period of inconsistent intake. - Hypothyroidism under treatment with levothyroxine; routine lab check for thyroid function urged. - Continued nicotine use despite concerns; previous efforts towards cessation through hypnotherapy for weight were effective. Medications - Lexapro (Escitalopram) 20 mg for depression/anxiety - Levothyroxine for hypothyroidism - Furosemide as needed for fluid retention - Oxycodone for pain management (leg wound and past knee pain) - Intermittent water pill usage for fluid retention (Furosemide) Problem List - Osteoarthritis - Open Wound on Leg - Nicotine Dependence - Depression - Hypothyroidism - Weight Management Concerns - Family History: Mother's Hospitalization for Blood Infection [facility] - Wound clinic involved in debridement. - Patient acts as healthcare proxy for mother's care. - Therapist involved in psychological care and medication management. Patient Instructions - Avoid activities that exacerbate knee pain, such as prolonged treadmill use. - Utilize heating pad and rest for recurrent knee discomfort. - Monitor the open leg wound closely, and return to the wound clinic as scheduled. - Adhere to daily use of levothyroxine. - Prioritize resumption of smoking cessation strategies and consider discussing further with a therapist. - Contact the provider if pain returns or new symptoms develop. Orders: Orders Complete Blood Count Auto Diff Today E03.8 - Other specified hypothyroidism, E66.01 - Morbid (severe) obesity due to excess calories, F33.1 - Major depressive disorder, recurrent, moderate, F33.41 - Major depressive disorder, recurrent, in partial remission, F41.1 - Generalized anxiety disorder, I73.9 - Peripheral vascular disease, unspecified, Z72.0 - Tobacco use Comprehensive Met. Panel Today E03.8 - Other specified hypothyroidism, E66.01 - Morbid (severe) obesity due to excess calories, F33.1 - Major depressive disorder, recurrent, moderate, F33.41 - Major depressive disorder, recurrent, in partial remission, F41.1 - Generalized anxiety disorder, I73.9 - Peripheral vascular disease, unspecified, Z72.0 - Tobacco use TSH reflex Free T4 Today E03.8 - Other specified hypothyroidism, E66.01 - Morbid (severe) obesity due to excess calories, F33.1 - Major depressive disorde r, recurrent, moderate, F33.41 - Major depressive disorder, recurrent, in partial remission, F41.1 - Generalized anxiety disorder, I73.9 - Peripheral vascular disease, unspecified, Z72.0 - Tobacco use LDL Cholesterol Direct Today E03.8 - Other specified hypothyroidism, E66.01 - Morbid (severe) obesity due to excess calories, F33.1 - Major depressive disorder, recurrent, moderate, F33.41 - Major depressive disorder, recurrent, in partial remission, F41.1 - Generalized anxiety disorder, I73.9 - Peripheral vascular disease, unspecified, Z72.0 - Tobacco use Medications: Changed From oxycodone-acetaminophen 5-325 mg (Percocet) Partial Fill upon patient request. generic can be dispensed 1 tab PO TID 30 days PRN 90 tabs 0RF Wound right lower leg To oxycodone-acetaminophen 5-325 mg (Percocet) Partial Fill upon patient request. generic can be dispensed 1 tab PO BID 30 days PRN 60 tabs 0RF Wound right lower leg
--- OUTSIDE RECORDS SUMMARY | 2024-07-09 14:07 | XMS_ITS ---
Care Plan Created on: July 09, 2024 FabioRadha chambers : 1970 Sex: Female Author Organization [facility] Address [address] [place] [address] Phone Care Team Providers Care Non Profit Financial Controller Name Role Phone Alo Bennett MD Primary Care Provider [phone] Active Problems Problem Noted Date Diagnosed Date [...] date (in notes) Care Plan Impaired Tissue On track( 025 9:41 AM EDT) No Della Lane, RN Patient and Caregiver Understand Wound Care Education Care Plan Impaired Tissue On track( 025 9:41 AM EDT) Della Worthy RN Wound volume breakdown reduced by X% by week 4 Care Plan Impaired Tissue No Della Lane RN Wound volume breakdown reduced by X% by week 8 Care Plan Impaired Tissue No Della Lane RN Wound volume breakdown reduced by X% by week 12 Care Plan Impaired Tissue Della Worthy RN Quit using tobacco (cigarettes, smokeless, etc) [...] Measure wound progress Patient and Caregiver [facility] Education Provide caregiver with wound [...]
--- OUTSIDE RECORDS SUMMARY | 2024-07-09 14:07 | XMS_ITS | Encounter Summary ---
Author Organization [facility] Address [address] [place] [address] Care Team Providers Care Admissions Representative Name Role Phone Alo Bennett MD Primary Care Provider [phone] Reason for Visit * Reason Comments Wound Care Encounter Details Date Type Department Care Team (Late st Contact Info) Description 07/09/2024 9:00 AM EDT Office Visit [facility] [address] [place] [phone] Alex Robledo MD [address] [place] [address] Non-pressure chronic ulcer of right ankle with [...] Sign Reading Time Taken Comments Blood Pressure 118/60 07/09/2024 9:50 AM EDT Pulse 66 07/09/2024 9:50 AM EDT Temperature 36.4 ??C (97.6 ??F) 07/09/2024 9:17 AM ED T Respiratory Rate 16 07/09/2024 9:50 AM EDT Oxygen Saturation 96% 07/09/2024 9:50 AM EDT Inhaled Oxygen Concentration - - Weight - - Height - - Body Mass Index - - documented in this encounter Progress Notes * Mary Madera RN - 07/09/2024 9:00 AM EDT PROVIDER ORDERS Go to ER if you are presenting with fever, chills, increased redness, pain, swelling, warmth aroundwound area and/or foul smelling odor. If you have any questions or concerns, please contact the [facility] [place] at . *Bring your compression stockings with you next visit.* Follow up(s)/ Referrals: N/A Correction: N/A Additional Orders: Increase protein in your [...] please remove / unwrap compression and notify [facility] [place] at . ) Unna boot to right lower extremity, Elevate legs above heart level as much as possible, Avoid standing for extended periods of time Offloading: N/A Negative Pressure Wound Therapy: (If wound vac is off/non functioning for more than 2 hours, please remove vac dressing, apply a wetto dry dressing and notify your home care agency) N/A Cellular/Tissue Based Products: N/A Bathing / Showering / Hygiene: May shower with protection but DO NOT get wound dressing(s) wet. Protect dressing(s) with water repellant cover ( for example- large plastic bag or cast bag) and then may take shower. Non-wound Condition/ Other Skin Care: N/A Wound Location(s): Wound #1 (Right medial ankle): Cleanser: Cleanse with Normal Saline Periwound: Apply Zinc Oxide to rylee wound Topical: N/A Primary dressing: Hydrofera Blue- cut to fit to wound bed (if classic type, moisten with saline andsqueeze out excess prior to apply to wound bed) Secondary dressing: Optilock Secure with: 4 conforming gauze roll , 1 paper tape Compression Therapy: Unna boot to right lower extremity Dressing Change Frequency: Once each week ( if dressing has not been changed in 10 days call Wound Care Center [phone]) * Alex Robledo MD - 07/09/2024 9:00 AM EDTAssociated Order(s): Wound Care Procedure Venous Ulcer Right;Medial Ankle; Debridement Venous Ulcer Right;Medial Ankle Post-Procedure Diagnose(s): 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 [facility] [place] [place] [address] Office Visit Visit Date: 07/09/2024 Patient Name: Radha Bermudez Date of : [...] has had vascular studies in the past. No issues with Unna boot since last visit. Hydrofera Blue to the wound bed. No fevers or chills. Reports that she is just started a new exercise program which she is excited about. Assessment and Plan: Right medial lower leg venous ulcer, chronic, recurrent does measure smaller this week. No evidenceof infection. Continue with Hydrofera Blue and compression. We did discuss changing to a compression sock in the near future and she will bring in her compression stockings from home next visit. Follow-up in 1 week. Non-pressure chronic ulcer of right ankle [...] Follow up in about 1 week (around 07/16/2024), or Dr. Jolley for Megha parsons. >>>>>>>>>>>>>>>>>>>>>>>>>>>>>>>>>>>>>>>>>>>>>>>>>>> Vital Signs: Visit Vitals BP 118/60 Pulse 66 Temp 36.4 ??C (97.6 ??F) (Temporal) Resp 16 Review of Systems: Review of Systems Constitutional: Negative for chills and fever. PHYSICAL EXAM Physical Exam Vitals and nursing note reviewed. Constitutional: Appearance: Normal appearance. She is not ill-appearing. Pulmonary: Effort: Pulmonary effort is normal. Skin: Comments: Right medial ankle ulcer is full-thickness, almost linear along the inferior section of apreviously healed ulcer. The wound bed is pink and pale. There is some slough and hyperkeratotic edges mainly superiorly. No periwound erythema or induration. Edema is well-controlled. WOUND ASSESSMENT If photograph of wound not visible on this note, please check under Media tab. Wound Venous Ulcer 01/08/24 Ankle Right;Medial (Active) Date First Assessed: 01/08/24 Primary Wound Type: Venous Ulcer Wound Approximate Age at First Assessment (Weeks): -1 weeks Hand Hygiene Completed: Yes Location: Ankle Wound Location Orientation: Right;Medial Assessments 03/12/2024 3:21 PM 07/09/2024 9:11 AM Wound Image Wound Bed Tissue Assessment Granulation;Sloughing;Omro Granulation;Sloughing Rylee-Wound Assessment Red;Scarred Scarred Shape Irregular -- Wound Length (cm) 3 cm 1.2 cm Wound Width (cm) 0.9 cm 0.5 cm Wound Surface Area (cm^2) 2.7 cm^2 0.6 cm^2 Wound Depth (cm) 0.2 cm 0.2 cm Wound Volume (cm^3) 0.54 cm^3 0.12 cm^3 Wound Healing % -- 78 Drainage Description Serosanguineous Serosanguineous Drainage Amount Moderate Moderate Treatments Cleansed;Other (Comment) Cleansed Dressing Status Old drainage;New drainage;Removed Removed Wound Bed Granulation (%) 80 % 80 % Wound Bed Epithelialization (%) -- 0 % Wound Bed Slough (%) 20 % 20 % Wound Bed Eschar (%) 0 % 0 % Tunneling 0 cm 0 cm Undermining 0 cm 0 cm Edges Attached edges;Well-defined edges Attached edges;Well-defined edges Non-staged Wound Description Full thickness Full thickness Active Orders Date Order Priority Status Authorizing Provider 07/09/24 1103 Debridement Routine Active Alex Robledo MD 07/09/24 0941 Wound Care Procedure Venous Ulcer Right;Medial Ankle Routine Active Alex Robledo MD Inactive Orders Date Order Priority Status Authorizing Provider 06/30/24 1509 Debridement Venous Ulcer Right;Medial Ankle Routine Completed KO Madera 06/30/24 1500 Wound Care Procedure Venous Ulcer Right;Medial Ankle Routine Completed KO Madera 06/04/24 1655 Debridement Venous Ulcer Right;Medial Ankle Routine Completed Alex Robledo MD 06/04/24 1631 Wound Care Procedure Venous Ulcer Right;Medial Ankle Routine Completed Alex Robledo MD 05/27/24 1645 Debridement Venous Ulcer Right;Medial Ankle [...] Right;Medial Ankle Routine Completed Alex Robledo MD Procedure Note: Wound Care Procedure Venous Ulcer Right;Medial Ankle Date/Time: 07/09/2024 9:41 AM Performed by: Della Lane RN Authorized by: Alex Robledo MD Associated wounds: Wound Venous Ulcer 01/08/24 Ankle Right;Medial Consent: Consent obtained: Verbal Consent given by: Patient Risks, benefits, and alternatives were discussed: yes Risks discussed: Infection and pain Alternatives discussed: Delayed treatment [place] protocol: Procedure explained and questions answered to [...] Post Debridement: Fat layer exposed Time taken: 07/09/2024 9:11 AM Length (cm): 1.2 Width (cm): 0.5 Depth (cm): 0.2 Area (cm^2): 0.6 Time taken: 07/09/2024 9:12 AM Length (cm): 1.3 Width (cm): 0.6 Depth (cm): 0.2 Percent Debrided (%): 100 Surface Area (cm^2): 0.78 Area Debrided (cm^2): 0.78 Volume (cm^3): 0.16 Tissue and other material debrided: dermis, epidermis [...] any questions or concerns, please contact the [facility] [place] at . *Bring your compression stockings with you next visit.* Follow up(s)/ Referrals: N/A Correction: N/A Additional Orders: Increase protein in your [...] please remove / unwrap compression and notify [facility] at . ) Unna boot to right lower extremity, Elevate legs above heart level as much as possible, Avoid standing for extended periods of time Offloading: N/A Negative Pressure Wound Therapy: (If wound vac is off/non functioning for more than 2 hours, please remove vac dressing, apply a wetto dry dressing and notify your home care agency) N/A Cellular/Tissue Based Products: N/A Bathing / Showering / Hygiene: May shower with protection but DO NOT get wound dressing(s) wet. Protect dressing(s) with water repellant cover ( for example- large plastic bag or cast bag) and then may take shower. Non-wound Condition/ Other Skin Care: N/A Wound Location(s): Wound #1 (Right medial ankle): Cleanser: Cleanse with Normal Saline Periwound: Apply Zinc Oxide to rylee wound Topical: N/A Primary dressing: Hydrofera Blue- cut to fit to wound bed (if classic type, moisten with saline andsqueeze out excess prior to apply to wound bed) Secondary dressing: Optilock Secure with: 4 conforming gauze roll , 1 paper tape Compression Therapy: Unna boot to right lower extremity Dressing Change Frequency: Once each week ( if dressing has not been changed in 10 days call Wound Care Center [phone]) 07/09/2024 11:04 AM EDT Alex Robledo MD * Della Lane RN - 07/09/2024 9:00 AM EDT Discharge Patient directed to check out at front office developer and collect visit summary with wound care directions and book follow up as directed. Dressings applied: Wound #1 (Right medial ankle): Cleanser: Normal Saline Periwound: Zinc Oxide to rylee wound Primary dressing: Hydrofera Blue- moistened with saline Secondary dressing: Optilock Secure with: 4 conforming gauze roll , 1 paper tape Compression Therapy: Unna boot Dressing technique was demonstrated and explained. Patient questions answered. Pt discharge from wound care center without issue or incidence. documented in this encounter Plan of Treatment Upcoming Encounters Date Type Department Care Team (Late st Contact Info) Description 07/16/2024 11:00 AM EDT Clinical Support [facility] [address] [place] [phone] documented as of this encounter Goals Goal Patient Goal Type Associated Problems Recent Progress Patient-Stated? Author Decrease Wound Volume by X% by date (in notes) Care Plan Impaired Tissue On track( 9:41 AM EDT) Della Worthy RN Patient and Caregiver Understand Wound Care Education Care Plan Impaired Tissue On track( 9:41 AM EDT) Della Worthy RN Wound [...] of smoking on wound Della Worthy RN Decrease Wound Volume by X% by date (in notes) Care Plan Education needed on impact of smoking on wound Della Worthy RN Patient and Caregiver Understand Wound Care Education Care Plan Education needed related to ulceration/compr omised skin integrity. Della Worthy RN documented as of this encounter Procedures Procedure Name Priority Date/Time Associated Diagnosis Comments WOUND CARE PROCEDURE Routine 07/09/2024 9:41 AM EDT 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) Chronic venous hypertension (idiopathic) with ulcer of right lower extremity (CODE) (CMS/HCC) DEBRIDEMENT Routine 07/09/2024 9:00 AM EDT 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) Chronic venous hypertension (idiopathic) with ulcer of right lower extremity (CODE) (CMS/HCC) documented in this encounter Results * Wound Care Procedure Venous Ulcer Right;Medial Ankle (07/09/2024 9:41 AM EDT) Narrative Alex Robledo MD - 07/09/2024 9:41 AM EDT Alex Robledo MD ? 07/09/2024 11:05 AM Wound Care Procedure Venous Ulcer Right;Medial Ankle Date/Time: 07/09/2024 9:41 AM Performed by: Della Lane RN Authorized by: Alex Robledo MD ??Associated wounds: Wound Venous Ulcer 01/08/24 Ankle Right;Medial Consent: ??Consent obtained: ??Verbal ??Consent given by: ??Patient ??Risks, benefits, and alternatives were discussed: yes ?Risks discussed: ??Infection and pain ??Alternatives discussed: ??Delayed treatment [place] protocol: ??Procedure explained and questions answered to [...] Result * Debridement Venous Ulcer Right;Medial Ankle (07/09/2024 9:00 AM EDT) Narrative Alex Robledo MD - 07/09/2024 9:00 AM EDT Alex Robledo MD ? 07/09/2024 11:05 AM Debridement Venous Ulcer Right;Medial Ankle Performed by: Alex Robledo MD Authorized by: Alex oRbledo MD ??Associated wounds: Wound Venous Ulcer 01/08/24 Ankle Right;Medial [...] Post Debridement: ??Fat layer exposed ??Time taken: ??07/09/2024 9:11 AM ??Length (cm): ??1.2 ??Width (cm): ??0.5 ??Depth (cm): ??0.2 ??Area (cm^2): ??0.6 ??Time taken: ??07/09/2024 9:12 AM ??Length (cm): ??1.3 ??Width (cm): ??0.6 ??Depth (cm): ??0.2 ??Percent Debrided (%): ??100 ??Surface Area (cm^2): ??0.78 ??Area Debrided (cm^2): ??0.78 ??Volume (cm^3): ??0.16 ??Tissue and other material debrided: dermis, epidermis [...] documented as of this encounter Care Teams Admissions Representative Relationship Specialty Start Date End Date Alo Bennett MD [address] [place] [phone] PCP - General Internal Medicine 03/12/24 documented as of this encounter
--- OUTSIDE RECORDS SUMMARY | 2024-07-09 14:07 | XMS_ITS | Clinical Summary ---
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) (Primary Dx); Chronic venous hypertension (idiopathic) with ulcer of right lower extremity (CODE) (CMS/HCC) 06/30/2024 2:45 PM EST Office Visit [facility] [address] [place] [phone] Ryan Amaya PA Chronic venous hypertension (idiopathic) with ulcer of right lower extremity (CODE) (CMS/HCC) (Primary Dx); 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) 06/04/2024 3:30 PM EST Office Visit [facility] [address] [place] [phone] lAex Robledo MD 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) (Primary Dx); Chronic venous hypertension (idiopathic) with ulcer of right lower extremity (CODE) (CMS/HCC) 05/27/2024 3:30 PM EST Office Visit [facility] [address] [place] [phone] Alex Robledo MD 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) (Primary Dx); Chronic venous hypertension (idiopathic) with ulcer of right lower extremity (CODE) (CMS/HCC) 05/18/2024 3:15 PM EST Office Visit [facility] [address] [place] [phone] Ryan Amaya PA Chronic venous hypertension (idiopathic) with ulcer of right lower extremity (CODE) (CMS/HCC) (Primary Dx); 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) 04/29/2024 3:15 PM EST Office Visit [facility] [address] [place] [phone] Alex Robledo MD Non-pressure chronic ulcer of other part of right lower leg with fat layer exposed (CMS/HCC) (Primary Dx); Localized edema 04/15/2024 3:15 PM EST Office Visit [facility] [address] [place] [phone] Alex Robledo MD Non-pressure chronic ulcer of other part of right lower leg with fat layer exposed (CMS/HCC) (Primary Dx); 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) from Last 3 Months Surgical History Surgery Date Site/Laterality Comments TUBAL LIGATION PROCEDURE: HISTORICAL TUBAL LIGATION BREAST REDUCTION 2006 PROCEDURE: SD BREAST REDUCTION SKIN GRAFT Medical History Medical [...] EDT Inhaled Oxygen Concentration - - Weight 109 kg (240 lb) 03/12/2024 3:24 PM EST Height 167.6 cm (5' 6 ) 03/12/2024 3:24 PM EST Body Mass Index 38.74 03/12/2024 3:24 PM EST Plan of Treatment Upcoming Encounters Date Type Department Care Team (Late st Contact Info) Description 07/16/2024 11:00 AM EDT Clinical Support [facility] [address] [place] [phone] Health Maintenance Due Date Last Done Comments [...] Additional history exists Influenza Vaccine (#1) 2023 4, 02/05/2022, 03/08/2021, Additional history exists DTaP,Tdap,and Td [...] ulceration/compr omised skin integrity. Della Worthy RN Procedures Procedure Name Priority Date/Time Associated Diagnosis Comments WOUND CARE PROCEDURE Routine 07/09/2024 9:41 AM EDT 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) Chronic venous hypertension (idiopathic) with ulcer of right lower extremity (CODE) (CMS/[facility]) DEBRIDEMENT Routine 07/09/2024 9:00 AM EDT 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) Chronic venous hypertension (idiopathic) with ulcer of right lower extremity (CODE) (CMS/[facility]) WOUND CARE PROCEDURE Routine 06/30/2024 3:00 PM EST Chronic venous hypertension (idiopathic) with ulcer of right lower extremity (CODE) (CMS/HCC) 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) DEBRIDEMENT Routine 06/30/2024 2:45 PM EST Chronic venous hypertension (idiopathic) with ulcer of right lower extremity (CODE) (CMS/HCC) 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) WOUND CARE PROCEDURE Routine 06/04/2024 4:31 PM EST 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) Chronic venous hypertension (idiopathic) with ulcer of right lower extremity (CODE) (CMS/HCC) DEBRIDEMENT Routine 06/04/2024 3:30 PM EST Non-pressure [...] lower leg with fat layer exposed (CMS/HCC) from Last 3 Months Results * Wound Care Procedure Venous Ulcer Right;Medial Ankle (07/09/2024 9:41 AM EDT) Alex Angeles MD - 07/09/2024 9:41 AM EDT Alex [...] ??Infection and pain ??Alternatives discussed: ??Delayed treatment [place] protocol: ??Procedure explained and questions answered to [...] Ulcer Right;Medial Ankle (07/09/2024 9:00 AM EDT) Alex Angeles MD - 07/09/2024 9:00 AM EDT Alex Robledo MD ? 07/09/2024 11:05 AM Debridement Venous Ulcer Right;Medial Ankle Performed by: Alex Robledo MD Authorized by: Alex Robledo MD ??Associated wounds: [...] Wound Care Procedure Venous Ulcer Right;Medial Ankle (06/30/2024 3:00 PM EST) Narrative Alex Robledo MD - 06/30/2024 3:00 PM EST KO Madera ? 06/30/2024 ??3:10 PM Wound Care Procedure Venous Ulcer Right;Medial Ankle Date/Time: 06/30/2024 3:00 PM Performed by: Della Lane RN Authorized by: KO Madera ??Associated wounds: Wound Venous Ulcer 01/08/24 Ankle Right;Medial Consent: ??Consent obtained: ??Verbal ??Consent given by: ??Patient ??Risks, benefits, and alternatives were discussed: yes ?Risks discussed: ??Pain ??Alternatives discussed: ??Delayed treatment [place] protocol: ??Procedure explained and questions answered to [...] Result * Debridement Venous Ulcer Right;Medial Ankle (06/30/2024 2:45 PM EST) Narrative Alex Robledo MD - 06/30/2024 2:45 PM EST KO Madera ? 06/30/2024 ??3:10 PM Debridement Venous Ulcer Right;Medial Ankle Performed by: KO Madera Authorized by: KO Madera ??Associated wounds: Wound Venous Ulcer 01/08/24 Ankle [...] Post Debridement: ??Fat layer exposed ??Time taken: ??06/30/2024 2:41 PM ??Length (cm): ??1.2 ??Width (cm): ??0.4 ??Depth (cm): ??0.2 ??Area (cm^2): ??0.48 ??Time taken: ??06/30/2024 2:42 PM ??Length (cm): ??1.2 ??Width (cm): ??0.4 ??Depth (cm): ??0.2 ??Percent Debrided (%): ??100 ??Surface Area (cm^2): ??0.48 ??Area Debrided (cm^2): ??0.48 ??Volume (cm^3): ??0.1 ??Tissue and other material debrided: dermis, epidermis and subcutaneous tissue ?Devitalized tissue debrided: biofilm, exudate, fibrin and slough ?Instrument: ??Curette ??Amount of bleeding: none ?Hemostasis obtained with: ??Not applicable ??Procedural pain: ??0 ??Post-procedural pain: ??0 ??Response [...] ??Infection and pain ??Alternatives discussed: ??Delayed treatment [place] protocol: ??Procedure explained and questions answered to [...] ??Infection and pain ??Alternatives discussed: ??Delayed treatment [place] protocol: ??Procedure explained and questions answered to [...] ?Risks discussed: ??Pain ??Alternatives discussed: ??Delayed treatment [place] protocol: ??Procedure explained and questions answered to [...] ??Infection and pain ??Alternatives discussed: ??Delayed treatment [place] protocol: ??Procedure explained and questions answered to [...] ??Infection and pain ??Alternatives discussed: ??Delayed treatment [place] protocol: ??Procedure explained and questions answered to [...] Ulcer Right;Medial Ankle (04/15/2024 3:15 PM EST) Narrative Alex Robledo MD - 04/15/2024 3:15 PM EST Alex [...] MD IN CLINIC/BEDSIDE ORDERAB LES Final Result from Last 3 Months Additional Health Concerns Active Problems Noted Date Diagnosed Date Impaired Tissue 03/15/2024 Education needed on impact of smoking on wound 1 05/15/2023 Education needed related to ulceration/compromised skin integrity. 03/15/2024 Insurance [facility] Care Teams Manager Primary Care Relationship Specialty Start Date End Date Alo Bennett MD [address] [place] [phone] PCP - General Internal Medicine 03/12/24
--- OUTSIDE RECORDS SUMMARY | 2024-07-09 14:07 | XMS_ITS | Encounter Summary ---
Author Organization [facility] Address [address] [place] [address] Care Team Providers Care Training And Development Rep Name Role Phone Alo Bennett MD Primary Care Provider [phone] Reason for Visit * Reason Comments Wound Care Encounter Details Date Type Department Care Team (Late st Contact Info) Description 06/30/2024 2:45 PM EST Office Visit [facility] [address] [place] [id number] Ryan Amaya PA [address] [place] [address] Chronic venous hypertension (idiopathic) with ulcer of right lower extremity (CODE) (CMS/HCC) (Primary Dx); 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) Social History Tobacco Use Types Packs/Day [...] Sign Reading Time Taken Comments Blood Pressure 126/60 06/30/2024 3:05 PM EST Pulse 68 06/30/2024 3:05 PM EST Temperature 36.7 ??C (98 ??F) 06/30/2024 2:40 PM EST Respiratory Rate 18 06/30/2024 3:05 PM EST Oxygen Saturation 97% 06/30/2024 3:05 PM EST Inhaled Oxygen Concentration - - Weight - - Height - - Body Mass Index - - documented in this encounter Progress Notes * Deann Carolina RN - 06/30/2024 2:45 PM EST PROVIDER ORDERS Go to ER if you are presenting with fever, chills, increased redness, pain, swelling, warmth aroundwound area and/or foul smelling odor. If you have any questions or concerns, please contact the [facility] [place] at . Bring your compression stockings with you next visit. Follow up(s)/ Referrals: N/A Longterm: N/A Additional Orders: Increase protein in your [...] please remove / unwrap compression and notify [facility] [place] at . ) Unna boot to right [...] in 10 days call Wound Care Center [phone]) * KO Madera - 06/30/2024 2:45 PM ESTAssociated Order(s): Wound Care Procedure Venous Ulcer Right;Medial Ankle; Debridement Venous Ulcer Right;Medial Ankle Post-Procedure Diagnose(s): 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 [facility] [place] [address] Office Visit Visit Date: 06/30/2024 Patient Name: Radha Bermudez Date of : 1970 PCP: Alo Bennett MD HPI: Radha Bermudez is a 54 y.o. female who presents to the to the wound care center for follow upright medial ankle wound. Patient was last seen approximately 1 month prior. At that time patient was placed in a wound boot with topical Woun'Dres. Patient secondary to other appointments and complex has not been to the wound center. Patient use Silvadene topically at home and removed Unna boot. Patient has no new complaints at this time. Patient denies fever chills. Assessment and Plan: Chronic venous hypertension (idiopathic) with ulcer of right lower extremity (CODE) (CMS/HCC) (Primary) - Wound Care Procedure Venous Ulcer Right;Medial Ankle 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) - Wound Care Procedure Venous Ulcer Right;Medial Ankle Other orders - Debridement Patient to follow-up in 1 week. Will change the Hydrofera Blue dressing at this time. Will place Unna boot on the right lower extremity. The wound will be continually assessed for the presence of infection. If infection is suspected, appropriate intervention or referral to infection disease specialist will be considered. The patient has been educated concerning the need for increased protein to aid wound healing. All questions were answered to her satisfaction. She was counseled regarding my impressions, instructions for management, and the importance of compliance with treatment. Follow up in about 1 week (around 07/07/2024) for Follow up with , Megha Mayer. >>>>>>>>>>>>>>>>>>>>>>>>>>>>>>>>>>>>>>>>>>>>>>>>>>> Vital Signs: Visit Vitals BP 120/63 Pulse 71 Temp 36.7 ??C (98 ??F) Resp 18 Review of Systems: Review of Systems Constitutional: Negative for chills and fever. Skin: Positive for wound. PHYSICAL EXAM Physical Exam Vitals and nursing note reviewed. Exam conducted with a pulmonology technician present. Constitutional: Appearance: Normal appearance. HENT: Head: Normocephalic. Eyes: Extraocular Movements: Extraocular movements intact. Pulmonary: Effort: Pulmonary effort is normal. Musculoskeletal: General: Normal range of motion. Skin: General: Skin is warm and dry. Comments: See procedure note for details. Right medial ankle wound is noted fibrin exudates noted no undermining wound edges edema overall appears well-controlled. No external erythema induration concerning for cellulitis. Neurological: General: No focal deficit present. Mental Status: She is alert and oriented to person, place, and time. WOUND ASSESSMENT If photograph of wound not visible on this note, please check under Media tab. Wound Venous Ulcer 01/08/24 Ankle Right;Medial (Active) Date First Assessed: 01/08/24 Primary Wound Type: Venous Ulcer Wound Approximate Age at First Assessment (Weeks): -1 weeks Hand Hygiene Completed: Yes Location: Ankle Wound Location Orientation: Right;Medial Assessments 03/12/2024 3:21 PM 06/30/2024 2:41 PM Wound Image Wound Bed Tissue Assessment Granulation;Sloughing;[place] Granulation;Sloughing Rylee-Wound Assessment Red;Scarred Scarred;Dry Shape Irregular Linear Wound Length (cm) 3 cm 1.2 cm Wound Width (cm) 0.9 cm 0.4 cm Wound Surface Area (cm^2) 2.7 cm^2 0.48 cm^2 Wound Depth (cm) 0.2 cm 0.2 cm Wound Volume (cm^3) 0.54 cm^3 0.096 cm^3 Wound Healing % -- 82 Drainage Description Serosanguineous Serosanguineous Drainage Amount Moderate Moderate Treatments Cleansed;Other (Comment) Cleansed Dressing Status Old drainage;New drainage;Removed Removed Wound Bed Granulation (%) 80 % 10 % Wound Bed Epithelialization (%) -- 0 % Wound Bed Slough (%) 20 % 90 % Wound Bed Eschar (%) 0 % 0 % Tunneling 0 cm 0 cm Undermining 0 cm 0 cm Edges Attached edges;Well-defined edges Attached edges;Well-defined edges Non-staged Wound Description Full thickness Full thickness Active Orders Date Order Priority Status Authorizing Provider 06/30/24 1509 Debridement Routine Active KO Madera 06/30/24 1500 Wound Care Procedure Venous Ulcer Right;Medial Ankle Routine Active KO Madera Inactive Orders Date Order Priority Status Authorizing Provider 06/04/24 1655 Debridement Venous Ulcer Right;Medial Ankle [...] Venous Ulcer Right;Medial Ankle Routine Completed Alex Rboledo MD Pertinent Labs: No results found for: ALB , WBC , PREALBUMIN , HEMOGLOBIN A1C , POCT GLUCOSE Procedure Note: Wound Care Procedure Venous Ulcer Right;Medial Ankle Date/Time: 06/30/2024 3:00 PM Performed by: Della Lane RN Authorized by: KO Madera Associated wounds: Wound Venous Ulcer 01/08/24 Ankle Right;Medial Consent: Consent obtained: Verbal Consent given by: Patient Risks, benefits, and alternatives were discussed: yes Risks discussed: Pain Alternatives discussed: Delayed treatment [place] protocol: Procedure explained and questions answered to patient or proxy's satisfaction: yes Relevant documents present and verified: yes Test results available: yes Imaging studies available: yes Patient identity confirmed: Verbally with patient Sedation: Sedation type: None Anesthesia: Anesthesia method: None Procedure details: Indications: open wounds Wound location: Leg Leg location: R lower leg Wound age (days): >14 Dressing: Dressing applied: Unna's boot Post-procedure details: Procedure completion: Tolerated Debridement Venous Ulcer Right;Medial Ankle Performed by: KO Madera Authorized by: KO Madera Associated wounds: Wound Venous Ulcer 01/08/24 Ankle Right;Medial Consent: Consent obtained: Verbal Consent given by: Patient Risks discussed: Yes Time out: Immediately prior to the procedure a time out was called Debridement Details: Performed by: KO Type: surgical Level: subcutaneous tissue Pain control: Lidocaine 4% Severity of Tissue Pre Debridement: Fat layer exposed Severity of Tissue Post Debridement: Fat layer exposed Time taken: 06/30/2024 2:41 PM Length (cm): 1.2 Width (cm): 0.4 Depth (cm): 0.2 Area (cm^2): 0.48 Time taken: 06/30/2024 2:42 PM Length (cm): 1.2 Width (cm): 0.4 Depth (cm): 0.2 Percent Debrided (%): 100 Surface Area (cm^2): 0.48 Area Debrided (cm^2): 0.48 Volume (cm^3): 0.1 Tissue and other material debrided: dermis, epidermis and subcutaneous tissue Devitalized tissue debrided: biofilm, exudate, fibrin and slough Instrument: Curette Amount of bleeding: none Hemostasis obtained with: Not applicable Procedural pain: 0 Post-procedural pain: 0 Response to treatment: Procedure was tolerated well PROVIDER ORDERS Patient Instructions PROVIDER ORDERS Go to ER if you are presenting with fever, chills, increased redness, pain, swelling, warmth aroundwound area and/or foul smelling odor. If you have any questions or concerns, please contact the [facility] [place] at . Bring your compression stockings with you next visit. Follow up(s)/ Referrals: N/A Longterm: N/A Additional Orders: Increase protein in your [...] please remove / unwrap compression and notify [facility] at . ) Unna boot to [...] in 10 days call Wound Care Center [phone]) 06/30/2024 3:10 PM EST KO Carpenter Cosigned by Alex Robledo MD at 07/01/2024 4:10 PM EST * Della Lane RN - 06/30/2024 2:45 PM EST Discharge Patient directed to check out at supervisor front and collect visit summary with wound care directions and book follow up as directed. Dressings applied: Wound #1 (Right medial ankle): Cleanser: Normal Saline Periwound: Zinc Oxide to rylee wound Primary dressing: Hydrofera Blue Secondary dressing: Exudry Secure with: 4 conforming gauze roll , 1 paper tape Compression Therapy: Unna boot Dressing technique was demonstrated and explained. Patient questions answered. Pt discharge from wound care center without issue or incidence. documented in this encounter Plan of Treatment Upcoming Encounters Date Type Department Care Team (Late st Contact Info) Description 07/16/2024 11:00 AM EDT Clinical Support [facility] [address] [place] [phone] documented as of this encounter Goals Goal Patient Goal Type Associated Problems Recent Progress Patient-Stated? Author Decrease Wound Volume by X% by date (in notes) Care Plan Impaired Tissue On track( 025 9:41 AM EDT) Della Worthy RN Patient [...] Associated Diagnosis Comments WOUND CARE PROCEDURE Routine 06/30/2024 3:00 PM EST Chronic venous hypertension (idiopathic) with ulcer of right lower extremity (CODE) (CMS/HCC) 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) DEBRIDEMENT Routine 06/30/2024 2:45 PM EST Chronic venous hypertension (idiopathic) with ulcer of right lower extremity (CODE) (CMS/HCC) 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) documented in this encounter Results * Wound Care Procedure Venous Ulcer Right;Medial Ankle (06/30/2024 3:00 PM EST) Alex Angeles MD - 06/30/2024 3:00 PM EST KO Madera ? 06/30/2024 ??3:10 PM Wound Care Procedure Venous Ulcer Right;Medial Ankle Date/Time: 06/30/2024 3:00 PM Performed by: Della Lane RN Authorized by: KO Madera ??Associated wounds: Wound Venous Ulcer 01/08/24 Ankle Right;Medial Consent: ??Consent obtained: ??Verbal ??Consent given by: ??Patient ??Risks, benefits, and alternatives were discussed: yes ?Risks discussed: ??Pain ??Alternatives discussed: ??Delayed treatment [place] protocol: ??Procedure explained and questions answered to [...] ??Response to treatment: ??Procedure was tolerated well Ryan CONNELL IN CLINIC/BEDSIDE ORDERABLE S Final Result documented in this encounter Visit Diagnoses Diagnosis Chronic venous hypertension (idiopathic) with ulcer of right lower extremity (CODE) (CMS/HCC)- Primary 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) documented in this encounter Additional Health Concerns Active Problems Noted Date Diagnosed Date Impaired Tissue 03/15/2024 Education needed on impact of smoking on wound 1 05/15/2023 Education needed related to ulceration/compromised skin integrity. 03/15/2024 documented as of this encounter Care Teams Training And Development Rep Relationship Specialty Start Date End Date Alo Bennett MD [address] [place] [address] PCP - General Internal Medicine 03/12/24 documented as of this encounter
== END 2024-07-09 13:41 | disposition home or self-care (01) ==
LOC: HO.HMCC 12:35
PROVIDERS: PCP Internal Medicine; Visit Provider Internal Medicine
DX: I73.9 Peripheral vascular disease, unspecified (principal); F33.1 Major depressive disorder, recurrent, moderate; E66.01 Morbid (severe) obesity due to excess calories; Z68.41 Body mass index [BMI] 40.0-44.9, adult; F33.41 Major depressive disorder, recurrent, in partial remission; Z72.0 Tobacco use; E03.8 Other specified hypothyroidism; F41.1 Generalized anxiety disorder

== ENCOUNTER → 2024-07-09 12:35 | Outpatient (BNVA) | payer OTHER, SELFPAY | PROVIDERS: PCP Internal Medicine; Visit Provider Internal Medicine | DX: F33.1 Major depressive disorder, recurrent, moderate (principal); I73.9 Peripheral vascular disease, unspecified; E03.8 Other specified hypothyroidism; F41.1 Generalized anxiety disorder; F33.41 Major depressive disorder, recurrent, in partial remission; E66.01 Morbid (severe) obesity due to excess calories; Z68.41 Body mass index [BMI] 40.0-44.9, adult; Z72.0 Tobacco use; Z71.3 Dietary counseling and surveillance | CPT/HCPCS: 96127; 99212 ==

== ENCOUNTER 2024-09-14 11:24 | Outpatient (AMB) | payer OTHER, SELFPAY ==
--- NOTE | 2024-09-14 11:45 | MHC.OFFVIS ---
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 Inboard Present (Amita) Accompanied by: Self / Same As Patient Allergies No Known Allergies [No Known Allergies*] Allergy (Verified 09/14/24 11:50) Medication List - Last Reconciled 09/14/24 by Nisha Echavarria CNM escitalopram oxalate 20 mg PO DAILY 90 days furosemide 20 mg PO QAM ibuprofen 800 mg PO Q8H PRN 30 days levothyroxine 200 mcg PO DAILY 90 days oxycodone-acetaminophen 5-325 mg (Percocet) 1 tab PO BID PRN 30 days Is last menstrual period known: Yes Last menstrual period: 07/06/24 Post menopausal: No Patient : No HPI HPI 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 She does not recall ever having an abnormal Pap smear. She is from [place] and she delivered her 2 children vaginally in the s there. She said the month after she had 1 of her children she ended up with a blood clot in her leg, she was hospitalized with it and it has over the years been the source of much challenge and she has recurrent infections and it opens up at times she has seen in the Wound Care Clinic at [facility] and is getting regular vascular and wound care and wears knee length support stockings and another waxy product underneath them to protect the legs. She is overdue for her mammogram and we will be scheduling and she believes that she has had all of her other screens because she said they were concerned she might have diabetes because of her wound but she does not. She is not currently sexually active she is getting rylee menopausal symptoms such as hot flashes in her periods are starting to be irregular.. She has been concerned and managing a lot that is going on with the health of her mother who was currently hospitalized in [place] with a cyst on her spine that needs to be surgically taken care of and we will be happening this Friday. FORMERLY [facility], [facility] Medical History Peripheral vascular disease Chronic wound of extremity Vitamin D deficiency Other specified hypothyroidism Open ankle wound Surgical History Status post breast reduction History of tubal ligation Family History Father Lung cancer Smoker Mother Anxiety Maternal Grandfather No problems noted. Maternal Grandmother Cancer Paternal Grandmother No problems noted. Paternal Grandfather No problems noted. Brother No problems noted. Sister No problems noted. Sister No problems noted. Sister No problems noted. Sister No problems noted. Son No problems noted. Daughter No problems noted. Other Substance use disorder Social History Housing: House Alcohol intake: current Alcohol intake frequency: a few times a week Patient Tobacco Use Status: Current everyday Tobacco user Tobacco use type: Cigarette Cigarette Packs Per Day: 1 e-Cigarette/Vaping Use: Never Used service: No Current occupational status: employed Sexual orientation: Straight/Heterosexual Gender identity: Female Cognitive needs: No Hearing needs: No Vision needs: Yes Female Reproductive History Menstrual Age of Menarche: 15 Duration of menses: 3-5 days Date of last menstrual period: 07/06/24 control method: none Total pregnancies: 5 Full term: 1 Premature: 1 Ab spontaneous: 3 History of abnormal pap smear: No Date of Mammogram: 05/09/23 (bi rad 1) Physical Exam Vital Signs: Last Vital Signs BP 118/72 09/14/24 11:51 BMI result Body Mass Index 40.7 Const General: healthy appearing, comfortable, no acute distress, well developed and alert Nutritional Appearance: average body habitus Orientation/consciousness: patient oriented x3 Limitations: no limitations HEENT Head: Yes normocephalic Neck Neck: Yes normal visual inspection Chest Chest palpation & inspection: normal inspection of the chest Breast/axilla inspection: normal inspection of the breasts and normal inspection of the axillae Breast/axilla palpation: normal palpation of the breasts and normal palpation of the axillae Resp Effort & Inspection: normal respiratory effort GI Inspection: Yes normal to inspection, No Abdominal wall edema and No distended Palpation (GI): Soft to palpation and nontender Other: Rylee menopausal changes evident some vaginal dryness noted vagina is otherwise slightly moist cervix multiparous pink smooth healthy appearing deep in pelvis mobile nontender uterus difficult to feel secondary to adipose but no tenderness noted good tone with Kegel. General: Yes bladder normal to palpation External Female Exam: normal external appearance and normal appearance of the urethra Speculum Exam - Vagina: normal appearance of the vagina, normal palpation and normal vaginal discharge Speculum Exam - Cervix: normal appearance of the cervix, normal palpation and nontender Bimanual exam- vagina & uterus: normal bimanual exam, normal palpation, uterine size normal, bladder normal to palpation, consistency normal, normal palpation, uterine mobility normal, uterine shape normal, No Cervical tenderness present, non-tender and no cervical motion tenderness Bimanual Exam- Adnexa, other: normal adnexae, no masses, normal and No adnexal tenderness Neuro General: patient oriented x3 Results Reviewed Results Reviewed: Name: LaraRadha Loving Age/Sex: 50/F Attending: Ute Childers MD : 1970 Submitted by: Ute Childers MD Copies to: Alo Bennett MD MR #: [id number] Status: DEP REF Collected: 08/30/20 Location: .LAB Received: 08/31/20 Interpretation Satisfactory for evaluation. No endocervical cells seen. Negative for intraepithelial lesion or malignancy. HPV mRNA E6/E7: NOT DETECTED This assay detects E6/E7 viral messenger RNA (mRNA) from 14 high-risk HPV types (16, 18, 31, 33, 35, 39, 45, 51, 52, 56, 58, 59, 66, 68) HPV testing performed by [facility], [place], [place]. See reference laboratory portion of the EMR for entire report. Clinical Information LMP: 07/31/20 Previous PAP test: Unknown Date/Findings Other history: no contraceptive Material Received ThinPrep Cervical Copies To Alo Bennett MD [address] [place] [address] Ute Childers MD [address] [place] [address] [place] [address] Electronically Signed By: Magalis Grant 09/04/20 8448 The Pap Test is a screening procedure with the inherent possibility of both false negative and false positive results. Results should be interpreted in the context of historic and current clinical findings. Reliability of the Pap Test is enhanced by performing the test on a regular repetitive basis. Patient: Radha Bermudez Page 1 of 1 Assessment & Plan Assessment & Plan (1) Breast screening: Comment: No mass palpated 08/2024 patient will be scheduling her mammogram which she says is ordered. Code(s): Z12.39 - Encounter for other screening for malignant neoplasm of breast Category: Medical (2) Routine gynecological examination: Code(s): Z01.419 - Encounter for gynecological examination (general) (routine) without abnormal findings Category: Medical (3) Deep vein thrombosis: Code(s): I82.409 - Acute embolism and thrombosis of unspecified deep veins of unspecified lower extremity Category: Medical (4) Menopausal symptoms: Code(s): N95.1 - Menopausal and female climacteric states Category: Medical (5) Chronic wound of extremity: Comment: Patient is seen at care center at [facility] regularly. Wearing support stockings etc. Category: Medical (6) Obesity, morbid, BMI 40.0-49.9: Code(s): E66.01 - Morbid (severe) obesity due to excess calories Category: Medical (7) Anxiety, generalized: Code(s): F41.1 - Generalized anxiety disorder Category: Medical (8) Depression, major, in partial remission: Code(s): F32.4 - Major depressive disorder, single episode, in partial remission Category: Medical Qualifiers: Major depression recurrence: recurrent Qualified Code(s): F33.41 - Major depressive disorder, recurrent, in partial remission (9) Stress: Code(s): F43.9 - Reaction to severe stress, unspecified Category: Medical Plan -----Discussed in this visit the following: healthy balanced diet, regular and consistent exercise, getting recommended health screens, doing the best she can for her particular health concerns, kegel exercises, pap smear screening and followup recommendations, mammography screening and SBE, normal changes in cycles in her life stage--- .---Discussed normal changes that happen premenapausally, perimenapausally, and postmenopausally, and ways to handle them. Discussed the normal variation, and the range of experiences that women experience. Discussed nutrition, health, need for exercise, both weight-bearing and aerobic. Also discussed the normal changes that happen with vaginal mucosal thinning and sensitivity, and simple more natural ways of handling these challenges. Pap smear done as she thinks it was a long gap between last PAP and the ones previous though she can recall an abnormal 1. Her life is very stressful right now so in case she can not make it back next year Pap done today. Testing for STIs done as well as her last encounter was 3 years ago She will be scheduling her mammogram which she says has already been ordered She will be starting therapy with a tele visit in the near future and is looking forward to using that tool to help with depression and anxiety and other challenges she says she tosses and turns at night a lot and thinks her sleep is disturbed as well. She has also been getting hot flashes . discussed these in context with menopause, but also reactions to stress as well. I wished her luck with her mother and her mother's medical issues that she is helping to manage along with her other sisters. When things are less stressful she will be working on her health in general and losing weight as well. Patient will be scheduling her mammogram which she says is ordered RTC 1 year. Coding Level of Care Code New Pt Prev Care 40-64y(17252) Diagnoses Breast screening Z12.39 Routine gynecological examination Z01.419 Deep vein thrombosis I82.409 Menopausal symptoms N95.1 Chronic wound of extremity Obesity, morbid, BMI 40.0-49.9 E66.01 Anxiety, generalized F41.1 Recurrent major depressive disorder, in partial remission F33.41 Major depression recurrence: recurrent Stress F43.9
[2024-09-14 11:51] VITALS: BP 118/72; BMI 40.7
--- OUTSIDE RECORDS SUMMARY | 2024-09-14 12:41 | XMS_ITS ---
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 ([facility] V[facility], [facility] V28) 05/18/2024 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 ([facility] V24, [facility] V28) 04/09/2024 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 ([facility] V24, [facility] V28) 03/12/2024 Non-pressure chronic ulcer o f other part of right lower leg with fat layer exposed ([facility] V24, [facility] V28) 03/12/2024 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 03/15/2024 Goals Goal Patient Goal Type Associated Problems Recent Progress Patient-Stated? Author Decrease Wound Volume by X% by date (in notes) Care Plan Impaired Tissue Improving( 9:58 AM EDT) Della Worthy RN Patient and Caregiver Understand Wound Care Education Care Plan Impaired Tissue On track( 025 9:58 AM EDT) Della Worthy RN Wound volume [...]
--- OUTSIDE RECORDS SUMMARY | 2024-09-14 12:41 | XMS_ITS | Clinical Summary ---
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 ([facility] V24, [facility] V28) 05/18/2024 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 ([facility] V24, [facility] V28) 04/09/2024 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 ([facility] V24, [facility] V28) 03/12/2024 Non-pressure chronic ulcer o f other part of right lower leg with fat layer exposed ([facility]/HCC V24, CMS/HCC V28) 03/12/2024 Varicose 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 ([facility] V24, [facility] V28) 03/12/2024 Localized edema 03/12/2024 Encounters Date Type Department Care Team Description 09/07/2024 9:30 AM EDT Office Visit [facility] [address] [place] [phone] Ryan Amaay PA Chronic venous hypertension (idiopathic) with ulcer of right lower extremity (CODE) ([facility] V24, [facility] V28) (Primary Dx); Non-pressure chronic ulcer of right ankle with fat layer exposed ([facility] V24, [facility] V28) 08/24/2024 9:00 AM EDT Office Visit [facility] [address] [place] [phone] Ryan Amaya PA Chronic venous hypertension (idiopathic) with ulcer of right lower extremity (CODE) ([facility] V24, [facility] V28) (Primary Dx); 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 V24, [facility]/HCC V28) 07/30/2024 10:15 AM EDT Office Visit [facility] [address] [place] [phone] Alex Robledo MD Non-pressure chronic ulcer of other part of right foot with fat layer exposed ([facility] V24, [facility]/HCC V28) (Primary Dx); Chronic venous hypertension (idiopathic) with ulcer of right lower extremity (CODE) ([facility]/HCC V24, CMS/HCC V28) 07/09/2024 9:00 AM EDT Office Visit [facility] [address] [place] [phone] Alex Robledo MD Non-pressure chronic ulcer of right ankle with fat layer exposed ([facility] V24, [facility] V28) (Primary Dx); Chronic venous hypertension (idiopathic) with ulcer of right lower extremity (CODE) ([facility] V24, [facility] V28) 06/30/2024 2:45 PM EST Office Visit [facility] [address] [place] [phone] Ryan Amaya PA Chronic venous hypertension (idiopathic) with ulcer of right lower extremity (CODE) ([facility] V24, [facility] V28) (Primary Dx); Non-pressure chronic ulcer of right ankle with fat layer exposed ([facility] V24, [facility] V28) from Last 3 Months Surgical History Surgery Date Site/Laterality Comments TUBAL LIGATION PROCEDURE: HISTORICAL TUBAL LIGATION BREAST REDUCTION 2006 PROCEDURE: [place] BREAST REDUCTION SKIN GRAFT Medical History Medical [...] Sign Reading Time Taken Comments Blood Pressure 128/79 09/07/2024 9:41 AM EDT Pulse 77 09/07/2024 9:41 AM EDT Temperature 36.4 ??C (97.5 ??F) 09/07/2024 9:41 AM ED T Respiratory Rate 18 09/07/2024 9:41 AM EDT Oxygen Saturation 98% 09/07/2024 9:41 AM EDT Inhaled Oxygen Concentration - - Weight 109 kg (240 lb) 03/12/2024 3:24 PM EST Height 167.6 cm (5' 6 ) 03/12/2024 3:24 PM EST Body Mass Index 38.74 03/12/2024 3:24 PM EST Plan of Treatment Upcoming Encounters Date Type Department Care Team (Late st Contact Info) Description 09/22/2024 9:30 AM EDT Clinical Support [facility] [address] [place] [phone] Health Maintenance Due Date Last [...] 06/25/2021, 07/28/2020, Additional history exists Influenza Vaccine (Season Ended) 2024 06/10/2023, 02/05/2022, 03/08/2021, Additional history exists DTaP,Tdap,and Td [...] age to complete this topic Meningococcal B Vaccine Aged Out No l onger eligible based on patient's age to complete [...] Education Care Plan Impaired Tissue On track( 9:58 AM EDT) Della Worthy RN Wound [...] Associated Diagnosis Comments WOUND CARE PROCEDURE Routine 09/07/2024 9:54 AM EDT Chronic venous hypertension (idiopathic) with ulcer of right lower extremity (CODE) ([facility] V24, [facility] V28) Non-pressure chronic ulcer of right ankle with fat layer exposed ([facility] V24, [facility] V28) DEBRIDEMENT Routine 09/07/2024 9:30 AM EDT Chronic venous hypertension (idiopathic) with ulcer of right lower extremity (CODE) ([facility] V24, [facility]/HCC V28) 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 V24, CMS/HCC V28) WOUND CARE PROCEDURE Routine 08/24/2024 9:32 AM EDT Chronic venous hypertension (idiopathic) with ulcer of right lower extremity (CODE) (CMS/HCC V24, CMS/HCC V28) 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 V24, CMS/HCC V28) DEBRIDEMENT Routine 08/24/2024 9:00 AM EDT Chronic venous hypertension (idiopathic) with ulcer of right lower extremity (CODE) ([facility]/HCC V24, [facility]/HCC V28) 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 V24, [facility]/HCC V28) WOUND CARE PROCEDURE Routine 07/30/2024 11:15 AM EDT Non-pressure chronic ulcer of other part of right foot with fat layer exposed (CMS/HCC V24, CMS/HCC V28) Chronic venous hypertension (idiopathic) with ulcer of right lower extremity (CODE) (CMS/HCC V24, CMS/HCC V28) DEBRIDEMENT Routine 07/30/2024 10:15 AM EDT Non-pressure chronic ulcer of other part of right foot with fat layer exposed (CMS/HCC V24, CMS/HCC V28) Chronic venous hypertension (idiopathic) with ulcer of right lower extremity (CODE) (CMS/HCC V24, CMS/HCC V28) WOUND CARE PROCEDURE Routine 07/09/2024 9:41 AM EDT 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 V24, CMS/HCC V28) Chronic venous hypertension (idiopathic) with ulcer of right lower extremity (CODE) (CMS/HCC V24, CMS/HCC V28) DEBRIDEMENT Routine 07/09/2024 9:00 AM EDT 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 V24, [facility]/HCC V28) Chronic venous hypertension (idiopathic) with ulcer of right lower extremity (CODE) ([facility]/HCC V24, [facility]/HCC V28) WOUND CARE PROCEDURE Routine 06/30/2024 3:00 PM EST Chronic venous hypertension (idiopathic) with ulcer of right lower extremity (CODE) (CMS/HCC V24, CMS/HCC V28) 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 V24, CMS/HCC V28) DEBRIDEMENT Routine 06/30/2024 2:45 PM EST Chronic venous hypertension (idiopathic) with ulcer of right lower extremity (CODE) (CMS/HCC V24, CMS/HCC V28) 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 V24, CMS/HCC V28) from Last 3 Months Results * Wound Care Procedure Venous Ulcer Right;Medial Ankle (09/07/2024 9:54 AM EDT) Narrative Alex Robledo MD - 09/07/2024 9:54 AM EDT KO Madera ? 09/07/2024 10:03 AM Wound Care Procedure Venous Ulcer Right;Medial Ankle Date/Time: 09/07/2024 9:54 AM Performed by: Mary Madera RN Authorized by: KO Madera ??Associated wounds: Wound Venous Ulcer 01/08/24 Ankle Right;Medial Consent: ??Consent obtained: ??Verbal ??Consent given by: ??Patient ??Risks, benefits, and alternatives were discussed: yes ?Risks discussed: ??Pain ??Alternatives discussed: ??Delayed treatment [place] protocol: ??Procedure explained and questions answered to [...] Result * Debridement Venous Ulcer Right;Medial Ankle (09/07/2024 9:30 AM EDT) Narrative Alex Robledo MD - 09/07/2024 9:30 AM EDT KO Madera ? 09/07/2024 10:03 AM Debridement Venous Ulcer Right;Medial Ankle Performed [...] Post Debridement: ??Fat layer exposed ??Time taken: ??09/07/2024 9:45 AM ??Length (cm): ??0.7 ??Width (cm): ??0.4 ??Depth (cm): ??0.1 ??Area (cm^2): ??0.28 ??Time taken: ??09/07/2024 9:46 AM ??Length (cm): ??0.7 ??Width (cm): ??0.4 ??Depth (cm): ??0.1 ??Percent Debrided (%): ??100 ??Surface Area (cm^2): ??0.28 ??Area Debrided (cm^2): ??0.28 ??Volume (cm^3): ??0.03 ??Tissue and other material debrided: dermis, epidermis and subcutaneous tissue ?Devitalized tissue debrided: biofilm, exudate, fibrin and slough ?Instrument: ??Curette ??Amount of bleeding: none ?Hemostasis obtained with: ??Not applicable ??Procedural pain: ??0 ??Post-procedural pain: ??0 ??Response to treatment: ??Procedure was tolerated well us Ryan CONNELL IN CLINIC/BEDSIDE ORDERABLE S Final Result * Wound Care Procedure Venous Ulcer Right;Medial Ankle (08/24/2024 9:32 AM EDT) Narrative Alex Robledo MD - 08/24/2024 9:32 AM EDT KO Madera ? 08/24/2024 ??9:46 AM Wound Care Procedure Venous Ulcer Right;Medial Ankle Date/Time: 08/24/2024 9:32 AM Performed by: Mary Madera RN Authorized by: KO Madera ??Associated wounds: Wound Venous Ulcer 01/08/24 Ankle Right;Medial Consent: ??Consent obtained: ??Verbal ??Consent given by: ??Patient ??Risks, benefits, and alternatives were discussed: yes ?Risks discussed: ??Pain ??Alternatives discussed: ??Delayed treatment [place] protocol: ??Procedure explained and questions answered to [...] Result * Debridement Venous Ulcer Right;Medial Ankle (08/24/2024 9:00 AM EDT) Narrative Alex Robledo MD - 08/24/2024 9:00 AM EDT KO Madera ? 08/24/2024 ??9:46 AM Debridement Venous Ulcer Right;Medial Ankle Performed [...] Post Debridement: ??Fat layer exposed ??Time taken: ??08/24/2024 9:03 AM ??Length (cm): ??0.6 ??Width (cm): ??0.4 ??Depth (cm): ??0.1 ??Area (cm^2): ??0.24 ??Time taken: ??08/24/2024 9:04 AM ??Length (cm): ??0.6 ??Width (cm): ??0.4 ??Depth (cm): ??0.1 ??Percent Debrided (%): ??100 ??Surface Area (cm^2): ??0.24 ??Area Debrided (cm^2): ??0.24 ??Volume (cm^3): ??0.02 ??Tissue and other material debrided: dermis, epidermis and subcutaneous tissue ?Devitalized tissue debrided: biofilm, exudate, fibrin and slough ?Instrument: ??Curette ??Amount of bleeding: none ?Hemostasis obtained with: ??Not applicable ??Procedural pain: ??0 ??Post-procedural pain: ??0 ??Response to treatment: ??Procedure was tolerated well us Ryan CONNELL IN CLINIC/BEDSIDE ORDERABLE S Final Result * Wound Care Procedure Venous Ulcer Right;Medial Ankle (07/30/2024 11:15 AM EDT) Alex Angeles MD - 07/30/2024 11:15 AM EDT Alex Robledo MD ? 07/30/2024 12:36 PM Wound Care Procedure Venous Ulcer Right;Medial Ankle Date/Time: 07/30/2024 11:15 AM Performed by: Della Lane RN Authorized by: Alex Robledo MD ??Associated wounds: Wound Venous Ulcer 01/08/24 Ankle Right;Medial Consent: ??Consent obtained: ??Verbal ??Consent given by: ??Patient ??Risks, benefits, and alternatives were discussed: yes ?Risks discussed: ??Infection and pain ??Alternatives discussed: ??Delayed treatment [place] protocol: ??Procedure explained and questions answered to [...] Result * Debridement Venous Ulcer Right;Medial Ankle (07/30/2024 10:15 AM EDT) Narrative Alex Robledo MD - 07/30/2024 10:15 AM EDT Alex Robledo MD ? 07/30/2024 12:36 PM Debridement Venous Ulcer Right;Medial Ankle Performed [...] Post Debridement: ??Fat layer exposed ??Time taken: ??07/30/2024 10:30 AM ??Length (cm): ??1.1 ??Width (cm): ??0.3 ??Depth (cm): ??0.1 ??Area (cm^2): ??0.33 ??Time taken: ??07/30/2024 10:31 AM ??Length (cm): ??1.1 ??Width (cm): ??0.4 ??Depth (cm): ??0.2 ??Percent Debrided (%): ??100 ??Surface Area (cm^2): ??0.44 ??Area Debrided (cm^2): ??0.44 ??Volume (cm^3): ??0.09 ??Tissue and other material debrided: dermis, epidermis [...] Ankle Date/Time: 07/09/2024 9:41 AM Performed by: eDlla Lane RN Authorized by: Alex Robledo MD ??Associated wounds: Wound Venous Ulcer 01/08/24 Ankle Right;Medial Consent: ??Consent obtained: ??Verbal ??Consent given by: ??Patient ??Risks, benefits, and alternatives were discussed: yes ?Risks discussed: ??Infection and pain ??Alternatives discussed: ??Delayed treatment [facility] protocol: ??Procedure explained and questions answered to [...] ?Risks discussed: ??Pain ??Alternatives discussed: ??Delayed treatment [facility] protocol: ??Procedure explained and questions answered to [...] CONNELL IN CLINIC/BEDSIDE ORDERABLE S Final Result from Last 3 Months Additional Health Concerns Active Problems Noted Date Diagnosed Date Impaired Tissue 03/15/2024 Education needed on impact of smoking on wound 1 05/15/2023 Education needed related to ulceration/compromised skin integrity. 03/15/[address] [facility] Care Teams Circular Saw Operator Relationship Specialty Start Date End Date Alo Bennett MD [address] [place] [phone] PCP - General Internal Medicine 03/12/24
== END 2024-09-14 14:15 | disposition home or self-care (01) ==
LOC: HO.HWS 11:24
PROVIDERS: PCP Internal Medicine; Visit Provider Advanced Practice Midwife
DX: Z01.419 Encounter for gynecological examination (general) (routine) without abnormal findings (principal); N95.1 Menopausal and female climacteric states; E66.01 Morbid (severe) obesity due to excess calories
CPT/HCPCS: 99386; 99459

== ENCOUNTER 2024-09-14 11:24 | Outpatient (REF) | payer OTHER, SELFPAY ==
--- OUTSIDE RECORDS SUMMARY | 2024-09-14 14:00 | XMS_ITS ---
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 ([facility] V24, [facility] V28) 05/18/2024 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 ([facility] V24, [facility] V28) 04/09/2024 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 ([facility] V24, [facility] V28) 03/12/2024 Non-pressure chronic ulcer o f other part of right lower leg with fat layer exposed ([facility] V24, [facility] V28) 03/12/2024 Varicose 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
--- OUTSIDE RECORDS SUMMARY | 2024-09-14 14:00 | XMS_ITS | Clinical Summary ---
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 ([facility] V24, [facility] V28) 05/18/2024 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 ([facility] V24, [facility] V28) 04/09/2024 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 ([facility]/HCC V24, [facility] V28) 03/12/2024 Non-pressure chronic ulcer o f other part of right lower leg with fat layer exposed (CMS/HCC V24, CMS/HCC V28) 03/12/2024 Varicose 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 ([facility] V24, [facility] V28) 03/12/2024 Localized edema 03/12/2024 Encounters Date Type Department Care Team Description 09/07/2024 9:30 AM EDT Office Visit [facility] [address] [place] [phone] Ryan Amaya PA Chronic venous hypertension (idiopathic) with ulcer of right lower extremity (CODE) ([facility] V24, [facility] V28) (Primary Dx); Non-pressure chronic ulcer of right ankle with fat layer exposed ([facility] V24, [facility] V28) 08/24/2024 9:00 AM EDT Office Visit [facility] [address] [place] [phone] Ryan Amaya PA Chronic venous hypertension (idiopathic) with ulcer of right lower extremity (CODE) ([facility] V24, [facility] V28) (Primary Dx); 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 V24, CMS/HCC V28) 07/30/2024 10:15 AM EDT Office Visit [facility] [address] [place] [phone] Alex Robledo MD Non-pressure chronic ulcer of other part of right foot with fat layer exposed ([facility] V24, CMS/HCC V28) (Primary Dx); Chronic venous hypertension (idiopathic) with ulcer of right lower extremity (CODE) (CMS/HCC V24, CMS/HCC V28) 07/09/2024 9:00 AM EDT Office Visit [facility] [address] [place] [phone] Alex Robledo MD Non-pressure chronic ulcer of right ankle with fat layer exposed ([facility] V24, [facility] V28) (Primary Dx); Chronic venous hypertension (idiopathic) with ulcer of right lower extremity (CODE) ([facility] V24, [facility] V28) 06/30/2024 2:45 PM EST Office Visit [facility] [address] [place] [phone] Ryan Amaya PA Chronic venous hypertension (idiopathic) with ulcer of right lower extremity (CODE) ([facility] V24, [facility] V28) (Primary Dx); Non-pressure chronic ulcer of right ankle with fat layer exposed ([facility] V24[facility] V28) from Last 3 Months Surgical History Surgery Date Site/Laterality Comments TUBAL LIGATION PROCEDURE: HISTORICAL TUBAL LIGATION BREAST REDUCTION 2006 PROCEDURE: AL BREAST REDUCTION SKIN GRAFT Medical History Medical [...] Description 09/22/2024 9:30 AM EDT Clinical Support [facility] [address] [place] [address] Health Maintenance Due Date Last [...] wound No change(2024 4:15 PM EST) Della Worhty RN Reduce tobacco use (cigarettes, smokeless, etc) [...] with ulcer of right lower extremity (CODE) ([facility] V24, [facility] V28) Non-pressure chronic ulcer of right ankle with fat layer exposed ([facility] V24, [facility] V28) DEBRIDEMENT Routine 09/07/2024 9:30 AM EDT Chronic venous hypertension (idiopathic) with ulcer of right lower extremity (CODE) ([facility] V24, CMS/HCC V28) Non-pressure chronic ulcer of [...] ?Risks discussed: ??Pain ??Alternatives discussed: ??Delayed treatment [place] protocol: ??Procedure explained and questions answered to [...] ?Risks discussed: ??Pain ??Alternatives discussed: ??Delayed treatment [place] protocol: ??Procedure explained and questions answered to [...] ??Infection and pain ??Alternatives discussed: ??Delayed treatment [place] protocol: ??Procedure explained and questions answered to [...] ??Infection and pain ??Alternatives discussed: ??Delayed treatment [place] protocol: ??Procedure explained and questions answered to [...] ?Risks discussed: ??Pain ??Alternatives discussed: ??Delayed treatment [place] protocol: ??Procedure explained and questions answered to [...] related to ulceration/compromised skin integrity. 03/15/2024 Insurance [facility] [employer] Care Teams Grades 1 Thru 5 Teacher Relationship Specialty Start Date End Date Alo Bennett MD [address] [facility] [place] [phone] PCP - General Internal Medicine 03/12/24
[2024-09-15 06:01] LABS: CT PCR NOT DETECTED (Not Detect.); NG PCR NOT DETECTED (Not Detect.)
[2024-09-15 08:11] LABS: Bacterial Vaginosis PCR POSITIVE (Negative); Candida Group PCR NOT DETECTED (Not Detect); Candida glab krusei PCR NOT DETECTED (Not Detect); Trichomonas vaginalis PCR DETECTED (Not Detect)
[2024-09-17 14:40] LABS: HPV Genotype 16 Negative (Negative); HPV Genotype 18 Negative (Negative); HPV High Risk Positive (Negative)
== END 2024-09-14 11:25 | disposition home or self-care (01) ==
LOC: HO.LNP 11:24
PROVIDERS: PCP Internal Medicine; Visit Provider Advanced Practice Midwife
DX: Z01.419 Encounter for gynecological examination (general) (routine) without abnormal findings (principal); R87.810 Cervical high risk human papillomavirus (HPV) DNA test positive
CPT/HCPCS: 81515; 87491; 87591; 87626; 88175; 99386; 99459

== ENCOUNTER 2024-10-08 12:17 | Outpatient (AMB) | payer OTHER, SELFPAY ==
[2024-10-08 12:20] VITALS: BP 124/82; PULSE 82; O2SAT 92; BMI 41.8
--- NOTE | 2024-10-08 12:20 | A.OFFPC_ITS ---
Vital Signs 10/08/24 12:20 Height 5 ft 6 in Weight 259 lb 2 oz BMI 41.8 BP 124/82 Blood Pressure Location Lt brachial Position Sitting Pulse 82 Pulse Source Pulse Oximeter Pulse Oximetry (%) 92 Oxygen Delivery Method Room Air Intake Visit Reasons: 3m follow up Allergies No Known Allergies [No Known Allergies*] Allergy (Verified 10/08/24 12:20) Medication List - Last Reconciled 10/08/24 by Alo Bennett MD escitalopram oxalate 20 mg PO DAILY 90 days furosemide 20 mg PO QAM ibuprofen 800 mg PO Q8H PRN 30 days levothyroxine 200 mcg PO DAILY 90 days metronidazole 500 mg PO Q12H oxycodone-acetaminophen 5-325 mg (Percocet) 1 tab PO BID PRN 30 days Tobacco use date assessed: 10/08/24 Dental Screening Dental Screen Date: 10/08/24 Did you have a dental visit in the last 12 months?: Yes Did you have a dental problem in the last 6 months where you did not have access to dental care?: No Was dental information given to patient?: Patient has dentist HPI 3m follow up HPI Details History - The patient is a 54-year-old female pr esenting with depression, anxiety, osteoarthritis, medication management, and follow-up on wound healing. - Depression and Anxiety: The patient re ports persistent depression and anxiety, initially managed with escitalopram. However, the patient expresses dissatisfaction with the medication, indicating that despite adherence, episodes of intense emotionality, such as crying, persist. She also cites difficulty sleeping and inability to focus, contributing to an unstable mood and inability to concentrate. - Osteoarthritis: The patient describes worsening osteoarthritis, specifically in her thumbs, causing significant pain and impairing her ability to write. The pain is also present in the knees, with a notable impact after physical activities or prolonged periods of strain, such as air travel. - Wound Healing: The patient attended a Wounds Clinic appointment, where it was noted that her wound had developed a scab and was nearly healed. Wound is located right lower leg, Consequently, her follow-up visits were adjusted from weekly to bi-weekly. - Medication Management: Previously util izing Estelipram and discussing potential alternatives due to inadequate response. The patient mentions current use of medical marijuana to manage symptoms but feels it provides insufficient relief. - Thyroid Issues: Continuation of thyroi d medication, dose unspecified. - Other Symptoms: Discussed mammogram co nducted in April of 2023, new order was placed April of 2024 which patient has not scheduled yet. - Social and Emotional Context: Engages with therapy for mood and emotional management, mentioning emergent emotional difficulties during sessions. Identifies participation in holiness activities as supportive. Medical History: - History of depression and anxiety, man aged with citalopram. - Osteoarthritis involving the thumbs an d knees. Thumb more than knee and would like to see a hand specialist - History of wound requiring clinic ophelia daviescomfort. No longer taking Percocet for pain. - Engaging in psychotherapy for mood dis orders. 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 - Frequent use of medical marijuana for symptom management. - Regular participation in holiness activi ties. - Smoking habits discussed, with a noted reduction in frequency. - Attends therapy through Zoom due to la ck of in-person availability. Problem List - Major Depressive Disorder - Generalized Anxiety Disorder - Osteoarthritis involving thumbs and kn ees - Smoking dependence - History of wound requiring clinical red ortega right lower leg - morbid obesity [place] of Care - Engaged with a therapist via Zoom. - Appointment with a psychiatrist for me dication evaluation pending. Patient Instructions - Adjust medication schedule as fabián fairchild. Start Seroquel 25 mg tablet half a tablet at night, continue escitalopram - Continue wound care as previously inst ructed, including bi-weekly follow-up at the Wounds Clinic. - Monitor pain levels; consider alternat olivia for osteoarthritis management as discussed. - Schedule and attend blood tests, aba griggs, as instructed to check cholesterol and other parameters. - Continue therapy sessions and follow m entor health care plan. - wait for psychiatric appointment psych iatrist to follow up on the medication changes and appointments. - Explore options for reducing ibuprofen consumption due to potential kidney damage. - see hand specialist for the bilateral thumb pain - continued to try to lose weight Review of Systems General: No fever no chills neurological: No headaches no dizziness ear nose throat: No sore throat no hearing difficulty no ear pain cardiovascular: No syncope, no chest pain, no palpitations gastrointestinal: No nausea vomiting or diarrhea endocrine: No polyuria polydipsia no heat intolerance genitourinary: No dysuria skin: No new complaints Physical Exam general: No acute distress HEENT: No acute findings neck: Supple respiratory system: Able to talk in full sentences, no audible wheeze no stridor cardiovascular: S1-S2 RRR gastrointestinal: No pain extremities: No new findings, both thumb tender over extensor tendons BANK CONSULTANT: Alert awake oriented x3 motor sensory intact skin: Normal turgor [facility] Medical History Peripheral vascular disease Chronic wound of extremity Vitamin D deficiency Other specified hypothyroidism Open ankle wound Surgical History Status post breast reduction History of tubal ligation Family History Father Lung cancer Smoker Mother Anxiety Maternal Grandfather No problems noted. Maternal Grandmother Cancer Paternal Grandmother No problems noted. Paternal Grandfather No problems noted. Brother No problems noted. Sister No problems noted. Sister No problems noted. Sister No problems noted. Sister No problems noted. Son No problems noted. Daughter No problems noted. Other Substance use disorder Social History Housing: House Alcohol intake: current Alcohol intake frequency: a few times a week Patient Tobacco Use Status: Current everyday Tobacco user Tobacco use type: Cigarette Cigarette Packs Per Day: 1 e-Cigarette/Vaping Use: Never Used service: No Current occupational status: employed Sexual orientation: Straight/Heterosexual Gender identity: Female Cognitive needs: No Hearing needs: No Vision needs: Yes Female Reproductive History Menstrual Age of Menarche: 15 Questionnaire Thrive Questionnaire Date Thrive assessed: 10/08/24 I am a: Patient What is your living situation today?: I have a place to live, but I am worried about losing it in the future Within the past 12 months, did the food you bought not last and you didn't have the money to get more?: Sometimes True Within the past 12 months, did you worry whether your food would run out before you got money to buy more?: Sometimes True Do you have trouble paying for medicines?: No Do you have trouble getting transportation to medical appointments?: No Do you have trouble paying your heating and electricity bill?: Yes Do you have trouble taking care of your child, family member or friend?: No Do you have trouble with day-to-day activities such as bathing, preparing meals, shopping, managing finances, etc.?: No Are you currently unemployed and looking for a job?: Yes Are you interested in more education?: No Currently or been in a relationship where the following occur: No concerns reported THRIVE Score: 4 AUDIT C Alcohol Use Questionnaire (AUDIT-C) 1. How often do you have a drink containing alcohol?: 2-4 times a month 2. How many drinks containing alcohol do you have on a typical day when you are drinking?: 3 or 4 3. How often do you have six or more drinks on one occasion?: Less than monthly Total Score: 4 Score Reviewed/Action Taken: Yes CINDI-7 AMB Questionnaire CINDI-7 Date CINDI - 7 assessed: 07/09/24 Source: Developed by Drs. Arjun Cantrell, Savannah Escoto, Macario Carrillo and colleagues, with an educational paul from [employer]. Physical exam (Primary Care) Vital Signs: Last Vital Signs Pulse 82 10/08/24 12:20 BP 124/82 10/08/24 12:20 Pulse Ox 92 10/08/24 12:20 Oxygen Delivery Method Room Air 10/08/24 12:20 BMI result Body Mass Index 41.8 Tobacco/Smoking Status: Tobacco use Status Tobacco use date assessed 10/08/24 10/08/24 12:21 Patient Tobacco Use Status Current everyday Tobacco 10/08/24 12:21 Tobacco use type Cigarette 10/08/24 12:21 e-Cigarette/Vaping Use Never Used 10/08/24 12:21 Thrive Assessment: Date of Thrive Assessment Date Thrive assessed 10/08/24 10/08/24 12:21 Currently or been in a relationship where the following occur: No concerns reported Coding Level of Care Code Est Pt Level 5 (93535) Complex EM visit Add On G2211 Diagnoses Chronic wound of extremity Bilateral thumb pain M79.644; M79.645 Moderate episode of recurrent major depressive disorder F33.1 Active/Remission status: currently active Major depression episode severity: moderate Other specified hypothyroidism E03.8 Tobacco abuse Z72.0 Anxiety, generalized F41.1 Morbid obesity due to excess calories E66.01 Stress incontinence N39.3 Peripheral vascular disease I73.9 Time Spent (min) 41 Comment Reviewing chart, [id number], labs, coordination of care Assessment & Plan Assessment & Plan (1) Chronic wound of extremity: Comment: Patient is seen at care center at [facility] regularly. Wearing support stockings etc. Category: Medical (2) Bilateral thumb pain: Code(s): M79.644 - Pain in right finger(s); M79.645 - Pain in left finger(s) Category: Medical (3) Major depression, recurrent: Code(s): F33.9 - Major depressive disorder, recurrent, unspecified Category: Medical Qualifiers: Active/Remission status: currently active Major depression episode severity: moderate Qualified Code(s): F33.1 - Major depressive disorder, recurrent, moderate (4) Other specified hypothyroidism: Code(s): E03.8 - Other specified hypothyroidism Category: Medical (5) Tobacco abuse: Code(s): Z72.0 - Tobacco use Category: Medical (6) Anxiety, generalized: Code(s): F41.1 - Generalized anxiety disorder Category: Medical (7) Morbid obesity due to excess calories: Code(s): E66.01 - Morbid (severe) obesity due to excess calories Category: Medical (8) Stress incontinence: Code(s): N39.3 - Stress incontinence (female) (male) Category: Medical (9) Peripheral vascular disease: Code(s): I73.9 - Peripheral vascular disease, unspecified Category: Medical Plan History - The patient is a 54-year-old female presenting with depression, anxiety, osteoarthritis, medication management, and follow-up on wound healing. - Depression and Anxiety: The patient reports persistent depression and anxiety, initially managed with escitalopram. However, the patient expresses dissatisfaction with the medication, indicating that despite adherence, episodes of intense emotionality, such as crying, persist. She also cites difficulty sleeping and inability to focus, contributing to an unstable mood and inability to concentrate. - Osteoarthritis: The patient describes worsening osteoarthritis, specifically in her thumbs, causing significant pain and impairing her ability to write. The pain is also present in the knees, with a notable impact after physical activities or prolonged periods of strain, such as air travel. - Wound Healing: The patient attended a Wounds Clinic appointment, where it was noted that her wound had developed a scab and was nearly healed. Wound is located right lower leg, Consequently, her follow-up visits were adjusted from weekly to bi-weekly. - Medication Management: Previously utilizing Estelipram and discussing potential alternatives due to inadequate response. The patient mentions current use of medical marijuana to manage symptoms but feels it provides insufficient relief. - Thyroid Issues: Continuation of thyroid medication, dose unspecified. - Other Symptoms: Discussed mammogram conducted in April of 2023, new order was placed April of 2024 which patient has not scheduled yet. - Social and Emotional Context: Engages with therapy for mood and emotional management, mentioning emergent emotional difficulties during sessions. Identifies participation in holiness activities as supportive. Medical History: - History of depression and anxiety, managed with citalopram. - Osteoarthritis involving the thumbs and knees. Thumb more than knee and would like to see a hand specialist - History of wound requiring clinic management. No longer taking Percocet for pain. - Engaging in psychotherapy for mood disorders. 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 - Frequent use of medical marijuana for symptom management. - Regular participation in holiness activities. - Smoking habits discussed, with a noted reduction in frequency. - Attends therapy through Zoom due to lack of in-person availability. Problem List - Major Depressive Disorder - Generalized Anxiety Disorder - Osteoarthritis involving thumbs and knees - Smoking dependence - History of wound requiring clinical management right lower leg - morbid obesity [place] of Care - Engaged with a therapist via Zoom. - Appointment with a psychiatrist for medication evaluation pending. Patient Instructions - Adjust medication schedule as discussed. Start Seroquel 25 mg tablet half a tablet at night, continue escitalopram - Continue wound care as previously instructed, including bi-weekly follow-up at the [facility] Clinic. - Monitor pain levels; consider alternatives for osteoarthritis management as discussed. - Schedule and attend blood tests, fasting, as instructed to check cholesterol and other parameters. - Continue therapy sessions and follow mental health care plan. - wait for psychiatric appointment psychiatrist to follow up on the medication changes and appointments. - Explore options for reducing ibuprofen consumption due to potential kidney damage. - see hand specialist for the bilateral thumb pain - continued to try to lose weight Orders: Orders TSH reflex Free T4 Today E03.8 - Other specified hypothyroidism, E66.01 - Morbid (severe) obesity due to excess calories, E66.9 - Obesity, unspecified, F33.1 - Major depressive disorder, recurrent, moderate, F41.1 - Generalized anxiety disorder, M79.644 - Pain in right finger(s), M79.645 - Pain in left finger(s), Z72.0 - Tobacco use Complete Blood Count Auto Diff Today E03.8 - Other specified hypothyroidism, E66.01 - Morbid (severe) obesity due to excess calories, E66.9 - Obesity, unspecified, F33.1 - Major depressive disorder, recurrent, moderate, F41.1 - Generalized anxiety disorder, M79.644 - Pain in right finger(s), M79.645 - Pain in left finger(s), Z72.0 - Tobacco use Comprehensive [place]. Panel Fast Today E03.8 - Other specified hypothyroidism, E 66.01 - Morbid (severe) obesity due to excess calories, E66.9 - Obesity, unspecified, F33.1 - Major depressive disorder, recurrent, moderate, F41.1 - Generalized anxiety disorder, M79.644 - Pain in right finger(s), M79.645 - Pain in left finger(s), Z72.0 - Tobacco use Lipid Panel Today E03.8 - Other specified hypothyroidism, E66.01 - Morbid (severe) obesity due to excess calories, E66.9 - Obesity, unspecified, F33.1 - Major depressive disorder, recurrent, moderate, F41.1 - Generalized anxiety disorder, M79.644 - Pain in right finger(s), M79.645 - Pain in left finger(s), Z72.0 - Tobacco use Vitamin D 25-OH (D2 and D3) Today E03.8 - Other specified hypothyroidism, E66.01 - Morbid (severe) obesity due to excess calories, E66.9 - Obesity, u nspecified, F33.1 - Major depressive disorder, recurrent, moderate, F41.1 - Generalized anxiety disorder, M79.644 - Pain in right finger(s), M79.645 - Pain in left finger(s), Z72.0 - Tobacco use Vitamin B12 Today E03.8 - Other specified hypothyroidism, E66.01 - Morbid (severe) obesity due to excess calories, E66.9 - Obesity, unspecified, F33.1 - Major depressive disorder, recurrent, moderate, F41.1 - Generalized anxiety disorder, M79.644 - Pain in right finger(s), M79.645 - Pain in left finger(s), Z72.0 - Tobacco use Referrals Hand Surgery Referral M79.644 - Pain in right finger(s), M79.645 - Pain in left finger(s) Medications: New quetiapine (Seroquel) 25 mg PO BEDTIME 30 tabs 0RF 30 days
== END 2024-10-08 12:50 | disposition home or self-care (01) ==
PROVIDERS: PCP Internal Medicine; Visit Provider Internal Medicine
DX: M79.644 Pain in right finger(s) (principal); F33.1 Major depressive disorder, recurrent, moderate; E66.01 Morbid (severe) obesity due to excess calories; Z68.41 Body mass index [BMI] 40.0-44.9, adult; F41.1 Generalized anxiety disorder; M79.645 Pain in left finger(s); E03.8 Other specified hypothyroidism; Z72.0 Tobacco use; N39.3 Stress incontinence (female) (male); I73.9 Peripheral vascular disease, unspecified

== ENCOUNTER → 2024-10-08 12:17 | Outpatient (BNVA) | payer OTHER, SELFPAY | PROVIDERS: PCP Internal Medicine; Visit Provider Internal Medicine | DX: M19.042 Primary osteoarthritis, left hand (principal); M19.041 Primary osteoarthritis, right hand; M17.0 Bilateral primary osteoarthritis of knee; F33.1 Major depressive disorder, recurrent, moderate; E03.8 Other specified hypothyroidism; F41.1 Generalized anxiety disorder; E66.01 Morbid (severe) obesity due to excess calories; N39.3 Stress incontinence (female) (male); I73.9 Peripheral vascular disease, unspecified; Z68.41 Body mass index [BMI] 40.0-44.9, adult | CPT/HCPCS: 99212 ==

== ENCOUNTER 2024-10-28 08:28 | Outpatient (AMB) | payer OTHER, SELFPAY ==
--- OUTSIDE RECORDS SUMMARY | 2024-10-27 09:30 | XMS_ITS | Encounter Summary ---
Author Organization [facility] Address [address] [place] [address] Care Team Providers Care Steam Boiler Fireman Name Role Phone Alo Bennett MD Primary Care Provider [phone] Reason for Visit * Reason Comments Wound Care Encounter Details Date Type Department Care Team (Late st Contact Info) Description 10/27/2024 9:30 AM EDT Office Visit [facility] [address] [place] [phone] Ryan Amaya PA [address] [place] [phone] Chronic venous hypertension (idiopathic) with ulcer of right lower extremity (CODE) ([facility] V24, [facility] V28) (Primary Dx); Non-pressure chronic ulcer right lower leg, limited to breakdown skin (CMS/HCC V24, CMS/HCC V28) Social History Tobacco Use Types Packs/Day Years [...] Sign Reading Time Taken Comments Blood Pressure 138/76 10/27/2024 9:12 AM EDT Pulse 87 10/27/2024 9:12 AM EDT Temperature 36 C (96.8 F) 10/27/2024 9:12 AM EDT Respiratory Rate 16 10/27/2024 9:12 AM EDT Oxygen Saturation 97% 10/27/2024 9:12 AM EDT Inhaled Oxygen Concentration - - Weight - - Height - - Body Mass Index - - documented in this encounter Progress Notes * Deann Carolina RN - 10/27/2024 9:30 AM EDT PROVIDER ORDERS Go to ER if you are presenting with fever, chills, increased redness, pain, swelling, warmth aroundwound area and/or foul smelling odor. If you have any questions or concerns, please contact the [facility] at . Follow up(s)/ Referrals: N/A Half-Way: N/A Additional Orders: Increase protein in your [...] please remove / unwrap compression and notify [facility] at . ) Elevate legs above heart level as much as possible, Avoid standing for extended periods of time, Compression Stocking Offloading: N/A Negative Pressure Wound Therapy: (If [...] Location(s): Wound #1 (Right medial ankle): Cleanser: Soap and Water Periwound: N/A Topical: N/A Primary dressing: N/A Secondary dressing: N/A Secure with: N/A Compression Therapy: Compression Stocking Dressing Change Frequency: N/A * Della Lane RN - 10/27/2024 9:30 AM EDT Discharge Patient directed to check out at assistant front office manager and collect visit summary with wound care directions and book follow up as directed. Dressings applied: home compression stocking applied Dressing technique was demonstrated and explained. Patient questions answered. Pt discharge from wound care center without issue or incidence. documented in this encounter Plan of Treatment Upcoming Encounters Date Type Department Care Team (Late st Contact Info) Description 11/16/2024 9:15 AM EDT Clinical Support [facility] [address] [place] [phone] documented as of this encounter Goals Goal Patient Goal Type Associated Problems Recent Progress Patient-Stated? Author Decrease Wound Volume by X% by date (in notes) Care Plan Impaired Tissue Improving(05/2024 11:33 AM EDT) Della Worthy RN Patient and Caregiver Understand Wound Care Education Care Plan Impaired Tissue On track( 11:34 AM EDT) Della Worthy RN Wound volume [...] Lane RN documented as of this encounter Visit Diagnoses Diagnosis Chronic venous hypertension (idiopathic) with ulcer of right lower extremity (CODE) ([facility] V24, [facility] V28)- Primary Non-pressure chronic ulcer right lower leg, limited to breakdown skin ([facility] V24, [facility] V28) documented in this encounter Historical Medications * This list may reflect changes made after this encounter. QUEtiapine (SEROquel) 25 mg tablet Take 1 tablet (25 mg total) by mouth at bedtime. at bedtime for 30 days 10/08/2024 added in this encounter Additional Health Concerns Active Problems Noted Date Diagnosed Date Impaired Tissue 03/15/2024 Education needed on impact of smoking on wound 1 05/15/2023 Education needed related to ulceration/compromised skin integrity. 03/15/2024 documented as of this encounter Care Teams Steam Boiler Fireman Relationship Specialty Start Date End Date Aol Bennett MD [address] [place] [phone] PCP - General Internal Medicine 03/12/24 documented as of this encounter
--- NOTE | 2024-10-28 08:50 | A.OFFPC_ITS ---
Intake Visit Reasons: 3 week telehealth Allergies No Known Allergies (No Known Allergies*) Allergy (Verified 10/08/24 12:20) Medication List - Last Reconciled 10/28/24 by Alo Bennett MD escitalopram oxalate 20 mg PO DAILY 90 days furosemide 20 mg PO QAM ibuprofen 800 mg PO Q8H PRN 30 days levothyroxine 200 mcg PO DAILY 90 days metronidazole 500 mg PO Q12H oxycodone-acetaminophen 5-325 mg (Percocet) 1 tab PO BID PRN 30 days quetiapine (Seroquel) 25 mg PO BEDTIME 30 days Tobacco use date assessed: 10/08/24 Dental Screening Dental Screen Date: 10/08/24 HPI 3 week telehealth HPI Details History - The patient is a 54-year-old female pr esenting with right knee pain and potential arthritis flare-up. - The right knee pain has been recurring , suggesting arthritis, and was significant enough to cause sleep disturbances. - The patient reports difficulties bendi ng the right leg and increasing pain experienced during the night after a work shift from 3:00 PM to 9:00 PM, during which physical activity was minimal. - She describes the pain as severe, nece ssitating the use of ibuprofen and lidocaine patches to obtain modest relief. - The patient has not conducted recent i maging or sought consultation with a shirt operator to further investigate potential osteoarthritis or other arthrit is types. - Beyond the knee, arthritic symptoms ar e reported in both thumbs and localized pain in the right foot. - The patient has been managing depressi on, regularly meets with a therapist, and has an upcoming appointment with a nurse practitioner for psychiatric medication management. Medical History: - Depression with ongoing psychological therapy and medication management. - Previous diagnosis of osteoarthritis w ith symptoms in the knee and thumbs. Medications: - Quetiapine 25 mg at night for sleep di sturbances associated with depression. - Ibuprofen as needed for arthritis pain . - Lidocaine patches for temporary pain r elief in knee arthritis. Social History: - The patient is currently employed and reports a work schedule of evening shifts from 3:00 PM to 9:00 PM. - Experiences physical limitations in he r living environment, as she reports significant discomfort navigating stairs. - Previously worked at [employer]. - Plans for social engagement with anjelica puri, indicating limited alcohol consumption. Problem List - Osteoarthritis - Depression - Right knee pain - Possible arthritis in both thumbs - difficulty sleeping Patient Instructions - Continue taking prescribed ibuprofen a s needed for pain relief. - Use lidocaine patches as directed, up to three times daily, ensuring appropriate intervals between applications. - Take prednisone as prescribed for infl ammation management. - Maintain current mental health medicat ion regimen and attend scheduled therapist apt - Schedule and attend blood work on ay, ensuring fasting as previously advised. - Attend upcoming shirt operator appoint ment for further arthritis evaluation. - Engage in social activities responsibl y, considering any alcohol interaction with current medication. Review of Systems - General: No fever no chills - Neurological: No headaches no dizziness - Ear nose throat: No sore throat no hearing difficulty no ear pain - Cardiovascular: No syncope, no chest pain, no palpitations - Gastrointestinal: No nausea vomiting or diarrhea PFSH Medical History Peripheral vascular disease Chronic wound of extremity Vitamin D deficiency Other specified hypothyroidism Open ankle wound Surgical History Status post breast reduction History of tubal ligation Family History Father Lung cancer Smoker Mother Anxiety Maternal Grandfather No problems noted. Maternal Grandmother Cancer Paternal Grandmother No problems noted. Paternal Grandfather No problems noted. Brother No problems noted. Sister No problems noted. Sister No problems noted. Sister No problems noted. Sister No problems noted. Son No problems noted. Daughter No problems noted. Other Substance use disorder Social History Housing: House Alcohol intake: current Alcohol intake frequency: a few times a week Patient Tobacco Use Status: Current everyday Tobacco user Tobacco use type: Cigarette Cigarette Packs Per Day: 1 e-Cigarette/Vaping Use: Never Used service: No Current occupational status: employed Sexual orientation: Straight/Heterosexual Gender identity: Female Cognitive needs: No Hearing needs: No Vision needs: Yes Female Reproductive History Menstrual Age of Menarche: 15 Questionnaire Thrive Questionnaire Date Thrive assessed: 10/08/24 CINDI-7 AMB Questionnaire CINDI-7 Date CINDI - 7 assessed: 07/09/24 Source: Developed by Savannah LauraW. Jevon, Macario Carrillo and colleagues, with an educational paul from [employer]. Physical exam (Primary Care) Tobacco/Smoking Status: Tobacco use Status Tobacco use date assessed 10/08/24 10/28/24 08:50 Patient Tobacco Use Status Current everyday Tobacco 10/28/24 08:50 Tobacco use type Cigarette 10/28/24 08:50 e-Cigarette/Vaping Use Never Used 10/28/24 08:50 Thrive Assessment: Date of Thrive Assessment Date Thrive assessed 10/08/24 10/28/24 08:50 Telehealth Telehealth Telehealth Platform: [employer] Location of provider rendering services: practice address Location of patient: address on file Patient Identification confirmed using: Name, : Yes Telehealth method: video Patient verbally consented to treatment: Yes Patient verbally consented to billing insurance company: Yes Patient informed of any privacy concerns related to visit: Yes Minutes spent on Phone/Video with Pt.: 13 Coding Level of Care Code Tele Est Pt Level 3 (08144) Diagnoses Moderate episode of recurrent major depressive disorder F33.1 Active/Remission status: currently active Major depression episode severity: moderate Anxiety, generalized F41.1 Arthritis, multiple joint involvement M12.9 Difficulty sleeping G47.9 Assessment & Plan Assessment & Plan (1) Major depression, recurrent: Code(s): F33.9 - Major depressive disorder, recurrent, unspecified Category: Medical Qualifiers: Active/Remission status: currently active Major depression episode severity: moderate Qualified Code(s): F33.1 - Major depressive disorder, recurrent, moderate (2) Anxiety, generalized: Code(s): F41.1 - Generalized anxiety disorder Category: Medical (3) Arthritis, multiple joint involvement: Code(s): M12.9 - Arthropathy, unspecified Category: Medical (4) Difficulty sleeping: Code(s): G47.9 - Sleep disorder, unspecified Category: Medical Plan History - The patient is a 54-year-old female presenting with right knee pain and potential arthritis flare-up. - The right knee pain has been recurring, suggesting arthritis, and was significant enough to cause sleep disturbances. - The patient reports difficulties bending the right leg and increasing pain experienced during the night after a work shift from 3:00 PM to 9:00 PM, during which physical activity was minimal. - She describes the pain as severe, necessitating the use of ibuprofen and lidocaine patches to obtain modest relief. - The patient has not conducted recent imaging or sought consultation with a shirt operator to further investigate potential osteoarthritis or other ar thritis types. - Beyond the knee, arthritic symptoms are reported in both thumbs and localized pain in the right foot. - The patient has been managing depression, regularly meets with a therapist, and has an upcoming appointment with a nurse practitioner for psychiatric medication management. Medical History: - Depression with ongoing psychological therapy and medication management. - Previous diagnosis of osteoarthritis with symptoms in the knee and thumbs. Medications: - Quetiapine 25 mg at night for sleep disturbances associated with depression. - Ibuprofen as needed for arthritis pain. - Lidocaine patches for temporary pain relief in knee arthritis. Social History: - The patient is currently employed and reports a work schedule of evening shifts from 3:00 PM to 9:00 PM. - Experiences physical limitations in her living environment, as she reports significant discomfort navigating stairs. - Previously worked at [employer]. - Plans for social engagement with friends, indicating limited alcohol consumption. Problem List - Osteoarthritis - Depression - Right knee pain - Possible arthritis in both thumbs - difficulty sleeping Patient Instructions - Continue taking prescribed ibuprofen as needed for pain relief. - Use lidocaine patches as directed, up to three times daily, ensuring appropriate intervals between applications. - Take prednisone as prescribed for inflammation management. - Maintain current mental health medication regimen and attend scheduled therapist apt - Schedule and attend blood work on Friday, ensuring fasting as previously advised. - Attend upcoming shirt operator appointment for further arthritis evaluation. - Engage in social activities responsibly, considering any alcohol interaction with current medication. Orders: Referrals Rheumatology Referral M12.9 - Arthropathy, unspecified Medications: New lidocaine 5% (DermacinRx Lidocan) leave on most painful area for up to 12 hrs 1 patch topical DAILY 30 ea 0RF Pain lidocaine 5% (DermacinRx Lidocan) leave on most painful area for up to 12 hrs 1 patch topical DAILY 30 ea 0RF Pain prednisone 10 mg PO DAILY 5 tabs 0RF 5 days Changed From quetiapine (Seroquel) 25 mg PO BEDTIME 30 days 30 tabs 0RF To quetiapine (Seroquel) 25 mg PO BEDTIME 90 tabs 0RF 90 days
== END 2024-10-28 08:53 | disposition home or self-care (01) ==
LOC: HO.HMCC 08:28
PROVIDERS: PCP Internal Medicine; Visit Provider Internal Medicine
DX: F33.1 Major depressive disorder, recurrent, moderate (principal); F41.1 Generalized anxiety disorder; M12.9 Arthropathy, unspecified; G47.9 Sleep disorder, unspecified

== ENCOUNTER 2024-11-02 07:14 | Outpatient (REF) | payer OTHER, SELFPAY ==
[2024-11-02 11:12] LABS: MANUAL DIFF FLAG NO
[2024-11-02 11:21] LABS: Hematocrit 37.4 % (37.0-47.0); Hemoglobin 12.6 g/dl (12.0-16.0); Imm Gran Abs Auto 0.02 X10*3/uL (0.00-0.03); Imm Gran Pct Auto 0.3 % (0.0-0.4); Lymphocytes Absolute Auto 1.7 X10*3/uL (1.2-4.9); Mean Corpuscular HGB Conc 33.7 g/dl (31.0-35.0); Mean Corpuscular Hemoglobin 31.2 pg (27.0-33.0); Mean Corpuscular Volume 92.6 fL (80.0-98.0); NRBC Abs Auto 0.000 X10*3/uL (0.0-0.012); NRBC Pct Auto 0.0 /100WBC (0.0-0.2); Platelet Count 247 X10*3/uL (160-400); Red Blood Count 4.04 X10*6/uL (4.20-5.50); White Blood Count 6.1 X10*3/uL (4.8-10.8)
[2024-11-02 11:40] LABS: Alanine Aminotransferase 21 U/L (0-31); Albumin Level 3.8 g/dL (3.5-5.0); Alkaline Phosphatase 85 U/L (39-117); Anion Gap 10 (12-20); Aspartate Amino Transferase 36 U/L (5-31); Blood Urea Nitrogen 21 mg/dL (9-16); Calcium 8.8 mg/dL (8.4-10.2); Carbon Dioxide 24 mmol/L (22-29); Chloride 111 mmol/L (96-108); Cholesterol 173 mg/dL (<200); Estimated Glomerular Filt Rate > 60; HDL Cholesterol 41 mg/dL (>40); Potassium 4.3 mmol/L (3.3-5.1); Sodium 141 mmol/L (135-145); Total Protein 7.1 g/dL (6.5-8.0); Triglycerides 218 mg/dL (<150)
[2024-11-02 12:06] LABS: Vitamin B12 387 pg/mL (200-900)
[2024-11-06 16:49] LABS: Vitamin D 25-OH, D2 <4 ng/mL; Vitamin D 25-OH, D3 21 ng/mL; Vitamin D 25-OH, Total 21 ng/mL (30-100)
== END 2024-11-02 07:15 | disposition home or self-care (01) ==
LOC: HO.HMGCLDS 07:14
PROVIDERS: PCP Internal Medicine; Visit Provider Internal Medicine
DX: E03.8 Other specified hypothyroidism (principal); E66.01 Morbid (severe) obesity due to excess calories; F41.1 Generalized anxiety disorder; F33.1 Major depressive disorder, recurrent, moderate; M79.644 Pain in right finger(s); M79.645 Pain in left finger(s); Z72.0 Tobacco use
CPT/HCPCS: 36415; 80053; 80061; 82306; 82607; 84443; 85025

== ENCOUNTER 2024-12-08 14:42 | Outpatient (AMB) | payer OTHER, SELFPAY ==
--- NOTE | 2024-12-08 14:45 | MHC.OFFVIS ---
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 Per referring provider note, patient has a history of osteoarthritis, worsening in the thumbs, impairing her ability to write. Pain is primarily at the base of the thumbs with associated occasional numbness and tingling. Denies finger locking. She is taking ibuprofen for pain, alternating with Tylenol. She has not tried OT or injections however she thinks she tried using a brace a very long time ago. She also uses a CBD balm. Denies previous surgeries to the hands. 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 Per referring provider note, patient has a history of osteoarthritis, worsening in the thumbs, impairing her ability to write. Pain is primarily at the base of the thumbs with associated occasional numbness and tingling. Denies finger locking. She is taking ibuprofen for pain, alternating with Tylenol. She has not tried OT or injections however she thinks she tried using a brace a very long time ago. She also uses a CBD balm. Denies previous surgeries to the hands. 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 [facility] Medical History Peripheral vascular disease Chronic wound of extremity Vitamin D deficiency Other specified hypothyroidism Open ankle wound Surgical History Status post breast reduction History of tubal ligation Family History Father Lung cancer Smoker Mother Anxiety Maternal Grandfather No problems noted. Maternal Grandmother Cancer Paternal Grandmother No problems noted. Paternal Grandfather No problems noted. Brother No problems noted. Sister No problems noted. Sister No problems noted. Sister No problems noted. Sister No problems noted. Son No problems noted. Daughter No problems noted. Other Substance use disorder Social History (Updated 12/08/24 @ 14:49 by BOUCHRA Bell) Housing: House Alcohol intake: current Alcohol intake frequency: a few times a week Patient Tobacco Use Status: Current everyday Tobacco user Tobacco use type: Cigarette Cigarette Packs Per Day: 1 e-Cigarette/Vaping Use: Never Used service: No Current occupational status: unemployed Current occupation: rt handed Sexual orientation: Straight/Heterosexual Gender identity: Female Cognitive needs: No Hearing needs: No Vision needs: Yes Female Reproductive History Menstrual Age of Menarche: 15 Review of Systems Const All systems reviewed & are unremarkable except as noted in HPI and below Physical Exam Vital Signs: BMI result Body Mass Index 41.8 Extrem Other: Patient is alert, oriented, and in no acute distress. Neuro: Normal sensation of the tips of all digits of the bilateral hand at this time Vascular: Cap refill brisk Pain: Negative Lisa bilaterally No tenderness to palpation of bilateral radial styloid Very mildly positive CMC grind bilaterally Pain with passive flexion and active extension of bilateral thumbs ROM: Patient is able to make a closed fist and extend all digits of bilateral hands fully Skin: No lacerations or abrasions. General: No ecchymosis, erythema, or evidence of infection. Psych: Appears grossly normal Affect normal Attitude cooperative Results Reviewed Results Reviewed: X-rays obtained in the office today and independently reviewed by me, Juancho Rock PA-C, demonstrate [id number] osteoarthritis of CMC joint of bilateral thumbs. Assessment & Plan Assessment & Plan (1) Tendinitis of extensor tendon of both hands: Code(s): M77.8 - Other enthesopathies, not elsewhere classified Category: Medical Plan 1. Extensor tendinitis of bilateral thumbs Patient is educated about this condition Patient is educated about the treatment options available At this time, patient is referred to occupational therapy for range of motion and strengthening of bilateral thumbs in the setting of bilateral extensor tendinitis Patient is educated that although she does have arthritis on her x-rays, I do not feel that this is what is causing her pain at this time Patient understands this and is amenable to this plan Patient is also provided with bilateral comfort cool braces to wear when her thumbs are particularly bothering her Patient understands this and is amenable to this plan Follow-up as needed Orders: Orders XR hand RT min 3V 12/08/24 M79.641 - Pain in right hand OT Evaluation and Treatment 12/08/24 M77.8 - Other enthesopathies, not elsewhere classified Referrals Podiatry Referral M79.671 - Pain in right foot, M79.672 - Pain in left foot, G89.29 - Other chronic pain, M21.611 - Bunion of right foot, M21.612 - Bunion of left foot Coding Level of Care Code New Pt Level 3 (23357) Diagnoses Tendinitis of extensor tendon of both hands M77.8
[2024-12-08 14:46] VITALS: BMI 41.8
--- OUTSIDE RECORDS SUMMARY | 2024-12-08 14:50 | XMS_ITS | Encounter Summary ---
Author Organization [facility] Address [address] [place] [phone] Phone Care Team Providers Care Meat Selector Name Role Phone Alo Bennett MD Primary Care Provider [phone] Reason for Visit * Reason Onset Date Comments Referral 12/08/2024 Encounter Details Date Type Department Care Team ([facility] st Contact Info) Description 12/08/2024 Telephone [employer] [facility] [address] [place] [address] [email or web address] Referral Social History Tobacco Use Types Packs/Day Years Used Date Smoking Tobacco: Never Assessed Comments Unknown Sex and Gender Information Value Date Recorded Sex Assigned at Not on file Legal Sex Female 10:14 AM EDT Gender Identity Not on file Sexual Orientation Not on file documented as of this encounter Progress Notes * Anjali Brennan - 12/08/2024 10:26 AM EDT [facility] [employer] Phrases: Locating Referral Fax Hello, We are notifying you that the patient called to schedule a new patient appointment. The referral is not listed on file or in the media tab. The patient has informed us that the referral was faxed out. Please review the SFA and contact the patient with the referral determination if it is on file or not. Thank you If caller not the patient: Name: Relationship: Referral Order Details provided by caller Diagnosis: N/A Reason/Specify: N/A Referred To Name:N/A Referral Fax Out Dates: N/A Additional information: N/A Agent Action: > Route Encounter to Pool > Reason for Call: Referral > Comment: Call Back & Locate Referral in SFA Needed > Reiterate Scripting: Provide our referral not on file scripting Required Scripting: If the referral is not on file: Bharti, thank you for calling. I see that you'vementioned your provider faxed over a referral, but we have not yet received it on our end. Sometimes there can be a delay in processing or receiving faxes. Can you please confirm the date it was sent and the fax number that was used? Provide the caller with the office fax number. I will be happy to send a message over to the office for them to review their records and let you know if they've received it. documented in this encounter Plan of Treatment Not on file documented as of this encounter Visit Diagnoses Not on filedocumented in this encounter Care Teams Meat Selector Relationship Specialty Start Date End Date Alo Bennett MD [address] [facility] [place] [address] PCP - General Internal Medicine 12/08/24 documented as of this encounter Additional Source Comments The information contained in this document represents components of the legal health record. It is not the complete legal health record.[facility]
== END 2024-12-08 15:32 | disposition home or self-care (01) ==
LOC: HO.HOS 14:43
PROVIDERS: PCP Internal Medicine
DX: M77.8 Other enthesopathies, not elsewhere classified (principal)
CPT/HCPCS: 99203

== ENCOUNTER 2024-12-08 14:42 | Outpatient (REF) | payer OTHER, SELFPAY ==
--- NOTE | ~2024-12-08 | XR_ITS ---
EXAMINATION: XR HAND 3 OR MORE VIEWS RIGHT HISTORY: M79.641 - Pain in right hand COMPARISON: There are no prior studies available for comparison. FINDINGS: Three views of the right hand are submitted. Osseous mineralization is normal. There is no fracture or dislocation. There is mild narrowing of the 1st carpometacarpal joint. The soft tissues are unremarkable. XR/XR hand RT min 3V IMPRESSION: Mild narrowing of the 1st carpometacarpal joint. Otherwise examination of the right hand. Electronically signed by: Arjun Mobley MD 12/08/2024 03:32 PM EDT
--- OUTSIDE RECORDS SUMMARY | 2024-12-08 15:06 | XMS_ITS ---
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, limited to breakdown skin ([facility] V24, [facility] V28) 10/27/2024 Chronic venous hypertension (idiopathic) with ulcer of right lower extremity (CODE) ([facility] V24, [facility] V28) 05/18/2024 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 ([facility] V24, [facility] V28) 05/18/2024 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 ([facility] V24, [facility] V28) 04/09/2024 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 ([facility] V24, [facility] V28) 03/12/2024 Non-pressure chronic ulcer o f other part of right lower leg with fat layer exposed ([facility] V24, [facility] V28) 03/12/2024 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 03/15/2024 Goals Goal Patient Goal Type Associated Problems Recent Progress Patient-Stated? Author Decrease Wound Volume by X% by date (in notes) Care Plan Impaired Tissue Improving( 9:52 AM EDT) Della Worthy RN Patient and Caregiver Understand Wound Care Education Care Plan Impaired Tissue On track( 025 9:52 AM EDT) Della Worthy RN Wound volume [...]
== END 2024-12-08 14:43 | disposition home or self-care (01) ==
LOC: HO.HOSX 14:42
PROVIDERS: PCP Internal Medicine
DX: M77.8 Other enthesopathies, not elsewhere classified (principal); M79.641 Pain in right hand; M79.642 Pain in left hand; G89.29 Other chronic pain; M79.671 Pain in right foot; M79.672 Pain in left foot; M21.611 Bunion of right foot; M21.612 Bunion of left foot; M19.042 Primary osteoarthritis, left hand; M19.041 Primary osteoarthritis, right hand; Z98.51 Tubal ligation status
CPT/HCPCS: 73130; 99202

== ENCOUNTER → 2024-12-08 15:09 | Outpatient (BNV) | payer OTHER, SELFPAY | PROVIDERS: PCP Internal Medicine; Visit Provider Radiology Diagnostic Radiology | DX: M18.11 Unilateral primary osteoarthritis of first carpometacarpal joint, right hand (principal) | CPT/HCPCS: 73130 ==

== ENCOUNTER 2024-12-29 10:09 | Outpatient (AMB) | payer OTHER, SELFPAY ==
[2024-12-29 10:11] VITALS: BP 130/80; PULSE 88; O2SAT 98; BMI 42.4
--- NOTE | 2024-12-29 10:11 | A.OFFPC_ITS ---
Vital Signs 12/29/24 10:11 Height 5 ft 6 in Weight 263 lb BMI 42.4 BP 130/80 Blood Pressure Location Lt brachial Position Sitting Pulse 88 Pulse Source Pulse Oximeter Pulse Oximetry (%) 98 Intake Visit Reasons: Still have pain in my right knee. Allergies No Known Allergies (No Known Allergies*) Allergy (Verified 12/29/24 10:11) Medication List - Last Reconciled 12/29/24 by Alo Bennett MD duloxetine 30 mg PO DAILY ibuprofen 800 mg PO Q8H PRN 30 days levothyroxine 200 mcg PO DAILY 90 days lidocaine 5% (DermacinRx Lidocan) 1 patch topical DAILY oxycodone-acetaminophen 5-325 mg (Percocet) 1 tab PO BID PRN 30 days quetiapine (Seroquel) 50 mg PO BEDTIME Tobacco use date assessed: 10/08/24 Dental Screening Dental Screen Date: 10/08/24 HPI Still have pain in my right knee. HPI Details History The patient is a 54-year-old female presenting with knee pain and bilateral thumb tendinitis. Patient is struggling with PTSD and severe depression as well she is morbidly obese with BMI of 42.4 Knee Pain: - Pain is located behind both knees. - Has not been able to return to work du e to the requirement of wearing a brace, which is not allowed at work. - Utilizes ibuprofen and Tylenol for irene n management but has been advised to consider alternative medications like meloxicam or celecoxib to prevent potential kidney damage. - Acknowledges taking ibuprofen primaril y for past wound pain, despite wound luis ng healed, though occasionally refills for potential future needs. - Referred for evaluation by a rheumatol ogist to further assess joint issues. She has an appointment today at [facility] Tendinitis: - The patient has tendinitis in both shaneka mbs. - Experiences exacerbated pain from over use possibly due to playing a farming game on the phone, which is used for mental distraction. - Advised by a healthcare professional t o engage in physical therapy. Established with hand specialist currently - The patient uses two braces on her [facility] mbs to manage symptoms. Medical History: - PTSD - Depression - Anxiety - Thyroid disorder Medications: - Duloxetine 30 mg for depression and an xiety - Quetiapine 50 mg for depression and an xiety - Levothyroxine for thyroid disorder - Ibuprofen for past wound pain, alterna yumiko with Tylenol - Tylenol for pain management Social History: - The patient is unemployed temporarily due to health issues, currently collecting unemployment benefits, and is transitioning to apply for disability. 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 - Overuse of thumbs due to playing a far fareed game on the phone for mental diversion. - Utilizes technology for [employer] as a st ress reduction strategy. Problem List - Arthritis multiple joint but primaril y knees - Tendinitis bilateral thumb - PTSD - Depression - Anxiety - Thyroid Disorder - morbid obesity Diagnostic results - Mammogram: Completed, no abnormal find ings discussed. Saxman of Care - Consultation and coordination with a [facility] nurse practitioner for medication management. - Referral to a digital advisor and isaias ricketts-up with their report. Has appointment today Patient Instructions - Consider physical therapy for thumb te ndinitis. - Discuss with the digital advisor about appropriate pain medication for joint pain. - Limit usage of ibuprofen to prevent po tential kidney damage. - Explore alternative mental relaxation activities that do not exacerbate thumb pain. - Attend upcoming physical exam schedule d for May 24. - Obtain consultation reports from the r heumatologist for further documentation. Review of Systems General: No fever no chills neurological: No headaches no dizziness ear nose throat: No sore throat no hearing difficulty no ear pain cardiovascular: No syncope, no chest pain, no palpitations gastrointestinal: No nausea vomiting or diarrhea endocrine: No polyuria polydipsia no heat intolerance genitourinary: No dysuria skin: No new complaints Physical Exam general: No acute distress HEENT: No acute findings neck: Supple respiratory system: Able to talk in full sentences, no audible wheeze no stridor cardiovascular: S1-S2 RRR gastrointestinal: Soft nontender extremities: Pain behind both knees, tendinitis in both thumbs DENTAL THERAPIST: Alert awake oriented x3 motor intact skin: Normal turgor, right lower leg medial aspect wound healed Psych: Feeling emotional talking about her anxiety and depression and PTSD [facility] Medical History Peripheral vascular disease Chronic wound of extremity Vitamin D deficiency Other specified hypothyroidism Open ankle wound Surgical History Status post breast reduction History of tubal ligation Family History Father Lung cancer Smoker Mother Anxiety Maternal Grandfather No problems noted. Maternal Grandmother Cancer Paternal Grandmother No problems noted. Paternal Grandfather No problems noted. Brother No problems noted. Sister No problems noted. Sister No problems noted. Sister No problems noted. Sister No problems noted. Son No problems noted. Daughter No problems noted. Other Substance use disorder Social History Housing: House Alcohol intake: current Alcohol intake frequency: a few times a week Patient Tobacco Use Status: Current everyday Tobacco user Tobacco use type: Cigarette Cigarette Packs Per Day: 1 e-Cigarette/Vaping Use: Never Used service: No Current occupational status: unemployed Current occupation: rt handed Sexual orientation: Straight/Heterosexual Gender identity: Female Cognitive needs: No Hearing needs: No Vision needs: Yes Female Reproductive History Menstrual Age of Menarche: 15 Questionnaire Thrive Questionnaire Date Thrive assessed: 05/21/24 I am a: Patient What is your living situation today?: I have a place to live, but I am worried about losing it in the future Within the past 12 months, did the food you bought not last and you didn't have the money to get more?: Sometimes True Within the past 12 months, did you worry whether your food would run out before you got money to buy more?: Sometimes True Do you have trouble paying for medicines?: No Do you have trouble getting transportation to medical appointments?: No Do you have trouble paying your heating and electricity bill?: Yes Do you have trouble taking care of your child, family member or friend?: No Do you have trouble with day-to-day activities such as bathing, preparing meals, shopping, managing finances, etc.?: No Are you currently unemployed and looking for a job?: Yes Are you interested in more education?: No Currently or been in a relationship where the following occur: No concerns reported THRIVE Score: 4 CINDI-7 AMB Questionnaire CINDI-7 Date CINDI - 7 assessed: 07/09/24 Source: Developed by Drs. Arjun Cantrell, Savannah Escoto, Macario Carrillo and colleagues, with an educational paul from [employer]. Physical exam (Primary Care) Vital Signs: Last Vital Signs Pulse 88 12/29/24 10:11 BP 130/80 12/29/24 10:11 Pulse Ox 98 12/29/24 10:11 BMI result Body Mass Index 42.4 Tobacco/Smoking Status: Tobacco use Status Tobacco use date assessed 10/08/24 12/29/24 10:16 Patient Tobacco Use Status Current everyday Tobacco 12/29/24 10:16 Tobacco use type Cigarette 12/29/24 10:16 e-Cigarette/Vaping Use Never Used 12/29/24 10:16 Are you ready to quit: No Tobacco cessation counseling provided: Yes Relapse Prevention: discussed the importance of a supportive environment CPT code: Less than 3 minutes Thrive Assessment: Date of Thrive Assessment Date Thrive assessed 05/21/24 12/29/24 10:16 Currently or been in a relationship where the following occur: No concerns reported Coding Level of Care Code Est Pt Level 5 (61441) Diagnoses Anxiety, generalized F41.1 Recurrent major depressive disorder, in partial remission F33.41 Major depression recurrence: recurrent PTSD (post-traumatic stress disorder) F43.10 Peripheral vascular disease I73.9 Other specified hypothyroidism E03.8 Morbid obesity due to excess calories E66.01 Arthritis, multiple joint involvement M12.9 Chronic pain of both feet M79.671; M79.672; G89.29 Tendinitis of extensor tendon of both hands M77.8 Difficulty sleeping G47.9 Tobacco abuse Z72.0 Time Spent (min) 40 Comment Mostly [id number] discussing different challenges/reviewing chart/labs/coordination of c Assessment & Plan Assessment & Plan (1) Anxiety, generalized: Code(s): F41.1 - Generalized anxiety disorder Category: Medical (2) Depression, major, in partial remission: Code(s): F32.4 - Major depressive disorder, single episode, in partial remission Category: Medical Qualifiers: Major depression recurrence: recurrent Qualified Code(s): F33.41 - Major depressive disorder, recurrent, in partial remission (3) PTSD (post-traumatic stress disorder): Code(s): F43.10 - Post-traumatic stress disorder, unspecified Category: Medical (4) Peripheral vascular disease: Code(s): I73.9 - Peripheral vascular disease, unspecified Category: Medical (5) Other specified hypothyroidism: Code(s): E03.8 - Other specified hypothyroidism Category: Medical (6) Morbid obesity due to excess calories: Code(s): E66.01 - Morbid (severe) obesity due to excess calories Category: Medical (7) Arthritis, multiple joint involvement: Code(s): M12.9 - Arthropathy, unspecified Category: Medical (8) Chronic pain of both feet: Code(s): M79.671 - Pain in right foot; M79.672 - Pain in left foot; G89.29 - Other chronic pain Category: Medical (9) Tendinitis of extensor tendon of both hands: Code(s): M77.8 - Other enthesopathies, not elsewhere classified Category: Medical (10) Difficulty sleeping: Code(s): G47.9 - Sleep disorder, unspecified Category: Medical (11) Tobacco abuse: Code(s): Z72.0 - Tobacco use Category: Medical Plan History The patient is a 54-year-old female presenting with knee pain and bilateral thumb tendinitis. Patient is struggling with PTSD and severe depression as well she is morbidly obese with BMI of 42.4 Knee Pain: - Pain is located behind both knees. - Has not been able to return to work due to the requirement of wearing a brace, which is not allowed at work. - Utilizes ibuprofen and Tylenol for pain management but has been advised to consider alternative medications like meloxicam or celecoxib to prevent potential kidney damage. - Acknowledges taking ibuprofen primarily for past wound pain, despite wound being healed, though occasionally refills for potential future needs. - Referred for evaluation by a digital advisor to further assess joint issues. She has an appointment today at [facility] Tendinitis: - The patient has tendinitis in both thumbs. - Experiences exacerbated pain from overuse possibly due to playing a farming game on the phone, which is used for mental distraction. - Advised by a healthcare professional to engage in physical therapy. Established with hand specialist currently - The patient uses two braces on her thumbs to manage symptoms. Medical History: - PTSD - Depression - Anxiety - Thyroid disorder Medications: - Duloxetine 30 mg for depression and anxiety - Quetiapine 50 mg for depression and anxiety - Levothyroxine for thyroid disorder - Ibuprofen for past wound pain, alternates with Tylenol - Tylenol for pain management Social History: - The patient is unemployed temporarily due to health issues, currently co llecting unemployment benefits, and is transitioning to apply for disability. 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 - Overuse of thumbs due to playing a farming game on the phone for mental diversion. - Utilizes technology for [employer] as a stress reduction strategy. Problem List - Arthritis multiple joint but primarily knees - Tendinitis bilateral thumb - PTSD - Depression - Anxiety - Thyroid Disorder - morbid obesity Diagnostic results - Mammogram: Completed, no abnormal findings discussed. Saxman of Care - Consultation and coordination with a psych nurse practitioner for medication management. - Referral to a digital advisor and follow-up with their report. Has appointment today Patient Instructions - Consider physical therapy for thumb tendinitis. - Discuss with the digital advisor about appropriate pain medication for joint pain. - Limit usage of ibuprofen to prevent potential kidney damage. - Explore alternative mental relaxation activities that do not exacerbate thumb pain. - Attend upcoming physical exam scheduled for May 24. - Obtain consultation reports from the digital advisor for further documentation.
--- OUTSIDE RECORDS SUMMARY | 2024-12-29 11:38 | XMS_ITS | Encounter Summary ---
Author Organization [facility] Address [address] [place] [id number] Phone Care Team Providers Care Resident Buyer Name Role Phone Alo Bennett MD Primary Care Provider [phone] Reason for Visit * Reason Onset Date Comments Referral 12/08/2024 Encounter Details Date Type Department Care Team ([facility] st Contact Info) Description 12/08/2024 Telephone [facility] [address] [place] [address] [email or web address] Referral Social History Tobacco Use Types Packs/Day Years Used Date Smoking Tobacco: Never Assessed Comments Unknown Sex and Gender Information Value Date Recorded Sex Assigned at Not on file Legal Sex Female 10:14 AM EDT Gender Identity Not on file Sexual Orientation Not on file documented as of this encounter Progress Notes * Rebecca Vicente - 12/09/2024 9:32 AM EDT Pt is following up on the referral. Please contact and advise. Central Support Template Worker (Please do not reply to this user; this inbox is not monitored.) Thank you. * Anjali Brennan - 12/08/2024 10:26 AM EDT CD PEN Top Smart Phrases: Locating Referral Fax Helalbaro, We are notifying you that the patient [...] N/A Agent Action: > Route Encounter to FD Pool > Reason for Call: Referral > [...] Care Team (Late st Contact Info) Description 12/29/2024 3:40 PM EDT Office Visit [facility] Rheumatology [address] [place] [address] Cheri Lainez MD, MPH [address] [facility], [facility] [address] [place] [address] [email or web address] documented as of this encounter Visit Diagnoses Not on filedocumented in this encounter Care Teams Resident Buyer Relationship Specialty Start Date End Date Alo Bennett MD [facility] [place] [address] PCP - General Internal Medicine 12/08/24 documented as of this encounter Additional Source Comments The information contained in this document represents components of the legal health record. It is not the complete legal health record.[facility]
--- OUTSIDE RECORDS SUMMARY | 2024-12-29 11:38 | XMS_ITS | Clinical Summary ---
Author Organization [facility] Address [address] [place] [address] Phone Care Team Providers Care Plane Captain Name Role Phone Alo Bennett MD Primary Care Provider [phone] Allergies No known active allergies Medications escitalopram (LEXAPRO) 20 mg tablet if needed. 4 Active ibuprofen (ADVIL,MOTRIN) 800 mg tablet 4 Active levothyroxine (SYNTHROID, LEVOTHROID) 200 mcg tablet Take 1 tablet (200 mcg total) by mouth 1 (one) time each day. for 90 days Active oxyCODONE-acetam inophen (PERCOCET) 5-325 mg per tablet if needed. 4 Active silver sulfADIAZINE (SILVADENE, SSD) 1 % cream Apply topically 1 (one) time each day. 50 g 4 04/07/20 25 Active Additional Information Patient not taking.Reported on 12/09/2024 QUEtiapine (SEROquel) 25 mg tablet Take 2 tablets (50 mg total) by mouth at bedtime. at bedtime for 30 days 5 Active DULoxetine (CYMBALTA) [address] capsule Take 1 capsule (30 mg total) by mouth 1 (one) time each day. Do not crush or chew. Active Active Problems Problem Noted Date Diagnosed Date Non-pressure chronic ulcer r ight lower leg, limited to breakdown skin ([facility] V24, [facility] V28) 10/27/2024 Chronic venous hypertension (idiopathic) with ulcer of right lower extremity (CODE) ([facility] V24, [facility] V28) 05/18/2024 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 ([facility] V24, 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 V24, [facility] V28) 04/09/2024 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 ([facility] V24, [facility] V28) 03/12/2024 Non-pressure chronic ulcer o f other part of right lower leg with fat layer exposed ([facility] V24, [facility] V28) 03/12/2024 Varicose 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 ([facility] V24, [facility] V28) 03/12/2024 Localized edema 03/12/2024 Encounters Date Type Department Care Team Description 12/09/2024 8:30 AM EDT Office Visit [facility] [address] [place] [phone] Ryan Amaya PA Chronic venous hypertension (idiopathic) with ulcer of right lower extremity (CODE) ([facility] V24, [facility] V28) (Primary Dx); Non-pressure chronic ulcer right lower leg, limited to breakdown skin ([facility] V24, [facility] V28) 11/16/2024 9:15 AM EDT Office Visit [facility] [address] [place] [address] [phone] Ryan Amaya PA Chronic venous hypertension (idiopathic) with ulcer of right lower extremity (CODE) ([facility] V24, [facility] V28) (Primary Dx); Non-pressure chronic ulcer right lower leg, limited to breakdown skin ([facility] V24, [facility] V28); Localized edema 10/27/2024 9:30 AM EDT Office Visit [facility] [address] [place] [phone] Ryan Amaya PA Chronic venous hypertension (idiopathic) with ulcer of right lower extremity (CODE) ([facility] V24, [facility] V28) (Primary Dx); Non-pressure chronic ulcer right lower leg, limited to breakdown skin ([facility] V24, [facility] V28) 10/08/2024 9:15 AM EDT Office Visit [facility] [address] [place] [phone] Ryan Amaya PA Chronic venous hypertension (idiopathic) with ulcer of right lower extremity (CODE) ([facility] V24, [facility] V28) (Primary Dx); Non-pressure chronic ulcer right lower leg, limited to breakdown skin ([facility] V24, [facility] V28) from Last 3 Months Surgical History Surgery Date Site/Laterality Comments TUBAL LIGATION PROCEDURE: HISTORICAL TUBAL LIGATION BREAST REDUCTION 2006 PROCEDURE: MD BREAST REDUCTION SKIN GRAFT Medical History Medical History Date Comments Unspecified hypothyroidism 12/11/2005 DX:Un specified hypothyroidism Personal history of DVT (rosalva p vein thrombosis) DX:Personal history of DVT ( deep vein thrombosis); COMMENT: after childbirth Delayed wound healing PTSD (post-traumatic stress disorder) Arthritis Tendonitis Family History Medical History Relation Name Comments [...] Sign Reading Time Taken Comments Blood Pressure 143/75 12/09/2024 8:39 AM EDT Pulse 85 12/09/2024 8:39 AM EDT Temperature 35.9 C (96.6 F) 12/09/2024 8:39 AM EDT Respiratory Rate 17 12/09/2024 8:39 AM EDT Oxygen Saturation 96% 12/09/2024 8:39 AM EDT Inhaled Oxygen Concentration - - Weight 109 kg (240 lb) 03/12/2024 3:24 PM EST Height 167.6 cm (5' 6 ) 03/12/2024 3:24 PM EST Body Mass Index 38.74 03/12/2024 3:24 PM EST Plan of Treatment Health Maintenance Due Date Last Done Comments Breast Cancer Screening 1972 Hepatitis B Vaccines (1 of 3 - 19+ 3-dose series) 01/17/1991 Pneumococcal Vaccine: 50+ Years (1 of 2 - PCV) 01/17/1991 Cervical Cancer Screening: Pap Smear 01/17/1993 Zoster Vaccines (1 of 2) 01/17/2022 Cholesterol Screening (Lipid Panel) 03/31/2022 Colorectal Cancer Screening: Colonoscopy 03/31/2022 HIV Screening 03/31/2022 Hepatitis C Screening 03/31/2022 Social Influencers of Health Screening 03/31/2022 Depression Screening 04/28/2024 COVID-19 Vaccine ( season) 2024 02/22/2022, 06/25/2021, 07/28/2020, Additional history exists Influenza Vaccine (#1) 2024 4, 02/05/2022, 03/08/2021, Additional history exists DTaP,Tdap,and [...] Type Associated Problems Recent Progress Patient-Stated? Author Wound volume breakdown reduced by X% by [...] Associated Diagnosis Comments WOUND CARE PROCEDURE Routine 10/08/2024 9:40 AM EDT Chronic venous hypertension (idiopathic) with ulcer of right lower extremity (CODE) (CMS/HCC V24, CMS/HCC V28) Non-pressure chronic ulcer right lower leg, limited to breakdown skin (CMS/HCC V24, CMS/HCC V28) from Last 3 Months Results * Wound Care Procedure Venous Ulcer Right;Medial Ankle (10/08/2024 9:40 AM EDT) Alex Angeles MD - 10/08/2024 9:40 AM EDT KO Madera 10/08/2024 9:49 AM Wound Care Procedure Venous Ulcer Right;Medial Ankle Date/Time: 10/08/2024 9:40 AM Performed by: Della Lane RN Authorized by: KO Madera Associated wounds: Wound Venous Ulcer 01/08/24 Ankle Right;Medial Consent: Consent obtained: Verbal Consent given by: Patient Risks, benefits, and alternatives were discussed: yes Risks discussed: Infection and pain Alternatives discussed: Delayed treatment [place] protocol: Procedure explained and questions answered to patient or proxy's satisfaction: yes Relevant documents present and verified: yes Patient identity confirmed: Verbally with patient Sedation: Sedation type: None Anesthesia: Anesthesia method: None Procedure details: Indications: open wounds Wound location: Leg Leg location: R lower leg Wound age (days): >14 Dressing: Dressing applied: Unna's boot Post-procedure details: Procedure completion: Tolerated us Ryan CONNELL IN CLINIC/BEDSIDE ORDERABLE S Final Result from Last 3 Months Additional Health Concerns Active Problems Noted Date Diagnosed Date Impaired Tissue 03/15/2024 Education needed on impact of smoking on wound 1 05/15/2023 Education needed related to ulceration/compromised skin integrity. 03/15/2024 Insurance [facility] Care Teams Plane Captain Relationship Specialty Start Date End Date Alo Bennett MD [address] [place] [address] PCP - General Internal Medicine 03/12/24
--- OUTSIDE RECORDS SUMMARY | 2024-12-29 11:38 | XMS_ITS | Clinical Summary ---
Author Organization [facility] Address [address] [place], [place] [id number] Phone Care Team Providers Care Elementary Educator Name Role Phone Alo Bennett MD Primary Care Provider [phone] Medications escitalopram oxalate (LEXAPRO) 20 MG tablet Take 20 mg by mouth daily. Active furosemide (LASIX) 20 MG tablet Take 20 mg by mouth. Active ibuprofen (ADVIL,MOTRIN) 800 MG tablet Take 800 mg by mouth every 8 (eight) hours as needed for pain (specific location in comments). Active levothyroxine (SYNTHROID, LEVOTHROID) 200 MCG tablet Take 200 mcg by mouth every morning. Active oxyCODONE-aceta minophen (PERCOCET) 5-325 mg per tablet Take 1 tablet by mouth 2 (two) times a day as needed for pain (specific location in comments). Active QUEtiapine (SEROQUEL) 25 MG tablet Take 25 mg by mouth nightly at bedtime. Active Encounters Date Type Department Care Team Description 12/21/2024 Telephone [facility] [address] [place] [address] Unknown, Unknown, Appointment 12/08/2024 Telephone [facility] [address] [place], [place] [phone] Anjali Brennan Referral from Last 3 Months Family History Medical History Relation Comments Lung cancer Father Cancer Maternal Grandmother Anxiety disorder Mother Relation Status Comments Father Maternal Grandfather Maternal Grandmother Mother Paternal Grandfather Paternal Grandmother Social History Tobacco Use Types Packs/Day Years Used Date Smoking Tobacco: Never Assessed Education Answer Date Recorded Are you interested in more education? Not on becki e 12/22/2024 Are you concerned about learning? Not on file 12/22/2024 No 12/22/2024 No 12/22/2024 Digital Access Answer Date Recorded No 12/22/2024 No 12/22/2024 Reliable internet access at home? Not on file 12/22/2024 Device with a working camera? Not on file Comments Unknown Sex and Gender Information Value Date Recorded Sex Assigned at Not on file Legal Sex Female 10:14 AM EDT Gender Identity Not on file Sexual Orientation Not on file Plan of Treatment Upcoming Encounters Date Type Department Care Team (Late st Contact Info) Description 12/29/2024 3:40 PM EDT Office Visit [facility] [address] [place] [address] Cheri Lainez MD, MPH [address] [facility], [address] [place] [address] [email or web address] Health Maintenance Due Date Last Done Comments Adult Td,Tdap Booster 1972 LIPID PANEL 1972 DEPRESSION SCREENING 1984 SMOKING Hx and SMOKELESS TOB ACCO SCREENING 01/17/1985 HEPATITIS C SCREENING 01/17/1990 HIV ONE-TIME SCREENING (18-6 5 YEARS) 01/17/1990 PAP SMEAR 01/17/1993 MAMMOGRAM 2012 COLOGUARD 01/17/2017 COLONOSCOPY 01/17/2017 COLORECTAL CANCER SCREENING 01/17/2017 FIT TEST 01/17/2017 FOBT 01/17/2017 SIGMOIDOSCOPY 01/17/2017 VIRTUAL COLONOSCOPY 01/17/2017 PNEUMOCOCCAL VACCINES (50+ y ears) (1 of 1 - PCV) 01/17/2022 ZOSTER VACCINES (1 of 2) 01/17/2022 INFLUENZA VACCINE (#1) 2024 COVID-19 VACCINE ( - 2023-2 5 season) 2024 HEPATITIS A VACCINES Aged Out No long er eligible based on patient's age to complete this topic HIB VACCINES Aged Out No longer eligi ble based on patient's age to complete this topic MENINGOCOCCAL VACCINES (ACWY) Aged Out No longer eligible based on patient's age to complete this topic MENINGOCOCCAL VACCINES (B) Aged Out N o longer eligible based on patient's age to complete this topic Medical Devices Not on file Insurance [employer] NON NSPG PCP SILVER CLARITY CONNECTORCARE WE[employer] NON NSPG PCP SILVER CLARITY CONNECTORCARE WELLS[employer] NON NSPG PCP SILVER CLARITY CONNECTORCARE WELLSENSE NON NSPG PCP SILVER CLARITY CONNECTORCARE ARISTESENSE NON NSPG PCP SILVER CLARITY CONNECTORCARE WELLSENSE NON NSPG PCP SILVER CLARITY CONNECTORCARE Care Teams Elementary Educator Relationship Specialty Start Date End Date Alo Bennett MD [address] [place] [address] [place] [address] PCP - General Internal Medicine 12/08/24 Additional Source Comments The information contained in this document represents components of the legal health record. It is not the complete legal health record.[facility]
== END 2024-12-29 12:22 | disposition home or self-care (01) ==
LOC: HO.HMCC 10:10
PROVIDERS: PCP Internal Medicine; Visit Provider Internal Medicine
DX: F41.1 Generalized anxiety disorder (principal); E66.01 Morbid (severe) obesity due to excess calories; Z68.41 Body mass index [BMI] 40.0-44.9, adult; F33.41 Major depressive disorder, recurrent, in partial remission; I73.9 Peripheral vascular disease, unspecified; F43.10 Post-traumatic stress disorder, unspecified; E03.8 Other specified hypothyroidism; M12.9 Arthropathy, unspecified; M79.671 Pain in right foot; M79.672 Pain in left foot; G89.29 Other chronic pain; G47.9 Sleep disorder, unspecified

== ENCOUNTER → 2024-12-29 10:09 | Outpatient (BNVA) | payer OTHER, SELFPAY | PROVIDERS: PCP Internal Medicine; Visit Provider Internal Medicine | DX: M25.561 Pain in right knee (principal); M25.562 Pain in left knee; F41.1 Generalized anxiety disorder; F33.41 Major depressive disorder, recurrent, in partial remission; M77.8 Other enthesopathies, not elsewhere classified; F43.10 Post-traumatic stress disorder, unspecified; I73.9 Peripheral vascular disease, unspecified; E03.8 Other specified hypothyroidism; M12.9 Arthropathy, unspecified; M79.671 Pain in right foot; M79.672 Pain in left foot; G89.29 Other chronic pain; G47.9 Sleep disorder, unspecified; E66.01 Morbid (severe) obesity due to excess calories; F17.210 Nicotine dependence, cigarettes, uncomplicated; Z68.42 Body mass index [BMI] 45.0-49.9, adult | CPT/HCPCS: 99212 ==

== ENCOUNTER 2025-01-04 09:49 | Outpatient (AMB) | payer OTHER, SELFPAY ==
[2025-01-04 09:58] VITALS: BMI 42.4
--- NOTE | 2025-01-04 09:58 | MHC.OFFVIS ---
Vital Signs 01/04/25 09:58 Height 5 ft 6 in Weight 263 lb BMI 42.4 Intake Visit Reasons: New Pt- Bilateral foot pain/Bunions Intake Note: Radha is a 54 year old female who presents today as a new patient for an evaluation of her bilateral bunions and foot pain. she mentions she has had this going on for about 30 years. Patient reports pain is on the top of the foot and medial and lateral aspect.She has been taking ibuprifen for the pain and found slight relief with this medication Allergies No Known Allergies (No Known Allergies*) Allergy (Verified 01/04/25 09:58) Medication List - Last Reconciled 01/04/25 by Mary Van DPM duloxetine 30 mg PO DAILY ibuprofen 800 mg PO Q8H PRN 30 days levothyroxine 200 mcg PO DAILY 90 days lidocaine 5% (DermacinRx Lidocan) 1 patch topical DAILY oxycodone-acetaminophen 5-325 mg (Percocet) 1 tab PO BID PRN 30 days quetiapine (Seroquel) 50 mg PO BEDTIME HPI Comments Details: This patient is a 54-year-old female with a past medical history as seen below who presents to the office for bilateral foot pain. She states she has noticed bunions and deviations of her toes over the years for approximately 30 years. She states she has been experiencing the pain throughout the years but has now experienced an increase in pain. She rates the pain as moderate to severe, worse with ambulation and activity and certain shoes, relieved with ibuprofen, rest, wide toed or open toed shoes. She denies any recent injury. Patient states she also notices swelling to the right lower extremity. She recently has been been diagnosed with arthritis and is currently seeing a operations chief. She states she has a reoccurring wound to the right ankle medial aspect which is currently healed but states intermittently worsens. She denies any other pedal concerns. Denies any nausea vomiting fever or chills. Patient was seen wearing sandals with arch support. [facility] Medical History (Updated 01/04/25 @ 10:28 by Mary Van DPM) Callus of foot Other specified epidermal thickening Pain in both feet Tailor's bunion of both feet Hallux valgus, bilateral Hammertoes of both feet Peripheral vascular disease Chronic wound of extremity Vitamin D deficiency Other specified hypothyroidism Open ankle wound Surgical History Status post breast reduction History of tubal ligation Family History Father Lung cancer Smoker Mother Anxiety Maternal Grandfather No problems noted. Maternal Grandmother Cancer Paternal Grandmother No problems noted. Paternal Grandfather No problems noted. Brother No problems noted. Sister No problems noted. Sister No problems noted. Sister No problems noted. Sister No problems noted. Son No problems noted. Daughter No problems noted. Other Substance use disorder Social History Housing: House Alcohol intake: current Alcohol intake frequency: a few times a week Patient Tobacco Use Status: Current everyday Tobacco user Tobacco use type: Cigarette Cigarette Packs Per Day: 1 e-Cigarette/Vaping Use: Never Used service: No Current occupational status: unemployed Current occupation: rt handed Sexual orientation: Straight/Heterosexual Gender identity: Female Cognitive needs: No Hearing needs: No Vision needs: Yes Female Reproductive History Menstrual Age of Menarche: 15 Review of Systems Const All systems reviewed & are unremarkable except as noted in HPI and below Physical Exam Vital Signs: BMI result Body Mass Index 42.4 Extrem Other: Bilateral lower extremity focused physical exam: Derm: Left-hyperkeratotic lesion noted to the lateral aspect of the 5th digit in the area of the 5th MPJ. No open wounds or abrasions noted. Skin supple and turgor within normal limits. No clinical signs of infection. Right-hyperkeratotic lesion noted to the lateral aspect of the 5th digit in the area of the 5th MPJ. Slight mottling of skin noted. Healed wound with scarring noted to the medial aspect of the ankle. Vascular: DP pulse palpable bilaterally. PT pulse palpable on the left and nonpalpable on the right. Capillary refill time less than 3 seconds bilaterally. Varicosities noted to the right. Edema noted to the right. Temperature gradient warm to cool. Neuro: Protective sensation is grossly intact. Musculoskeletal: Pain on palpation to the 5th MPJ and 1st MPJs bilaterally. Mild Pain with range of motion of the 1st and 5th MPJs bilaterally. Hallux valgus noted bilaterally with a prominent medial eminence. Tailor's bunion noted to the 5th digit bilaterally with prominent lateral eminence. Hammertoe deformities noted to the lesser digits worse to the left 2nd toe with minimal overlapping over the hallux. Gait within normal limits with no assistive device (patient states when pain is increased she utilizes a cane sometimes). Ankle/foot/toe images:  1. 2. 3. 4. 5. 6. 7. Office Procedures AMB Debridement/Avulsion Podia Details: Debrided the hyperkeratotic lesions noted to the lateral aspects of the 5th digits bilaterally using a #15 Blade with no incidents. [id number]-Oieyutvfsqe of Callus (2-4) Procedure code (CPT) selection complete Results Reviewed Results Reviewed: Ordered bilateral foot three-view weight-bearing x-rays to be performed prior to next visit. Assessment & Plan Assessment & Plan (1) Hammertoes of both feet: Code(s): M20.41 - Other hammer toe(s) (acquired), right foot; M20.42 - Other hammer toe(s) (acquired), left foot Category: Medical (2) Hallux valgus, bilateral: Code(s): M20.11 - Hallux valgus (acquired), right foot; M20.12 - Hallux valgus (acquired), left foot Category: Medical (3) Pain in both feet: Code(s): M79.671 - Pain in right foot; M79.672 - Pain in left foot Category: Medical (4) Tailor's bunion of both feet: Code(s): M21.621 - Bunionette of right foot; M21.622 - Bunionette of left foot Category: Medical (5) Callus of foot: Code(s): L84 - Corns and callosities Category: Medical (6) Other specified epidermal thickening: Code(s): L85.8 - Other specified epidermal thickening Category: Medical Plan Discussed with the patient diagnoses of bilateral hallux valgus deformity, tailor bunion deformity, hammertoe deformities, arthritis, and callus formation. Discussed various treatment options ranging from conservative to surgical treatment. At this time recommend conservative treatment. Debrided the hyperkeratotic lesions using a #15 Blade bilaterally. Advised patient to use Vaseline or an emollient to the hyperkeratotic lesions to delayed rate of reoccurrence. Advised patient to utilize orthotics [id number], Super feet-blue color. Advised patient to utilize bunion nicely/toe sleeves/toe socks. Advised patient to avoid barefoot walking and wear supportive shoe gear with a wide toe box. Advised patient to continue wearing compression socks and continue treatment as per vascular. Advised patient to continue treatment as per Rheumatology. Ordered bilateral three-view weight-bearing x-rays to be performed prior to next visit. Patient is to continue using ibuprofen PRN for pain. Advised patient to continue monitoring healed ankle wound to the right, and if needed may continue treatment at [facility], patient previously went there over the years. Patient is to return to the office in 3 weeks for further re-evaluation of conditions. If pain persists we will consider injection, physical therapy, and or surgical treatment down the line. Orders: Orders AMB Debridement/Avulsion Podiatry Today L84 - Corns and callosities, L85.8 - Other specified epidermal thickening XR Foot José 3V Today M20.11 - Hallux valgus (acquired), right foot, M20.12 - Hallux valgus (acquired), left foot, M20.41 - Other hammer toe(s) (acquired), right foot, M20.42 - Other hammer toe(s) (acquired), left foot, M21.621 - Bunionette of right foot, M21.622 - Bunionette of left foot, M79.671 - Pain in right foot, M79.672 - Pain in left foot Coding Level of Care Code New Pt Level 4 (30619) Diagnoses Hammertoes of both feet M20.41; M20.42 Hallux valgus, bilateral M20.11; M20.12 Pain in both feet M79.671; M79.672 Tailor's bunion of both feet M21.621; M21.622 Callus of foot L84 Other specified epidermal thickening L85.8 CPT Codes Skin Debridement - CPT: 26246-Frizpmojwlq of Callus (2-4) ([id number])
--- OUTSIDE RECORDS SUMMARY | 2025-01-04 11:33 | XMS_ITS | Encounter Summary ---
Author Organization [facility] Address [address] [place] [address] [address] [place] [address] Phone Care Team Providers Care Food Beverage Manager Name Role Phone Alo Bennett MD Primary Care Provider [phone] Reason for Visit * Reason Comments Med Change Request Encounter Details Date Type Department Care Team ([facility] Contact Info) Description 12/29/2024 Refill [facility] Rheumatology [address] [place] [address] Cheri Lainez MD, MPH [address] [facility], [address] [place] [address] [email or web address] Med Change Request Social History Tobacco Use Types Packs/Day Years Used Date Smoking Tobacco: Every Day Smokeless Tobacco: Never Alcohol Use Standard Drinks/Week Comments Yes 1 (1 standard drink = 0.6 oz pur e alcohol) Education Answer Date Recorded Are you interested [...] as of this encounter Progress Notes * Elizabeth Sanchez MA - 12/30/2024 9:11 AM EDT Spoke with Dr. Lainez and confirmed Meloxicam is replacing Ibuprofen 800 mg. Spoke with pharmacy and relayed the above. They will fill the prescription. documented in this encounter Plan of Treatment Upcoming Encounters Date Type Department Care Team (Late st Contact Info) Description 05/03/2025 10:10 AM EST Office Visit [facility]umat[facility] [address] [place] [address] Cheri Lainez MD, MPH [address] [facility], [address] [place] [address] [email or web address] documented as of this encounter Visit Diagnoses Diagnosis Bilateral primary osteoarthritis of knee documented in this encounter Care Teams Food Beverage Manager Relationship Specialty Start Date End Date Alo Bennett MD [address] [place] [address] [place] [address] PCP - General Internal Medicine 12/08/24 documented as of this encounter Additional Source Comments The information contained in this document represents components of the legal health record. It is not the complete legal health record.[facility]
--- OUTSIDE RECORDS SUMMARY | 2025-01-04 11:33 | XMS_ITS | Encounter Summary ---
Author Organization [facility] Address [address] [place] [address] Phone Care Team Providers Care Patient Support Associate Name Role Phone Alo Bennett MD Primary Care Provider [phone] Encounter Details Date Type Department Care Team (Late st Contact Info) Description 12/30/2024 Orders Only [facility] Rheumatology [address] [place] [address] Provider, MD Ajit [address] [place] [address] Social History Tobacco Use Types Packs/Day Years [...] on file documented as of this encounter Plan of Treatment Upcoming Encounters Date Type Department Care Team (Late st Contact Info) Description 05/03/2025 10:10 AM EST Office Visit [facility] Rheumatology [address] [place] [address] Cheri Lainez MD, MPH 22 [facility], [address] [place] [address] [email or web address] documented as of this encounter Procedures Procedure Name Priority Date/Time Associated Diagnosis Comments OUTSIDE LAB Routine 11/02/2024 3:10 PM EDT documented in this encounter Results * Outside Lab (11/02/2024 3:10 PM EDT) us Historical Provider LAB BLOOD ORDERABLES Benita l Result documented in this encounter Visit Diagnoses Not on filedocumented in this encounter Care Teams Patient Support Associate Relationship Specialty Start Date End Date Aol Bennett MD [facility] [place] [place] [address] PCP - General Internal Medicine 12/08/24 documented as of this encounter Additional Source Comments The information contained in this document represents components of the legal health record. It is not the complete legal health record.[facility]
--- OUTSIDE RECORDS SUMMARY | 2025-01-04 11:33 | XMS_ITS | Encounter Summary ---
Author Organization [facility] Address [address] [place] [address] [address] [place] [address] Phone Care Team Providers Care Merchant Police Name Role Phone Alo Bennett MD Primary Care Provider [phone] Reason for Visit * Reason Onset Date Comments Labs 12/29/2024 Encounter Details Date Type Department Care Team ([facility] st Contact Info) Description 12/29/2024 Telephone [facility] Rheumatology [address] [place] [address] Cheri Lainez MD, MPH 22 [facility], [address] [place] [address] [email or web address] Social History Tobacco Use Types Packs/Day Years [...] Notes * Elizabeth Sanchez MA - 12/30/2024 3:12 PM EDT Labs received and uploaded to patient's chart. Labs forwarded to provider. * Lois Reza CMA - 12/29/2024 4:33 PM EDT Fax request sent to [facility] [place] * Cheri Lainez MD, MPH - 12/29/2024 4:24 PM EDT Looking for results of recent labs done through [facility] - ? CBC / CMP / ESR / CRP ??? Ty documented in this encounter Plan of Treatment Upcoming Encounters Date Type Department Care Team (Late st Contact Info) Description 05/03/2025 10:10 AM EST Office Visit [facility] Rheumatology [address] [place] [address] Cheri Lainez MD, MPH [address] [facility], [address] [place] [address] [email or web address] documented as of this encounter Visit Diagnoses Not on filedocumented in this encounter Care Teams Merchant Police Relationship Specialty Start Date End Date Alo Bennett MD [address] [place] [address] [place] [address] PCP - General Internal Medicine 12/08/24 documented as of this encounter Additional Source Comments The information contained in this document represents components of the legal health record. It is not the complete legal health record.[facility]
--- OUTSIDE RECORDS SUMMARY | 2025-01-04 11:34 | XMS_ITS | Encounter Summary ---
Author Organization [facility] Address [address] [place] [address] Phone Care Team Providers Care Pediatric Immunologist Name Role Phone Alo Bennett MD Primary Care Provider [phone] Reason for Visit * Reason Onset Date Comments Referral 12/08/2024 Encounter Details Date Type Department Care Team ([facility] st Contact Info) Description 12/08/2024 Telephone [facility] [address] [place] [address] Anjali [email or web address] Referral Social History Tobacco Use Types [...] referral. Please contact and advise. Central Support Rn Security (Please do not reply to this user; [...] Description 05/03/2025 10:10 AM EST Office Visit [facility] Rheumatology [address] [place] [address] Cheri Lainez MD, MPH 22 [facility] [address] [place] [address] [email or web address] documented as of this encounter Visit Diagnoses Not on filedocumented in this encounter Care Teams Pediatric Immunologist Relationship Specialty Start Date End Date Alo Bennett MD [address] [facility] [address] PCP - General Internal Medicine 12/08/24 documented as of this encounter Additional Source Comments The information contained in this document represents components of the legal health record. It is not the complete legal health record.[facility]
--- OUTSIDE RECORDS SUMMARY | 2025-01-04 11:34 | XMS_ITS | Clinical Summary ---
Author Organization [facility] Address [address] [place], [place] [id number] Phone Care Team Providers Care Graphite Mill Operator Name Role Phone Alo Bennett MD Primary Care Provider [phone] Allergies No known active allergies Medications ibuprofen (ADVIL,MOTRIN) 800 MG tablet Take 800 mg by mouth every 8 (eight) hours as needed for pain (specific location in comments). Active levothyroxine (SYNTHROID, LEVOTHROID) 200 MCG tablet Take 200 mcg by mouth every morning. Active oxyCODONE-acetamin ophen (PERCOCET) 5-325 mg per tablet Take 1 tablet by mouth 2 (two) times a day as needed for pain (specific location in comments). Active QUEtiapine (SEROQUEL) 25 MG tablet Take 50 mg by mouth nightly at bedtime. Active DULoxetine (CYMBALTA) 30 MG capsule Take 30 mg by mouth daily. Active meloxicam (MOBIC) 15 MG tabletIndications: Bilateral primary osteoarthritis of knee Take 1 tablet (15 mg total) by mouth daily. With food as directed 30 tablet Active escitalopram oxalate (LEXAPRO) 20 MG tablet Take 20 mg by mouth daily. Discontin ued(No longer taking) furosemide (LASIX) 20 MG tablet Take 20 mg by mouth. Discontin ued(No longer taking) Active Problems Problem Noted Date Diagnosed Date Bilateral primary osteoarthritis of knee Assessment & Plan (12/29/2024 7:54 PM EDT): Clinical picture consistent with knee OA bilaterally; suspect popliteal cyst formation that resulted in severe knee pain earlier this year, successfully treated with systemic prednisone as detailed above. There is no historical or physical evidence concerning for underlying or comorbid inflammatory arthritis. General approach to treatment of knee osteoarthritis reviewed with patient today, including weight loss, physical therapy, focus on quadricep strengthening exercise, use of topical and/oral NSAIDs, and intra-articular steroid injection. We discussed but deferred intra-articular steroid injection today given that her current symptoms are not severe. She does not currently feel able to return to work given that her job requires prolonged walking and standing, which could reasonably exacerbate her knee pain. Unfortunately, she has been advised to engage in minimal lower extremity exercise in the context of her chronic right ankle wound. She is amenable to trial of meloxicam, daily for 2 weeks and then as needed. She will contact me if she has any recurrence of severe popliteal knee pain or unexplained joint swelling, and we can revisit option for joint aspiration and injection at that time. There is no current indication for rheumatology specific investigations. Encounters Date Type Department Care Team Description 12/30/2024 Orders Only [facility] Rheumatology [address] [place] [address] [place] [address] Provider, MD Ajit 12/29/2024 3:40 PM EDT Office Visit [facility] Rheumatology [address] [place] [address] [place] [address] Cheri Lainez MD, MPH Bilateral primary osteoarthritis of knee (Primary Dx) 12/29/2024 Refill [facility] Rheumatology [address] [place] [address] [place] [address] Cheri Lainez MD, MPH Med Change Request 12/29/2024 Telephone [facility] Rheumatology [address] [place] [address] [place] [address] Cheri Lainez MD, MPH Labs 12/21/2024 Telephone [facility] OBGYN & Midwifery [address] [place] [address] [place] [address] Unknown, Unknown, Appointment 12/08/2024 Telephone [facility] Medicine [address] [place] [address] Anjali Brennan Referral from Last 3 Months [...] on file Sexual Orientation Not on file Last Filed Vital Signs Vital Sign Reading Time Taken Comments Blood Pressure 120/76 12/29/2024 3:39 PM EDT Pulse 88 12/29/2024 3:39 PM EDT Temperature - - Respiratory Rate - - Oxygen Saturation 98% 12/29/2024 3:3 9 PM EDT Inhaled Oxygen Concentration - - Weight 119.3 kg (263 lb) 12/29/2024 3:3 9 PM EDT with shoes Height 167.6 cm (5' 6 ) 12/29/2024 3:39 PM EDT patient reported Body Mass Index 42.45 12/29/2024 3:39 PM EDT Plan of Treatment Upcoming Encounters Date Type Department Care Team (Late st Contact Info) Description 05/03/2025 10:10 AM EST Office Visit [facility] Rheumatology [address] [place] [address] Cheri Lainez MD, MPH 22 [facility], [address] [place] [address] Health Maintenance Due Date Last Done Comments LIPID PANEL 1972 TSH LEVEL 1972 DEPRESSION SCREENING 1984 SMOKING Hx and SMOKELESS TOBACCO SCREENING 01/17/1985 HEPATITIS C SCREENING 01/17/1990 HIV ONE-TIME SCREENING (18-65 YEARS) 01/17/1990 PNEUMOCOCCAL VACCINES (50+ years) (1 of 2 - PCV) 01/17/1991 PAP SMEAR 01/17/1993 SCREENING FOR DIABETES 01/17/2007 MAMMOGRAM 2012 COLOGUARD 01/17/2017 COLONOSCOPY 01/17/2017 COLORECTAL CANCER SCREENING 01/17/2017 FIT TEST 01/17/2017 FOBT 01/17/2017 SIGMOIDOSCOPY 01/17/2017 VIRTUAL COLONOSCOPY 01/17/2017 ZOSTER VACCINES (1 of 2) 01/17/2022 INFLUENZA VACCINE (#1) 2024 , 02/05/2022, 03/08/2021, Additional history exists COVID-19 VACCINE ( season) 2024 02/22/2022, 06/25/2021, 07/28/2020, Additional history exists Adult Td,Tdap Booster 07/15/2027 07/14/2017 , 06/25/2013, 04/28/2013 HEPATITIS A VACCINES Aged Out No long [...] this topic Medical Devices Not on file Procedures Procedure Name Priority Date/Time Associated Diagnosis Comments OUTSIDE LAB Routine 11/02/2024 3:10 PM EDT from Last 3 Months Results * Outside Lab (11/02/2024 3:10 PM EDT) us Historical Provider LAB BLOOD ORDERABLES Benita l Result from Last 3 Months Insurance [facility] NON NSP PCP [employer] [place] [employer] NON NSPG PCP S[employer] NON NSPG PCP S[employer] NON NSPG PCP SILVER CLARITY CONNECTORCARE [facility] NON NSPG PCP SILVER CLARITY CONNECTORCARE [facility] NON NSPG PCP [employer] Care Teams Graphite Mill Operator Relationship Specialty Start Date End Date Alo Bennett MD [address] [facility] [address] [place] PCP - General Internal Medicine 12/08/24 Additional Source Comments The information contained in this document represents components of the legal health record. It is not the complete legal health record.[facility]
== END 2025-01-04 10:40 | disposition home or self-care (01) ==
LOC: HO.HPODS 09:50
PROVIDERS: PCP Internal Medicine; Visit Provider Student in an Organized Health Care Education/Training Program
DX: M20.41 Other hammer toe(s) (acquired), right foot (principal); M20.42 Other hammer toe(s) (acquired), left foot; M20.11 Hallux valgus (acquired), right foot; M20.12 Hallux valgus (acquired), left foot; M79.671 Pain in right foot; M79.672 Pain in left foot; M21.621 Bunionette of right foot; M21.622 Bunionette of left foot; L84 Corns and callosities; L85.8 Other specified epidermal thickening
CPT/HCPCS: 11057; 99204

== ENCOUNTER → 2025-01-04 09:49 | Outpatient (BNVA) | payer OTHER, SELFPAY | PROVIDERS: PCP Internal Medicine; Visit Provider Student in an Organized Health Care Education/Training Program | DX: L84 Corns and callosities (principal); L85.8 Other specified epidermal thickening; M79.671 Pain in right foot; M79.672 Pain in left foot; M20.41 Other hammer toe(s) (acquired), right foot; M20.42 Other hammer toe(s) (acquired), left foot; M20.11 Hallux valgus (acquired), right foot; M20.12 Hallux valgus (acquired), left foot; M21.621 Bunionette of right foot; M21.622 Bunionette of left foot | CPT/HCPCS: 11056; 11057; 99202 ==

== ENCOUNTER 2025-01-06 12:46 | Outpatient (REF) | payer OTHER, SELFPAY ==
--- NOTE | ~2025-01-06 | XR_ITS ---
Exam: XR FOOT 3 OR MORE VIEWS BILATERAL, bilateral foot x-rays TECHNIQUE: AP, OBL and lateral views lower extremity, bilateral feet INDICATION: M20.41 - Other hammer toe(s) (acquired), right foot COMPARISON: None available. FINDINGS: RIGHT FOOT: There is hallux valgus deformity. First MTP joint marginal osteophytes are small. Bipartite medial sesamoid is noted. Small enthesophytes are present at the plantar fascial and Achilles tendon attachments onto calcaneus. Small marginal osteophytes are present in the dorsal midfoot. LEFT FOOT: There is hallux valgus deformity. First MTP joint marginal osteophytes are small. Bipartite medial sesamoid is noted. Small enthesophytes are present at the plantar fascial and Achilles tendon attachments onto calcaneus. Small marginal osteophytes are present in the dorsal midfoot. There is an accessory ossification center dorsal to the talonavicular joint. XR/XR Foot Ojsé 3V IMPRESSION: Right foot: Hallux valgus deformity with mild first MTP joint osteoarthritis. Mild osteoarthritis in the dorsal midfoot. Left foot: Hallux valgus deformity with mild first MTP joint osteoarthritis. Mild osteoarthritis in the dorsal midfoot. Electronically signed by: Devante Leon MD 01/06/2025 02:32 PM EDT
--- OUTSIDE RECORDS SUMMARY | 2025-01-06 16:56 | XMS_ITS | Encounter Summary ---
Author Organization [facility] Address [address] [place] [address] Phone Care Team Providers Care Welt Pocket Machine Operator Name Role Phone Alo Bennett MD Primary Care Provider [phone] Reason for Visit * Reason Onset Date Comments Referral 12/08/2024 Encounter Details Date Type Department Care Team ([facility] st Contact Info) Description 12/08/2024 Telephone [facility] [address] [place] [address] Anjali [email or web address] Referral Social History Tobacco Use Types Packs/Day [...] referral. Please contact and advise. Central Support Draughtsman (Please do not reply to this user; [...] Description 05/03/2025 10:10 AM EST Office Visit [facility] Rheumatology [address] [place] [address] Cheri Lainez MD, MPH 22 [facility] [address] [place] [address] [email or web address] documented as of this encounter Visit Diagnoses Not on filedocumented in this encounter Care Teams Welt Pocket Machine Operator Relationship Specialty Start Date End Date Alo Bennett MD [address] [facility] [place] [address] PCP - General Internal Medicine 12/08/24 documented as of this encounter Additional Source Comments The information contained in this document represents components of the legal health record. It is not the complete legal health record.[facility]
--- OUTSIDE RECORDS SUMMARY | 2025-01-06 16:56 | XMS_ITS | Clinical Summary ---
Author Organization [facility] Address [address] [place], [place] [id number] Phone Care Team Providers Care Sleep Lab Technologist Name Role Phone Alo Bennett MD Primary Care Provider [phone] Allergies No known active allergies Medications ibuprofen [...] Department Care Team Description 12/30/2024 Orders Only [facility] Rheumatology [address] [place] [address] [place] [address] Provider, MD Ajit 12/29/2024 3:40 PM EDT Office Visit [facility] Rheumatology [address] [place] [address] [place] [address] Cheri Lainez MD, MPH Bilateral primary osteoarthritis of knee (Primary Dx) 12/29/2024 Refill [facility] Rheumatology [address] [place] [address] [place] [address] Cheri Lainez MD, MPH Med Change Request 12/29/2024 Telephone [facility] Rheumatology [address] [place] [address] [place] [address] Cheri Lainez MD, MPH Labs 12/21/2024 Telephone [facility] OBGYN & Midwifery [address] [place] [address] [place] [address] Unknown, Unknown, Appointment 12/08/2024 Telephone [facility] Medicine [address] [place] [address] Anjali Brennan Referral from Last 3 Months [...] Visit [facility] Rheumatology [address] [place] [address] Cheri Lainez MD, MPH 22 [facility], [address] [place] [address] Health Maintenance Due Date Last Done Comments [...] l Result from Last 3 Months Insurance [facility] NON NSP PCP [employer] NON NSPG PCP SILVER [employer]ITY [employer] NON NSPG PCP SILVER [employer] NON NSPG PCP SILVER CLARITY CONNECTORCARE [facility] NON NSPG PCP SILVER CLARITY CONNECTORCARE [facility] NON NSPG PCP SILVER [employer]AR[employer] CONNE[employer] Care Teams Sleep Lab Technologist Relationship Specialty Start Date End Date Alo Bennett MD [address] [facility] [address] [place] PCP - General Internal Medicine 12/08/24 Additional Source Comments The information contained in this document represents components of the legal health record. It is not the complete legal health record.[facility]
--- OUTSIDE RECORDS SUMMARY | 2025-01-06 16:56 | XMS_ITS | Encounter Summary ---
Author Organization [facility] Address [address] [place] [address] Phone Care Team Providers Care Radiology Teacher Name Role Phone Alo Bennett MD Primary Care Provider [phone] Encounter Details Date Type Department Care Team (Late st Contact Info) Description 12/30/2024 Orders Only [facility] Rheumatology [address] [place] [address] Provider, MD Ajit [address] [place] [address] Social History Tobacco Use Types Packs/Day [...] Description 05/03/2025 10:10 AM EST Office Visit [facility] Medical [facility] Rheumatology [address] [place] [address] Cheri Lainez MD, MPH 22 [facility], [address] [place] [address] [email or web address] documented as of this encounter Procedures Procedure Name Priority Date/Time Associated Diagnosis Comments OUTSIDE LAB Routine 11/02/2024 3:10 PM EDT documented in this encounter Results * Outside Lab (11/02/2024 3:10 PM EDT) us Historical Provider LAB BLOOD ORDERABLES Beinta l Result documented in this encounter Visit Diagnoses Not on filedocumented in this encounter Care Teams Radiology Teacher Relationship Specialty Start Date End Date Alo Bennett MD [facility] [place] [address] PCP - General Internal Medicine 12/08/24 documented as of this encounter Additional Source Comments The information contained in this document represents components of the legal health record. It is not the complete legal health record.[facility]
--- OUTSIDE RECORDS SUMMARY | 2025-01-06 16:56 | XMS_ITS | Encounter Summary ---
Author Organization [facility] Address [address] [place] [address] [address] [place] [address] Phone Care Team Providers Care Sales And Training Specialist Name Role Phone Alo Bennett MD Primary Care Provider [phone] Reason for Visit * Reason Comments Med Change Request Encounter Details Date Type Department Care Team ([facility] Contact Info) Description 12/29/2024 Refill [facility] Rheumatology [address] [place] [address] Cheri Lainez MD, MPH 22 [facility], [address] [place] [address] [email or web address] Med Change Request Social History Tobacco Use [...] Description 05/03/2025 10:10 AM EST Office Visit [facility] Rheumatology [address] [place] [address] Cheri Lainez MD, MPH 22 [facility], [address] [place] [address] [email or web address] documented as of this encounter Visit Diagnoses Diagnosis Bilateral primary osteoarthritis of knee documented in this encounter Care Teams Sales And Training Specialist Relationship Specialty Start Date End Date Alo Bennett MD [address] [place] [address] [place] [address] PCP - General Internal Medicine 12/08/24 documented as of this encounter Additional Source Comments The information contained in this document represents components of the legal health record. It is not the complete legal health record.[facility]
== END 2025-01-06 12:47 | disposition home or self-care (01) ==
LOC: HO.XRAY 12:46
PROVIDERS: PCP Internal Medicine; Visit Provider Student in an Organized Health Care Education/Training Program
DX: M20.41 Other hammer toe(s) (acquired), right foot (principal); M20.42 Other hammer toe(s) (acquired), left foot; M20.12 Hallux valgus (acquired), left foot; M20.11 Hallux valgus (acquired), right foot; M21.621 Bunionette of right foot; M21.622 Bunionette of left foot; M79.671 Pain in right foot; M79.672 Pain in left foot
CPT/HCPCS: 73630

== ENCOUNTER → 2025-01-06 12:53 | Outpatient (BNV) | payer OTHER, SELFPAY | PROVIDERS: PCP Internal Medicine; Visit Provider Radiology Diagnostic Radiology | DX: M20.11 Hallux valgus (acquired), right foot (principal); M20.12 Hallux valgus (acquired), left foot | CPT/HCPCS: 73630 ==

== ENCOUNTER 2025-01-25 09:48 | Outpatient (AMB) | payer OTHER, SELFPAY ==
--- NOTE | 2025-01-25 10:05 | A.OFFVIS_ITS ---
Vital Signs 01/25/25 10:08 Height 5 ft 6 in Weight 263 lb BMI 42.4 Intake Visit Reasons: Follow up Bilateral foot pain/Bunions Intake Note: Radha is a 55 year old female who presents today for a follow up on her bilateral foot pain. Pt states her pain remains the same since the last visit. She mentions taking ibuprofen and alternating it with Tylenol which has provided her with relief. Pt would like to discuss a handicap placard and Xray results IMPRESSION: Right foot: Hallux valgus deformity with mild first MTP joint osteoarthritis. Mild osteoarthritis in the dorsal midfoot. Left foot: Hallux valgus deformity with mild first MTP joint osteoarthritis. Mild osteoarthritis in the dorsal midfoot. Allergies No Known Allergies (No Known Allergies*) Allergy (Verified 01/25/25 10:10) Medication List - Last Reconciled 01/25/25 by Mary Van DPM duloxetine 30 mg PO DAILY ibuprofen 800 mg PO Q8H PRN 30 days levothyroxine 200 mcg PO DAILY 90 days lidocaine 5% (DermacinRx Lidocan) 1 patch topical DAILY oxycodone-acetaminophen 5-325 mg (Percocet) 1 tab PO BID PRN 30 days quetiapine (Seroquel) 50 mg PO BEDTIME HPI Comments Details: The patient is a 55-year-old female presenting with bilateral foot pain and associated conditions, including bunions, hammertoes, plantar fasciitis, and arthritis. The bunion has been a persistent issue and the patient also experiences pain to the dorsal aspect of the right foot, exacerbated by prolonged driving, which involves repetitive plantar flexion of the foot. Patient also states she noticed a small change in the appearance of the right hallucal nail. Patient states she continues to experience significant pain bilaterally worse to the left foot due to crossing of toes. Patient states she continues to have difficulty ambulating due to increased level of pain. She denies any new pedal injuries. The patient has a history of anxiety, depression, and PTSD, which have been exacerbated by her current health issues and unemployment. She is in the process of applying for disability benefits due to her inability to work due to severe level of pain and the impact of her mental health conditions. [facility] Medical History (Updated 01/25/25 @ 11:50 by Mary Wachuku-Joana, DPM) Tendinitis of right foot Callus of foot Other specified epidermal thickening Pain in both feet Tailor's bunion of both feet Hallux valgus, bilateral Hammertoes of both feet Peripheral vascular disease Chronic wound of extremity Vitamin D deficiency Other specified hypothyroidism Open ankle wound Surgical History Status post breast reduction History of tubal ligation Family History Father Lung cancer Smoker Mother Anxiety Maternal Grandfather No problems noted. Maternal Grandmother Cancer Paternal Grandmother No problems noted. Paternal Grandfather No problems noted. Brother No problems noted. Sister No problems noted. Sister No problems noted. Sister No problems noted. Sister No problems noted. Son No problems noted. Daughter No problems noted. Other Substance use disorder Social History Housing: House Alcohol intake: current Alcohol intake frequency: a few times a week Patient Tobacco Use Status: Current everyday Tobacco user Tobacco use type: Cigarette Cigarette Packs Per Day: 1 e-Cigarette/Vaping Use: Never Used service: No Current occupational status: unemployed Current occupation: rt handed Sexual orientation: Straight/Heterosexual Gender identity: Female Cognitive needs: No Hearing needs: No Vision needs: Yes Female Reproductive History Menstrual Age of Menarche: 15 Review of Systems Const Details: - Musculoskeletal: Reports bilateral foot pain, particularly in the presence of bunion and and hammertoes. Denies acute injury. - Dermatological: Reports change in appearance of right hallucal toenail. - Neurological: Reports anxiety and depression. - Psychiatric: Reports PTSD symptoms exacerbated by current health and employment status. All systems reviewed & are unremarkable except as noted in HPI and below Physical Exam Vital Signs: BMI result Body Mass Index 42.4 Extrem Other: Bilateral lower extremity focused physical exam: Derm: Left- pre-hyperkeratotic lesion noted to the lateral aspect of the 5th digit in the area of the 5th MPJ. No open wounds or abrasions noted. Skin supple and turgor within normal limits. No clinical signs of infection. Ecchymosis noted to the medial aspect of the ankle (denies any recent injuries). Right- pre-hyperkeratotic lesion noted to the lateral aspect of the 5th digit in the area of the 5th MPJ. Slight mottling of skin noted. Healed wound with scarring noted to the medial aspect of the ankle. Noted coloration and thickness to the distal aspect of the right hallucal nail with normal length. Vascular: DP pulse palpable bilaterally. PT pulse palpable on the left and nonpalpable on the right. Capillary refill time less than 3 seconds bilaterally. Varicosities noted to the right. Edema noted to the right. Temperature gradient warm to cool. Neuro: Protective sensation is grossly intact. Musculoskeletal: Pain on palpation to the 5th MPJ and 1st MPJs bilaterally. Pain with range of motion of the 1st and 5th MPJs bilaterally. Hallux valgus noted bilaterally with a prominent medial eminence. Tailor's bunion noted to the 5th digit bilaterally with prominent lateral eminence. Hammertoe deformities noted to the lesser digits worse to the left 2nd toe with minimal overlapping over the hallux. Antalgic Gait with no assistive device (patient states when pain is increased she utilizes a cane sometimes). No crepitus noted. Office Procedures AMB Podiatry Dressing Details of Procedure: Applied an Marvin bandage to the right foot and ankle. 67422 - Strapping of foot/ankle Procedure code (CPT) selection complete Results Reviewed Results Reviewed: Podiatry read of bilateral foot x-rays three views weight-bearing (01/06/2025): HAV noted bilaterally with IM angles of approximately 16 degrees bilaterally. Increase curvature with underlapping of the hallux to the 2nd toe noted on the left foot. Joint space narrowing noted to the 1st MPJ bilaterally. Metatarsus primus elevatus noted bilaterally. Osteophytic changes noted to the midfoot. Calcaneal bone spur is noted bilaterally to the plantar aspects of the calcaneus and mildly to the posterior aspect of the calcaneus. Hammertoe deformities noted to toes 2 through 5 bilaterally. No acute fractures or dislocations noted. Bilateral foot x-rays three views weight-bearing (01/06/2025): FINDINGS: RIGHT FOOT: There is hallux valgus deformity. First MTP joint marginal osteophytes are small. Bipartite medial sesamoid is noted. Small enthesophytes are present at the plantar fascial and Achilles tendon attachments onto calcaneus. Small marginal osteophytes are present in the dorsal midfoot. LEFT FOOT: There is hallux valgus deformity. First MTP joint marginal osteophytes are small. Bipartite medial sesamoid is noted. Small enthesophytes are present at the plantar fascial and Achilles tendon attachments onto calcaneus. Small marginal osteophytes are present in the dorsal midfoot. There is an accessory ossification center dorsal to the talonavicular joint. IMPRESSION: Right foot: Hallux valgus deformity with mild first MTP joint osteoarthritis. Mild osteoarthritis in the dorsal midfoot. Left foot: Hallux valgus deformity with mild first MTP joint osteoarthritis. Mild osteoarthritis in the dorsal midfoot. Assessment & Plan Assessment & Plan (1) Arthritis, multiple joint involvement: Code(s): M12.9 - Arthropathy, unspecified Category: Medical (2) Hammertoes of both feet: Code(s): M20.41 - Other hammer toe(s) (acquired), right foot; M20.42 - Other hammer toe(s) (acquired), left foot Category: Medical (3) Hallux valgus, bilateral: Code(s): M20.11 - Hallux valgus (acquired), right foot; M20.12 - Hallux valgus (acquired), left foot Category: Medical (4) Tailor's bunion of both feet: Code(s): M21.621 - Bunionette of right foot; M21.622 - Bunionette of left foot Category: Medical (5) Pain in both feet: Code(s): M79.671 - Pain in right foot; M79.672 - Pain in left foot Category: Medical (6) Tendinitis of right foot: Code(s): M77.51 - Other enthesopathy of right foot and ankle Category: Medical Plan Patient was informed and verbally consented to the use of an ambient scribe for clinic note documentation during this visit. I discussed with the patient the various management options for her foot conditions, including conservative measures and potential surgical interventions. We reviewed the x-ray findings, which showed bunions, hammertoes, bone spurs, and mild arthritis, and I explained the implications of these findings on her treatment options. I advised on the use of an MARVIN bandage to the right foot and physical therapy, and we discussed the importance of appropriate footwear in stretching exercises for managing plantar fasciitis. The patient was informed about the potential need for topical or oral treatments for onychomycosis if the condition worsens, but we will continue to monitor toenail changes at this time. We also discussed her mental health conditions, including anxiety, depression, and PTSD, and the process of applying for disability benefits due to her inability to work. Filled out form for patient to obtain a handicap placard. - Recommend conservative management for plantar fasciitis, including stretching exercises and appropriate footwear. - Consider surgical intervention for bunion if conservative measures fail. - Manage tendinitis with rest, ice, and use of an MARVIN bandage. - Referred patient to physical therapy to assist with gait training, ROM/ strengthening. - Monitor right hallucal nail changes and consider topical or oral treatments if condition worsens. - Address arthritis with pain management strategies and monitor progression. Continue using lidoderm patches and Ibuprofen. Patient is to follow-up in 6 weeks for re-evaluation of symptoms. Orders: Orders PT Evaluation and Treatment Today M12.9 - Arthropathy, unspecified, M20.11 - Hallux valgus (acquired), right foot, M20.12 - Hallux valgus (acquired), left foot, M20.41 - Other hammer toe(s) (acquired), right foot, M20.42 - Other hammer toe(s) (acquired), left foot, M21.621 - Bunionette of right foot, M21.622 - Bunionette of left foot, M79.671 - Pain in right foot, M79.672 - Pain in left foot AMB Podiatry Dressing Today M12.9 - Arthropathy, unspecified, M79.671 - Pain in right foot, M79.672 - Pain in left foot Coding Level of Care Code Est Pt Level 4 (04965) Diagnoses Arthritis, multiple joint involvement M12.9 Hammertoes of both feet M20.41; M20.42 Hallux valgus, bilateral M20.11; M20.12 Tailor's bunion of both feet M21.621; M21.622 Pain in both feet M79.671; M79.672 Tendinitis of right foot M77.51 CPT Codes Podiatry Dressing - CPT: 61781 - Strapping of foot/ankle ([id number]) Time Spent (min) 60
[2025-01-25 10:08] VITALS: BMI 42.4
--- OUTSIDE RECORDS SUMMARY | 2025-01-25 10:40 | XMS_ITS | Clinical Summary ---
Author Organization [facility] Address [address] [place], [place] [id number] Phone Care Team Providers Care Apparatus Operator Name Role Phone Alo Bennett MD Primary Care Provider [phone] Allergies No known active allergies Medications ibuprofen [...] Department Care Team Description 12/30/2024 Orders Only [facility] Rheumatology [address] [place] [address] [place] [address] Provider, MD Ajit 12/29/2024 3:40 PM EDT Office Visit [facility] Rheumatology [address] [place] [address] [place] [address] Cheri Lainez MD, MPH Bilateral primary osteoarthritis of knee (Primary Dx) 12/29/2024 Refill [facility] Rheumatology [address] [place] [address] [place] [address] Cheri Lainez MD, MPH Med Change Request 12/29/2024 Telephone [facility] Rheumatology [address] [place] [address] [place] [address] Cheri Lainez MD, MPH Labs 12/21/2024 Telephone [facility] [address] [place] [address] [place] [address] Unknown, Unknown, Appointment 12/08/2024 Telephone [facility] Medicine [address] [place] [address] Anjali Brennan Referral from Last 3 Months [...] Visit [facility] Rheumatology [address] [place] [address] Cheri Lainez MD, MPH [address] [facility], [address] [place] [address] Health Maintenance Due Date Last Done Comments [...] l Result from Last 3 Months Insurance [facility] NON NSP PCP [place] [employer] NON NSPG PCP [employer] NON NSPG PCP S[employer] NON NSPG PCP S[employer] [facility] NON NSPG PCP S[employer] [facility] NON NSPG PCP [employer] Care Teams Apparatus Operator Relationship Specialty Start Date End Date Alo Bennett MD [address] [facility] [address] [place] PCP - General Internal Medicine 12/08/24 Additional Source Comments The information contained in this document represents components of the legal health record. It is not the complete legal health record.[facility]
--- OUTSIDE RECORDS SUMMARY | 2025-01-25 10:40 | XMS_ITS | Encounter Summary ---
Author Organization [facility] Address [address] [place] [id number] Phone Care Team Providers Care Dermatology Nurse Practitioner Name Role Phone Alo Bennett MD Primary Care Provider [phone] Encounter Details Date Type Department Care Team (Late st Contact Info) Description 12/30/2024 Orders Only [facility] Rheumatology [address] [place] [address] Provider, MD Ajit [address] [place] [id number] Social History Tobacco Use Types Packs/Day [...] Description 05/03/2025 10:10 AM EST Office Visit [facility] Rheumatology [address] [place] [address] Cheri Lainez MD, MPH [address] [facility], [address] [place] [address] [email or web address] documented as of this encounter Procedures Procedure Name Priority Date/Time Associated Diagnosis Comments OUTSIDE LAB Routine 11/02/2024 3:10 PM EDT documented in this encounter Results * Outside Lab (11/02/2024 3:10 PM EDT) us Historical Provider LAB BLOOD ORDERABLES Benita l Result documented in this encounter Visit Diagnoses Not on filedocumented in this encounter Care Teams Dermatology Nurse Practitioner Relationship Specialty Start Date End Date Alo Bennett MD [facility] [place] [address] PCP - General Internal Medicine 12/08/24 documented as of this encounter Additional Source Comments The information contained in this document represents components of the legal health record. It is not the complete legal health record.[facility]
--- OUTSIDE RECORDS SUMMARY | 2025-01-25 10:40 | XMS_ITS | Encounter Summary ---
Author Organization [facility] Address [address] [place] [id number] Phone Care Team Providers Care Hydraulic Controls Technician Name Role Phone Alo Bennett MD Primary Care Provider [phone] Reason for Visit * Reason Onset Date Comments Referral 12/08/2024 Encounter Details Date Type Department Care Team ([facility] st Contact Info) Description 12/08/2024 Telephone [employer] [facility] [address] [place] [address] [email or web address] Referral Social History Tobacco [...] referral. Please contact and advise. Central Support Screen Tender (Please do not reply to this user; [...] Description 05/03/2025 10:10 AM EST Office Visit [facility] Rheumatology [address] [place] [address] Cheri Lainez MD, MPH [address] [facility], [facility] [address] [place] [address] [email or web address] documented as of this encounter Visit Diagnoses Not on filedocumented in this encounter Care Teams Hydraulic Controls Technician Relationship Specialty Start Date End Date Alo Bennett MD [address] [facility] [place] [address] PCP - General Internal Medicine 12/08/24 documented as of this encounter Additional Source Comments The information contained in this document represents components of the legal health record. It is not the complete legal health record.[facility]
--- OUTSIDE RECORDS SUMMARY | 2025-01-25 10:40 | XMS_ITS | Clinical Summary ---
Author Organization [facility] Address [address] [place] [address] Phone Care Team Providers Care Behavioral Modification Assistant Name Role Phone Alo Bennett MD Primary Care Provider [phone] Allergies No known active allergies Medications escitalopram [...] ight lower leg, limited to breakdown skin ([facility] V24, [facility] V28) 10/27/2024 Chronic venous hypertension (idiopathic) with ulcer of right lower extremity (CODE) ([facility] V24, [facility] V28) 05/18/2024 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 ([facility] V24, [facility] V28) 05/18/2024 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 ([facility] V24, [facility] V28) 04/09/2024 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 ([facility] V24, [facility] V28) 03/12/2024 Non-pressure chronic ulcer o f other part of right lower leg with fat layer exposed ([facility] V24, [facility] V28) 03/12/2024 Varicose 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 ([facility] V24, [facility] V28) 03/12/2024 Localized edema 03/12/2024 Encounters Date Type Department Care Team Description 12/09/2024 8:30 AM EDT Office Visit [facility] [address] [place] [phone] Ryan Amaya PA Chronic venous hypertension (idiopathic) with ulcer of right lower extremity (CODE) ([facility] V24, [facility] V28) (Primary Dx); Non-pressure chronic ulcer right lower leg, limited to breakdown skin ([facility] V24, [facility] V28) 11/16/2024 9:15 AM EDT Office Visit [facility] [address] [place] [phone] Ryan Amaya PA Chronic venous hypertension (idiopathic) with ulcer of right lower extremity (CODE) ([facility] V24, [facility] V28) (Primary Dx); Non-pressure chronic ulcer right lower leg, limited to breakdown skin ([facility] V24, [facility] V28); Localized edema 10/27/2024 9:30 AM EDT Office Visit [facility] [address] [place] [phone] Ryan Amaya PA Chronic venous hypertension (idiopathic) with ulcer of right lower extremity (CODE) ([facility] V24, [facility] V28) (Primary Dx); Non-pressure chronic ulcer right lower leg, limited to breakdown skin ([facility] V24, [facility] V28) from Last 3 Months Surgical History Surgery Date Site/Laterality Comments TUBAL LIGATION PROCEDURE: HISTORICAL TUBAL LIGATION BREAST REDUCTION 2006 PROCEDURE: [place] BREAST REDUCTION SKIN GRAFT Medical History Medical [...] Additional history exists Influenza Vaccine (#1) 2024 , 02/05/2022, 03/08/2021, Additional history exists DTaP,Tdap,and Td Vaccines (4 - Td or Tdap) 07/15/2027 07/14/2017, 06/25/2013, 04/28/2013 RSV Immunization Adult Patients (1 - 1-dose 75+ series) 01/17/2047 MMR Vaccines Aged Out 07/18/2017 No longer [...] 4 Care Plan Impaired Tissue No Della Lane, title examiner volume breakdown reduced by X% by week 8 Care Plan Impaired Tissue No Della Lane, title examiner volume breakdown reduced by X% by week 12 Care Plan Impaired Tissue No Della Lane, DEBBIE Quit using tobacco (cigarettes, smokeless, etc) Care Plan Education needed on impact of smoking on wound No change(2024 4:15 PM EST) No Della Lane RN Reduce tobacco use (cigarettes, smokeless, etc) [...] omised skin integrity. No Della Lane RN Additional Health Concerns Active Problems Noted Date Diagnosed Date Impaired Tissue 03/15/2024 Education needed on impact of smoking on wound 1 05/15/2023 Education needed related to ulceration/compromised skin integrity. 03/15/2024 Insurance [facility] Care Teams Behavioral Modification Assistant Relationship Specialty Start Date End Date Alo Bennett MD [address] [place] [phone] PCP - General Internal Medicine 03/12/24
--- OUTSIDE RECORDS SUMMARY | 2025-01-25 10:40 | XMS_ITS | Encounter Summary ---
Author Organization [facility] Address [address] [place] [address] [address] [place] [address] Phone Care Team Providers Care Town Clerk Name Role Phone Alo Bennett MD Primary Care Provider Reason for Visit * Reason Comments Med Change Request Encounter Details Date Type Department Care Team ([facility] Contact Info) Description 12/29/2024 Refill [facility] Rheumatology [address] [place] [address] Cheri Lainez MD, MPH [address] [facility], [address] [place] [address] [email or web address] Med Change Request Social History Tobacco Use [...] Description 05/03/2025 10:10 AM EST Office Visit [facility] Rheumatology [address] [place] [address] Cheri Lainez MD, MPH [address] [facility], [address] [place] [address] [email or web address] documented as of this encounter Visit Diagnoses Diagnosis Bilateral primary osteoarthritis of knee documented in this encounter Care Teams Town Clerk Relationship Specialty Start Date End Date Alo Bennett MD [address] [place] [address] [place] [address] PCP - General Internal Medicine 12/08/24 documented as of this encounter Additional Source Comments The information contained in this document represents components of the legal health record. It is not the complete legal health record.[facility]
== END 2025-01-25 10:44 | disposition home or self-care (01) ==
LOC: HO.HPODS 09:49
PROVIDERS: PCP Internal Medicine; Visit Provider Student in an Organized Health Care Education/Training Program
DX: M12.9 Arthropathy, unspecified (principal); M20.41 Other hammer toe(s) (acquired), right foot; M20.42 Other hammer toe(s) (acquired), left foot; M20.11 Hallux valgus (acquired), right foot; M20.12 Hallux valgus (acquired), left foot; M21.621 Bunionette of right foot; M21.622 Bunionette of left foot; M79.671 Pain in right foot; M79.672 Pain in left foot; M77.51 Other enthesopathy of right foot and ankle
CPT/HCPCS: 29540; 99214

== ENCOUNTER → 2025-01-25 09:48 | Outpatient (BNVA) | payer OTHER, SELFPAY | PROVIDERS: PCP Internal Medicine; Visit Provider Student in an Organized Health Care Education/Training Program | DX: M79.671 Pain in right foot (principal); M79.672 Pain in left foot; M20.41 Other hammer toe(s) (acquired), right foot; M20.42 Other hammer toe(s) (acquired), left foot; M20.11 Hallux valgus (acquired), right foot; M20.12 Hallux valgus (acquired), left foot; M21.621 Bunionette of right foot; M21.622 Bunionette of left foot; M12.9 Arthropathy, unspecified; M77.51 Other enthesopathy of right foot and ankle | CPT/HCPCS: 29540; 99212 ==

== ENCOUNTER 2025-04-12 10:03 | Outpatient (REF) | payer OTHER, SELFPAY ==
[2025-04-12 13:39] LABS: MANUAL DIFF FLAG NO
[2025-04-12 13:45] LABS: Hematocrit 43.6 % (37.0-47.0); Hemoglobin 14.4 g/dl (12.0-16.0); Imm Gran Abs Auto 0.01 X10*3/uL (0.00-0.03); Imm Gran Pct Auto 0.2 % (0.0-0.4); Lymphocytes Absolute Auto 1.7 X10*3/uL (1.2-4.9); Mean Corpuscular HGB Conc 33.0 g/dl (31.0-35.0); Mean Corpuscular Hemoglobin 30.4 pg (27.0-33.0); Mean Corpuscular Volume 92.2 fL (80.0-98.0); NRBC Abs Auto 0.000 X10*3/uL (0.0-0.012); NRBC Pct Auto 0.0 /100WBC (0.0-0.2); Platelet Count 271 X10*3/uL (160-400); Red Blood Count 4.73 X10*6/uL (4.20-5.50); White Blood Count 6.3 X10*3/uL (4.8-10.8)
[2025-04-12 15:02] LABS: Alanine Aminotransferase 25 U/L (0-31); Albumin Level 4.2 g/dL (3.5-5.0); Alkaline Phosphatase 100 U/L (39-117); Anion Gap 11 (12-20); Aspartate Amino Transferase 27 U/L (5-31); Blood Urea Nitrogen 17 mg/dL (9-16); Calcium 9.4 mg/dL (8.4-10.2); Carbon Dioxide 24 mmol/L (22-29); Chloride 107 mmol/L (96-108); Estimated Glomerular Filt Rate > 60; Potassium 4.6 mmol/L (3.3-5.1); Sodium 137 mmol/L (135-145); Total Protein 8.2 g/dL (6.5-8.0)
[2025-04-12 15:34] LABS: Free T4 (Free Thyroxine) 1.24 ng/dL (0.71-1.85)
[2025-04-16 13:33] LABS: Vitamin D 25-OH, D2 4 ng/mL; Vitamin D 25-OH, D3 26 ng/mL; Vitamin D 25-OH, Total 30 ng/mL (30-100)
== END 2025-04-12 10:04 | disposition home or self-care (01) ==
LOC: HO.HMGCLDS 10:03
PROVIDERS: PCP Internal Medicine; Visit Provider Internal Medicine
DX: F41.1 Generalized anxiety disorder (principal); F33.41 Major depressive disorder, recurrent, in partial remission; I73.9 Peripheral vascular disease, unspecified; E03.8 Other specified hypothyroidism; E66.01 Morbid (severe) obesity due to excess calories; M79.671 Pain in right foot; M79.672 Pain in left foot; M79.644 Pain in right finger(s); M79.645 Pain in left finger(s); G89.29 Other chronic pain; M77.8 Other enthesopathies, not elsewhere classified; G47.9 Sleep disorder, unspecified; Z68.41 Body mass index [BMI] 40.0-44.9, adult
CPT/HCPCS: 36415; 80053; 82306; 83721; 84439; 84443; 85025; 99212

== ENCOUNTER 2025-04-12 10:03 | Outpatient (AMB) | payer OTHER, SELFPAY ==
--- NOTE | 2025-04-12 10:06 | A.OFFPC_ITS ---
Vital Signs 04/12/25 10:07 Height 5 ft 6 in Weight 270 lb BMI 43.6 BP 130/78 Blood Pressure Location Lt brachial Position Sitting Pulse 91 Pulse Source Pulse Oximeter Pulse Oximetry (%) 96 Intake Visit Reasons: Pain Management Allergies No Known Allergies (No Known Allergies*) Allergy (Verified 04/12/25 10:08) Medication List - Last Reconciled 04/12/25 by Alo Bennett MD duloxetine 60 mg PO DAILY hydroxyzine HCl 25 mg PO TID PRN ibuprofen 800 mg PO Q8H PRN 30 days levothyroxine 200 mcg PO DAILY 90 days lidocaine 5% (DermacinRx Lidocan) 1 patch topical DAILY oxycodone-acetaminophen 5-325 mg (Percocet) 1 tab PO BID PRN 30 days quetiapine 50 mg PO BEDTIME Tobacco use date assessed: 10/08/24 Dental Screening Dental Screen Date: 10/08/24 HPI Pain Management HPI Details History of Present Illness The patient is a 55 year old female presenting for management of multiple chronic issues including widespread pain. Musculoskeletal Pain and Arthritis: - The patient complains of significant, widespread pain in her hands, knees, and feet. - She has been diagnosed with tendinitis in both thumbs, hammertoes, bunions, and bone spurs. - A nursing home manager evaluated her and did not suspect rheumatoid arthritis, but suggested the presence of Zaman's cysts behind both knees, though no x-rays were performed. - She is currently undergoing physical t herapy for her feet and occupational therapy for her hands. - Her clinical research management associate and physical therapist recommended a referral to a pain specialist. Chronic Leg Wound and Vascular Issues: - The patient has a history of a chronic leg wound for over 20 years, which healed in April or May. - Despite the wound being healed, she re cently began experiencing a stinging sensation in the wound area for the past week. - She has a history of seeing providers at a wound clinic and has undergone surgeries for the wound. - There is suspicion of an underlying va scular problem, potentially microvascular in nature, contributing to poor healing. - It was suggested she follow up with a vascular specialist. Mental Health: - The patient is seeing a therapist and a nurse practitioner who diagnosed her with severe depression, anxiety, and PTSD. - She has been prescribed medications by the nurse practitioner for these conditions. Medical History: - Anxiety, diagnosed by a nurse practiti richard. - PTSD, diagnosed by a nurse wendy cheek. - Severe depression, diagnosed by a nurs e practitioner. - Tendinitis in both thumbs. - Hammer toes, bunions, and bone spurs. - Zaman's cysts behind both knees, suspe cted by rheumatology. - Osteoarthritis. - Chronic leg wound for over 20 years, n ow healed. - Hypothyroidism. - Vitamin D deficiency. Surgical History: - History of surgeries for a chronic leg wound. Medications: - Quetiapine - Hydroxyzine - Duloxetine - Vitamin D Social History: - Functional Status: The patient reports limitations in her daily activities due to pain. Family History: - Osteoarthritis Diagnostic Results: - Labs: Last blood test was in October, ind icating she is due for repeat testing. - Imaging: Rheumatology did not perform an x-ray of the knees. - Other: Rheumatology evaluation did not suggest rheumatoid arthritis based on exam and blood tests. Problem List - Severe depression - Anxiety - Post-traumatic stress disorder (PTSD) - Tendinitis in bilateral thumbs - Hammer toes and bunions - Bone spurs - Bilateral Zaman's cysts - Generalized osteoarthritis - Chronic pain syndrome - Post-surgical pain (leg wound) - Peripheral vascular disease - Hypothyroidism - Vitamin D deficiency - Preventative care: Blood work Plan - Initiate a pain contract for oxycodone to manage stinging pain in the leg and other chronic pain issues. - Prescribe oxycodone, 45 tablets per mo nth, to be taken once or twice daily as needed for pain. - Him Tech the patient on the requirement for monthly in-person visits for oxycodone refills and the risks of drowsiness and dizziness, especially when taken with quetiapine. - Place a referral to a vascular special ist in [place] for evaluation of her leg pain and suspected vascular issues. - Order comprehensive blood tests, inclu ding TSH for thyroid monitoring, CBC, kidney function panel, and cholesterol panel, to be done today. - Advise the patient to continue taking Vitamin D supplements, with levels to be checked in her upcoming blood work. - The patient will continue with her y sical and occupational therapy for her feet and hands. - The patient will follow up with her eumatologist on April 20 and can obtain knee x-rays from that provider if needed. - The patient was provided with a pain c ontract to read and sign before leaving the office. - Schedule a follow-up appointment in fo ur weeks for medication management. Review of Systems - General: No fever no chills - Neurological: No headaches no dizziness - Ear nose throat: No sore throat no hearing difficulty no ear pain - Cardiovascular: No syncope, no chest pain, no palpitations - Gastrointestinal: No nausea vomiting or diarrhea - Endocrine: No polyuria polydipsia no heat intolerance - Genitourinary: No dysuria , no blood in urine Physical Exam General: No acute distress HEENT: No acute findings Neck: Supple Respiratory system: Able to talk in full sentences, no audible wheeze Cardiovascular: S1-S2 regular in rate and rhythm Gastrointestinal: No pain Extremities: Pain in feet, knees, and hands; tendinitis in both thumbs; hammer toes, bunions, bone spurs present CLINICAL RESEARCH MANAGER: Alert awake oriented x3 motor intact Skin: Normal turgor [facility] Medical History Tendinitis of right foot Callus of foot Other specified epidermal thickening Pain in both feet Tailor's bunion of both feet Hallux valgus, bilateral Hammertoes of both feet Peripheral vascular disease Chronic wound of extremity Vitamin D deficiency Other specified hypothyroidism Open ankle wound Surgical History Status post breast reduction History of tubal ligation Family History Father Lung cancer Smoker Mother Anxiety Maternal Grandfather No problems noted. Maternal Grandmother Cancer Paternal Grandmother No problems noted. Paternal Grandfather No problems noted. Brother No problems noted. Sister No problems noted. Sister No problems noted. Sister No problems noted. Sister No problems noted. Son No problems noted. Daughter No problems noted. Other Substance use disorder Social History Housing: House Alcohol intake: current Alcohol intake frequency: a few times a week Patient Tobacco Use Status: Current everyday Tobacco user Tobacco use type: Cigarette Cigarette Packs Per Day: 1 e-Cigarette/Vaping Use: Never Used service: No Current occupational status: unemployed Current occupation: rt handed Sexual orientation: Straight/Heterosexual Gender identity: Female Cognitive needs: No Hearing needs: No Vision needs: Yes Female Reproductive History Menstrual Age of Menarche: 15 Questionnaire Thrive Questionnaire Date Thrive assessed: 05/21/24 I am a: Patient What is your living situation today?: I have a place to live, but I am worried about losing it in the future Within the past 12 months, did the food you bought not last and you didn't have the money to get more?: Sometimes True Within the past 12 months, did you worry whether your food would run out before you got money to buy more?: Sometimes True Do you have trouble paying for medicines?: No Do you have trouble getting transportation to medical appointments?: No Do you have trouble paying your heating and electricity bill?: Yes Do you have trouble taking care of your child, family member or friend?: No Do you have trouble with day-to-day activities such as bathing, preparing meals, shopping, managing finances, etc.?: No Are you currently unemployed and looking for a job?: Yes Are you interested in more education?: No Currently or been in a relationship where the following occur: No concerns reported THRIVE Score: 4 CINDI-7 AMB Questionnaire CINDI-7 Date CINDI - 7 assessed: 07/09/24 Source: Developed by Drs. Arjun Cantrell, Savannah Escoto, Macario Carrillo and colleagues, with an educational paul from [employer]. Physical exam (Primary Care) Vital Signs: Last Vital Signs Pulse 91 04/12/25 10:07 BP 130/78 04/12/25 10:07 Pulse Ox 96 04/12/25 10:07 BMI result Body Mass Index 43.6 Tobacco/Smoking Status: Tobacco use Status Tobacco use date assessed 10/08/24 04/12/25 10:11 Patient Tobacco Use Status Current everyday Tobacco 04/12/25 10:11 Tobacco use type Cigarette 04/12/25 10:11 e-Cigarette/Vaping Use Never Used 04/12/25 10:11 Thrive Assessment: Date of Thrive Assessment Date Thrive assessed 05/21/24 04/12/25 10:11 Currently or been in a relationship where the following occur: No concerns reported Coding Level of Care Code Est Pt Level 5 (75067) Diagnoses Peripheral vascular disease I73.9 Anxiety, generalized F41.1 Recurrent major depressive disorder, in partial remission F33.41 Major depression recurrence: recurrent Other specified hypothyroidism E03.8 Morbid obesity due to excess calories E66.01 Chronic pain of both feet M79.671; M79.672; G89.29 Bilateral thumb pain M79.644; M79.645 Tendinitis of extensor tendon of both hands M77.8 Difficulty sleeping G47.9 Pain management R52 Time Spent (min) 40 Comment 40 minutes spent in care of this patient Assessment & Plan Assessment & Plan (1) Peripheral vascular disease: Code(s): I73.9 - Peripheral vascular disease, unspecified Category: Medical (2) Anxiety, generalized: Code(s): F41.1 - Generalized anxiety disorder Category: Medical (3) Depression, major, in partial remission: Code(s): F32.4 - Major depressive disorder, single episode, in partial remission Category: Medical Qualifiers: Major depression recurrence: recurrent Qualified Code(s): F33.41 - Major depressive disorder, recurrent, in partial remission (4) Other specified hypothyroidism: Code(s): E03.8 - Other specified hypothyroidism Category: Medical (5) Morbid obesity due to excess calories: Code(s): E66.01 - Morbid (severe) obesity due to excess calories Category: Medical (6) Chronic pain of both feet: Code(s): M79.671 - Pain in right foot; M79.672 - Pain in left foot; G89.29 - Other chronic pain Category: Medical (7) Bilateral thumb pain: Code(s): M79.644 - Pain in right finger(s); M79.645 - Pain in left finger(s) Category: Medical (8) Tendinitis of extensor tendon of both hands: Code(s): M77.8 - Other enthesopathies, not elsewhere classified Category: Medical (9) Difficulty sleeping: Code(s): G47.9 - Sleep disorder, unspecified Category: Medical (10) Pain management: Code(s): R52 - Pain, unspecified Category: Medical Plan Problem List - Severe depression - Anxiety - Post-traumatic stress disorder (PTSD) - Tendinitis in bilateral thumbs - Hammer toes and bunions - Bone spurs - Bilateral Zaman's cysts - Generalized osteoarthritis - Chronic pain syndrome - Post-surgical pain (leg wound) - Peripheral vascular disease - Hypothyroidism - Vitamin D deficiency - Preventative care: Blood work Plan - Initiate a pain contract for oxycodone to manage stinging pain in the leg and other chronic pain issues. - Prescribe oxycodone, 45 tablets per month, to be taken once or twice daily as needed for pain. - Him Tech the patient on the requirement for monthly in-person visits for oxycodone refills and the risks of drowsiness and dizziness, especially when taken with quetiapine. - Place a referral to a vascular specialist in [place] for evaluation of her leg pain and suspected vascular issues. - Order comprehensive blood tests, including TSH for thyroid monitoring, CBC, kidney function panel, and cholesterol panel, to be done today. - Advise the patient to continue taking Vitamin D supplements, with levels to be checked in her upcoming blood work. - The patient will continue with her physical and occupational therapy for her feet and hands. - The patient will follow up with her nursing home manager on April 20 and can obtain knee x-rays from that provider if needed. - The patient was provided with a pain contract to read and sign before leaving the office. - Schedule a follow-up appointment in four weeks for medication management. Orders: Orders Complete Blood Count Auto Diff Today E03.8 - Other specified hypothyroidism, E66.01 - Morbid (severe) obesity due to excess calories, F33.41 - Major depressive disorder, recurrent, in partial remission, F41.1 - Generalized anxiety disorder, G47.9 - Sleep disorder, unspecified, G89.29 - Other chronic pain, I73.9 - Peripheral vascular disease, unspecified, M77.8 - Other enthesopathies, not elsewhere classified, M79.644 - Pain in right finger(s), M79.645 - Pain in left finger(s), M79.671 - Pain in right foot, M79.672 - Pain in left foot, R52 - Pain, unspecified Comprehensive Met. Panel Today E03.8 - Other specified hypothyroidism, E66.01 - Morbid (severe) obesity due to excess calories, F33.41 - Major depressive dis order, recurrent, in partial remission, F41.1 - Generalized anxiety disorder, G47.9 - Sleep disorder, unspecified, G89.29 - Other chronic pain, I73.9 - Peripheral vascular disease, unspecified, M77.8 - Other enthesopathies, not elsewhere classified, M79.644 - Pain in right finger(s), M79.645 - Pain in left finger(s), M79.671 - Pain in right foot, M79.672 - Pain in left foot, R52 - Pain, unspecified LDL Cholesterol Direct Today E03.8 - Other specified hypothyroidism, E66.01 - Morbid (severe) obesity due to excess calories, F33.41 - Major depressive disorder, recurrent, in partial remission, F41.1 - Generalized anxiety disorder, G47.9 - Sleep disorder, unspecified, G89.29 - Other chronic pain, I73.9 - Peripheral vascular disease, unspecified, M77.8 - Other enthesopathies, not elsewhere classified, M79.644 - Pain in right finger(s), M79.645 - Pain in left finger(s), M79.671 - Pain in right foot, M79.672 - Pain in left foot, R52 - Pain, unspecified TSH reflex Free T4 Today E03.8 - Other specified hypothyroidism, E66.01 - Morbid (severe) obesity due to excess calories, F33.41 - Major depressive disorder, recurrent, in partial remission, F41.1 - Generalized anxiety disorder, G47.9 - Sleep disorder, unspecified, G89.29 - Other chronic pain, I73.9 - Peripheral vascular disease, unspecified, M77.8 - Other enthesopathies, not elsewhere classified, M79.644 - Pain in right finger(s), M79.645 - Pain in left finger(s), M79.671 - Pain in right foot, M79.672 - Pain in left foot, R52 - Pain, unspecified Vitamin D 25-OH (D2 and D3) Today E03.8 - Other specified hypothyroidism, E66.01 - Morbid (severe) obesity due to excess calories, F33.41 - Major depressive disorder, recurrent, in partial remission, F41.1 - Generalized anxiety disorder, G47.9 - Sleep disorder, unspecified, G89.29 - Other chronic pain, I73.9 - Peripheral vascular disease, unspecified, M77.8 - Other enthesopathies, not elsewhere classified, M79.644 - Pain in right finger(s), M79.645 - Pain in left finger(s), M79.671 - Pain in right foot, M79.672 - Pain in left foot, R52 - Pain, unspecified Referrals Vascular Surgery Referral I73.9 - Peripheral vascular disease, unspecified Medications: Refilled oxycodone-acetaminophen 5-325 mg (Percocet) Partial Fill upon patient request. generic can be dispensed 1 tab PO BID PRN 45 tabs 0RF Wound right lower leg 30 days
[2025-04-12 10:07] VITALS: BP 130/78; PULSE 91; O2SAT 96; BMI 43.6
--- OUTSIDE RECORDS SUMMARY | 2025-04-12 12:25 | XMS_ITS | Clinical Summary ---
Author Organization [facility] Address [address] [place] [address] Phone Care Team Providers Care Carpet Repairer Name Role Phone Alo Bennett MD Primary Care Provider [phone] Allergies No known active allergies Medications ibuprofen (ADVIL,MOTRIN) 800 MG tablet Take 800 mg by mouth every 8 (eight) hours as needed for pain (specific location in comments). Active levothyroxine (SYNTHROID, LEVOTHROID) 200 MCG tablet Take 200 mcg by mouth every morning. Active oxyCODONE-acetamino phen (PERCOCET) 5-325 mg per tablet Take 1 tablet by mouth 2 (two) times a day as needed for pain (specific location in comments). Active QUEtiapine (SEROQUEL) 25 MG tablet Take 50 mg by mouth nightly at bedtime. Active DULoxetine (CYMBALTA) 30 MG capsule Take 30 mg by mouth daily. Active meloxicam (MOBIC) 15 MG tabletIndications:B ilateral primary osteoarthritis of knee Take 1 tablet (15 mg total) by mouth daily. With food as directed 30 tablet 5 Active Active Problems Problem Noted Date Diagnosed Date Bilateral primary osteoarthritis of knee 025 Assessment & Plan (12/29/2024 7:54 PM EDT): [...] Encounters Date Type Department Care Team Description 03/11/2025 Telephone [facility] Rheumatology [address] [place] [address] Cheri Lainez MD, MPH Forms & Paperwork from Last 3 Months Family History Medical [...] Care Team (Late st Contact Info) Description 04/20/2025 9:10 AM EST Office Visit [facility] Rheumatology [address] [place] [address] [place] [address] Cheri Lainez MD, MPH [address] [facility], [address] [place] [address] [email or web address] Maintenance Due Date Last Done Comments [...] FOBT 01/17/2017 SIGMOIDOSCOPY 01/17/2017 VIRTUAL COLONOSCOPY 01/17/2017 RSV VACCINE (1 - Risk 50-74 years 1-dose series) 01/17/2022 ZOSTER VACCINES (1 of 2) 01/17/2022 INFLUENZA VACCINE (#1) 2024 4, 02/05/2022, 03/08/2021, Additional history exists COVID-19 VACCINE [...] topic Medical Devices Not on file Insurance [place] [address] [place] [id number] ACO Care Teams Carpet Repairer Relationship Specialty Start Date End Date Alo Bennett MD [facility] [place] [address] PCP - General Internal Medicine 12/08/24 Additional Source Comments The information contained in this document represents components of the legal health record. It is not the complete legal health record.[facility]
--- OUTSIDE RECORDS SUMMARY | 2025-04-12 12:25 | XMS_ITS | Clinical Summary ---
Author Organization [facility] Address [address] [place] [address] Phone Care Team Providers Care Immigration Case Manager Name Role Phone Alo Bennett MD Primary Care Provider [phone] Allergies No known active allergies Medications escitalopram (LEXAPRO) 20 mg tablet if needed. 4 Active ibuprofen (ADVIL,MOTRIN) 800 mg tablet 4 Active levothyroxine (SYNTHROID, LEVOTHROID) 200 mcg tablet Take 1 tablet (200 mcg total) by mouth 1 (one) time each day. for 90 days Active oxyCODONE-acetam inophen (PERCOCET) 5-325 mg per tablet if needed. 4 Active QUEtiapine (SEROquel) 25 mg tablet Take 2 tablets (50 mg total) by mouth at bedtime. at bedtime for 30 days 5 Active DULoxetine (CYMBALTA) [address] capsule Take 1 capsule (30 mg total) by mouth 1 (one) time each day. Do not crush or chew. Active silver sulfADIAZINE (SILVADENE, SSD) 1 % cream Apply topically 1 (one) time each day. 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, limited to breakdown skin 10/27/2024 Chronic venous hypertension (idiopathic) with ulcer [...] er of ankle 03/12/2024 Localized edema 03/12/2024 Surgical History Surgery Date Site/Laterality Comments TUBAL LIGATION PROCEDURE: HISTORICAL TUBAL LIGATION BREAST REDUCTION 2006 PROCEDURE: [place] BREAST REDUCTION SKIN GRAFT Medical History Medical [...] Last Done Comments Breast Cancer Screening 1972 Colorectal Cancer Screening: Colonoscopy 1972 Hepatitis B Vaccines (1 of 3 - 19+ 3-dose series) 01/17/1991 Pneumococcal Vaccine: 50+ Years (1 of 2 - PCV) 01/17/1991 Cervical Cancer Screening: Pap Smear 01/17/1993 Zoster Vaccines (1 of 2) 01/17/2022 Cholesterol Screening (Lipid Panel) 03/31/2022 HIV Screening 03/31/2022 Hepatitis C Screening [...] ulceration/compr omised skin integrity. Della Worthy RN Additional Health Concerns Active Problems Noted Date Diagnosed Date Impaired Tissue 03/15/2024 Education needed on impact of smoking on wound 1 05/15/2023 Education needed related to ulceration/compromised skin integrity. 03/15/2024 Insurance [facility] Care Teams Immigration Case Manager Relationship Specialty Start Date End Date Alo Bennett MD [address] [place] [address] PCP - General Internal Medicine 03/12/24
== END 2025-04-12 10:41 | disposition home or self-care (01) ==
LOC: HO.HMCC 10:04
PROVIDERS: PCP Internal Medicine; Visit Provider Internal Medicine
DX: I73.9 Peripheral vascular disease, unspecified (principal); F41.1 Generalized anxiety disorder; F33.41 Major depressive disorder, recurrent, in partial remission; E03.8 Other specified hypothyroidism; E66.01 Morbid (severe) obesity due to excess calories; M79.671 Pain in right foot; M79.672 Pain in left foot; G89.29 Other chronic pain; M79.644 Pain in right finger(s); M79.645 Pain in left finger(s); M77.8 Other enthesopathies, not elsewhere classified; G47.9 Sleep disorder, unspecified; R52 Pain, unspecified

== ENCOUNTER 2025-04-14 10:49 | Outpatient (AMB) | payer OTHER, SELFPAY ==
[2025-04-14 10:58] VITALS: BMI 43.6
--- NOTE | 2025-04-14 10:58 | A.OFFVIS_ITS ---
Vital Signs 04/14/25 10:58 Height 5 ft 6 in Weight 270 lb BMI 43.6 Intake Visit Reasons: fu B/L foot pain - after PT Intake Note: Radha is a 55 year old female who presents to the office today for a follow up B/L foot pain - after PT. Pt had her intake appt for PT on 04/07. Pt states she is still experiencing a lot of pain and she states her PCP had prescribed her ox ycodone for pain management. no new concerns since her last visit. Allergies No Known Allergies (No Known Allergies*) Allergy (Verified 04/14/25 10:59) Medication List - Last Reconciled 04/14/25 by Mary Van DPM ammonium lactate 12% 1 appl topical DAILY duloxetine 60 mg PO DAILY hydroxyzine HCl 25 mg PO TID PRN ibuprofen 800 mg PO Q8H PRN 30 days levothyroxine (Synthroid) 175 mcg PO DAILY lidocaine 5% (DermacinRx Lidocan) 1 patch topical DAILY oxycodone-acetaminophen 5-325 mg (Percocet) 1 tab PO BID PRN 30 days quetiapine 50 mg PO BEDTIME HPI Comments Details: The patient is a 55 year old female presenting for a follow-up for bilateral foot pain associated with arthritis and bunions. She reports pain primarily in the right foot, localized to the top of the foot when driving and the medial side of the foot when walking. She also experiences pain on the medial side of the left foot but denies pain on the top of the left foot. For generalized pain in her hands, knees, and feet, her primary care provider recently prescribed P ercocet, which she states assist in pain relief. The patient has begun physical therapy, having attended one session so far. Patient states she has been experiencing pain to the plantar aspect of the feet due to calluses. She denies any drainage, purulence, or bleeding from the lesions. She denies any other pedal concerns. [facility] Medical History (Updated 04/24/25 @ 10:54 by Mary Van DPM) Intractable plantar keratosis Xerosis of skin Tendinitis of right foot Callus of foot Other specified epidermal thickening Pain in both feet Tailor's bunion of both feet Hallux valgus, bilateral Hammertoes of both feet Peripheral vascular disease Chronic wound of extremity Vitamin D deficiency Other specified hypothyroidism Open ankle wound Surgical History Status post breast reduction History of tubal ligation Family History Father Lung cancer Smoker Mother Anxiety Maternal Grandfather No problems noted. Maternal Grandmother Cancer Paternal Grandmother No problems noted. Paternal Grandfather No problems noted. Brother No problems noted. Sister No problems noted. Sister No problems noted. Sister No problems noted. Sister No problems noted. Son No problems noted. Daughter No problems noted. Other Substance use disorder Social History Housing: House Alcohol intake: current Alcohol intake frequency: a few times a week Patient Tobacco Use Status: Current everyday Tobacco user Tobacco use type: Cigarette Cigarette Packs Per Day: 1 e-Cigarette/Vaping Use: Never Used service: No Current occupational status: unemployed Current occupation: rt handed Sexual orientation: Straight/Heterosexual Gender identity: Female Cognitive needs: No Hearing needs: No Vision needs: Yes Female Reproductive History Menstrual Age of Menarche: 15 Review of Systems Narrative Review of Systems - Musculoskeletal: Reports pain on the top and side of the right foot and the side of the left foot. - Reports generalized pain in hands and knees. - Integumentary: Reports a new stinging sensation at night at the site of a previous wound. - Reports dry skin on feet. Const Details: - Musculoskeletal: Reports bilateral foot pain, particularly in the presence of the midfoot, bunion, and hammertoes. Denies acute injury. - Dermatological: Reports hyperkeratotic lesions to the plantar aspects of the feet bilaterally. All systems reviewed & are unremarkable except as noted in HPI and below Physical Exam Vital Signs: BMI result Body Mass Index 43.6 Extrem Other: Bilateral lower extremity focused physical exam: Derm: Left- Diffuse xerosis noted. 3 hyperkeratotic lesions noted to the plantar aspect of the left foot. No open wounds or abrasions noted. Skin supple and turgor within normal limits. No clinical signs of infection. Ecchymosis noted to the medial aspect of the ankle (denies any recent injuries). Right- Diffuse xerosis noted. 3 hyperkeratotic lesions noted to the plantar aspect of the right foot. Slight mottling of skin noted. Healed wound with sc arring noted to the medial aspect of the ankle. Noted coloration and thickness to the distal aspect of the right hallucal nail with normal length. Vascular: DP pulse palpable bilaterally. PT pulse palpable on the left and nonpalpable on the right. Capillary refill time less than 3 seconds bilaterally. Varicosities noted to the right. Edema noted to the right. Temperature gradient warm to cool. Neuro: Protective sensation is grossly intact. Musculoskeletal: Pain on palpation to the dorsal aspect of the foot in the area of the midfoot. Pain on palpation to the hyperkeratotic lesions noted bilaterally. Pain on palpation to the 5th MPJ and 1st MPJs bilaterally. Pain with range of motion of the 1st and 5th MPJs bilaterally. Hallux valgus noted bilaterally with a prominent medial eminence. Tailor's bunion noted to the 5th digit bilaterally with prominent lateral eminence. Hammertoe deformities noted to the lesser digits worse to the left 2nd toe with minimal overlapping over the hallux. Antalgic Gait with no assistive device (patient states when pain is increased she utilizes a cane sometimes). No crepitus or fluctuance noted. Office Procedures AMB Debridement/Avulsion Podia Details: Debrided the hyperkeratotic lesions bilaterally using a 15. Blade without incidents. 60956-Vbocicysndm of Callus (2-4) Procedure code (CPT) selection complete AMB Podiatry Dressing Additional procedure code (CPT) needed (68882 - debridement of calluses) Results Reviewed Results Reviewed: Laboratory Tests 04/12/25 04/12/25 10:44 10:47 WBC 6.3 Random Glucose 105 AST 27 ALT 25 Podiatry read of bilateral foot x-rays three views weight-bearing (01/06/2025): HAV noted bilaterally with IM angles of approximately 16 degrees bilaterally. Increase curvature with underlapping of the hallux to the 2nd toe noted on the left foot. Joint space narrowing noted to the 1st MPJ bilaterally. Metatarsus primus elevatus noted bilaterally. Osteophytic changes noted to the midfoot. Calcaneal bone spur is noted bilaterally to the plantar aspects of the calcaneus and mildly to the posterior aspect of the calcaneus. Hammertoe deformities noted to toes 2 through 5 bilaterally. No acute fractures or dislocations noted. Bilateral foot x-rays three views weight-bearing (01/06/2025): FINDINGS: RIGHT FOOT: There is hallux valgus deformity. First MTP joint marginal osteophytes are small. Bipartite medial sesamoid is noted. Small enthesophytes are present at the plantar fascial and Achilles tendon attachments onto calcaneus. Small marginal osteophytes are present in the dorsal midfoot. LEFT FOOT: There is hallux valgus deformity. First MTP joint marginal osteophytes are small. Bipartite medial sesamoid is noted. Small enthesophytes are present at the plantar fascial and Achilles tendon attachments onto calcaneus. Small marginal osteophytes are present in the dorsal midfoot. There is an accessory ossification center dorsal to the talonavicular joint. IMPRESSION: Right foot: Hallux valgus deformity with mild first MTP joint osteoarthritis. Mild osteoarthritis in the dorsal midfoot. Left foot: Hallux valgus deformity with mild first MTP joint osteoarthritis. Mild osteoarthritis in the dorsal midfoot. Assessment & Plan Assessment & Plan (1) Xerosis of skin: Code(s): L85.3 - Xerosis cutis Category: Medical (2) Arthritis, multiple joint involvement: Code(s): M12.9 - Arthropathy, unspecified Category: Medical (3) Hammertoes of both feet: Code(s): M20.41 - Other hammer toe(s) (acquired), right foot; M20.42 - Other hammer toe(s) (acquired), left foot Category: Medical (4) Hallux valgus, bilateral: Code(s): M20.11 - Hallux valgus (acquired), right foot; M20.12 - Hallux valgus (acquired), left foot Category: Medical (5) Tailor's bunion of both feet: Code(s): M21.621 - Bunionette of right foot; M21.622 - Bunionette of left foot Category: Medical (6) Pain in both feet: Code(s): M79.671 - Pain in right foot; M79.672 - Pain in left foot Category: Medical (7) Tendinitis of right foot: Code(s): M77.51 - Other enthesopathy of right foot and ankle Category: Medical (8) Peripheral vascular disease: Code(s): I73.9 - Peripheral vascular disease, unspecified Category: Medical (9) Other specified epidermal thickening: Code(s): L85.8 - Other specified epidermal thickening Category: Medical (10) Callus of foot: Code(s): L84 - Corns and callosities Category: Medical (11) Intractable plantar keratosis: Code(s): L84 - Corns and callosities Category: Medical Plan Patient was informed and verbally consented to the use of an ambient scribe for clinic note documentation during this visit. I debrided the hyperkeratotic lesions to bilateral feet. I prescribed ammonium lactate cream for her xerosis. We agreed that the patient should continue her course of physical therapy. I explained that if the pain is still present after completing physical therapy, we will consider a steroid injection into the most painful joint. Advised patient to continue pain control as prescribed by PCP. We discussed prescriptions for orthotics, patient states she would like to wait until after exhausting of the conservative treatment. A follow-up is scheduled in two months to re-evaluate her progress. - Debrided the hyperkeratotic lesions to bilateral feet. - Advised patient to apply an emollient to the area to slow the recurrence rate of the hyperkeratotic lesions. - Prescribed ammonium lactate. - Advised patient to continue with physical therapy. - Advised patient to continue taking Percocet as per scribed by her PCP. - Discussed cortisone injections if pain persists at next appointment. RTC in 2 months. Medications: New ammonium lactate 12% 1 appl topical DAILY 385 grams 0RF L85.3 - Xerosis cutis Coding Level of Care Code Est Pt Level 4 (19616) Diagnoses Xerosis of skin L85.3 Arthritis, multiple joint involvement M12.9 Hammertoes of both feet M20.41; M20.42 Hallux valgus, bilateral M20.11; M20.12 Tailor's bunion of both feet M21.621; M21.622 Pain in both feet M79.671; M79.672 Tendinitis of right foot M77.51 Peripheral vascular disease I73.9 Other specified epidermal thickening L85.8 Callus of foot L84 Intractable plantar keratosis L84 CPT Codes Skin Debridement - CPT: 99829-Aqwlotejzmk of Callus (2-4) ([id number]) Podiatry Dressing - All charges added?: Additional procedure code (CPT) needed ([id number]) Time Spent (min) 36 Comment 6 mins for procedure
--- OUTSIDE RECORDS SUMMARY | 2025-04-14 13:54 | XMS_ITS | Clinical Summary ---
Author Organization [facility] Address [address] [place] [address] Phone Care Team Providers Care Supervisor Smoke Control Name Role Phone Alo Bennett MD Primary Care Provider [phone] Allergies No known active allergies Medications ibuprofen [...] Type Department Care Team Description 03/11/2025 Telephone [facility] [address] [place] [address] Cheri Lainez MD, MPH Forms & [...] Description 04/20/2025 9:10 AM EST Office Visit [facility] [address] [place] [address] Cheri Lainez MD, MPH [address] [facility], [address] [place] [address] [email or web address] Due Date Last Done Comments [...] Devices Not on file Insurance ACO ACO ACO Care Teams Supervisor Smoke Control Relationship Specialty Start Date End Date Alo Bennett MD [address] [place] [address] [place] [address] PCP - General Internal Medicine 12/08/24 Additional Source Comments The information contained in this document represents components of the legal health record. It is not the complete legal health record.[facility]
--- OUTSIDE RECORDS SUMMARY | 2025-04-14 13:54 | XMS_ITS | Clinical Summary ---
Author Organization [facility] Address [address] [place] [address] Phone Care Team Providers Care Fiber Artist Name Role Phone Alo Bennett MD Primary Care Provider [phone] Allergies No known active allergies Medications escitalopram [...] HISTORICAL TUBAL LIGATION BREAST REDUCTION 2006 PROCEDURE: [place] BREAST REDUCTION SKIN GRAFT Medical History Medical [...] related to ulceration/compromised skin integrity. 03/15/2024 Insurance [facility] [employer] Care Teams Fiber Artist Relationship Specialty Start Date End Date Alo Bennett MD [address] [place] [address] PCP - General Internal Medicine 03/12/24
== END 2025-04-14 11:25 | disposition home or self-care (01) ==
LOC: HO.HPODS 10:50
PROVIDERS: PCP Internal Medicine; Visit Provider Student in an Organized Health Care Education/Training Program
DX: L85.3 Xerosis cutis (principal); M12.9 Arthropathy, unspecified; M20.41 Other hammer toe(s) (acquired), right foot; M20.42 Other hammer toe(s) (acquired), left foot; M20.11 Hallux valgus (acquired), right foot; M20.12 Hallux valgus (acquired), left foot; M21.621 Bunionette of right foot; M21.622 Bunionette of left foot; M79.671 Pain in right foot; M79.672 Pain in left foot; M77.51 Other enthesopathy of right foot and ankle; I73.9 Peripheral vascular disease, unspecified; L85.8 Other specified epidermal thickening; L84 Corns and callosities
CPT/HCPCS: 11056; 99214

== ENCOUNTER → 2025-04-14 10:49 | Outpatient (BNVA) | payer OTHER, SELFPAY | PROVIDERS: PCP Internal Medicine; Visit Provider Student in an Organized Health Care Education/Training Program | DX: L85.3 Xerosis cutis (principal); M12.9 Arthropathy, unspecified; M20.41 Other hammer toe(s) (acquired), right foot; M20.42 Other hammer toe(s) (acquired), left foot; M20.11 Hallux valgus (acquired), right foot; M20.12 Hallux valgus (acquired), left foot; M21.621 Bunionette of right foot; M21.622 Bunionette of left foot; M77.51 Other enthesopathy of right foot and ankle; I73.9 Peripheral vascular disease, unspecified; L85.8 Other specified epidermal thickening; L84 Corns and callosities | CPT/HCPCS: 11056; 99212 ==